=== PATIENT | female | born 1975 | race Caucasian/White ===

== ENCOUNTER 2018-02-11 00:14 | Emergency (ER) | payer OTHER ==
[2018-02-11 00:22] VITALS: BP 123/76; PULSE 65; RESP 18; TEMP 98.2
[2018-02-11] MEDS ORDERED: LIDOCAINE VISCOUS 2% 15 ML CUP MUCOUS MEM ONE (00:59)
[2018-02-11] MEDS ORDERED: HYDROcodone/APAP 5-325MG 1 EACH TAB PO STA (01:11)
[2018-02-11] MEDS ORDERED: PENICILLIN VK 500MG STARTER 4 TAB BTL PO STA (01:11)
[2018-02-11] MEDS ORDERED: ACET/COD 300 MG/30 MG STARTER PACK 6 TAB BTL PO STA (01:11)
--- NOTE | 2018-02-11 01:15 | ED ---
ENT HPI - General Chief complaint: Dental/Oral Stated complaint: dental pain Time Seen by Provider: 02/11/18 00:27 Source: patient Mode of arrival: ambulatory Limitations: no limitations - History of Present Illness Initial comments: 42-year-old female patient presents to the emergency department today for evaluation of abscess to the front upper teeth. Patient states that she has been dealing with increased swelling and pain to the area over the last 3 days. Patient states she has been taking Tylenol for this however is not helping much. Patient denies any fevers or chills. Denies any nausea or vomiting. She denies any trismus or difficulty swallowing. Patient denies any broken teeth to the area. States that she does not have dental insurance currently. Patient denies any recent rash, shortness breath, chest pain, abdominal pain, diarrhea, constipation, back pain, numbness, tingling, dizziness, weakness, hematuria, dysuria, urinary urgency, urinary frequency, headache, visual changes , or any other complaints. - Related Data Previous Rx's Medication Instructions Recorded Acetaminophen-Codeine 300-30mg 1 tab PO Q6H PRN #12 tablet 02/11/18 [Tylenol #3] Ibuprofen [Motrin] 600 mg PO Q8HR PRN #30 tab 02/11/18 Penicillin V Potassium [Pen Vee K] 500 mg PO Q6H #40 tablet 02/11/18 Allergies Allergy/AdvReac Type Severity Reaction Status Date / Time Iodine and Iodide Containing Allergy Rash/Hives Verified 02/11/18 00:22 Produc Review of Systems ROS Statement: Those systems with pertinent positive or pertinent negative responses have been documented in the HPI. ROS Other: All systems not noted in ROS Statement are negative. Past Medical History Past Medical History: No Reported History History of Any Multi-Drug Resistant Organisms: None Reported Past Surgical History: Appendectomy, Section Past Psychological History: Depression Smoking Status: Current every day smoker Past Alcohol Use History: None Reported Past Drug Use History: Marijuana General Exam Limitations: no limitations General appearance: alert, in no apparent distress, other (Social well-developed , well-nourished adult female patient in no acute distress. Vital signs upon presentation are temperature 98.2F, pulse 65, respirations 18, blood pressure 123/76, pulse ox 99% on room air.) Eye exam: Present: normal appearance, PERRL, EOMI. Absent: scleral icterus, conjunctival injection, periorbital swelling ENT exam: Present: mucous membranes moist, other (Patient has a large abscess to the frontal upper gingiva. Dental caries noted. No broken teeth.). Absent : normal exam Neck exam: Present: normal inspection. Absent: tenderness, meningismus, lymphadenopathy Respiratory exam: Present: normal lung sounds bilaterally. Absent: respiratory distress, wheezes, rales, rhonchi, stridor Cardiovascular Exam: Present: regular rate, normal rhythm, normal heart sounds. Absent: systolic murmur, diastolic murmur, rubs, gallop, clicks Neurological exam: Present: alert, oriented X3, CN II-XII intact Psychiatric exam: Present: normal affect, normal mood Skin exam: Present: warm, dry, intact, normal color. Absent: rash Course Vital Signs 02/11/18 00:19 Temperature 98.2 F Pulse Rate 65 Respiratory 18 Rate Blood Pressure 123/76 O2 Sat by Pulse 99 Oximetry Procedures - Incision & Drainage Consent Obtained: verbal consent Indication: Dental abscess Site: oral Size (cm): 2 Amount (mLs): 5 (viscous lidocaine) Needle Aspiration Performed?: Yes (Punctured with 18g needle) I&D Drainage Obtained: Pus, Blood Culture Obtained?: No Patient Tolerated Procedure: well Medical Decision Making - Medical Decision Making 42-year-old female patient presented to the emergency department today for evaluation of dental abscess. 2 cm dental abscess noted to the frontal upper gingiva. Area was anesthetized with 5 mL viscous lidocaine. Area was punctured with an 18-gauge hollow needle, had a large amount of pus from the area. Patient was started on pen VK. Given Tylenol 3 for pain control. She is instructed to follow-up with dentistry as soon as possible. Dental clinic information given. Return parameters discussed in detail. She verbalizes understanding and agrees with this plan. Disposition Clinical Impression: Dental abscess Disposition: HOME SELF-CARE Condition: Good Instructions: Dental Abscess (ED) Additional Instructions: Take antibiotics until complete. Follow-up with dentistry as soon as possible. Return here immediately for any new, worsening, or concerning symptoms. If you do not have dental insurance: Please follow up with the [facility] dental clinic. [facility] [place] [address]. Phone number for new patients or for existing patients. [facility]. Must pay for x-rays then services are free. Call for an appoitnment. Prescriptions: Acetaminophen-Codeine 300-30mg [Tylenol #3] 1 tab PO Q6H PRN #12 tablet PRN Reason: Pain Ibuprofen [Motrin] 600 mg PO Q8HR PRN #30 tab PRN Reason: Pain Penicillin V Potassium [Pen Vee K] 500 mg PO Q6H #40 tablet Is patient prescribed a controlled substance at d/c from ED?: No Referrals: None,Stated [Primary Care Provider] - 1-2 days Time of Disposition: 01:14
== END 2018-02-11 01:24 | disposition home or self-care (01) ==
LOC: EC 00:14
DX: K04.7 Periapical abscess without sinus (principal); K02.9 Dental caries, unspecified; F17.200 Nicotine dependence, unspecified, uncomplicated; Z91.048 Other nonmedicinal substance allergy status
CPT/HCPCS: 10160; 99282

== ENCOUNTER 2019-04-27 10:35 | Emergency (ER) | payer OTHER ==
[2019-04-27 10:51] VITALS: BP 110/69; PULSE 89; RESP 18; TEMP 97.9
[2019-04-27] MEDS ORDERED: Acetaminophen-Codeine 300-30mg TAB PO STA (11:53)
[2019-04-27 12:03] LABS: Amorphous Sediment,Urine Rare /hpf; Appearance,Urine Cloudy (Clear); Bilirubin,Urine Negative (Negative); Blood,Urine Negative (Negative); Color,Urine Yellow; Glucose,Urine (UA) Negative (Negative); Ketones,Urine Negative (Negative); Leukocyte Esterase,Urine Trace (Negative); Mucus,Urine Rare /hpf; Nitrite,Urine Negative (Negative); PH, Urine 8.5 (5.0-8.0); Protein,Urine 1+ (Negative); RBC,Urine 8 /hpf (0-5); Specific Gravity,Urine 1.019 (1.001-1.035); Squamous Epithelial Cell,Urine 2 /hpf (0-4); Urobilinogen,Urine <2.0 mg/dL (<2.0)
--- NOTE | 2019-04-27 12:08 | ED ---
General Adult HPI - General Chief complaint: Skin/Abscess/Foreign Body Stated complaint: cyst on breast Time Seen by Provider: 04/27/19 10:57 Source: patient Mode of arrival: ambulatory Limitations: no limitations - History of Present Illness Initial comments: Patient is 43-year-old female presenting to emergency Department with a chief complaint of a breast cyst and unable to remove a tampon from the vagina. Patient reports she had developed a "cyst" on her right breast approximately one year ago and has not seek any medical attention. Patient does not have a primary care physician. Patient reports the cyst has grown slightly over the past year. Patient reports of the past month she has developed a hard mass in the right breast that has slowly increased in size and pain severity. Patient does report discharge. Patient denies any unexplained weight loss, night sweats or chills. Patient does report weight gain over 40 pounds over the last year. Patient also reports she was not able to fully remove a tampon approximately 6 weeks. Patient reports that she attempt to clean it during whenever she showers and is still able to see small fragments of the tampon. Patient has not use another tampon ever since the incident. Patient denies any vaginal discharge or foul smell. Patient denies increased urgency or frequency or dysuria. - Related Data Home Medications Medication Instructions Recorded Confirmed ALPRAZolam [Xanax] 2 mg PO DAILY 04/27/19 04/27/19 FLUoxetine HCL [PROzac] 40 mg PO DAILY 04/27/19 04/27/19 Topiramate [Topamax] 200 mg PO DAILY 04/27/19 04/27/19 Previous Rx's Medication Instructions Recorded Naproxen [EC-Naprosyn] 500 mg PO BID PRN #30 tablet. 04/27/19 Allergies Allergy/AdvReac Type Severity Reaction Status Date / Time Iodine and Iodide Containing Allergy Rash/Hives Verified 04/27/19 10:51 Produc Review of Systems ROS Statement: Those systems with pertinent positive or pertinent negative responses have been documented in the HPI. ROS Other: All systems not noted in ROS Statement are negative. Past Medical History Past Medical History: No Reported History History of Any Multi-Drug Resistant Organisms: None Reported Past Surgical History: Appendectomy, Section Past Psychological History: Depression Smoking Status: Current every day smoker Past Alcohol Use History: None Reported Past Drug Use History: Marijuana General Exam Limitations: no limitations General appearance: alert, in no apparent distress Head exam: Present: atraumatic, normocephalic, normal inspection Eye exam: Present: normal appearance Pupils: Present: normal accommodation ENT exam: Present: normal exam, mucous membranes moist, normal external ear exam Neck exam: Present: normal inspection, full ROM. Absent: lymphadenopathy Respiratory exam: Present: normal lung sounds bilaterally. Absent: other (Small open wound measuring approximately 1 cm in diameter with yellow discharge. Palpable mass due to the open wound measuring approximately 4 cm x 4 cm. Tenderness to palpation. No surrounding erythema. No fluctuance.) Cardiovascular Exam: Present: regular rate, normal rhythm, normal heart sounds External exam: Present: normal external exam. Absent: lacerations Speculum exam: Present: foreign body (few small white fragments suspecting to be from a tampon). Absent: erythema, vaginal discharge, cervical discharge, vaginal bleeding, tissue, laceration Extremities exam: Present: normal inspection, full ROM Back exam: Present: normal inspection, full ROM Neurological exam: Present: alert, oriented X3 Psychiatric exam: Present: normal affect, normal mood Skin exam: Present: warm, intact, normal color Course Vital Signs 04/27/19 10:50 Temperature 97.9 F Pulse Rate 89 Respiratory 18 Rate Blood Pressure 110/69 O2 Sat by Pulse 98 Oximetry Procedures - Procedures Initial comment: Vaginal foreign body removal: A few small white fragments which I suspect to be from the tampon, was able to remove them with gauze and tongs, no lacerations, no vaginal or cervical discharge, patient tolerated the procedure well. Medical Decision Making - Medical Decision Making Patient is a 43-year-old female presenting to the emergency department with a chief complaint of a cyst and a tampon in the vagina. Patient reports that she had a cyst on the right breast at about 12:00 for approximately a year. Patient reports over the past month is increased in size as well as pain. Patient reports it has been draining as of recently as well. Patient also has a possible tampon in the vagina for approximately 6 weeks. Patient denies UTI symptoms or, vaginal irritation or follow small. Patient had no fevers or chills. On physical examination very small amounts of white foreign-body was noted in the vagina which were removed with gauze and tongs. No trauma was noted on the vaginal pérez. No trauma to the cervix either. No bleeding or discharge noted. Breast physical examination it is indicative of a large mass measuring approximately 4 x 4 centimeters underlying the mild open wound that is draining. No surrounding erythema. Patient has never had a mammogram nor does she have a primary care physician. I suspect this could be possible breast cancer. Ultrasound of the right breast found multiple other nodules throughout. I spoke with the radiologist who suggested the patient obtain a mammogram. I discussed the case with Dr. Jimenez who suggested the patient [facility] straight [facility] and be evaluated by Dr. Ted Jimenez. Patient was discharged and sent there. Dr. Jimenez also examined the patient and is in agreement with the treatment plan. - Lab Data Lab Results 04/27/19 Range/Units 11:40 Urine Color Yellow Urine Appearance Cloudy H (Clear) Urine pH 8.5 H (5.0-8.0) Ur Specific [place] 1.019 (1.001-1.035) Urine Protein 1+ H (Negative) Urine Glucose (UA) Negative (Negative) Urine Ketones Negative (Negative) Urine Blood Negative (Negative) Urine Nitrite Negative (Negative) Urine Bilirubin Negative (Negative) Urine Urobilinogen <2.0 (<2.0) mg/dL Ur Leukocyte Esterase Trace H (Negative) Urine RBC 8 H (0-5) /hpf Ur Squamous Epith Cells 2 (0-4) /hpf Amorphous Sediment Rare H (None) /hpf Urine Mucus Rare H (None) /hpf Disposition Clinical Impression: Breast mass in female, Foreign body in vagina Disposition: HOME SELF-CARE Condition: Stable Instructions (If sedation given, give patient instructions): Abscess (ED) Additional Instructions: Please go to [facility] and obtain a mammogram.'s Is patient prescribed a controlled substance at d/c from ED?: No Referrals: None,Stated [Primary Care Provider] - 1-2 days Time of Disposition: 14:53
--- NOTE | 2019-04-27 13:50 | USB ---
Reason for exam: clinical finding. US Breast RT Right complete breast ultrasound includes all four quadrants, the retroareolar region and axilla. Finding demonstrates: - a 7.8 x 4.4 x 5.5cm hypoechoic lesion at 1 o'clock very large irregular apparent mass spanning from 12-2 o'clock, there may be a small area that extends to the skin surface at 1 o'clock zone C, - a 1.0 x 0.5 x 0.7cm suspicious lesion at 11 o'clock, - a 1.1 x 0.8 x 1.4cm hypoechoic, suspicious lesion at 4 o'clock, - a 0.7 x 0.5 x 0.8cm hypoechoic, suspicious lesion at 5 o'clock, - a 1.2 x 0.8 x 1.1cm cystic cluster at 6 o'clock and a 9mm normal appearing axillary node. The four lesions mentioned above are suspicious, complete work up recommended. Multiple cystic areas. Scanned the whole breast. ASSESSMENT: Incomplete: need additional imaging evaluation, BI-RAD 0 RECOMMENDATION: Special view mammogram of both breasts. (Prior to surgical and oncologic management and prior to possible multiple site biopsy). MTDD
== END 2019-04-27 14:59 | disposition home or self-care (01) ==
LOC: EC 10:35
DX: T19.2XXA Foreign body in vulva and vagina, initial encounter (principal); S21.001A Unspecified open wound of right breast, initial encounter; F32.9 Major depressive disorder, single episode, unspecified; F17.200 Nicotine dependence, unspecified, uncomplicated; Z91.041 Radiographic dye allergy status; Z79.899 Other long term (current) drug therapy; X58.XXXA Exposure to other specified factors, initial encounter
CPT/HCPCS: 81001; 99284

== ENCOUNTER 2019-04-27 19:21 | Emergency (ER) | payer OTHER ==
[2019-04-27 19:54] VITALS: BP 133/85; PULSE 74; RESP 18; TEMP 98.1
[2019-04-27] MEDS ORDERED: ACET/COD 300 MG/30 MG STARTER PACK 6 TAB BTL PO STA (20:26)
[2019-04-27] MEDS ORDERED: KETOROLAC 30 MG/ML 1 ML VIAL IM STA (20:26)
--- NOTE | 2019-04-27 20:31 | ED ---
General Adult HPI - General Chief complaint: Urogenital Stated complaint: female gu Time Seen by Provider: 04/27/19 20:18 Source: patient Mode of arrival: ambulatory Limitations: no limitations - History of Present Illness Initial comments: 43-year-old female patient presents to the emergency department today for evaluation of pain to the right breast and possible vaginal foreign body. Patient states that she was seen and evaluated in this emergency department earlier today. She was concerned she may have had a tampon retained in her vagina for the last 6 weeks. She stated they did perform pelvic examination, but she does not believe they remove the tampon. States she has felt the area and still feels something there. Patient is also reporting right breast pain and lesion. States that she was seen and evaluated by the breast surgeon Dr. Gorman today and did have mammogram. States she is having significant pain and she was only told to take Tylenol. States Tylenol has not been helping with her discomfort. She is currently being evaluated for possible breast cancer. She denies any fever or chills. Denies any abnormal vaginal bleeding or discharge. Denies hematuria, dysuria, urinary frequency, urinary urgency. Patient denies any recent rash, shortness breath, chest pain, abdominal pain, nausea, vomiting, diarrhea, constipation, back pain, numbness, tingling, dizziness, weakness, headache, visual changes, or any other complaints. - Related Data Home Medications Medication Instructions Recorded Confirmed ALPRAZolam [Xanax] 2 mg PO DAILY 04/27/19 04/27/19 FLUoxetine HCL [PROzac] 40 mg PO DAILY 04/27/19 04/27/19 Topiramate [Topamax] 200 mg PO DAILY 04/27/19 04/27/19 Previous Rx's Medication Instructions Recorded Naproxen [EC-Naprosyn] 500 mg PO BID PRN #30 tablet. 04/27/19 Allergies Allergy/AdvReac Type Severity Reaction Status Date / Time Iodine and Iodide Containing Allergy Rash/Hives Verified 04/27/19 10:51 Produc Review of Systems ROS Statement: Those systems with pertinent positive or pertinent negative responses have been documented in the HPI. ROS Other: All systems not noted in ROS Statement are negative. Past Medical History Past Medical History: No Reported History History of Any Multi-Drug Resistant Organisms: None Reported Past Surgical History: Appendectomy, Section Past Psychological History: Depression Smoking Status: Current every day smoker Past Alcohol Use History: None Reported Past Drug Use History: Marijuana General Exam Limitations: no limitations General appearance: alert, in no apparent distress, other (Physical well- developed, well-nourished adult female patient in no acute distress. Vital signs upon presentation are temperature 98.1F, pulse 74, respirations 18, blood pressure 133/85, pulse ox 98% on room air.) Eye exam: Present: normal appearance, PERRL, EOMI. Absent: scleral icterus, con junctival injection, periorbital swelling ENT exam: Present: normal exam, normal oropharynx, mucous membranes moist Respiratory exam: Present: normal lung sounds bilaterally. Absent: respiratory distress, wheezes, rales, rhonchi, stridor Cardiovascular Exam: Present: regular rate, normal rhythm, normal heart sounds. Absent: systolic murmur, diastolic murmur, rubs, gallop, clicks GI/Abdominal exam: Present: soft, normal bowel sounds. Absent: distended, tenderness, guarding, rebound, rigid External exam: Present: normal external exam Speculum exam: Present: normal speculum exam. Absent: foreign body By manual exam: Present: normal by manual exam. Absent: cervical motion tenderness Neurological exam: Present: alert, oriented X3, CN II-XII intact Psychiatric exam: Present: normal affect, normal mood Skin exam: Present: warm, dry, intact, normal color. Absent: rash Course Vital Signs 04/27/19 19:48 Temperature 98.1 F Pulse Rate 74 Respiratory 18 Rate Blood Pressure 133/85 O2 Sat by Pulse 98 Oximetry Medical Decision Making - Medical Decision Making 43-year-old female patient presented to the emergency department today complaining of right breast pain and possible vaginal foreign body. Patient believes she may have had a tampon retained in the vagina for the last 6 weeks. She denies abnormal vaginal bleeding or discharge. Patient did have vaginal exam earlier today, there are reports of white debris removal but no evidence for foreign body. I did perform a vaginal exam with a speculum, there is no evidence for tampon. Perform bimanual exam was unable to feel any foreign bodies. I do believe the patient is feeling her cervix when she performs self exam. She does admit to inserting a spoon multiple times in attempt to remove what she thought was a tampon. I do believe this has caused some cervical irritation and tenderness. She was given IM Toradol and Tylenol with codeine for breast pain. She is instructed to follow-up with her surgeon Dr. Gorman for further evaluation and management of her breast lesion. Return parameters were discussed in detail. She verbalizes understanding and agrees with this plan. Disposition Clinical Impression: Vaginal irritation, Breast mass in female, Feared condition not demonstrated Disposition: HOME SELF-CARE Condition: Good Instructions (If sedation given, give patient instructions): Breast Mass (ED) Additional Instructions: Follow-up with Dr. Gorman for results of your breast testing. Take m edication as directed for pain. Return to the emergency department for any new, worsening, or concerning symptoms. Prescription was sent to [facility] in [place]. Prescriptions: Naproxen [EC-Naprosyn] 500 mg PO BID PRN #30 tablet.dr RIOS Reason: Pain Is patient prescribed a controlled substance at d/c from ED?: No Referrals: Liz Gorman MD [STAFF PHYSICIAN] - 1-2 days Ernesto Garrison DO [STAFF PHYSICIAN] - 1-2 days Time of Disposition: 20:28
== END 2019-04-27 20:52 | disposition home or self-care (01) ==
LOC: EC 19:21
DX: N89.8 Other specified noninflammatory disorders of vagina (principal); N63.0 Unspecified lump in unspecified breast; F17.200 Nicotine dependence, unspecified, uncomplicated; F32.9 Major depressive disorder, single episode, unspecified; Z71.1 Person with feared health complaint in whom no diagnosis is made; Z79.899 Other long term (current) drug therapy; Z91.041 Radiographic dye allergy status; Z98.890 Other specified postprocedural states
CPT/HCPCS: 96372; 99283; J1885

== ENCOUNTER → 2019-04-27 | Outpatient (CLI) | payer SELFPAY ==
--- NOTE | 2019-04-28 13:48 | MM ---
Reason for exam: additional evaluation requested from prior study. Baseline mammogram. Physical Findings: Nurse Summary: 10cm nodule in the right breast at 12-3 o'clock and 6-9 o'clock, a 1-2cm nodule in the left breast (nurse kp). [facility] Diagnostic Mammo w CAD CAROLYN Bilateral CC and MLO view(s) were taken. The breast tissue is extremely dense which could obscure a lesion on mammography. Finding: There is an indistinct mass in the right breast. These results were verbally communicated with the patient and result sheet given to the patient on 04/27/19. ASSESSMENT: Incomplete: need additional imaging evaluation, BI-RAD 0 RECOMMENDATION: Ultrasound of the left breast. (two palpable, dense tissue)
--- NOTE | 2019-04-28 13:52 | USB ---
Reason for exam: additional evaluation requested from abnormal screening. US Breast LT Left complete breast ultrasound includes all four quadrants, the retroareolar region and axilla. Finding demonstrates a 1.2 x 0.4 x 0.7cm cystic cluster at 12 o'clock, a 0.6 x 0.5 x 0.7cm cystic lesion at 2 o'clock, a 0.8 x 0.5 x 0.8cm cystic cluster at 5 o'clock and a 1.2 x 0.5 x 0.8cm cystic lesion at 7 o'clock. All benign and likely fibrocystic changes. These results were verbally communicated with the patient and result sheet given to the patient on 04/27/19. ASSESSMENT: Highly suggestive of malignancy, BI-RAD 5 RECOMMENDATION: Surgical consultation. (right breast) Ultrasound core biopsy. (right breast) Called office with mammographic findings and has scheduled an appointment for the patient for 04/27/19 at 4:[address] Gorman. Biopsy scheduled for 05/04/19 at 2:00. PRELIMINARY REPORT CALLED AND FAXED TO DR. GORMAN ON 04/28/19.
== END | disposition home or self-care (01) ==
LOC: RADMAMWWP 15:18
PROVIDERS: ATTEND Surgery
DX: N63.10 Unspecified lump in the right breast, unspecified quadrant (principal); N63.20 Unspecified lump in the left breast, unspecified quadrant
CPT/HCPCS: 77066

== ENCOUNTER → 2019-04-27 | Outpatient (CLI) | payer SELFPAY ==
[2019-04-27 16:59] VITALS: BP 123/76; PULSE 75; RESP 16; TEMP 97.8; BMI 36.3
--- NOTE | 2019-04-27 17:43 | P.GSHP ---
History of Present Illness H&P Date: 04/27/19 Chief Complaint: Right breast lump with pain Katya is a 43-year-old white female who states that she has had a mass in her right breast for approximately one year. It has been increasing in size. It has been painful at least since October. She has been taking Motrin for this but today received Tylenol 3 to the emergency room. Today she decided that it was more than she could tolerate and decided to be seen in the emergency room. She does not have a primary care physician. A mammogram was performed report is not yet available. Additionally she had an ultrasound performed an ultrasound reveals a 7.8 x 5.5 cm hypoechoic lesion at 1:00 with a regular mass, 1 x 0.7 cm suspicious lesion at 11:00, 1.1 x 1.4 cm suspicious lesion at 4:00, 2.7 x 0.8 cm suspicious lesion at 5:00, 1.2 x 0.8 cm cystic cluster and a at 6:00, and a 9 mm normal-appearing axillary node. The lesions mentioned above are suspicious and patient is recommended to have additional imaging of both breasts. Patient states that she has an area in the right breast of bruising patient occurred approximately 1 month ago. The patient states the mass increases with respect to her period and gets from her. She was on her period last week. The patient does not feel anything of concern in the left breast. Family history: mother: of cancer ? type brother: brain cancer paternal grandfather: Metastatic cancer question source maternal aunt: breast cancer Hormonal History: menarche: 15 1/2 , breast fed: yes, age at : 20 periods: Regular, they are heavy BCP: none hormones: none Surgical history: 1. Appendectomy 2. at 20 3. Cyst right shoulder Medical History: 1. Anxiety/depression Social history: Smoke: A pack per day Alcohol: Negative Drugs: Marijuana once a day - Constitutional Comment: pain in her breast Constitutional: Reports chronic pain, Reports sweats - EENT Eyes: bilateral blurred vision, bilateral decreased vision, denies pain Ears: deny: decreased hearing, tinnitus Ears, nose, mouth and throat: Denies headache, Denies sore throat - Breasts Breasts: bilateral: as per HPI - Cardiovascular Cardiovascular: Denies chest pain, Denies shortness of breath - Respiratory Respiratory: Denies cough, Denies 7 - Gastrointestinal Gastrointestinal: Denies abdominal pain, Denies diarrhea, Denies nausea, Denies vomiting - Genitourinary (Female) Genitourinary: Denies dysuria, Denies hematuria - Menstruation Menstruation: Reports period normal - Musculoskeletal Musculoskeletal: Denies myalgias - Integumentary Integumentary: Denies pruritus, Denies rash - Neurological Neurological: Denies numbness, Denies weakness - Psychiatric Psychiatric: Reports anxiety, Reports depression - Endocrine Endocrine: Reports weight change, Denies fatigue - Hematologic/Lymphatic Comment: none - Allergic/Immunologic Allergic/Immunologic: Reports seasonal allergies Past Medical History Past Medical History: No Reported History History of Any Multi-Drug Resistant Organisms: None Reported Past Surgical History: Appendectomy, Section Past Psychological History: Depression Smoking Status: Current every day smoker Past Alcohol Use History: None Reported Past Drug Use History: Marijuana Medications and Allergies Home Medications Medication Instructions Recorded Confirmed Type ALPRAZolam [Xanax] 2 mg PO DAILY 04/27/19 04/27/19 History FLUoxetine HCL [PROzac] 40 mg PO DAILY 04/27/19 04/27/19 History Topiramate [Topamax] 200 mg PO DAILY 04/27/19 04/27/19 History Allergies Allergy/AdvReac Type Severity Reaction Status Date / Time Iodine and Iodide Containing Allergy Rash/Hives Verified 04/27/19 10:51 Produc Surgical - Exam Vital Signs Temp Pulse Resp BP Pulse Ox 97.8 F 75 16 123/76 99 04/27/19 16:52 04/27/19 16:52 04/27/19 16:52 04/27/19 16:52 04/27/19 16:52 BMI 36.3 - General well developed, well nourished, no distress - Eyes normal ocular movement - ENT no hearing loss, no congestion - Neck no masses, trachea midline - Respiratory normal expansion, normal respiratory effort, clear to auscultation - Cardiovascular Rhythm: regular Heart Sounds: normal: S1, S2 - Abdomen Abdomen: soft - Integumentary Excoriated area upper inner quadrant right breast consistent with underlying lesion breaking through the skin - Neurologic no disoriented, no combative - Musculoskeletal normal gait, normal posture - Psychiatric oriented to time, oriented to person, oriented to place, speech is normal, memory intact Breast examination: Right breast: Multi-positional exam reveals a 13 x 13 cm firm mass in the upper inner quadrant there is an area of excoriation on the superior aspect of this which is approximately 3 x 2 cm in size with a plate discharge cultures obtained Right axilla: Positive adenopathy Left breast: Multi-positional exam no dominant masses or nodules of concern Left axilla: No adenopathy of concern Results Mammogram and ultrasound results to be reviewed Assessment and Plan Assessment: Impression: 1. Abnormal mammogram right breast 2. Abnormal ultrasound right breast 2. Palpable mass right breast 4. Skin lesion right breast upper inner quadrant 5. Possible purulent drainage from skin lesion right breast 6. Fibrocystic breast changes 7. Positive family history of cancer 8. Positive family history of breast cancer 9. Anxiety/depression Plan: 1. Ultrasound-guided core biopsy right breast 2. Repeat radiographs with radiology 3. Follow-up after ultrasound core biopsy 4. Culture obtained right breast lesion
== END | disposition home or self-care (01) ==
LOC: WWCWWP 14:58
PROVIDERS: ATTEND Surgery
DX: N64.89 Other specified disorders of breast (principal); R92.8 Other abnormal and inconclusive findings on diagnostic imaging of breast; Z80.3 Family history of malignant neoplasm of breast
CPT/HCPCS: 87070; 87075; 87077; 87186; 87205

== ENCOUNTER → 2019-05-15 | Day surgery (SDC) | payer SELFPAY ==
[2019-05-15 11:40] VITALS: BP 111/73; PULSE 63; RESP 16; TEMP 97.9; BMI 35.5
--- NOTE | 2019-05-24 10:33 | USB ---
US Biopsy Breast Add'l VAD RT Radiologist: Bear Adam M.D. Radiologis ULTRASOUND GUIDED CORE BREAST BIOPSY RIGHT BREAST: CLINICAL HISTORY: Request for 1:00, 4:00, 5:00, 11:00 core biopsy of nodules. FINDINGS: The procedure was explained to the patient. The risks, complications, benefits and alternatives were discussed and any questions were answered. Informed consent was obtained. Patient was placed supine on the ultrasound table and prepped and draped in the usual sterile fashion. Utilizing a 14 gauge needle, multiple passes were made into each of the requested for right breast nodules. Surgical clips were placed post biopsy. The patient refused postprocedural mammogram. Patient was stable throughout the procedure. Pathology is pending. All elements of maximal barrier technique were utilized. IMPRESSION: 1. Successful ultrasound guided core biopsy right breast for 4 lesions. Note is made the patient refused the postprocedural mammogram. Pathology Results: Malignant A. 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 See Surgical Pathology Cancer Case Summary. An appropriately controlled immunohistochemical study is performed to differentiate between lobular and infiltrating duct carcinoma. E-Cadherin strongly reacts with tumor cells confirming their nature as ductal carcinoma. B. RIGHT BREAST AT 4:00 POSITION, BIOPSIES: Fibrocystic disease with fibroadenomatoid hyperplasia. C. RIGHT BREAST AT 11:00 POSITION, NEEDLE CORE BIOPSIES: Fibrocystic disease with fibroadenomatoid hyperplasia. D. RIGHT BREAST AT 5:00 POSITION, NEEDLE CORE BIOPSIES: Fibrocystic disease with a fibroadenoma. RECOMMENDATION: Surgical consultation of the right breast. TAMICA
== END ==
LOC: RADUSWWP 11:20
PROVIDERS: ATTEND Surgery
DX: R92.8 Other abnormal and inconclusive findings on diagnostic imaging of breast (principal)
CPT/HCPCS: 19083; 88305; 88342; 88341; 19084; A4648; J2001

== ENCOUNTER → 2019-05-18 | Outpatient (CLI) | payer SELFPAY ==
[2019-05-18 16:36] VITALS: BP 123/78; PULSE 79; RESP 18; TEMP 98.5; BMI 34.8
--- NOTE | 2019-05-18 17:22 | P.PN ---
Subjective Progress Note Date: 05/18/19 [id number] Katya is a 43-year-old white female who states that she has had a mass in her right breast for approximately one year. It had been increasing in size. It has been painful at least since October. She has been taking Motrin for this but received Tylenol 3 in the emergency room. She decided that it was more than she could tolerate and decided to be seen in the emergency room. She does not have a primary care physician. Additionally she had an ultrasound performed an ultrasound reveals a 7.8 x 5.5 cm hypoechoic lesion at 1:00 with a regular mass, 1 x 0.7 cm suspicious lesion at 11:00, 1.1 x 1.4 cm suspicious lesion at 4:00, 2.7 x 0.8 cm suspicious lesion at 5:00, 1.2 x 0.8 cm cystic cluster and a at 6:00, and a 9 mm normal-appearing axillary node. The lesions mentioned above were suspicious and patient is recommended to have additional imaging of both breasts. Patient states that she has an area in the right breast of bruising patient occurred approximately 1 month ago. A bilateral mammogram was performed on [id number] this revealed extremely dense breast tissue and ultrasound of the left breast was recommended. Ultrasound of the left breast is reported cystic-like lesions. A core biopsy was performed of the right breast. Verbal report from pathology reveals this to be an infiltrating carcinoma. Biopsies were performed at the 1:00, 4:00, 5:00, and 11 o'clock position. The area of ulceration in the upper aspect of the breast which has been painful for the patient. Cultures performed on [id number] revealed staph. This was sensitive to Keflex and patient was given a prescription for Keflex. Family history: mother: of cancer ? type brother: brain cancer paternal grandfather: Metastatic cancer question source maternal aunt: breast cancer Hormonal History: menarche: 15 1/2 , breast fed: yes, age at : 20 periods: Regular, they are heavy BCP: none hormones: none Surgical history: 1. Appendectomy 2. at 20 3. Cyst right shoulder Medical History: 1. Anxiety/depression Social history: Smoke: A pack per day Alcohol: Negative Drugs: Marijuana once a day - Constitutional Comment: pain in her breast Constitutional: Reports chronic pain, Reports sweats - EENT Eyes: bilateral blurred vision, bilateral decreased vision, denies pain Ears: deny: decreased hearing, tinnitus Ears, nose, mouth and throat: Denies headache, Denies sore throat - Breasts Breasts: bilateral: as per HPI - Cardiovascular Cardiovascular: Denies chest pain, Denies shortness of breath - Respiratory Respiratory: Denies cough, Denies 7 - Gastrointestinal Gastrointestinal: Denies abdominal pain, Denies diarrhea, Denies nausea, Denies vomiting - Genitourinary (Female) Genitourinary: Denies dysuria, Denies hematuria - Menstruation Menstruation: Reports period normal - Musculoskeletal Musculoskeletal: Denies myalgias - Integumentary Integumentary: Denies pruritus, Denies rash - Neurological Neurological: Denies numbness, Denies weakness - Psychiatric Psychiatric: Reports anxiety, Reports depression - Endocrine Endocrine: Reports weight change, Denies fatigue - Hematologic/Lymphatic Comment: none - Allergic/Immunologic Allergic/Immunologic: Reports seasonal allergies Past Medical History Past Medical History: No Reported History History of Any Multi-Drug Resistant Organisms: None Reported Past Surgical History: Appendectomy, Section Past Psychological History: Depression Smoking Status: Current every day smoker Past Alcohol Use History: None Reported Past Drug Use History: Marijuana Objective - Vital Signs Vital signs: Vital Signs Temp 98.5 F 05/18/19 16:32 Pulse 79 05/18/19 16:32 Resp 18 05/18/19 16:32 BP 123/78 05/18/19 16:32 Pulse Ox 99 05/18/19 16:32 Intake & Output 05/17/19 05/18/19 05/18/19 18:59 06:59 18:59 Weight 97.976 kg - Exam BMI 34.9 - Constitutional General appearance: Present: obese - EENT Eyes: Present: EOMI ENT: Present: hearing grossly normal - Neck Neck: Present: normal ROM - Respiratory Respiratory: bilateral: CTA - Cardiovascular Rhythm: regular Heart sounds: normal: S1, S2 - Musculoskeletal Musculoskeletal: Present: gait normal - Psychiatric Psychiatric Comment(s): anxious, affect flat Psychiatric: Present: A&O x's 3 - Additional findings Additional findings: Right breast colon, 13 x 13 cm firm mass in the upper inner quadrant there is an area of excoriation in the superior aspect which is approximately 3 x 2 cm in size Right axilla: shotty adenopathy Assessment and Plan Assessment: Impression: 1. Right breast T4 invasive carcinoma 2. Skin ulceration right breast 3. Decreased purulent drainage from skin lesion right breast 4. Fibrocystic left breast changes 5. Positive family history of cancer 6. Positive family history of breast cancer 7. Anxiety/depression 8. Cultures on [id number] positive for staph may be contaminate sensitive to Keflex and patient was treated with Keflex Plan: 1. Appointment with medical oncology hopefully we will be able to shrink the lesion 2. Presentation at tumor board 3. Await tumor marker studies 4. PET scan ordered The diagnosis and stage of disease were discussed with the patient and her friend. The fact that this is most likely a T4 breast cancer was discussed. The recommendation for medical oncology prior to any surgical intervention was discussed. PET scan to rule out metastatic disease was recommended. This is ordered. Patient will be seen by medical oncology, she will have a PET scan, and then return here. The patient does not have a primary care physician. Her affect was very flat today and she does use marijuana daily. We will have social work involved with the case.
== END ==
LOC: WWCWWP 16:01
PROVIDERS: ATTEND Surgery
DX: Z53.9 Procedure and treatment not carried out, unspecified reason (principal)

== ENCOUNTER → 2019-06-08 | Outpatient (CLI) | payer SELFPAY ==
--- NOTE | 2019-06-08 10:06 | CT ---
EXAMINATION TYPE: CT ChestAbdPelvis w con DATE OF EXAM: 06/08/2019 COMPARISON: Correlation with breast ultrasound 04/27/2019. HISTORY: 43-year-old female New diagnosis of breast CA. TECHNIQUE: Contiguous axial scanning of the chest, abdomen, and pelvis performed with IV Contrast, pa tient injected with 100 mL of Isovue 300. Delayed images through the kidneys were obtained. Coronal/s agittal reconstructions performed. CT DLP: 1445.3 mGycm Automated exposure control for dose reduction was used. FINDINGS: Chest: Known, large right superior right breast mass measuring approximately 7.6 cm. There is apparent exten tomas to the superior right breast skin surface with some focal ulceration. Subtle mildly enhancing 1.5 cm nodule medially in the right breast with adjacent microclip from recen t biopsy. Left anterior chest wall injection port with catheter tip in the lower SVC. Heart normal size without pericardial effusion. Aorta normal caliber with conventional vessel branching anatomy. No axillary, mediastinal, or hilar lymphadenopathy. Nonspecific 6 mm basal right middle lobe pulmonary nodule. No additional suspicious pulmonary nodules or masses. No consolidation or pleural effusion. Mild dependent atelectasis. ABDOMEN: No focal liver lesion or biliary ductal dilatation. Portal venous system is patent. Gallbladder, adrenal glands, kidneys, spleen, and pancreas within normal limits. No dilated small bowel, free fluid, or free air. No mesenteric or retroperitoneal lymphadenopathy. There is moderate stool burden without pericolonic inflammatory change. PELVIS: Bladder is partially distended. The uterus is retroverted. Both ovaries are visualized with follicula r change. 2.6 cm dominant follicle or functional cyst in the right ovary. No abnormal fluid collectio n in the pelvis or pelvic lymphadenopathy. BONES: Small T12 ribs. Transitional lumbosacral segment is noted as a sacralized L5. No osseous destructive process. IMPRESSION: 1. KNOWN LARGE SUPERIOR RIGHT BREAST CANCER MEASURING UP TO 7.6 CM. THERE IS EXTENSION TO THE SKIN POSADAS RFACE WITH ASSOCIATED ULCERATION. 2. A SOLITARY 6 MM BASILAR RIGHT MIDDLE LOBE PULMONARY NODULE IS NONSPECIFIC. REASSESS AT FOLLOW-UP. 3. OTHERWISE, NO EVIDENCE FOR METASTATIC DISEASE.
--- NOTE | 2019-06-08 11:43 | ECHOF ---
Referral Reason:C50.419 Breast cancer MEASUREMENTS -------- HEIGHT: 170.2 cm WEIGHT: 99.8 kg BP: IVSd: 1.1 cm (0.6 - 1.1) LVIDd: 4.3 cm (3.9 - 5.3) LVPWd: 1.0 cm (0.6 - 1.1) IVSs: 1.7 cm LVIDs: 2.8 cm LVPWs: 2.0 cm LAESV Index (A-L): 20.99 ml/m Ao Diam: 3.2 cm (2.0 - 3.7) AV Cusp: 2.2 cm (1.5 - 2.6) LA Diam: 3.5 cm (2.7 - 3.8) MV EXCURSION: 16.649 mm (> 18.000) MV EF SLOPE: 113 mm/s (70 - 150) EPSS: 0.4 cm MV E Oziel: 0.75 m/s MV DecT: 236 ms MV A Oziel: 0.80 m/s MV E/A Ratio: 0.93 RAP: 5.00 mmHg RVSP: 11.66 mmHg TAPSE: 29.71 mm FINDINGS -------- Sinus rhythm. This was a technically good study. The left ventricular size is normal. Left ventricular wall thickness is normal. Overall left vent ricular systolic function is normal with, an EF between 55 - 60 %. The diastolic filling pattern is normal for the age of the patient 8.14. The right ventricle is normal in size. The right ventricular systolic function is normal. The left atrial size is normal. Normal LA size by volume 22+/-6 ml/m2. The right atrial size is normal. Interatrial and interventricular septum intact. The aortic valve is trileaflet and appears structurally normal. The mitral valve is normal. There is trace mitral regurgitation. The tricuspid valve appears structurally normal. Trace tricuspid regurgitation present. Right wiliam tricular systolic pressure is normal at < 35 mmHg. There is no pulmonic regurgitation present. The aortic root size is normal. Normal inferior vena cava with normal inspiratory collapse consistent with estimated right atrial pre ssure of 5 mmHg. There is no pericardial effusion. CONCLUSIONS -------- 1. Sinus rhythm. 2. This was a technically good study. 3. The left ventricular size is normal. 4. Left ventricular wall thickness is normal. 5. Overall left ventricular systolic function is normal with, an EF between 55 - 60 %. 6. The diastolic filling pattern is normal for the age of the patient 8.14 7. The right ventricle is normal in size. 8. The right ventricular systolic function is normal. 9. The left atrial size is normal. 10. Normal LA size by volume 22+/-6 ml/m2. 11. The right atrial size is normal. 12. Interatrial and interventricular septum intact. 13. The aortic valve is trileaflet and appears structurally normal. 14. The mitral valve is normal. 15. There is trace mitral regurgitation. 16. The tricuspid valve appears structurally normal. 17. Trace tricuspid regurgitation present. 18. Right ventricular systolic pressure is normal at < 35 mmHg. 19. There is no pulmonic regurgitation present. 20. The aortic root size is normal. 21. Normal inferior vena cava with normal inspiratory collapse consistent with estimated right atrial pressure of 5 mmHg. 22. There is no pericardial effusion. [employer]SEM[employer]Y WORKER: Sachi Toscano RDCS
--- NOTE | 2019-06-08 13:24 | NM ---
EXAMINATION TYPE: NM bone scan whole body DATE OF EXAM: 06/08/2019 COMPARISON: CT scan dated 06/08/2019 HISTORY: Breast cancer Delayed whole-body scanning was performed following the injection of 25.3 mCi Tc 99m MDP. Images acq uired 4.75 hours post injection. FINDINGS: Radiopharmaceutical uptake is normal for patient's age. Soft tissue uptake is unremarkable. No abnorm al areas of increased or decreased uptake to suggest metastatic disease. IMPRESSION: Normal bone scan
== END | disposition home or self-care (01) ==
LOC: RADCTMAIN 07:07
PROVIDERS: ATTEND Internal Medicine Hematology & Oncology
DX: Z01.818 Encounter for other preprocedural examination (principal); C50.411 Malignant neoplasm of upper-outer quadrant of right female breast; R91.1 Solitary pulmonary nodule; Z91.041 Radiographic dye allergy status
CPT/HCPCS: 93306; 71260; 74177; 78306; A9503; Q9967

== ENCOUNTER → 2020-01-05 | Outpatient (CLI) | payer OTHER ==
--- NOTE | 2020-01-05 13:30 | CT ---
EXAMINATION TYPE: CT ChestAbdPelvis w con DATE OF EXAM: 01/05/2020 COMPARISON: 06/08/2019 HISTORY: Follow up cancer CT DLP: 1314.2 mGycm CONTRAST: CT scan of the chest, abdomen and pelvis is performed without Oral Contrast and with IV Contrast, pat ient injected with 100 mL of Isovue 300. CT Chest: LUNGS: The lungs are clear and free of infiltrate or atelectasis. 5 mm pulmonary nodular density righ t lower lobe anteriorly image 45 versus 6.4 mm previously. No additional nodules seen. No pleural eff usion or CT evidence of interstitial lung disease. MEDIASTINUM: Thoracic aorta is of normal caliber. The heart is not enlarged. No evidence for media stinal mass or adenopathy. HILAR STRUCTURES: No evidence for mass. No hilar adenopathy is appreciated. OTHER: Large right breast mass has been excised. CONTRAST CT ABDOMEN AND PELVIS FINDINGS: LIVER/GB: No calcified gallstones. No space occupying hepatic lesion. Biliary tree is of normal ca liber. PANCREAS: No inflammation. No distinct mass. SPLEEN: No splenic enlargement. No lesion seen. ADRENALS: No nodule. No thickening. KIDNEYS/BLADDER: No hydronephrosis. No nephrolithiasis. No disctinct renal mass. BOWEL: Normal appendix. Normal bowel caliber. No inflammation. GENITAL ORGANS: No gross abnormality. LYMPH NODES: No greater than 1cm abdominal or pelvic lymph nodes are appreciated. AORTA: No significant abnormality. OSSEOUS STRUCTURES: No significant abnormality is seen. OTHER: No significant additional abnormality is seen. IMPRESSION: 1. Interval excision of right breast mass. 2. Diminution in size and nodular density right lower lobe anteriorly. Continued progress study recom mended.
== END | disposition home or self-care (01) ==
LOC: RADPROMAIN 12-25 08:20 → RADCTMAIN 11:33
PROVIDERS: ATTEND Internal Medicine Hematology & Oncology
DX: N63.10 Unspecified lump in the right breast, unspecified quadrant (principal); R91.1 Solitary pulmonary nodule; C50.419 Malignant neoplasm of upper-outer quadrant of unspecified female breast
CPT/HCPCS: 71260; 74177; Q9967

== ENCOUNTER → 2020-03-20 | Outpatient (CLI) | payer OTHER ==
--- NOTE | 2020-03-20 14:19 | CT ---
EXAMINATION TYPE: CT ChestAbdPelvis w con DATE OF EXAM: 03/20/2020 COMPARISON: Prior CT chest abdomen pelvis 01/05/2020 HISTORY: Breast cancer, observe for mets. CT DLP: 1819 mGycm Automated exposure control for dose reduction was used. CONTRAST: CT scan of the chest, abdomen and pelvis is performed with Oral Contrast and with IV Contrast, patien t injected with 100 mL of Isovue M300. FINDINGS: Postop changes are noted to the right breast, there is a deformity noted at the superior ma rgin likely due to scarring similar to prior. LUNGS: The lungs are remarkable for some interval development of patchy density in the subpleural rig ht upper lobe which I suspect is due to post radiation change, there is no concerning parenchymal mas s or nodule identified on the current exam. There is no pleural effusion or pneumothorax seen. The tracheobronchial tree is patent. MEDIASTINUM: There are no greater than 1 cm hilar or mediastinal lymph nodes. No pericardial effusi on is seen. AORTA: No significant abnormality is seen. OTHER: No additional significant abnormality is seen. LIVER/GB: No significant interval change is appreciated, punctate calcification is present anterior t o the inferior vena cava as on prior exams, the gallbladder is unremarkable.. PANCREAS: No significant abnormality is seen. SPLEEN: No significant abnormality is seen. ADRENALS: No significant abnormality is seen. KIDNEYS: No significant abnormality is seen. REPRODUCTIVE ORGANS: No gross abnormality seen. BOWEL: Thickened small bowel folds could be due to underlying enteritis.. FREE AIR: No Free Air visible. ASCITES: None seen. RETROPERITONEAL ADENOPATHY: No retroperitoneal adenopathy is seen. LYMPH NODES: No greater than 1 cm abdominal or pelvic lymph nodes are appreciated. URINARY BLADDER: No significant abnormality is seen. PELVIC ADENOPATHY: None visualized. OSSEOUS STRUCTURES: No significant abnormality is seen. IMPRESSION: Suspect posttreatment changes within the right lung, pulmonary nodule is not evident.
== END | disposition home or self-care (01) ==
LOC: RADCTMAIN 11:20
PROVIDERS: ATTEND Internal Medicine Hematology & Oncology
DX: C50.419 Malignant neoplasm of upper-outer quadrant of unspecified female breast (principal); Z91.048 Other nonmedicinal substance allergy status
CPT/HCPCS: 71260; 74177; Q9967

== ENCOUNTER → 2021-03-25 | Outpatient (CLI) | payer OTHER ==
[2021-03-25 16:51] LABS: Basophils # (A) 0.03 X 10*3/uL (0.00-0.10); Basophils % (A) 0.4 %; Eosinophils # (A) 0.11 X 10*3/uL (0.04-0.35); Eosinophils % (A) 1.6 %; HCT 42.6 % (37.2-46.3); HGB 13.7 g/dL (12.0-15.0); Lymphocytes # (A) 2.04 X 10*3/uL (0.90-5.00); Lymphocytes % (A) 30.1 %; MCH 30.9 pg (27.0-32.0); MCHC 32.2 g/dL (32.0-37.0); MCV 96.2 fL (80.0-97.0); Mean Platelet Volume 10.9 fL (9.5-12.2); Monocytes # (A) 0.41 X 10*3/uL (0.20-1.00); Monocytes % (A) 6.1 %; Neutrophils # (A) 4.15 X 10*3/uL (1.80-7.70); Neutrophils % (A) 61.4 %; Platelet Count 185 X 10*3/uL (140-440); RBC 4.43 X 10*6/uL (4.10-5.20); RDW 12.7 % (11.5-14.5); WBC 6.77 X 10*3/uL (4.50-10.00)
[2021-03-25 19:36] LABS: ALT 18 U/L (8-44); AST 16 U/L (13-35); African American GFR (CKD) 79.9 (60.0-200.0); Albumin/Globulin Ratio 2.21 (1.60-3.17); Alkaline Phosphatase 86 U/L (41-126); Bilirubin, Conjugated <0.20 mg/dL (0.20-0.40); Calcium 9.1 mg/dL (8.7-10.3); Carbon Dioxide 20.3 mmol/L (21.6-31.8); Chloride 114 mmol/L (96-109); Chol/HDL Ratio 5.57; Cholesterol 206 mg/dL (0-200); Globulin 1.9 g/dL (1.6-3.3); Glucose 94 mg/dL (70-110); LDL Cholesterol,Calculated 144.2 mg/dL (0.0-131.0); Non-African American GFR(CKD) 68.9 (60.0-200.0); Potassium 4.2 mmol/L (3.5-5.5); Sodium 142 mmol/L (135-145); Total Bilirubin 0.2 mg/dL (0.3-1.2); Total Protein 6.1 g/dL (6.2-8.2)
[2021-03-25 19:45] LABS: Folate, Serum 6.5 ng/mL
[2021-03-25 20:40] LABS: Hemoglobin A1C 4.8 % (4.0-6.0)
== END | disposition home or self-care (01) ==
LOC: LABWHC1 09:35
DX: Z51.81 Encounter for therapeutic drug level monitoring (principal)
CPT/HCPCS: 36415; 80053; 80061; 82248; 82306; 82607; 82652; 82746; 83036; 84439; 84443; 85025; 93005

== ENCOUNTER → 2021-10-17 | Outpatient (CLI) | payer OTHER ==
[2021-10-17 10:29] VITALS: BP 109/68; PULSE 75; RESP 17; TEMP 98.5
--- NOTE | 2021-10-17 11:52 | P.PN ---
Subjective Progress Note Date: 10/17/21 Principal diagnosis: right breast cancer Katya is a 43-year-old white female who states that she has had a mass in her right breast for approximately one year. It has been increasing in size. It has been painful at least since October. She has been taking Motrin for this but today received Tylenol 3 to the emergency room. Today she decided that it was more than she could tolerate and decided to be seen in the emergency room. She does not have a primary care physician. A mammogram was performed report is not yet available. Additionally she had an ultrasound performed an ultrasound reveals a 7.8 x 5.5 cm hypoechoic lesion at 1:00 with a regular mass, 1 x 0.7 cm suspicious lesion at 11:00, 1.1 x 1.4 cm suspicious lesion at 4:00, 2.7 x 0.8 cm suspicious lesion at 5:00, 1.2 x 0.8 cm cystic cluster and a at 6:00, and a 9 mm normal-appearing axillary node. The lesions mentioned above are suspicious and patient is recommended to have additional imaging of both breasts. Patient states that she has an area in the right breast of bruising patient occurred approximately 1 month ago. The patient states the mass increases with respect to her period and gets from her. She was on her period last week. The patient does not feel anything of concern in the left breast. 10-17-21 Patient 2 years ago was recommended to undergo a mastectomy. She opted not to have that performed at that time. She did undergo neoadjuvant dose dense before meals and completed 4 cycles. This was on 120 322. On [id number] she started weekly Taxol and carboplatinum and completed 12 weekly treatments and [id number]. She completed neoadjuvant radiation therapy and [id number]. At the end of the treatments they remained far less at this site. The original tumor was 7.8 x 5.5 x 4.4 cm in size. She had no suspicious nodes on ultrasound of the axilla. 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 She has not had any imaging since she completed her treatment. note 02-23-2020 reviewed Family history: mother: of cancer ? type brother: brain cancer paternal grandfather: Metastatic cancer question source maternal aunt: breast cancer Hormonal History: menarche: 15 1/2 , breast fed: yes, age at : 20 periods: Regular, they are heavy BCP: none hormones: none Surgical history: 1. Appendectomy 2. at 20 3. Cyst right shoulder Medical History: 1. Anxiety/depression Social history: Smoke: A pack per day; 1/2 PPD now Alcohol: Negative Drugs: Marijuana once or twice a day - Constitutional Comment: pain in her breast Constitutional: Reports chronic pain, Reports sweats - EENT Eyes: bilateral blurred vision, bilateral decreased vision, denies pain Ears: deny: decreased hearing, tinnitus Ears, nose, mouth and throat: Denies headache, Denies sore throat - Breasts Breasts: bilateral: as per HPI - Cardiovascular Cardiovascular: Denies chest pain, Denies shortness of breath - Respiratory Respiratory: Denies cough - Gastrointestinal Gastrointestinal: Denies abdominal pain, Denies diarrhea, Denies nausea, Denies vomiting - Genitourinary (Female) Genitourinary: Denies dysuria, Denies hematuria - Menstruation Menstruation: Reports period normal - Musculoskeletal Musculoskeletal: Denies myalgias - Integumentary Integumentary: Denies pruritus, Denies rash - Neurological Neurological: Denies numbness, Denies weakness - Psychiatric Psychiatric: Reports anxiety, Reports depression - Endocrine Endocrine: Reports weight change, Denies fatigue - Hematologic/Lymphatic Comment: none - Allergic/Immunologic Allergic/Immunologic: Reports seasonal allergies Objective - Vital Signs Vital signs: Vital Signs Temp 98.5 F 10/17/21 10:25 Pulse 75 10/17/21 10:25 Resp 17 10/17/21 10:25 BP 109/68 10/17/21 10:25 Pulse Ox 95 10/17/21 10:25 Intake & Output 10/16/21 10/17/21 10/17/21 18:59 06:59 18:59 Weight 88.451 kg - Exam BMI 31.5 - Constitutional General appearance: Present: cooperative - EENT Eyes: Present: EOMI ENT: Present: hearing grossly normal - Neck Neck: Present: normal ROM - Respiratory Respiratory: bilateral: CTA - Cardiovascular Rhythm: regular Heart sounds: normal: S1, S2 - Gastrointestinal General gastrointestinal: Present: soft - Integumentary Integumentary Comment(s): Patient with skin changes right breast with open wound 7 by 5 cm and open oozing - Musculoskeletal Musculoskeletal: Present: gait normal - Psychiatric Psychiatric: Present: A&O x's 3, appropriate affect, intact judgment & insight - Additional findings Additional findings: Breast Examination: BRA: 40D Inspection: Sore right breast with scabbing and losing approximately 7 cm x 5 cm Palpation: Right breast: Approximately 7 x 5 cm lesion upper inner quadrant right breast does not appear to be fixed to the chest wall Right axilla: No adenopathy of concern Left breast: No dominant masses or nodules of concern Left axilla: No adenopathy of concern Assessment and Plan Assessment: Impression: [id number] diagnosed 05-15-2019 Impression: PET scan Follow-up medical and radiation oncology Breast MRI to rule out invasion of the muscle of the chest wall Follow up after these are done We have discussed the possibility of mastectomy without primary closure and skin grafting to be done to follow this appointment with a primary care
== END ==
LOC: WWCWWP 10:16
PROVIDERS: ATTEND Surgery
DX: C50.911 Malignant neoplasm of unspecified site of right female breast (principal); F41.9 Anxiety disorder, unspecified; F32.A Depression, unspecified; F17.210 Nicotine dependence, cigarettes, uncomplicated; Z91.041 Radiographic dye allergy status

== ENCOUNTER → 2021-10-24 | Outpatient (CLI) | payer OTHER ==
--- NOTE | 2021-10-26 10:10 | PE ---
EXAMINATION TYPE: PET CT fusion skull to thigh DATE OF EXAM: 10/24/2021 COMPARISON: Whole-body CT March 20, 2020 and older studies HISTORY: Right-sided breast cancer diagnosed 2019 completed treatment 2019 TECHNIQUE: Following the intravenous administration of 8.63 mCi of F-18 FDG, whole body images are p erformed from the skull base to the midthigh. Images are reviewed on the computer in the coronal, ax ial, and sagittal planes. Reconstructed rotating images are created on independent workstation and r eviewed on the computer. A localization and attenuation correction CT is performed in conjunction w ith the PET scan. Blood glucose level was 92 SCAN: Initial Scan FINDINGS: SKULL BASE AND NECK: No areas of abnormal hypermetabolic uptake. CHEST, MEDIASTINUM, AND HILAR REGION: Patient has dense fibroglandular tissue throughout both breasts redemonstrated. Abnormal hypermetabolic uptake in suspected roughly 2.0 cm medial right breast mass axial image 88 suspicious for local neoplastic recurrence. There is new hypermetabolic skin thickenin g anterior to this. No additional areas of abnormal hypermetabolic uptake in the left breast are eith er axillary region. Background mild/moderate underlying emphysematous change with innumerable new pulmonary nodules bilat erally of varying sizes and shapes greatest in the lower lungs. Largest right upper to mid lung mildl y hypermetabolic nodule posteriorly measures 2.0 x 1.7 cm axial image 88. Largest hypermetabolic left lung nodule is seen superiorly measuring 2.5 x 2.4 cm axial image 68. Abnormal hypermetabolic anterior superior subcentimeter lymph node axial image 66 is present. Abnorma l hypermetabolic right hilar nodule or lymph node axial image 88. ABDOMEN AND PELVIS: Normal excretion. Mild nonspecific right-sided colonic bowel uptake. No abnormal hypermetabolic uptake. OSSEOUS STRUCTURES: No abnormal hypermetabolic uptake. OTHER CT: New left subclavian Mediport catheter terminates in SVC. Prominent retroflexed uterus. IMPRESSION: PET/CT findings consistent with persist or recurrent right breast neoplasm with new hemat ogenous metastatic disease to bilateral lungs and abnormal thoracic adenopathy noted as detailed abov e.
== END | disposition home or self-care (01) ==
LOC: RADXRMAIN 14:14
PROVIDERS: ATTEND Surgery
DX: C50.211 Malignant neoplasm of upper-inner quadrant of right female breast (principal); C78.01 Secondary malignant neoplasm of right lung; C78.02 Secondary malignant neoplasm of left lung; C77.1 Secondary and unspecified malignant neoplasm of intrathoracic lymph nodes
CPT/HCPCS: 78815; A9552

== ENCOUNTER → 2021-11-05 | Outpatient (CLI) | payer OTHER ==
--- NOTE | 2021-11-12 07:41 | BMR ---
EXAMINATION TYPE: MR breast BILAT wo/w con DATE OF EXAM: 11/05/2021 COMPARISON: Most recent PET/CT October 24, 2021 and older [address]s. HISTORY: Right Breast infiltrating moderately differentiated adenocarcinoma cancer ultrasound-guided biopsy May 15 2019, pt has open wound on rt breast 12 o'clock. TECHNIQUE: A series of fat and water weighted images in the long and short axis views of both breasts are obtained in conjunction with dynamic contrast MRI with subtraction technique. The patient was i njected with 9 mL intravenous Gadavist gadolinium contrast. Three-dimensional and additional postpr ocessing imaging is created on independent workstation and reviewed during official interpretation of this study. FINDINGS: Extremely dense fibroglandular tissue bilaterally is redemonstrated. Abnormal skin thickeni ng and trabeculation to the right breast is redemonstrated. Some artifact from Mediport catheter is n oted superior medial left breast is present. No suspicious axillary adenopathy clearly seen. A few ti ny cysts scattered throughout the glandular tissue in the left breast are noted. Dynamic postcontrast imaging shows severe background enhancement Bilaterally making evaluation suboptimal. Delayed dynam ic imaging shows no suspicious internal mammary adenopathy. With regards to the left breast no definitive enhancing masses are seen. The chest wall is intact. With regards to the right breast corresponding to the history there is a rim-enhancing 4.2 x 2.6 x 3. 2 cm mass in the anterior aspect in the posterior depth upper inner quadrant near 1:00 position corre sponding to site of original neoplasm extending through the skin surface causing ulceration superiorl y seen best sagittal image 22 correlating with patient's history. Original neoplasm in 2019 was quite extensive extending to near this area. The lesion abuts the chest wall or anterior margin of pectora lis muscle but does not invade. Additional areas of smaller ring type enhancement throughout multiple levels of the right breast are noted without definitive correlate on PET/CT but are suspicious for m ulticentric involvement in the right breast. Known pulmonary metastatic disease is seen better on PET/CT but larger lesion in the anterior left up per lung is noted image 1041 series 701 for reference. IMPRESSION: Redemonstration of extensive posttreatment change of the right breast with persistent or recurrent neoplasm posterior upper inner aspect extending to skin surface as detailed above. There is likely multicentric involvement in the right breast. Known metastatic disease is seen but better filemon reciated on recent PET/CT. No MRI evidence for invasive malignancy in the left breast. Markedly subop timal study due to extensive background enhancement. BI-RADS 6 biopsy-proven cancer right breast. BI-RADS 2 benign findings left breast Recommendation: Appropriate oncologic management.
== END | disposition home or self-care (01) ==
LOC: RADMRIMAIN 14:16
PROVIDERS: ATTEND Surgery
DX: C50.211 Malignant neoplasm of upper-inner quadrant of right female breast (principal)
CPT/HCPCS: C8937; C8908; A9585; 77049

== ENCOUNTER → 2021-11-28 | Outpatient (CLI) | payer OTHER ==
[2021-11-28 09:49] VITALS: BP 115/75; PULSE 73; RESP 18; TEMP 98
--- NOTE | 2021-11-28 10:37 | P.PN ---
Subjective Progress Note Date: 11/28/21 Principal diagnosis: metastatic breast cancer Patient 2 years ago was recommended to undergo a mastectomy. She opted not to have that performed at that time. She did undergo neoadjuvant dose dense before meals and completed 4 cycles. This was on 120 322. On she started weekly Taxol and carboplatinum and completed 12 weekly treatments and [id number]. She completed neoadjuvant radiation therapy and [id number]. At the end of the treatments they remained far less at this site. The original tumor was 7.8 x 5.5 x 4.4 cm in size. She had no suspicious nodes on ultrasound of the axilla. A core biopsy on [id number] revealed grade 2 invasive ductal carcinoma triple negative. She had not had any imaging since she completed her treatment. note from Dr. Rich 02-23-2020 reviewed; was seen by Dr. Rey, and referred to DR. Arzola which 11-28-21 PET scan 10-24-21 lesion in the right breast; multiple lung mets, and thoracic adenopathy MRI: reviewed with DR. Robb; could not rule out chest wall invasion 4.2 cm mass consistent with breast cancer noted, suspicious multicentric involvement in the breast Tumor Board recommendation: chemotherapy I personally talked to Dr. Rich. He has agreed to see her for treatment. At this time it is not felt that surgery is possible secondary to the skin changes and the probable involvement of the chest wall, as well as metastatic disease. Physical examination: Today the examination is limited to the chest wall, there is an open wound on the upper inner aspect of the breast, and there are marked skin changes with erythema throughout the breast. It is felt that the tumor is adherent to the underlying chest wall in the upper inner aspect. This appears to be confirmed radiographically. The patient and her good friend, (Fabián Steel) are here and understand this. Family history: mother: of cancer ? type brother: brain cancer paternal grandfather: Metastatic cancer question source maternal aunt: breast cancer Hormonal History: menarche: 15 07/20 , breast fed: yes, age at : 20 periods: Regular, they are heavy BCP: none hormones: none Surgical history: 1. Appendectomy 2. at 20 3. Cyst right shoulder Medical History: 1. Anxiety/depression Social history: Smoke: A pack per day; 1/2 PPD now Alcohol: Negative Drugs: Marijuana once or twice a day - Constitutional Comment: pain in her breast Constitutional: Reports chronic pain, Reports sweats - EENT Eyes: bilateral blurred vision, bilateral decreased vision, denies pain Ears: deny: decreased hearing, tinnitus Ears, nose, mouth and throat: Denies headache, Denies sore throat - Breasts Breasts: bilateral: as per HPI - Cardiovascular Cardiovascular: Denies chest pain, Denies shortness of breath - Respiratory Respiratory: Denies cough - Gastrointestinal Gastrointestinal: Denies abdominal pain, Denies diarrhea, Denies nausea, Denies vomiting - Genitourinary (Female) Genitourinary: Denies dysuria, Denies hematuria - Menstruation Menstruation: Reports period normal - Musculoskeletal Musculoskeletal: Denies myalgias - Integumentary Integumentary: Denies pruritus, Denies rash - Neurological Neurological: Denies numbness, Denies weakness - Psychiatric Psychiatric: Reports anxiety, Reports depression - Endocrine Endocrine: Reports weight change, Denies fatigue - Hematologic/Lymphatic Comment: none - Allergic/Immunologic Allergic/Immunologic: Reports seasonal allergies Objective - Vital Signs Vital signs: Vital Signs Temp 98.0 F 11/28/21 09:46 Pulse 73 11/28/21 09:46 Resp 18 11/28/21 09:46 BP 115/75 11/28/21 09:46 Pulse Ox 96 11/28/21 09:46 Intake & Output 11/27/21 11/28/21 11/28/21 18:59 06:59 18:59 Weight 90.718 kg - Additional findings Additional findings: Breast examination: Right breast approximately 7 x 5 cm open skin lesion upper inner quadrant right breast. Erythema and skin changes throughout right breast Cannot rule out fixation to chest wall especially after review of MRI Assessment and Plan Assessment: Impression: Stage IV invasive ductal right breast cancer Plan: I have discussed her case at tumor board and with Dr. Rich, Dr. Rich has agreed to see her At this time we are not going to perform mastectomy as there is concern the lesion may be fixed to the chest wall, additionally I do not believe I could do primary skin closure It appears the best palliative care will be with chemotherapy She will follow-up with me a month after she sees Dr. Marcum
== END ==
LOC: WWCWWP 09:31
PROVIDERS: ATTEND Surgery
DX: C50.911 Malignant neoplasm of unspecified site of right female breast (principal); F41.9 Anxiety disorder, unspecified; F32.A Depression, unspecified; F17.210 Nicotine dependence, cigarettes, uncomplicated; Z91.041 Radiographic dye allergy status

== ENCOUNTER → 2021-12-26 | Day surgery (SDC) | payer OTHER ==
--- NOTE | 2022-01-02 10:23 | USB ---
Prior Study Comparison: 04/27/2019 Bilateral Diagnostic Mammogram, [facility]. Pathology Description: Location: 6 o'clock. Needle Type: Mammotome Cores: 6 Skin Nicks: 1 Gauge: 13 The procedure of ultrasound guided core biopsy was explained to the patient. Benefits, alternatives, and risks were discussed. An informed consent was then obtained. The patient was placed in supine positioning for imaging and for the procedure. The overlying skin was prepped and draped in usual sterile fashion. Lidocaine was used as anesthetic into the skin and deeper subcutaneous tissue up to area of concern in the right breast was lidocaine with epinephrine. A chuy was made with surgical scalpel. The area was targeted from the 6:00 position directed towards 4:00 region at the edge of what appeared to be tumor. Under ultrasound guidance, a 12-gauge vacuum assisted biopsy gun device was used to obtain 4 core samples. Due to difficulty advancing into this very granular resistant mass attempts for a Bard biopsy were performed. 2 passes were made which indent the device and the procedure was terminated. No clip was placed. The patient tolerated the procedure well without any immediate complication. The patient was kept in the radiology department for short stay after the procedure and then discharged home in stable condition. Discharge instructions were discussed with the patient. Impression: 1. Successful ultrasound-guided core biopsy right breast. Recommendations: 1. Recommendations are pending pathology results. Pathology Results: Result: Benign. RIGHT BREAST, SIX O'CLOCK, CORE BIOPSY: Fibrous scar with hemorrhagic adipose tissue. Current specimen negative for diagnostic neoplasia (see note). Overall Assessment: Benign Management: Surgical Consultation of the right breast. Given the patient's history and 10/24/[address] findings, the area of concern may have been under sampled. If there was interval treatment consider follow up PET or repeat biopsy of a deeper region of tissue. Electronically signed and approved by: Manolo Cooper D.O. Radiologis
== END ==
LOC: RADUSWWP 08:22
PROVIDERS: ATTEND Internal Medicine Hematology & Oncology
DX: R92.8 Other abnormal and inconclusive findings on diagnostic imaging of breast (principal); N63.0 Unspecified lump in unspecified breast; Z85.3 Personal history of malignant neoplasm of breast
CPT/HCPCS: 88305

== ENCOUNTER 2022-01-15 10:29 | Day surgery (SDC) | payer OTHER ==
[2022-01-13 13:40] VITALS: BMI 38.2
[~2022-01-15 10:29] MED LIST: ALBUTEROL NEB (CONC) 2.5 MG/0.5 ML INHALATION ONE; DEXAMETHASONE SOD PHOSPHATE 4 MG/ML 1 ML VIAL IV ONE; LACTATED RINGERS 1,000 ML IV SCH; LIDOCAINE 1% (10MG/ML) FOR IV START INTRADERMA PRN; LIDOCAINE 2% (PF) 20 MG/ML 5 ML VIAL INHALATION ONE; LIDOCAINE VISCOUS 300 MG/15 ML CUP MUCOUS MEM ONE; ONDANSETRON 4 MG/2 ML VIAL IVP ONE
[2022-01-15] MEDS ORDERED: PROPOFOL 10 MG/ML 20 ML VIAL IV ONE (12:55)
[2022-01-15] MEDS ORDERED: LIDOCAINE 2% INJ 20 MG/ML (2 ML VIAL) ONE (12:55)
[2022-01-15] MEDS ORDERED: SUCCINYLCHOLINE CHLORIDE 100 MG/5 ML SYR IV ONE (12:55)
[2022-01-15] MEDS ORDERED: MIDAZOLAM 2 MG/2 ML VIAL ONE (12:55)
[2022-01-15] MEDS ORDERED: GLYCOPYRROLATE 0.2 MG/ML 2 ML VIAL ONE (12:55)
[2022-01-15] MEDS ORDERED: NEOSTIGMINE 1 MG/ML 10 ML VIAL ONE (12:55)
[2022-01-15] MEDS ORDERED: ROCURONIUM 10 MG/ML (5 ML VIAL) IV ONE (12:55)
[2022-01-15] MEDS ORDERED: SODIUM CHLORIDE 0.9% 500 ML 500 ML IV ONE (14:13)
--- NOTE | 2022-01-15 14:29 | P.PCN ---
Date of Procedure: 01/15/22 Preoperative Diagnosis: multiple bilateral pulmonary nodules, mediastinal lymphadenopathy, rule out metastatic breast cancer Postoperative Diagnosis: multiple bilateral pulmonary nodules, mediastinal lymphadenopathy Procedure(s) Performed: 1 navigational bronchoscopy 2 transbronchial biopsies of the left upper lobe and left lower lobe pulmonary nodules 3 EBUS bronchoscopy or mediastinal lymph node evaluation 4 Transbronchial needle aspirate of station 4R and station 11 R lymph nodes Anesthesia: GIANLUCAA Surgeon: Becky Elizabeth Estimated Blood Loss (ml): 25 Pathology: other Condition: stable Disposition: same day Operative Findings: The patient had a preoperative computed tomography scan of the chest using the Veran protocol. The CAT scan images were reviewed. The right lung opacity was identified it was mapped appropriately. The CAT scan images are uploaded into a USB and then into the [employer] Navigation tower. After obtaining the consent the patient was taken to the OR suite he was intubated and put on MV by anesthesia then the scope was advanced to the ET tube until the Trachea was seen and it was normal and then the mckenzie appears normal then the scope advanced to the left main and JENN LB1-LB3 were seen and no endobronchial lesions were seen then the scope advanced to the lingula and the LB4 and LB5 were seen and no endobronchial lesions were seen the scope retracted and advanced to the left lower lobes LB6 to LB12 were seen one by one and no endobronchial lesions, then the scope was retracted back to the mckenzie and advanced to the Right main and RUL RB1 and RB2 and RB3 were seen one by one and no endobronchial lesions were seen the scope then retracted and advanced to the BI and RML RB4 and RB5 were seen and no endobronchial lesions were seen then it was retracted and advanced to the RLL RB6 to RB12 were seen one by one and no endobronchial lesions. following that, using navigational guidance, the bronchoscope was taken to the left upper lobe and transbronchial biopsy left upper lobe dominant mass was obtained. Following that, the rocks" of the left lower lobe and transbronchial biopsies of the left lower lobe dominant masses were also obtained. There was endobronchial bleeding encountered and this was in the order of 25 mL from the left upper lobe and the left lower lobe. With each biopsies, there was some blood oozing from the subsegment and wedging of the segment was done to control the bleeding. Following that, the bronchoscope was removed and the EBUS bronchoscopy was done. Then EBUS was used and the lymph nodes were examined. Direct measurement of the mediastinal lymph nodes revealed a 3.3 x 3.0cm station 4R lymph node, 3.5 x 2.8 cm station 11 R s lymph nodes, 2.2x 3.0 cm station 7 lymph node . I performed transbronchial needle aspirate of station 4R and a total of 5 passes FNA without major bleeding station 11R R lymph nodes were a total of 4 passes were obtained. No major bleeding and the scope was removed and taken out in total the patient was send to the floor in stable condition
[2022-01-15 14:38] VITALS: TEMP 97
--- NOTE | 2022-01-15 15:35 | XR ---
EXAMINATION TYPE: XR chest 1V portable DATE OF EXAM: 01/15/2022 COMPARISON: NONE HISTORY: Navigational bronchoscopy TECHNIQUE: Single frontal view of the chest is obtained. FINDINGS: Underlying emphysematous changes seen with multiple suspected masses or areas of consolida tion. Widening mediastinum associated with adenopathy. Mediport catheter noted. No pneumothorax. IMPRESSION: No pneumothorax. Bilateral pulmonary masses and nodules suspected.
[2022-01-15 15:43] VITALS: BP 105/69; PULSE 85; RESP 15
--- NOTE | 2022-01-15 16:23 | CT ---
EXAMINATION TYPE: CT Chest wo con Veran Protocol DATE OF EXAM: 01/15/2022 COMPARISON: PET scan dated 10/24/2021 HISTORY: Pulmonary nodules CT DLP: 569 mGycm Automated exposure control for dose reduction was used. TECHNIQUE: CT SCAN OF THE CHEST WITHOUT IV CONTRAST ADMINISTRATION PER VERAN PROTOCOL FINDINGS: Innumerable multiple variable-sized bilateral lung lesions consistent with extensive pulmonary metast asis, markedly progressed compared to March 2020 CT scan and progressed compared to the last more recent PET scan. For example, a large lesion is seen in the left lung apex measuring up to 3.2 mm. A nother sizable lesion is seen in the left lung base measuring 3.9 cm. A right lower lobe lesion measu res 2.6 cm. Patent trachea and main bronchi. No pleural or pericardial effusion. No gross cardiomegaly. The pulmonary trunk measures 3 cm. Suspici ous right paratracheal lymph node measuring 3.1 cm, likely metastatic. Other scattered smaller medias tinal and right hilar lymph nodes. Significant skin thickening of the right breast. Fecal loading of the visualized portion of the colon. Left upper chest wall Port-A-Cath with the tip is seen within th e SVC. No gross aggressive bone lesion. IMPRESSION: Extensive pulmonary metastasis with likely metastatic chest lymphadenopathy and other findings as maria luisa cribed above.
== END 2022-01-15 16:00 | disposition home or self-care (01) ==
LOC: ORWHC2ENDO 10:29
PROVIDERS: ATTEND Internal Medicine Critical Care Medicine
DX: C78.02 Secondary malignant neoplasm of left lung (principal); R59.0 Localized enlarged lymph nodes; C78.01 Secondary malignant neoplasm of right lung; C50.919 Malignant neoplasm of unspecified site of unspecified female breast; Z88.3 Allergy status to other anti-infective agents; Z79.899 Other long term (current) drug therapy; F17.200 Nicotine dependence, unspecified, uncomplicated; Z80.3 Family history of malignant neoplasm of breast; Z80.1 Family history of malignant neoplasm of trachea, bronchus and lung; R56.9 Unspecified convulsions; Z82.49 Family history of ischemic heart disease and other diseases of the circulatory system
CPT/HCPCS: 31628; 88305; 88173; 88342; 84703; 88341; 71045; 71250; 31627; 31652; J2250; J2710; J0330; J2704; J2001

== ENCOUNTER → 2022-01-28 | Outpatient (CLI) | payer OTHER ==
[2022-01-28 10:32] LABS: African American GFR (CKD) >90 (>60 ml/min/1.73 sqM); Blood Urea Nitrogen 15 mg/dL (7-17); Non-African American GFR(CKD) >90 (>60 ml/min/1.73 sqM)
--- NOTE | 2022-01-28 11:23 | CT ---
EXAMINATION TYPE: CT ChestAbdPelvis w con DATE OF EXAM: 01/28/2022 COMPARISON: CT chest without contrast 01/15/2022, CT PET fusion 10/24/2021 HISTORY: Breast Cancer CT DLP: 2002.8 mGycm CONTRAST: CT scan of the chest, abdomen and pelvis is performed with Oral Contrast and with IV Contrast, patien t injected with 70 ML mL of Isovue 300. CT Chest: LUNGS: Innumerable pulmonary nodules and masses persist without appreciable change. A few of the nodu les may be slightly larger in size. The largest nodule left upper lobe currently measures 3.2 versus 3.2 cm. The largest nodule lateral right lower lobe currently measures 2.9 versus 2.6 cm. Largest mas s left lower lobe currently measures 3.8 versus 3.8 cm previously. MEDIASTINUM: Thoracic aorta is of normal caliber. The heart is not enlarged right paratracheal frank opathy persists and measures 2.9 cm and 3 cm previously. There is mass effect upon the SVC with the p atent lumen of 7.5 mm. HILAR STRUCTURES: No evidence for mass. Right hilar adenopathy persists measuring up to 2.5 cm on the right and 1.5 cm on the left. OTHER: Medial right breast mass measures approximately 3.1 x 3.8 cm. No definite axillary adenopathy. CONTRAST CT ABDOMEN AND PELVIS FINDINGS: LIVER/GB: No calcified gallstones. No space occupying hepatic lesion. Biliary tree is of normal ca liber. PANCREAS: No inflammation. No distinct mass. SPLEEN: No splenic enlargement. No lesion seen. ADRENALS: No nodule. No thickening. KIDNEYS/BLADDER: No hydronephrosis. No nephrolithiasis. No disctinct renal mass. BOWEL: Normal appendix. Normal bowel caliber. No inflammation. GENITAL ORGANS: Small amount of free fluid within the pelvis. Heterogeneity of the uterus may reflect underlying leiomyomatous change. LYMPH NODES: No greater than 1cm abdominal or pelvic lymph nodes are appreciated. AORTA: No significant abnormality. OSSEOUS STRUCTURES: No significant abnormality is seen. OTHER: No significant additional abnormality is seen. IMPRESSION: 1. Persistent innumerable bilateral pulmonary nodules. A few of the nodules demonstrate slight increa se in size. 2. Mediastinal and hilar adenopathy is noted. Mass effect upon the SVC without obstruction at this ti me. 3. Right breast mass may reflect residual or recurrent neoplasm. Correlate with mammographic findings .
--- NOTE | 2022-01-28 14:22 | NM ---
EXAMINATION TYPE: NM bone scan whole body DATE OF EXAM: 01/28/2022 COMPARISON: 06/08/2019, CT chest abdomen and pelvis 01/29/2020 HISTORY: Breast cancer Delayed whole-body scanning was performed following the injection of 23.2 mCi Tc 99m MDP. Images acq uired 3 hours post injection. FINDINGS: Abnormal uptake involving the maxilla likely related. Doppler disease. Faint uptake involving the thoracic and lumbar spine likely degenerative. Abnormal thickening of the shoulders and knees and feet likely postarthritic. IMPRESSION: 1. No diagnostic evidence of metastases. Abnormal uptake seen involving the vertebral canal most like ly is degenerative.
== END | disposition home or self-care (01) ==
LOC: RADNMMAIN 09:23
PROVIDERS: ATTEND Internal Medicine Hematology & Oncology
DX: C50.419 Malignant neoplasm of upper-outer quadrant of unspecified female breast (principal); R91.8 Other nonspecific abnormal finding of lung field
CPT/HCPCS: 82565; 84520; 71260; 74177; 36415; 78306; A9503; Q9967

== ENCOUNTER → 2022-04-09 | Outpatient (CLI) | payer OTHER ==
--- NOTE | 2022-04-09 17:17 | US ---
EXAMINATION TYPE: US venous doppler duplex LE LT DATE OF EXAM: 04/09/2022 4:48 PM COMPARISON: NONE CLINICAL HISTORY: G89.3 NEOPLASM RELATED PAIN (ACUTE). SIDE PERFORMED: Left TECHNIQUE: The lower extremity deep venous system is examined utilizing real time linear array sonog efrain with graded compression, doppler sonography and color-flow sonography. VESSELS IMAGED: Common Femoral Vein Deep Femoral Vein Greater Saphenous Vein * Femoral Vein Popliteal Vein Small Saphenous Vein * Proximal Calf Veins (* superficial vessels) Grayscale, color doppler, spectral doppler imaging performed of the deep veins of the left lower extr emity. There is normal flow, compressibility, vascular waveforms. Noncompressibility with no color flow and thrombus demonstrated within the greater saphenous vein. Left Leg: Negative for DVT Left GSV shows clot for over 30cm IMPRESSION: 1. No evidence for deep venous thrombosis of the left lower extremity. 2. Superficial thrombus of the greater saphenous vein.
== END | disposition home or self-care (01) ==
LOC: RADUSWWP 16:04
PROVIDERS: ATTEND Internal Medicine Hematology & Oncology
DX: G89.3 Neoplasm related pain (acute) (chronic) (principal); I82.812 Embolism and thrombosis of superficial veins of left lower extremity; C50.419 Malignant neoplasm of upper-outer quadrant of unspecified female breast

== ENCOUNTER → 2022-05-25 | Outpatient (CLI) | payer OTHER ==
--- NOTE | 2022-05-25 16:17 | CT ---
EXAMINATION TYPE: CT ChestAbdPelvis wo con DATE OF EXAM: 05/25/2022 COMPARISON: Most recent CT January 28, 2022 and older studies. HISTORY: breast ca metastatic CT DLP: 1302.30 mGycm. Automated Exposure Control for Dose Reduction was Utilized. TECHNIQUE: CT scan of the thorax, abdomen and pelvis is performed without oral and without IV contrast. FINDINGS: LUNGS: Innumerable pulmonary nodules consistent with metastatic disease are redemonstrated bilaterall y. Largest nodule in the periphery of the left upper lobe is redemonstrated measuring 2.8 x 2.0 cm ax ial image 15 diminished in size from prior study where it measured 3.3 x 3.2 cm. Additional scattered nodules appear smaller in size. No pleural effusion or pneumothorax seen bilaterally. MEDIASTINUM: Lack of IV contrast was noted to lower sensitivity for evaluation for hilar adenopathy. There is abnormal 2.5 x 2.4 cm right paratracheal lymph node axial image 21 diminished in size from 3 .1 x 3.0 cm prior study. OTHER: Normal skin thickening to the right breast redemonstrated. Defect along the upper medial aspec t of site of known neoplasm now noted axial image 27. Findings suggest neoplastic progression if ther e has not been interval attempted surgical excision. There is new Level 2 adenopathy measuring 2.6 x 1.4 cm axial image 12 corresponding to enlarged lymph node sagittal image 51. Stable left-sided subclavian Mediport catheter. LIVER/GB: No significant abnormality is appreciated. PANCREAS: No significant abnormality is seen. SPLEEN: No significant abnormality is seen. ADRENALS: No significant abnormality is seen. KIDNEYS: No renal stones or hydronephrosis seen bilaterally. BOWEL: Mild to moderate colonic fecal prominence in the transverse colon. No suspicious small or larg e bowel dilatation. GENITAL ORGANS: Retroflexed uterus. Trace amount of free fluid in the pelvis axial image 107 diminish ed from prior. LYMPH NODES: No greater than 1cm abdominal or pelvic lymph nodes are appreciated. OSSEOUS STRUCTURES: Nonspecific sclerotic focus posterior right T11 level on coronal image 71 redemon strated. OTHER: No significant additional abnormality is seen. IMPRESSION: Overall mixed response. Improvement in pulmonary metastatic disease and right paratrachea l adenopathy. Suspect interval progression of the upper-inner quadrant left breast mass with neoplasm with new skin defect suggesting it has extended to the dermal surface. There is new level 2 right ax illary adenopathy also noted.
== END | disposition home or self-care (01) ==
LOC: RADCTMAIN 14:31
PROVIDERS: ATTEND Internal Medicine Hematology & Oncology
DX: C78.01 Secondary malignant neoplasm of right lung (principal); C50.411 Malignant neoplasm of upper-outer quadrant of right female breast; I82.812 Embolism and thrombosis of superficial veins of left lower extremity; G89.3 Neoplasm related pain (acute) (chronic); R59.0 Localized enlarged lymph nodes; Z71.3 Dietary counseling and surveillance
CPT/HCPCS: 71250; 74176

== ENCOUNTER → 2023-02-02 | Outpatient (CLI) | payer OTHER ==
[2023-02-02 11:44] LABS: African American GFR (CKD) >90 (>60 ml/min/1.73 sqM); Blood Urea Nitrogen 16 mg/dL (7-17); Non-African American GFR(CKD) >90 (>60 ml/min/1.73 sqM)
--- NOTE | 2023-02-02 23:42 | CT ---
EXAMINATION TYPE: CT ChestAbdPelvis w con DATE OF EXAM: 02/02/2023 INDICATION: Breast ca, follow up COMPARISON: To 102 CT DLP: 2059.10 mGycm CONTRAST: Performed with Oral Contrast and with IV Contrast, patient injected with 100 mL of Isovue 300. TECHNIQUE: Axial images at 5 mm thick sections. Reconstructed images in the coronal plane. Delayed images through the kidneys. FINDINGS: CT CHEST: Portion of the thyroid visualized is normal. There is a lobular mass in the lateral left lung apex currently measuring 2.5 x 2.3 cm. Previous rachel urement 2.3 x 2.1 cm. There are a few scattered punctate calcifications in the periphery of the bilateral upper lobes. Slig htly larger punctate nodule measuring 0.5 cm in the lateral left lung. Series 5 image 24. There is a somewhat more prominent density within the periphery of the anterior right mid lung measuring 0.7 cm. Series 5 image 35. There is a pleural-based density in the posterior right lung base measuring 1.4 cm. This may be new. No enlarged mediastinal or hilar adenopathy is evident. Previous prominent lymph node in the high rig ht paratracheal region is diminished in size and is lower density. Some peripheral calcification or h igh density may be present. This measures 1.4 cm, previous measurement 1.9 cm. The ascending aorta diameter at the level of the main pulmonary artery is 3.3 cm. The main pulmonary artery diameter at the bifurcation is 3.[address] ABDOMEN: Liver: Normal. Some mild fatty sparing near the gallbladder fossa appears to be present. This may bee n present previously. Spleen: Normal Pancreas: Normal Adrenal glands: The adrenal glands are normal. Gallbladder: Normal Kidneys: No masses are evident. No hydronephrosis is present. No cysts are present. No renal stone s are evident. Aorta: Normal Inferior vena cava: Normal. CT PELVIS: Loops of bowel within the abdomen and pelvis are normal. There are loops of bowel which are incom pletely distended or lack oral contrast limiting their evaluation. Appendix: Not identified. No dilated tubular structure or inflammatory change is evident. Urinary bladder: Normal. Genitourinary structures: Uterus is normal. Adnexal regions appear within normal limits. No free flui d is within the pelvis. Osseous structures: No suspicious lytic or sclerotic lesions. IMPRESSIONS: 1. Slight enlargement of a lobular peripheral left upper lobe mass. 2. New pleural-based density posterior right lung base. 3. Multiple scattered punctate nodularities in the lung agosto were present previously.
== END | disposition home or self-care (01) ==
LOC: RADCTMAIN 09:33
PROVIDERS: ATTEND Internal Medicine Hematology & Oncology
DX: C50.419 Malignant neoplasm of upper-outer quadrant of unspecified female breast (principal); G89.3 Neoplasm related pain (acute) (chronic); R91.8 Other nonspecific abnormal finding of lung field; J98.4 Other disorders of lung; I82.812 Embolism and thrombosis of superficial veins of left lower extremity; Z71.3 Dietary counseling and surveillance
CPT/HCPCS: 82565; 84520; 71260; 74177; 36415; Q9967

== ENCOUNTER → 2023-04-26 | Outpatient (CLI) | payer OTHER ==
[2023-04-26 15:44] LABS: African American GFR (CKD) >90 (>60 ml/min/1.73 sqM); Blood Urea Nitrogen 16 mg/dL (7-17); Non-African American GFR(CKD) >90 (>60 ml/min/1.73 sqM)
--- NOTE | 2023-04-28 15:05 | CT ---
EXAMINATION TYPE: CT ChestAbdPelvis w con DATE OF EXAM: 04/26/2023 COMPARISON: 02/02/2023 HISTORY: Checking for metastic Ca. Has R. breast cancer, chemo/radiation x [address] DLP: 2218.2 mGycm CONTRAST: CT scan of the chest, abdomen and pelvis is performed with Oral Contrast and with IV Contrast, patien t injected with 100 cc mL of Isovue 300. CT Chest: LUNGS: There is an enlarging left upper lobe pulmonary nodule which measures 2.5 cm in maximal dimens ion by 2.1 cm previously. There is mild pleural extension noted. Additional nodule left upper lobe im age 31 measures 7.1 mm versus 5.1 mm previously. The left lung demonstrates additional 15-16 nodules measuring 6 mm or less. The right lung demonstrates approximately 18-20 nodules scattered throughout with the largest seen within the right lower lobe image 51 measuring 1.3 cm versus 1.3 cm previously. MEDIASTINUM: Thoracic aorta is of normal caliber. The heart is not enlarged. High right paratrachea l adenopathy is again noted measuring 1.5 cm versus 1.4 cm previously. HILAR STRUCTURES: No evidence for mass. No hilar adenopathy is appreciated. OTHER: Lumpectomy changes noted right breast. CONTRAST CT ABDOMEN AND PELVIS FINDINGS: LIVER/GB: No calcified gallstones. There is an enlarging masslike area of attenuation within the le ft hepatic lobe medial segment adjacent to the falciform ligament currently measuring 3.2 x 2.7 cm ve rsus 2.3 x 1.8 cm previously. No additional hepatic lesions are evident at this time. Biliary tree is of normal caliber. PANCREAS: No inflammation. No distinct mass. SPLEEN: No splenic enlargement. No lesion seen. ADRENALS: No nodule. No thickening. KIDNEYS/BLADDER: No hydronephrosis. No nephrolithiasis. No distinct renal mass. BOWEL: Normal appendix. Normal bowel caliber. No inflammation. GENITAL ORGANS: No gross abnormality. LYMPH NODES: No greater than 1cm abdominal or pelvic lymph nodes are appreciated. AORTA: No significant abnormality. OSSEOUS STRUCTURES: No significant abnormality is seen. OTHER: No significant additional abnormality is seen. IMPRESSION: 1. Enlarging pulmonary nodules compatible with metastatic disease. 2. Enlarging hepatic lesion
== END | disposition home or self-care (01) ==
LOC: RADCTMAIN 14:41
PROVIDERS: ATTEND Internal Medicine Hematology & Oncology
DX: C50.411 Malignant neoplasm of upper-outer quadrant of right female breast (principal); K76.89 Other specified diseases of liver; R91.8 Other nonspecific abnormal finding of lung field
CPT/HCPCS: 82565; 84520; 71260; 74177; 36415; Q9967

== ENCOUNTER 2023-05-27 18:03 | Inpatient (IN) | payer OTHER ==
[2023-05-27] MEDS ORDERED: SODIUM CHLORIDE 0.9% 1,000 ML IV STA (18:06)
[2023-05-27] MEDS ORDERED: FAMOTIDINE 20 MG/2 ML VIAL IV STA (18:07)
[2023-05-27] MEDS ORDERED: methylPREDNISolone SOD SUCCI 125 MG/2 ML VIAL IV STA (18:07)
[2023-05-27] MEDS ORDERED: diphenhydrAMINE 50 MG/ML 1 ML VIAL IVP STA (18:07)
[2023-05-27] MEDS ORDERED: LORazepam 2 MG/ML INJ IV STA ×2 (18:08→18:19)
--- NOTE | 2023-05-27 18:24 | ED ---
General Adult HPI - General Chief complaint: Seizure Stated complaint: SEZIURE Time Seen by Provider: 05/27/23 18:06 Source: EMS, RN notes reviewed, old records reviewed Mode of arrival: EMS Limitations: altered mental status - History of Present Illness Initial comments: 47-year-old female presenting for evaluation of seizure and altered mental status. Patient had been noted by paramedics to have a left-sided deficit and no gaze deviation. She was brought in as a stroke activation and had a 62nd seizure during transport. She has a history of breast cancer, uncertain where she is in her treatment process at this time. The medical record does indicate that she is on Eliquis according to paramedics. Patient unable to contribute at all to the history. - Related Data Home Medications Medication Instructions Recorded Confirmed ALPRAZolam [Xanax] 2 mg PO BID 04/27/19 05/27/23 FLUoxetine HCL [PROzac] 20 mg PO DAILY 05/03/19 05/27/23 FLUoxetine HCL [PROzac] 40 mg PO DAILY 05/27/23 05/27/23 Allergies Allergy/AdvReac Type Severity Reaction Status Date / Time Iodine and Iodide Containing Allergy Rash/Hives Verified 05/27/23 18:09 Produc Review of Systems ROS Statement: Those systems with pertinent positive or pertinent negative responses have been documented in the HPI. ROS Other: All systems not noted in ROS Statement are negative. Past Medical History Past Medical History: Cancer Additional Past Medical History / Comment(s): Hx. spinal meningitis twice 1999 and 2002, Breast Cancer 2019, one seizure age 6, "nodule on rt lung", History of Any Multi-Drug Resistant Organisms: None Reported Past Surgical History: Appendectomy, Section Additional Past Surgical History / Comment(s): right shoulder cyst removal, breast biopsy Past Anesthesia/Blood Transfusion Reactions: No Reported Reaction Past Psychological History: Anxiety, Depression Smoking Status: Current every day smoker - Past Family History Mother Family Medical History: Cancer, Deep Vein Thrombosis (DVT) Additional Family Medical History / Comment(s): BREAST CANCER WITH METS TO LUNG. General Exam Limitations: altered mental status General appearance: in distress Head exam: Present: atraumatic, normocephalic Eye exam: Present: other (Pupils are 7 mm bilaterally) Respiratory exam: Present: normal lung sounds bilaterally. Absent: wheezes Cardiovascular Exam: Present: normal rhythm, tachycardia GI/Abdominal exam: Present: soft. Absent: distended, tenderness, guarding Extremities exam: Present: normal inspection Neurological exam: Present: other (Patient appears to have purposeful movement throughout. She is not following commands were able to comply with the clinical complete neurologic assessment.). Absent: alert, oriented X3 Skin exam: Present: warm, dry Course Vital Signs 05/27/23 05/27/23 18:06 19:29 Pulse Rate 150 H 86 Respiratory 24 20 Rate Blood Pressure 144/85 107/58 O2 Sat by Pulse 96 100 Oximetry Medical Decision Making - Medical Decision Making Was pt. sent in by a medical professional or institution (, PA, FLOATMAN, urgent care, hospital, or intermediate...) When possible be specific @ -No Did you speak to anyone other than the patient for history (EMS, parent, family, police, friend...)? What history was obtained from this source @ -Paramedics Did you review nursing and triage notes (agree or disagree)? Why? @ -I reviewed and agree with nursing and triage notes Were old charts reviewed (outside hosp., previous admission, EMS record, old EKG, old radiological studies, urgent care reports/EKG's, intermediate records)? Report findings @ -No old charts were reviewed Differential Diagnosis (chest pain, altered mental status, abdominal pain women, abdominal pain men, vaginal bleeding, weakness, fever, dyspnea, syncope, headache, dizziness, GI bleed, back pain, seizure, CVA, palpatations, mental health, musculoskeletal)? @ -[Differential CVA Ischemic stroke, hemorrhagic stroke, brain tumor, atypical migraine, Wernicke's encephalopathy, seizure, multiple sclerosis, meningitis, encephalitis, hypo glycemia, Guillain-Ibrahim, electrolytes disturbance, myasthenia gravis.... This is not meant to be an all-inclusive list EKG interpreted by me (3pts min.). @Sinus tachycardia rate of 119, MT interval 168, QRS duration 107, QTC 496, incomplete right bundle branch block, no ST segment elevation. X-rays interpreted by me (1pt min.). @ -None done CT interpreted by me (1pt min.). @ -None done U/S interpreted by me (1pt. min.). @ -None done What testing was considered but not performed or refused? (CT, X-rays, U/S, labs)? Why? @ -None What meds were considered but not given or refused? Why? @ -None Did you discuss the management of the patient with other professionals (professionals i.e. , PA, FLOATMAN, lab, RT, psych nurse, social insurance administrator, tea tree farmer, teacher, textile technical officer, immigration case worker)? Give summary @ -Management is discussed with Dr. Voss, MR brain with and without contrast, Kebeth and neurology consultation. Patient not a TPA candidate as this is likely related to brain metastases with new onset seizure rather than acute CVA. Case discussed with Dr. Callahan, who will admit. Was smoking cessation discussed for >3mins.? @ -No Was critical care preformed (if so, how long)? @ -[Yes, 35 minutes Were there social determinants of health that impacted care today? How? (Homelessness, low income, unemployed, alcoholism, drug addiction, transportation, low edu. Level, literacy, decrease access to med. care, halfway, rehab)? @ -No Was there de-escalation of care discussed even if they declined (Discuss DNR or withdrawal of care, Hospice)? DNR status @ -No What co-morbidities impacted this encounter? (DM, HTN, Smoking, COPD, CAD, Cancer, CVA, ARF, Chemo, Hep., AIDS, mental health diagnosis, sleep apnea, morbid obesity)? @ -Breast cancer Was patient admitted / discharged? Hospital course, mention meds given and route, prescriptions, significant lab abnormalities, going to OR and other pertinent info. @ -[47-year-old female with breast cancer presenting with new onset seizure. This apparently had begun with left-sided paralysis noted by paramedics. It was witnessed seizure activity and the patient is postictal and quite agitated upon arrival. She requires benzodiazepines. There is a stroke activation given the focal findings on paramedics assessment. She receives a CT angiography which is negative for large vessel occlusion as well as a CT brain without contrast which is negative for intracranial hemorrhage but does show concern for possible brain metastases. She's loaded with Chaz monitored on seizure precaution. She has laboratory testing consistent with prolonged seizure including acidosis and leukocytosis. After initial treatment she regains a normal level of consciousness and has a normal blood pressure, improved heart rate. Nonfocal neurologic exam. Patient will be admitted for seizure precautions, MRI with and without contrast, and antiseizure medication. Patient will be admitted to a monitored bed with both oncology and neurology on consult. Undiagnosed new problem with uncertain prognosis? @ -No Drug Therapy requiring intensive monitoring for toxicity (Heparin, Nitro, Insulin, Cardizem)? @ -No Were any procedures done? @ -No Diagnosis/symptom? @ -[New-onset seizure, likely brain metastases Acute, or Chronic, or Acute on Chronic? @ -[Acute Uncomplicated (without systemic symptoms) or Complicated (systemic symptoms)? @ -[Complicated Side effects of treatment? @ -No Exacerbation, Progression, or Severe Exacerbation? @ -No Poses a threat to life or bodily function? How? (Chest pain, [place], PR, pneumonia, PE, COPD, DKA, ARF, appy, cholecystitis, CVA, Diverticulitis, Homicidal, Suicidal, threat to staff... and all critical care pts) @ -[Yes, seizure, CVA, cancer - Lab Data Result diagrams: 05/27/23 18:29 05/27/23 18:29 Lab Results 05/27/23 05/27/23 05/27/23 Range/Units 18:14 18:29 18:29 WBC 18.6 H (3.8-10.6) k/uL RBC 4.44 (3.80-5.40) m/uL Hgb 14.4 (11.4-16.0) gm/dL Hct 45.8 (34.0-46.0) % MCV 103.1 H (80.0-100.0) fL MCH 32.3 (25.0-35.0) pg MCHC 31.4 (31.0-37.0) g/dL RDW 13.9 (11.5-15.5) % Plt Count 210 (150-450) k/uL MPV 9.1 Neutrophils % (Manual) 63 % Lymphocytes % (Manual) 32 % Monocytes % (Manual) 4 % Eosinophils % (Manual) 1 % Neutrophils # (Manual) 11.72 H (1.3-7.7) k/uL Lymphocytes # (Manual) 5.95 H (1.0-4.8) k/uL Monocytes # (Manual) 0.74 (0-1.0) k/uL Eosinophils # (Manual) 0.19 (0-0.7) k/uL Nucleated RBCs 0 (0-0) /100 WBC Manual Slide Review Performed Hypochromasia Moderate Macrocytosis Slight Sodium 142 (137-145) mmol/L Potassium 3.8 (3.5-5.1) mmol/L Chloride 108 H (98-107) mmol/L Carbon Dioxide 8 L* (22-30) mmol/L Anion Gap 26 mmol/L BUN 15 (7-17) mg/dL Creatinine 0.86 (0.52-1.04) mg/dL Est GFR (CKD-EPI)AfAm >90 (>60 ml/min/1.73 sqM) Est GFR (CKD-EPI)NonAf 83 (>60 ml/min/1.73 sqM) Glucose 149 H (74-99) mg/dL POC Glucose (mg/dL) 155 H (70-110) mg/dL POC Glu Camp Nurse ID Carly Clayton Calcium 9.6 (8.4-10.2) mg/dL Total Bilirubin 0.5 (0.2-1.3) mg/dL AST 29 (14-36) U/L ALT 43 H (4-34) U/L Alkaline Phosphatase 96 (38-126) U/L Creatine Kinase 47 (30-135) U/L Troponin I (0.000-0.034) ng/mL Total Protein 7.6 (6.3-8.2) g/dL Albumin 4.5 (3.5-5.0) g/dL 05/27/23 Range/Units 18:29 WBC (3.8-10.6) k/uL RBC (3.80-5.40) m/uL Hgb (11.4-16.0) gm/dL Hct (34.0-46.0) % MCV (80.0-100.0) fL MCH (25.0-35.0) pg MCHC (31.0-37.0) g/dL RDW (11.5-15.5) % Plt Count (150-450) k/uL MPV Neutrophils % (Manual) % Lymphocytes % (Manual) % Monocytes % (Manual) % Eosinophils % (Manual) % Neutrophils # (Manual) (1.3-7.7) k/uL Lymphocytes # (Manual) (1.0-4.8) k/uL Monocytes # (Manual) (0-1.0) k/uL Eosinophils # (Manual) (0-0.7) k/uL Nucleated RBCs (0-0) /100 WBC Manual Slide Review Hypochromasia Macrocytosis Sodium (137-145) mmol/L Potassium (3.5-5.1) mmol/L Chloride (98-107) mmol/L Carbon Dioxide (22-30) mmol/L Anion Gap mmol/L BUN (7-17) mg/dL Creatinine (0.52-1.04) mg/dL Est GFR (CKD-EPI)AfAm (>60 ml/min/1.73 sqM) Est GFR (CKD-EPI)NonAf (>60 ml/min/1.73 sqM) Glucose (74-99) mg/dL POC Glucose (mg/dL) (70-110) mg/dL POC Glu Camp Nurse ID Calcium (8.4-10.2) mg/dL Total Bilirubin (0.2-1.3) mg/dL AST (14-36) U/L ALT (4-34) U/L Alkaline Phosphatase (38-126) U/L Creatine Kinase (30-135) U/L Troponin I <0.012 (0.000-0.034) ng/mL Total Protein (6.3-8.2) g/dL Albumin (3.5-5.0) g/dL Critical Care Time Critical Care Time: Yes Total Critical Care Time: 35 Disposition Clinical Impression: Breast cancer, New onset seizure Disposition: ADMITTED IP TO THIS [facility] Condition: Serious Instructions (If sedation given, give patient instructions): Seizure/Epilepsy Discharge Instructions & Follow-Up Is patient prescribed a controlled substance at d/c from ED?: No Referrals: None,Stated [Primary Care Provider] - 1-2 days Time of Disposition: 20:27
[2023-05-27 18:25] LABS: Glucose,Whole Blood 155 mg/dL (70-110)
[2023-05-27 18:48] LABS: HCT 45.8 % (34.0-46.0); HGB 14.4 gm/dL (11.4-16.0); Hypochromasia Moderate; MCH 32.3 pg (25.0-35.0); MCHC 31.4 g/dL (31.0-37.0); MCV 103.1 fL (80.0-100.0); Macrocytosis Slight; Mean Platelet Volume 9.1; Platelet Count 210 k/uL (150-450); RBC 4.44 m/uL (3.80-5.40); RDW 13.9 % (11.5-15.5); WBC 18.6 k/uL (3.8-10.6)
--- NOTE | 2023-05-27 19:00 | CT ---
EXAMINATION TYPE: CT brain wo con DATE OF EXAM: 05/27/2023 COMPARISON: 10/24/2021 HISTORY: Neuro deficit, acute, stroke suspected. seizure, code stroke CT DLP: 1230.60 mGycm. Automated Exposure Control for Dose Reduction was Utilized. TECHNIQUE: CT scan of the head is performed without contrast. FINDINGS: There is a 1.5 cm low attenuation defect at the turner-white matter junction, high in the left parietal lobe 2 cm left of midline. There is a similar 2.5 cm low attenuation defect in the right parietal lo be. Finally, there is a similar 2.0 cm defect at the base of the anterior right frontal lobe. These l esions do not have the appearance of three foci of vasogenic edema. They are suspicious for metastati c breast carcinoma. There is no intracranial hemorrhage. No midline shift of structures. The basal cisterns are unremarkable as is the foramen magnum. The paranasal sinuses, middle ear cavities, and mastoid sinus air cells are clear. The orbits are int act. Calvarium unremarkable. IMPRESSION: Three low-attenuation foci suspicious for metastatic breast carcinoma; MRI with contrast recommended.
[2023-05-27 19:03] LABS: AST 29 U/L (14-36); African American GFR (CKD) >90 (>60 ml/min/1.73 sqM); Albumin 4.5 g/dL (3.5-5.0); Alkaline Phosphatase 96 U/L (38-126); Anion Gap 26 mmol/L; Blood Urea Nitrogen 15 mg/dL (7-17); Calcium 9.6 mg/dL (8.4-10.2); Chloride 108 mmol/L (98-107); Creatine Kinase 47 U/L (30-135); Glucose 149 mg/dL (74-99); Non-African American GFR(CKD) 83 (>60 ml/min/1.73 sqM); Potassium 3.8 mmol/L (3.5-5.1); Sodium 142 mmol/L (137-145); Total Bilirubin 0.5 mg/dL (0.2-1.3); Total Protein 7.6 g/dL (6.3-8.2)
[2023-05-27 19:15] LABS: ALT 43 U/L (4-34); Carbon Dioxide 8 mmol/L (22-30)
[2023-05-27] MEDS ORDERED: levETIRAcetam IV 2,000 MG in SODIUM CHLORIDE 0.9% 250 ML IVPB ONE (19:30)
[2023-05-27 19:46] LABS: Eosinophils # (M) 0.19 k/uL (0-0.7); Lymphocytes # (M) 5.95 k/uL (1.0-4.8); Monocytes # (M) 0.74 k/uL (0-1.0); Neutrophils # (M) 11.72 k/uL (1.3-7.7); Neutrophils % (M) 63 %; Nucleated Red Blood Cells 0 /100 WBC (0-0); Total Cells Counted 100
--- NOTE | 2023-05-27 20:08 | CT ---
EXAMINATION TYPE: CT angio head neck DATE OF EXAM: 05/27/2023 HISTORY: neuro deficit, seizure. code stroke COMPARISON: CT Head without contrast 05/27/2023 CT DLP: 664 mGycm. Automated Exposure Control for Dose Reduction was Utilized. TECHNIQUE: CTA scan of the head and neck is performed with IV Contrast, patient injected with 65ml mL of Isovue 370, axial images are obtained, coronal and sagittal reformatted images are reviewed. 3D r econstructed images are created on an independent workstation and reviewed. FINDINGS: VASCULAR STRUCTURES: The bilateral carotid arteries are widely patent and without significant abnormalities. The bilateral vertebral arteries are widely patent and without significant abnormalities. OTHER: 1. Redemonstrated multifocal low-attenuation defects seen on CT head without contrast 6 4 7:00 PM 11 23. 2. Known multifocal lung lesions redemonstrated, suspicious for metastatic neoplasm. IMPRESSION: No significant CTA vascular NASCET criteria was used in interpretation of this exam?
[2023-05-27] MEDS ORDERED: ASPIRIN 325 MG TAB PO STA (20:19)
[2023-05-27] MEDS ORDERED: NALOXONE 0.4 MG/ML 1 ML VIAL IV PRN (20:20)
--- NOTE | 2023-05-27 22:16 | P.HPIM ---
History of Present Illness H&P Date: 05/27/23 Patient is a 47-year-old female with a PMH of stage IV breast cancer with metastases to lung (diagnosed in 2019, currently undergoing chemotherapy as per ), who presents to the emergency room after an episode of unresponsiveness and suspected seizure. The history was supplemented by the and the [id number] at the bedside. He reports that she had been in her usual state of health over the past few days until earlier today as she was trying to eat food that she called her and told her that her left hand started shaking uncontrollably. Within a few seconds, he noted that the rest of her body started shaking and she then became unresponsive and rigid. He immediately activated EMS who noted that in route to the hospital, the patient had another seizure lasting roughly 60 seconds. The patient does not have a prior history of seizure. Patient reported feeling tired at the time of interview but otherwise had no active complaints. She denied experiencing a headache, chest discomfort, shortness of breath, fever, chills, cough, nausea, vomiting, abdominal pain, diarrhea. CT angiogram of head and neck in the emergency room revealed no acute abnormalities. CT brain revealed 3 foci suspicious for metastasis with MRI recommended. EKG revealed sinus a cardiac 119 bpm with an incomplete right bundle branch block as reviewed by me. Laboratory evaluation was remarkable for leukocytosis of 18.6 with MCV 103.1, chloride 108, CO2 8, glucose 149, troponin less than 0.012. ED documentation reviewed and case discussed with ED provider. Review of systems: Pertinent positives and negatives as discussed in HPI, a complete review of sy stems was performed and all other systems are negative. Physical examination: Vital signs reviewed General: non toxic, no distress, appears at stated age, overweight Derm: no unusual rashes/lesions, warm Head: atraumatic, normocephalic, symmetric, alopecia noted Eyes: EOMI, no lid lag, anicteric sclera, pupils equal round reactive to light ENT: Nose and ears atraumatic Neck: No cervical lymphadenopathy, trachea midline, supple Mouth: no lip lesion, mucus membranes moist Cardiovascular: S1S2 reg, no murmur, positive dorsalis pedis pulse bilateral, no edema Lungs: CTA bilateral, no rhonchi, no rales, no accessory muscle use Abdominal: soft, nontender to palpation, no guarding Ext: muscle strength 5 out of 5 in all 4 extremities grossly, no gross muscle atrophy, no contractures, Neuro: CN II-XI grossly intact, no gross focal neuro deficits Psych: Sleepy, oriented, appropriate affect Assessment: New onset seizure, suspect due to metastatic brain lesions Leukocytosis, suspect due to acute stressor no signs of active infection at this time Macrocytosis, may be due to ongoing chemotherapy Severe acidosis, likely due to seizure Imaging: CT angiogram of head and neck in the emergency room revealed no acute abnormalities. CT brain revealed 3 foci suspicious for metastasis with MRI recommended. EKG revealed sinus a cardiac 119 bpm with an incomplete right bundle branch block as reviewed by me. Data Review: Laboratory evaluation was remarkable for leukocytosis of 18.6 with MCV 103.1, chloride 108, CO2 8, glucose 149, troponin less than 0.012. Plan: Obtain brain MRI with contrast Neurology consulted C/w Keppra 1g q12h Seizure and fall precautions Check B12 and folate levels Monitor BMP were acidosis Oncology consult DVT prophylaxis: Lovenox subcu The patient is admitted with an anticipated greater than 2 midnight stay for evaluation of seizure CODE STATUS: Full Code Discussed with: Patient Anticipated discharge place: Home Past Medical History Past Medical History: Cancer Additional Past Medical History / Comment(s): Hx. spinal meningitis twice 1999 and 2002, Breast Cancer 2019, one seizure age 6, "nodule on rt lung", History of Any Multi-Drug Resistant Organisms: None Reported Past Surgical History: Appendectomy, Section Additional Past Surgical History / Comment(s): right shoulder cyst removal, breast biopsy Past Anesthesia/Blood Transfusion Reactions: No Reported Reaction Past Psychological History: Anxiety, Depression Smoking Status: Current every day smoker - Past Family History Mother Family Medical History: Cancer, Deep Vein Thrombosis (DVT) Additional Family Medical History / Comment(s): BREAST CANCER WITH METS TO LUNG. Medications and Allergies Home Medications Medication Instructions Recorded Confirmed Type ALPRAZolam [Xanax] 2 mg PO BID 04/27/19 05/27/23 History FLUoxetine HCL [PROzac] 20 mg PO DAILY 05/03/19 05/27/23 History FLUoxetine HCL [PROzac] 40 mg PO DAILY 05/27/23 05/27/23 History Allergies Allergy/AdvReac Type Severity Reaction Status Date / Time Iodine and Iodide Containing Allergy Rash/Hives Verified 05/27/23 18:09 Produc Physical Exam Vitals: Vital Signs Temp Pulse Pulse Resp BP BP Pulse Ox 05/27/23 21:50 98.1 F 78 18 102/64 94 L 05/27/23 21:24 74 16 125/83 100 05/27/23 19:29 86 20 107/58 100 05/27/23 18:06 150 H 24 144/85 96 Intake and Output 05/27/23 05/27/23 05/27/23 06:59 14:59 22:59 Other: Weight 90.718 kg Results CBC & Chem 7: 05/27/23 18:29 05/27/23 18:29 Labs: Abnormal Lab Results - Last 24 Hours (Table) 05/27/23 05/27/23 05/27/23 Range/Units 18:14 18:29 18:29 WBC 18.6 H (3.8-10.6) k/uL MCV 103.1 H (80.0-100.0) fL Neutrophils # (Manual) 11.72 H (1.3-7.7) k/uL Lymphocytes # (Manual) 5.95 H (1.0-4.8) k/uL Chloride 108 H (98-107) mmol/L Carbon Dioxide 8 L* (22-30) mmol/L Glucose 149 H (74-99) mg/dL POC Glucose (mg/dL) 155 H (70-110) mg/dL ALT 43 H (4-34) U/L
[2023-05-27] MEDS: SODIUM CHLORIDE 0.9% 1,000 ML IV SCH (23:00)
[2023-05-28 08:25] LABS: HCT 42.7 % (34.0-46.0); HGB 13.7 gm/dL (11.4-16.0); MCH 32.4 pg (25.0-35.0); MCV 101.2 fL (80.0-100.0); Macrocytosis Slight; Mean Platelet Volume 8.1; Platelet Count 220 k/uL (150-450); RBC 4.22 m/uL (3.80-5.40); RDW 13.9 % (11.5-15.5); WBC 11.4 k/uL (3.8-10.6)
[2023-05-28 08:40] LABS: African American GFR (CKD) >90 (>60 ml/min/1.73 sqM); Anion Gap 11 mmol/L; Blood Urea Nitrogen 15 mg/dL (7-17); Calcium 9.6 mg/dL (8.4-10.2); Carbon Dioxide 18 mmol/L (22-30); Chloride 110 mmol/L (98-107); Glucose 138 mg/dL (74-99); Non-African American GFR(CKD) >90 (>60 ml/min/1.73 sqM); Potassium 4.4 mmol/L (3.5-5.1); Sodium 139 mmol/L (137-145)
[2023-05-28] MEDS ORDERED: levETIRAcetam IV 500 MG/5 ML VIAL IVP SCH (09:00)
[2023-05-28 09:07] LABS: Partial Thromboplastin Time 22.5 sec (22.0-30.0); Prothrombin Time 10.7 sec (10.0-12.5)
[2023-05-28] MEDS: ENOXAPARIN 40 MG/0.4 ML SYRINGE SQ SCH (09:24)
[2023-05-28] MEDS: SODIUM CHLORIDE 0.9% 1,000 ML IV SCH ×2 (09:30→23:24)
[2023-05-28] MEDS ORDERED: LORazepam 2 MG/ML INJ IV PRN (11:59)
--- NOTE | 2023-05-28 12:02 | P.PN ---
Subjective Progress Note Date: 05/28/23 Patient is a 47-year-old female with a PMH of stage IV breast cancer with metastases to lung (diagnosed in 2019, currently undergoing chemotherapy as per ), who presents to the emergency room after an episode of unresponsiveness and suspected seizure. The history was supplemented by the and the [id number] at the bedside. He reports that she had been in her usual state of health over the past few days until earlier today as she was trying to eat food that she called her and told her that her left hand started shaking uncontrollably. Within a few seconds, he noted that the rest of her body started shaking and she then became unresponsive and rigid. He immediately activated EMS who noted that in route to the hospital, the patient had another seizure lasting roughly 60 seconds. The patient does not have a prior history of seizure. Patient reported feeling tired at the time of interview but otherwise had no active complaints. She denied experiencing a headache, chest discomfort, shortness of breath, fever, chills, cough, nausea, vomiting, abdominal pain, diarrhea. CT angiogram of head and neck in the emergency room revealed no acute abnormalities. CT brain revealed 3 foci suspicious for metastasis with MRI recommended. EKG revealed sinus a cardiac 119 bpm with an incomplete right bundle branch block. Laboratory evaluation was remarkable for leukocytosis of 18.6 with MCV 103.1, chloride 108, CO2 8, glucose 149, troponin less than 0.012. Patient was loaded with Keppra and admitted for further management. 04/28 Patient was seen and examined. Appears tired but answering questions appropriately. Significant other at bedside. Examined with Dr. Francois at bedside. EEG and MRI brain w/wo contrast ordered. CBC shows WBC 11.4 and MCV 101.2. BMP Cl 110, bicarb 18, glucose 138. General: non toxic, no distress, appears at stated age Derm: warm, dry Head: atraumatic, normocephalic, symmetric Eyes: EOMI, no lid lag, anicteric sclera Mouth: no lip lesion, mucus membranes moist Cardiovascular: S1S2 reg, no murmur, right breast wound with dressing intact Ext: no gross muscle atrophy, no edema, no contractures Neuro: CN II-XI grossly intact, no focal neuro deficits Psych: Alert, oriented, appropriate affect, lethargic New onset seizure, suspect due to metastatic brain lesions Leukocytosis, suspect due to acute stressor no signs of active infection at this time Macrocytosis, may be due to ongoing chemotherapy Severe acidosis, likely due to seizure Based on my assessment of this patient, this patient meets a high complexity level of care. Patient has new onset seizures in the setting of metastatic breast CA to the brain which poses a threat to life or bodily function. New onset seizure: Suspect due to metastatic brain lesions. Keppra 750 mg IV BID. Seizure precautions and pads. Ativan IV PRN for seizures. Telemetry monitioring. Aspiration precautions. Neurology on board. Leukocytosis, suspect due to acute stressor no signs of active infection at this time Macrocytosis, may be due to ongoing chemotherapy Severe acidosis, likely due to seizure I have reviewed the following lead sales consultant notes: I have reviewed the results of the following tests: CBC, BMP. I have ordered the following tests: EEG. MRI brain w/wo. I have discussed the care of this patient with the following independent historian: Discussed with RN and significant other at bedside. I have independently interpreted the following test below: I have discussed the management of this patient with the following physician: Discussed with Dr. Francois This patient has a high risk of morbidity due to the following reasons: Objective - Vital Signs Vital signs: Vital Signs Temp 97.8 F 05/28/23 08:00 Pulse 80 05/28/23 08:00 Resp 16 05/28/23 08:00 BP 113/61 05/28/23 08:00 Pulse Ox 95 05/28/23 08:21 FiO2 Intake & Output 05/27/23 05/28/23 05/28/23 18:59 06:59 18:59 Output Total 700 Balance -700 Weight 90.718 kg 90.718 kg Output: Urine 700 Other: Voiding Method Bedpan Toilet # Voids 1 - Labs CBC & Chem 7: 05/28/23 08:14 05/28/23 08:14 Labs: Abnormal Lab Results - Last 24 Hours (Table) 05/27/23 05/27/23 05/27/23 Range/Units 18:14 18:29 18:29 WBC 18.6 H (3.8-10.6) k/uL MCV 103.1 H (80.0-100.0) fL Neutrophils # (Manual) 11.72 H (1.3-7.7) k/uL Lymphocytes # (Manual) 5.95 H (1.0-4.8) k/uL Chloride 108 H (98-107) mmol/L Carbon Dioxide 8 L* (22-30) mmol/L Glucose 149 H (74-99) mg/dL POC Glucose (mg/dL) 155 H (70-110) mg/dL ALT 43 H (4-34) U/L 05/28/23 05/28/23 Range/Units 08:14 08:14 WBC 11.4 H (3.8-10.6) k/uL MCV 101.2 H (80.0-100.0) fL Neutrophils # (Manual) (1.3-7.7) k/uL Lymphocytes # (Manual) (1.0-4.8) k/uL Chloride 110 H (98-107) mmol/L Carbon Dioxide 18 L (22-30) mmol/L Glucose 138 H (74-99) mg/dL POC Glucose (mg/dL) (70-110) mg/dL ALT (4-34) U/L
--- NOTE | 2023-05-28 12:41 | P.CNNES ---
History of Present Illness Consult date: 05/28/23 Requesting physician: Morales Hooker Reason for Consult: new onset seizure, r/o cva/mets History of Present Illness: This is a 47-year-old woman with history of breast cancer with metastases to the long diagnosed in 2019 post chemotherapy and radiation therapy as well as there is a lesion in the liver and a biopsy of the liver was indeterminant who presented emergency department because a seizure episode. Some of the history is obtained from the patient's was at bedside. According to yesterday patient had the some trouble with vision and felt off and was laughing uncontrollably and was complaining of a headache according to the patient's then that she was having jerking of the left upper extremity and all of a sudden she had generalized body shaking that was uncontrolled eyes closed nonresponsive drooling and the whole episode lasted for 10-15 minutes. According the she does not have any history of seizures in the past. He denies any illicit drug use or alcohol use.. He denies that she has any history of stroke in the past. She does follow up with oncologist as an outpatient for breast cancer. Last chemoradiation according to him as about 3 weeks ago. Some of the workup during this hospital visit consisted of: Initial white blood cells 18.6 and repeat is 11.4. The MCV is 103. Carbon dioxide is 8 chloride is 108, initial serum glucose is 149, ALTs 43 ALTs 29, calcium is 9.6, Plasma lactic acid venous 0.9, CK levels 47. CT of the head is reported as 3 of low attenuation foci suspicious for metastases breast carcinoma; MRI with contrast recommended. I personally reviewed the CT and I felt the patient has hypoattenuation was obvious over the right parietal region is seen suspicious for metastases. CT angiography of the head and neck was reported as no significant CT angiography vascular. Otherwise it's reported as reviewed demonstrated multifocal low attenuation deficit seen on CT of the head without contrast. Known multifocal lung lesion redemonstrated, suspicious for metastatic neoplasm. In the ED the patient was given 2 g Keppra once as well as was given Ativan. Patient was a stroke code and that they felt she is not a TPA candidate since this is likely related to brain metastases with new onset seizure red than acute CVA and was discussed with the stroke attending Dr. Voss. Review of Systems The positive and negative as per HPI. Past Medical History Past Medical History: Cancer Additional Past Medical History / Comment(s): Hx. spinal meningitis twice 1999 and 2002, Breast Cancer 2019, one seizure age 6, "nodule on rt lung", History of Any Multi-Drug Resistant Organisms: None Reported Past Surgical History: Appendectomy, Section Additional Past Surgical History / Comment(s): right shoulder cyst removal, breast biopsy Past Anesthesia/Blood Transfusion Reactions: No Reported Reaction Past Psychological History: Anxiety, Depression Smoking Status: Current every day smoker - Past Family History Mother Family Medical History: Cancer, Deep Vein Thrombosis (DVT) Additional Family Medical History / Comment(s): BREAST CANCER WITH METS TO LUNG. Medications and Allergies Home Medications Medication Instructions Recorded Confirmed Type ALPRAZolam [Xanax] 2 mg PO BID 04/27/19 05/27/23 History FLUoxetine HCL [PROzac] 20 mg PO DAILY 05/03/19 05/27/23 History FLUoxetine HCL [PROzac] 40 mg PO DAILY 05/27/23 05/27/23 History Allergies Allergy/AdvReac Type Severity Reaction Status Date / Time Iodine and Iodide Containing Allergy Rash/Hives Verified 05/27/23 18:09 Produc Physical Examination - Vital Signs Vital Signs: Vital Signs Temp Pulse Pulse Resp BP BP Pulse Ox 05/28/23 08:21 95 05/28/23 08:00 97.8 F 80 16 113/61 96 05/28/23 05:00 97.8 F 69 16 92/71 96 05/28/23 01:47 90 16 05/28/23 00:50 98.2 F 90 16 101/49 98 05/27/23 21:50 98.1 F 78 18 102/64 94 L 05/27/23 21:24 74 16 125/83 100 05/27/23 19:29 86 20 107/58 100 05/27/23 18:06 150 H 24 144/85 96 Intake and Output 05/27/23 05/28/23 05/28/23 22:59 06:59 14:59 Output Total 400 300 Balance -400 -300 Output: Urine 400 300 Other: Voiding Method Bedpan Toilet # Voids 1 1 Weight 90.718 kg GENERAL: The patient is lying in bed and is not in acute distress. NEUROLOGICAL: Higher mental function: The patient was sleeping but was awakeable to voice. She is oriented to self, time and stated she was in the hospital. Patient is following simple commands. No aphasia and no neglect. Cranial nerves: The pupils are round, equal and reactive to light. Visual agosto are full to confrontation throughout. Extraocular movement is intact no nystagmus is noted. Facial sensation is normal to touch throughout. The facial strength is normal throughout. Hearing is normal bilaterally to hand rub. Tongue is midline and moved [id number] without any difficulty. No dysarthria is noted. Shoulder shrug is normal bilaterally. Motor: The strength is hard to assess left upper extremity because of pain but had at least 4+. Otherwise 5 over 5 throughout. Normal tone and bulk. Cerebellum: Normal finger to nose bilaterally. Sensation: Sensation is normal to touch throughout. Reflexes (right/left): 1+ Plantars are mute bilaterally. Results - Laboratory Findings CBC and BMP: 05/28/23 08:14 05/28/23 08:14 Abnormal Lab Findings: Abnormal Labs 05/27/23 05/27/23 05/27/23 18:14 18:29 18:29 WBC 18.6 H MCV 103.1 H Neutrophils # (Manual) 11.72 H Lymphocytes # (Manual) 5.95 H Chloride 108 H Carbon Dioxide 8 L* Glucose 149 H POC Glucose (mg/dL) 155 H ALT 43 H 05/28/23 05/28/23 08:14 08:14 WBC 11.4 H MCV 101.2 H Neutrophils # (Manual) Lymphocytes # (Manual) Chloride 110 H Carbon Dioxide 18 L Glucose 138 H POC Glucose (mg/dL) ALT Assessment and Plan Assessment: This is a 47-year-old woman with history of breast cancer metastasis to the lung and lesion in the liver but the biopsy for the liver is inconclusive and she was diagnosed in 2019. Posterior radiation and chemotherapy presents because of a seizure episode that new onset. New onset seizure. Likely due to brain metastases CT of the head appears the patient has also brain metastases History of breast cancer with metastases to the lung and there is a lesion on th e liver but the biopsies inconclusive post chemotherapy and radiation and the last was about 3 weeks ago per the Plan: MRI the brain with and without as well as EEG are ordered and pending Patient was given 2 g of Keppra as well as Ativan in the ED and was started on Keppra 1 g twice a day by the ED team. But we'll decrease it down to 750 mg twice a day. Patient is on Ativan when necessary for seizure Seizure precaution and seizure pads. Oncology team is consulted Per the [facility] because of the seizures, to avoid driving for 6 month until seizure-free, avoid heights, avoid using heavy machinery, or swimming unassisted. We'll defer the rest of the medical measure the primary team The plan was discussed with the patient's was at bedside and primary attending. Therapy consultation Time with Patient: Greater than 30
--- NOTE | 2023-05-28 13:41 | MR ---
EXAMINATION TYPE: MR brain wo/w con DATE OF EXAM: 05/28/2023 1:28 PM CLINICAL INDICATION:Female, 47 years old with history of CVA/breast CA; PHH, Neuro deficit, confusion , possible seizure COMPARISON: CT brain 05/27/2023 TECHNIQUE: Multi planar, multi sequence imaging was performed through the brain including: T1, T2, In version recovery, susceptibility weighted imaging and gradient echo imaging and Diffusion weighted im aging. The patient was then given intravenous contrast and multi planar, T1 fat-saturation images wer e obtained. IV Contrast: 9 cc Gadavist FINDINGS: Scattered high DWI signal with associated ADC signal compatible with T2 shine through. Janes tionally there is a left parietal region focus of high DWI low ADC signal compatible with metastatic enhancing foci. Examples include: Right frontal lobe 11 mm, left frontal lobe 8 mm, anterior falx 6 mm, right parietal lobe measuring 11 x 6 mm. Left occipital/parietal lobe measuring 10 mm r left cerebellum measuring 7 mm right cerebellum measuring 6 mm. Overall there is at least 15 lesion s in the cerebellum and 30 lesions in the cerebrum. A few of the lesions have surrounding vasogenic edema. No evidence for acute/subacute CVA. The ventricular system is within normal limits for dilation. The bone marrow signal is within normal limits. Paranasal sinuses and mastoid air cells: No significant paranasal sinus disease. Visualized orbits: Orbital contents are intact. IMPRESSION: Extensive metastatic disease to the brain with over 45 lesions identified. Some of the lesions demons trate some vasogenic edema.
[2023-05-28] MEDS: PANTOPRAZOLE 40 MG TABLET PO SCH (15:29)
[2023-05-28] MEDS: DEXAMETHASONE SOD PHOSPHATE 4 MG/ML 1 ML VIAL IVP SCH ×3 (15:29→23:26)
--- NOTE | 2023-05-28 19:10 | EEG ---
ELECTROENCEPHALOGRAM REPORT CLINICAL HISTORY: This is a 47-year-old woman with history of breast cancer, who presents because of new- onset seizure. The video EEG is obtained to evaluate for seizure and epileptiform discharge. RELEVANT MEDICATIONS: 1. Keppra. 2. Ativan. EEG TYPE: A routine 21-channel EEG with video using the 10/20 electrode placement system. DESCRIPTION: Wakefulness is only obtained. The background consists of [id number] voltage of 8.5 to 9.5 Hz activity at times and at times intermixed with diffuse delta activity. There is no physiological stage II sleep architecture. There is no focal slowing. There is excessive beta activity. INTERICTAL AND ICTAL: None. ACTIVATION PROCEDURE: Photic stimulation did not evoke a posterior driving response. There is no abnormality during the photic stimulation. Hyperventilation is not performed. CLINICAL INTERPRETATION: This is an abnormal routine EEG. The background slowing is suggestive of mild encephalopathy. The excessive beta activity is likely due to medication effect (Ativan). Otherwise, there is no focal slowing, epileptiform discharge, or seizure on the EEG. Clinical correlation is recommended. MMODL / IJN: [id number] / MTDD
[2023-05-28] MEDS: levETIRAcetam IV 500 MG/5 ML VIAL IVP SCH (20:12)
[2023-05-28] MEDS: ALPRAZolam 1 MG TAB PO SCH (20:12)
[2023-05-28] MEDS ORDERED: NICOTINE 14MG/24HR PATCH TRANSDERM STA (21:21)
--- NOTE | 2023-05-28 22:32 | P.CONS ---
History of Present Illness - Reason for Consult Consult date: 05/28/23 new brain metastases Requesting physician: Freedom Murillo - Chief Complaint seizure, AMS - History of Present Illness The patient is a 47-year-old female with a history of a metastatic triple negative cancer of the right breast. She has known liver and lung metastases. She was hospitalized on 05/27/2023 secondary to witnessed seizure. She has now been found to have numerous brain metastases. The patient reports that she does not recall the events of yesterday the lead to her hospitalization. According to her family, she had a witnessed seizure with loss of consciousness. She states she was confused following this. The patient did not have any complaints of headaches, nausea or vomiting in the days leading up to this event. She had currently been on a break from systemic therapy considering her most recent CT imaging from April had shown some progression of her metastatic disease in the lung and one liver lesion. The patient's computed tomography scan performed on admission was suspicious for underlying metastatic disease. A subsequent MRI of the brain was performed on May 28. This revealed numerous metastatic lesions, greater than 40. Some lesions having vasogenic edema. No significant midline shift noted. Since her hospitalization, the patient has been initiated on dexamethasone 4 mg every 6 hours. She is also currently on Keppra. She has had no further seizure activity since her hospitalization. She denies headaches, nausea or vomiting. She was able to ambulate to the bathroom without assistance. Review of Systems Constitutional: Denies chills, Denies fever Eyes: denies blurred vision Ears, nose, mouth and throat: Denies headache Cardiovascular: Denies chest pain Respiratory: Denies cough Musculoskeletal: Denies frequent falls Neurological: Reports as per HPI Psychiatric: Denies confusion Past Medical History Past Medical History: Cancer Additional Past Medical History / Comment(s): Hx. spinal meningitis twice 1999 and 2002, Breast Cancer 2019, one seizure age 6, "nodule on rt lung", History of Any Multi-Drug Resistant Organisms: None Reported Past Surgical History: Appendectomy, Section Additional Past Surgical History / Comment(s): right shoulder cyst removal, breast biopsy Past Anesthesia/Blood Transfusion Reactions: No Reported Reaction Past Psychological History: Anxiety, Depression Smoking Status: Current every day smoker - Past Family History Mother Family Medical History: Cancer, Deep Vein Thrombosis (DVT) Additional Family Medical History / Comment(s): BREAST CANCER WITH METS TO LUNG. Medications and Allergies Home Medications Medication Instructions Recorded Confirmed Type ALPRAZolam [Xanax] 2 mg PO BID 04/27/19 05/27/23 History FLUoxetine HCL [PROzac] 20 mg PO DAILY 05/03/19 05/27/23 History FLUoxetine HCL [PROzac] 40 mg PO DAILY 05/27/23 05/27/23 History Allergies Allergy/AdvReac Type Severity Reaction Status Date / Time Iodine and Iodide Containing Allergy Rash/Hives Verified 05/27/23 18:09 Produc Physical Exam Vitals: Vital Signs Temp Pulse Resp BP Pulse Ox 05/28/23 16:00 97.7 F 78 16 118/62 95 05/28/23 14:00 75 16 05/28/23 12:00 97.8 F 75 16 116/63 96 05/28/23 08:21 95 05/28/23 08:00 97.8 F 80 16 113/61 96 05/28/23 05:00 97.8 F 69 16 92/71 96 05/28/23 01:47 90 16 05/28/23 00:50 98.2 F 90 16 101/49 98 Intake and Output 05/28/23 05/28/23 05/28/23 06:59 14:59 22:59 Output Total 300 Balance -300 Output: Urine 300 Other: Voiding Method Bedpan Toilet # Voids 1 - Constitutional General appearance: no acute distress - EENT Eyes: EOMI, PERRLA ENT: hearing grossly normal - Neck Neck: no lymphadenopathy - Respiratory Respiratory: bilateral: CTA - Cardiovascular Rhythm: regular - Integumentary Integumentary: no rash - Neurologic Neurologic: CNII-XII intact - Musculoskeletal Musculoskeletal: strength equal bilaterally - Psychiatric Psychiatric: A&O x's 3, appropriate affect, intact judgment & insight Results CBC & Chem 7: 05/28/23 08:14 05/28/23 08:14 Labs: Abnormal Lab Results - Last 24 Hours (Table) 05/28/23 05/28/23 Range/Units 08:14 08:14 WBC 11.4 H (3.8-10.6) k/uL MCV 101.2 H (80.0-100.0) fL Chloride 110 H (98-107) mmol/L Carbon Dioxide 18 L (22-30) mmol/L Glucose 138 H (74-99) mg/dL MRI - head: report reviewed, image reviewed Assessment and Plan Assessment: The patient is a 47-year-old female with a history of a metastatic triple negative cancer of the right breast. She has known liver and lung metastases. She was hospitalized on 05/27/2023 secondary to witnessed seizure. She has now been found to have numerous brain metastases. Plan: 1. Brain metastases: Agree with Decadron + Keppra. I discussed with the patient that as she presented with innumerable metastatic lesions, we would recommend whole brain radiotherapy in her case. I discussed that this treatment could likely be started within the next week. I discussed possible side effects of this treatment which includes, but is not limited to; fatigue, scalp irritation, headaches, otitis, and late effects such as declined and neuro cognitive functioning. The patient does seem motivated to move forward with radiotherapy. We will likely move forward with CT simulation on Wednesday. 2. Metastatic triple negative breast cancer: The patient's case was discussed with Dr. Rich. She is currently not on any systemic therapy. Unfortunately, she has failed a few different lines of systemic treatment. He is considering starting Enhertu, but will complete radiotherapy first. Time with Patient: Greater than 30
[2023-05-29] MEDS: DEXAMETHASONE SOD PHOSPHATE 4 MG/ML 1 ML VIAL IVP SCH (06:05)
--- NOTE | 2023-05-29 08:43 | P.CONS ---
History of Present Illness - Reason for Consult Consult date: 05/28/23 hx breast cancer Requesting physician: Morales Hooker - Chief Complaint altered mental status - History of Present Illness Patient is a 47 year old female with a significant history of metastatic breast cancer. She is a patient of Dr. Rich, She presented with palpable right breast mass,she first noticed over a year prior to her presentation, it became significantly larger, associated with skin ulceration and significant chest wall pain,she had her first mammograms and breast U/S in April/2019 which revealed a very large mass ,about 7.8x4.4x5.5cm at 1 o'clock right breast,no suspicious nodes on U/S of axilla,core biopsy on 05/15/2019 revealed grade 2,invasive ductal carcinoma,triple negative,additional biopsies of 4 and 5 o'clock lesions were benign. Repeat ER/DE and HER2/PATRICIA at outside lab confirmed triple negative disease. On 06/03/2019,CT scan of chest/abdomen/pelvis revealed non specific 6 mm RML lung nodule,otherwise negative,bone scan was negative. 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 On 06/28/2019,she started neoadjuvant dose dense AC and completed 4 cycles on 08/10/2019 (she had minimal clinical response to it). On 08/25/2019,she started weekly taxol and carboplatin and completed 12 weekly treatment on 11/16/2019. Repeat 01/05/2020,repeat CT scan of chest/abdomen/pelvis revealed stable non specific lung nodule. She completed neoadjuvant radiation therapy on 01/18/2020,then she did not follow up and did have any treatment systemic or local therapy for her breast.She was last seen in February/2020. She presented to Dr. Gorman in October/2021 with worsening ulceration and swelling in right breast. PET scan on 10/24/2021 revealed very large right breast mass with skin ulceration,multiple bilateral lung nodues,largest 2.5 cm in left lung and evidence of suspicious right hilar nodes. On 01/15/2022,she underwent EBUS,FNA from mediastinal nodes was positive,biopsy of JENN lung lesion was positive for metastatic breast cancer,ER/DE negative and HER2/PATRICIA negative. Liquid biopsy through [facility] revealed TP53 mutation. She started carbo/gemzar on 01/29/2022. On 05/25/2022,repeat CT scan of chest/abdomen/pelvis revealed improvement in lung nodules,however,worsening in right breast disease and 2 new right axilla nodes. She was then started on trodelvy on 06/18/2022. Disease remained stable until repeat CT CAP on 04/26/2023, revealing slightly enlarging lung nodules, enlarged left hepatic lobe lesion. Trodelvy was subsequently stopped and a liver biopsy was ordered. If on repeat biopsy HER2/PATRICIA is 1+ or more, will recommend enhertu as next line of therapy, if indeed HER2/PATRICIA is zero, may consider xeloda. Patient presented to the ER for altered mental status and seizure. The patient's family states they witnessed seizure like activity and LOC. Pt reports that she does not recall the events of yesterday that lead to her hospitalization. The patient denies any neuro sx or n/v prior to acute event. Upon admission CT brain revealed 3 low-attenuation foci suspicious for metastatic disease. CTA head revealed no significant CTA vasculature. MRI brain was subsequently obtained showing extensive metastatic disease to the brain with over 45 lesions identified with some lesions demonstrating vasogenic edema. At today's visit patient is reporting feeling fatigued. Denies headache and dizziness. Denies visual disturbances at this time. Denies nausea vomiting. Decadron and Keppra has been started, neurology following. Review of Systems 10 point ROS is negative except as stated in the HPI Past Medical History Past Medical History: Cancer Additional Past Medical History / Comment(s): Hx. spinal meningitis twice 1999 and 2002, Breast Cancer 2019, one seizure age 6, "nodule on rt lung", History of Any Multi-Drug Resistant Organisms: None Reported Past Surgical History: Appendectomy, Section Additional Past Surgical History / Comment(s): right shoulder cyst removal, breast biopsy Past Anesthesia/Blood Transfusion Reactions: No Reported Reaction Past Psychological History: Anxiety, Depression Smoking Status: Current every day smoker - Past Family History Mother Family Medical History: Cancer, Deep Vein Thrombosis (DVT) Additional Family Medical History / Comment(s): BREAST CANCER WITH METS TO LUNG. Medications and Allergies Home Medications Medication Instructions Recorded Confirmed Type ALPRAZolam [Xanax] 2 mg PO BID 04/27/19 05/27/23 History FLUoxetine HCL [PROzac] 20 mg PO DAILY 05/03/19 05/27/23 History FLUoxetine HCL [PROzac] 40 mg PO DAILY 05/27/23 05/27/23 History Allergies Allergy/AdvReac Type Severity Reaction Status Date / Time Iodine and Iodide Containing Allergy Rash/Hives Verified 05/27/23 18:09 Produc Physical Exam Vitals: Vital Signs Temp Pulse Pulse Resp BP BP Pulse Ox 05/28/23 08:21 95 05/28/23 08:00 97.8 F 80 16 113/61 96 05/28/23 05:00 97.8 F 69 16 92/71 96 05/28/23 01:47 90 16 05/28/23 00:50 98.2 F 90 16 101/49 98 05/27/23 21:50 98.1 F 78 18 102/64 94 L 05/27/23 21:24 74 16 125/83 100 05/27/23 19:29 86 20 107/58 100 05/27/23 18:06 150 H 24 144/85 96 Intake and Output 05/27/23 05/28/23 05/28/23 22:59 06:59 14:59 Output Total 400 300 Balance -400 -300 Output: Urine 400 300 Other: Voiding Method Bedpan Toilet # Voids 1 1 Weight 90.718 kg - Constitutional General appearance: no acute distress - EENT Eyes: anicteric sclerae, EOMI ENT: hearing grossly normal - Neck Neck: no lymphadenopathy - Respiratory Respiratory: bilateral: CTA - Cardiovascular Rhythm: regular Heart sounds: normal: S1, S2 Abnormal Heart Sounds: no systolic murmur, no diastolic murmur, no rub, no S3 Gallop, no S4 Gallop, no click, no other - Gastrointestinal General gastrointestinal: soft, no tenderness - Integumentary Integumentary: no cyanotic - Neurologic no focal deficits noted, somnolent - Musculoskeletal Musculoskeletal: strength equal bilaterally - Psychiatric Psychiatric: A&O x's 3 Results CBC & Chem 7: 05/28/23 08:14 05/28/23 08:14 Labs: Abnormal Lab Results - Last 24 Hours (Table) 05/27/23 05/27/23 05/27/23 Range/Units 18:14 18:29 18:29 WBC 18.6 H (3.8-10.6) k/uL MCV 103.1 H (80.0-100.0) fL Neutrophils # (Manual) 11.72 H (1.3-7.7) k/uL Lymphocytes # (Manual) 5.95 H (1.0-4.8) k/uL Chloride 108 H (98-107) mmol/L Carbon Dioxide 8 L* (22-30) mmol/L Glucose 149 H (74-99) mg/dL POC Glucose (mg/dL) 155 H (70-110) mg/dL ALT 43 H (4-34) U/L 05/28/23 05/28/23 Range/Units 08:14 08:14 WBC 11.4 H (3.8-10.6) k/uL MCV 101.2 H (80.0-100.0) fL Neutrophils # (Manual) (1.3-7.7) k/uL Lymphocytes # (Manual) (1.0-4.8) k/uL Chloride 110 H (98-107) mmol/L Carbon Dioxide 18 L (22-30) mmol/L Glucose 138 H (74-99) mg/dL POC Glucose (mg/dL) (70-110) mg/dL ALT (4-34) U/L Comments: CT head, CTA head and brain MRI reviewed Assessment and Plan (1) Breast cancer Current Visit: Yes Status: Acute Priority: High Code(s): C50.919 - MALIGNANT NEOPLASM OF UNSP SITE OF UNSPECIFIED FEMALE BREAST SNOMED Code(s): 117216983 (2) New onset seizure Current Visit: Yes Status: Acute Priority: High Code(s): R56.9 - UNSPECIFIED CONVULSIONS SNOMED Code(s): 05159745 Plan: AMS/Seizure: -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 Most recently on Trodelvy, with disease remaining stable until repeat CT CAP on 04/26/2023, revealing slightly enlarging lung nodules, and enlarged left hepatic lobe lesion. Trodelvy was subsequently stopped and a liver biopsy was ordered, which is scheduled for next week at [facility]. If on repeat biopsy HER2/PATRICIA is 1+ or more, will recommend enhertu as next line of therapy, if indeed HER2/PATRICIA is zero, may consider xeloda -Upon admission CT brain revealed 3 low-attenuation foci suspicious for metastatic disease. MRI brain was subsequently obtained showing extensive metastatic disease to the brain with over 45 lesions identified with some lesions demonstrating vasogenic edema. Decadron q6hrs ordered -The patient's case was discussed with her primary oncologist, Dr. Rich and Dr. Wilson. Plan is start whole brain radiotherapy, with simulation Wednesday. Plan would be to complete radiotherapy first, and then start treatment with Enhertu vs Xeloda, pending biopsy results attests: I seen and examined patient, performed H&P, developed impression and plan of care. Discussed with dictator. Agree with documentation, dictated as a scribe
[2023-05-29] MEDS ORDERED: FLUoxetine HCL 20 MG CAP PO SCH ×2 (09:00)
[2023-05-29] MEDS: ALPRAZolam 1 MG TAB PO SCH (09:20)
[2023-05-29] MEDS: PANTOPRAZOLE 40 MG TABLET PO SCH (09:21)
[2023-05-29] MEDS: levETIRAcetam IV 500 MG/5 ML VIAL IVP SCH (09:21)
[2023-05-29] MEDS: ENOXAPARIN 40 MG/0.4 ML SYRINGE SQ SCH (09:21)
[2023-05-29 10:26] VITALS: BP 114/77; PULSE 85; RESP 17; TEMP 97.5
--- NOTE | 2023-05-29 12:19 | P.DS ---
Providers Date of admission: 05/27/23 20:20 Expected date of discharge: 05/29/23 Attending physician: Sydni Callahan MD Consults: 05/27/23 20:20 Consult Physician Routine Consulting Provider: Freedom Murillo Consult Reason/Comments: Breast CA Do you want consulting provider notified?: Yes Consult Physician Routine Consulting Provider: Murali Francois Consult Reason/Comments: New-onset seizure, rule out CVA/mets Do you want consulting provider notified?: Yes 05/28/23 13:59 Consult Physician Routine Consulting Provider: Gabriel Wilson Consult Reason/Comments: breast cancer, new mets to brain Do you want consulting provider notified?: Already Contacted Primary care physician: Stated None Hospital Course: Patient is a 47-year-old female with a PMH of stage IV breast cancer with metastases to lung (diagnosed in 2019, currently undergoing chemotherapy as per ), who presents to the emergency room after an episode of unresponsiveness and suspected seizure. The history was supplemented by the and the [id number] at the bedside. He reports that she had been in her usual state of health over the past few days until earlier today as she was trying to eat food that she called her and told her that her left hand started shaking uncontrollably. Within a few seconds, he noted that the rest of her body started shaking and she then became unresponsive and rigid. He immediately activated EMS who noted that in route to the hospital, the patient had another seizure lasting roughly 60 seconds. The patient does not have a prior history of seizure. Patient reported feeling tired at the time of interview but otherwise had no active complaints. She denied experiencing a headache, chest discomfort, shortness of breath, fever, chills, cough, nausea, vomiting, abdominal pain, diarrhea. CT angiogram of head and neck in the emergency room revealed no acute abnormalities. CT brain revealed 3 foci suspicious for metastasis with MRI recommended. EKG revealed sinus a cardiac 119 bpm with an incomplete right bundle branch block. Laboratory evaluation was remarkable for leukocytosis of 18.6 with MCV 103.1, chloride 108, CO2 8, glucose 149, troponin less than 0.012. Patient was loaded with Keppra and admitted for further management. 04/27 Patient was seen and examined. Appears tired but answering questions appropriately. Significant other at bedside. Examined with Dr. Francois at bedside. EEG and MRI brain w/wo contrast ordered. CBC shows WBC 11.4 and MCV 101.2. BMP Cl 110, bicarb 18, glucose 138. 04/28 Patient was seen and examined. Significantly improved mentation since yesterday. Basically at baseline. No further seizures. Currently on Keppra 750 mg IV BID. EEG shows no epileptiform discharges. MRI confirming > 45 lesions in the brain consistent with metastatic disease. The findings of MRI brain was discussed with the patient and she seems interested in moving forward with radiation treatment. She would like to find a new oncologist. Adamant about going home today. Discussed with LEONELA Holliday to switch to Keppra 750 mg PO BID. We will continue Decadron which will be tapered over 2 weeks. Advised that she shouldn't drive or operate heavy machinery for 6 months per [place] law. Patient and significant other verbalized understanding of the plan. Pertinent studies include CTA head and neck, CT brain, MRI, EEG General: non toxic, no distress, appears at stated age Derm: warm, dry Head: atraumatic, normocephalic, symmetric Eyes: EOMI, no lid lag, anicteric sclera Mouth: no lip lesion, mucus membranes moist Cardiovascular: S1S2 reg, no murmur, right breast wound with dressing intact Ext: no gross muscle atrophy, no edema, no contractures Neuro: no focal neuro deficits Psych: Alert, oriented, appropriate affect, lethargic Discharge Diagnosis: New onset seizure, suspect due to metastatic brain lesions Leukocytosis, suspect due to acute stressor no signs of active infection at this time Macrocytosis, may be due to ongoing chemotherapy Severe acidosis, likely due to seizure This complex discharge took 35 minutes to complete. Patient Condition at Discharge: Stable Plan - Discharge Summary Discharge Rx Participant: Yes New Discharge Prescriptions: New levETIRAcetam [Keppra] 750 mg PO Q12HR #60 tab Pantoprazole [Protonix] 40 mg PO DAILY #30 tab dexAMETHasone [Decadron] See Taper PO DIRECTED #88 tablet Continue ALPRAZolam [Xanax] 2 mg PO BID FLUoxetine HCL [PROzac] 20 mg PO DAILY FLUoxetine HCL [PROzac] 40 mg PO DAILY Discharge Medication List ALPRAZolam [Xanax] 2 mg PO BID 04/27/19 [History] FLUoxetine HCL [PROzac] 20 mg PO DAILY 05/03/19 [History] FLUoxetine HCL [PROzac] 40 mg PO DAILY 05/27/23 [History] Pantoprazole [Protonix] 40 mg PO DAILY #30 tab 05/29/23 [Rx] dexAMETHasone [Decadron] See Taper PO DIRECTED #88 tablet 05/29/23 [Rx] levETIRAcetam [Keppra] 750 mg PO Q12HR #60 tab 05/29/23 [Rx] Follow up Appointment(s)/Referral(s): None,Stated [Primary Care Provider] - 1-2 days Cat Rich MD [STAFF PHYSICIAN] - 1 Week (Wednesday, May 31) Patient Instructions/Handouts: Seizure/Epilepsy Discharge Instructions & Follow-Up Discharge Disposition: HOME SELF-CARE
== END 2023-05-29 10:50 | disposition home or self-care (01) | DRG 41 ==
LOC: EC 18:03 → 3SCARD 20:20
PROVIDERS: ADMIT Internal Medicine; ATTEND Internal Medicine
DX: C79.31 Secondary malignant neoplasm of brain (principal); C50.911 Malignant neoplasm of unspecified site of right female breast; C77.3 Secondary and unspecified malignant neoplasm of axilla and upper limb lymph nodes; C78.7 Secondary malignant neoplasm of liver and intrahepatic bile duct; G93.6 Cerebral edema; C78.01 Secondary malignant neoplasm of right lung; Z17.1 Estrogen receptor negative status [ER-]; G40.89 Other seizures; G81.94 Hemiplegia, unspecified affecting left nondominant side; F17.210 Nicotine dependence, cigarettes, uncomplicated; F32.A Depression, unspecified; E87.20 Acidosis, unspecified; F41.9 Anxiety disorder, unspecified; Z80.3 Family history of malignant neoplasm of breast; Z80.1 Family history of malignant neoplasm of trachea, bronchus and lung; D72.829 Elevated white blood cell count, unspecified; T45.1X5A Adverse effect of antineoplastic and immunosuppressive drugs, initial encounter; Z86.61 Personal history of infections of the central nervous system; I45.10 Unspecified right bundle-branch block; Z28.21 Immunization not carried out because of patient refusal; Z79.01 Long term (current) use of anticoagulants; Z79.899 Other long term (current) drug therapy; Z92.3 Personal history of irradiation; Z92.21 Personal history of antineoplastic chemotherapy; Z88.8 Allergy status to other drugs, medicaments and biological substances
CPT/HCPCS: 36415; 70450; 70496; 70498; 70553; 80048; 80053; 82550; 82607; 82747; 83605; 84484; 85025; 85027; 85610; 85730; 93005; 94760; 95816; 96361; 96374; 96375; 99291

== ENCOUNTER → 2023-08-02 | Outpatient (CLI) | payer OTHER ==
--- NOTE | 2023-08-03 10:05 | CA ---
Transthoracic Echo Report Name: Katya Lawson Age: 47 Gender: F : 1975 Exam Date: 08/02/2023 18:00 Exam Location: [facility] Echo Ht (in): 67 Wt (lb): 244 Ordering Physician: Cat Rich MD Attending/Referring Phys: Distillery Supervisor Jeremy Matute Procedure CPT: Indications: Z01.818 Pre-chemo Cardiac Hx: Technical Quality: Technically difficult study. Contrast 1: Total Dose (mL): Contrast 2: Total Dose (mL): MEASUREMENTS (Male / Female) Normal Values 2D ECHO RV Internal Dim ED PLAX 2.3 cm LVOT Diameter 2.3 cm Aortic Root Diameter 3.0 cm LA Systolic Diameter LX 1.2 cm 3.0 - 4.0 / 2.7 - 3.8 cm LV Diastolic Volume MOD BP 31.4 cm??? 67 - 155 / 56 - 104 cm??? LV Systolic Volume MOD BP 9.5 cm??? 22 - 58 / 19 - 49 cm??? LV Ejection Fraction MOD BP 69.7 % >= 55 % LV Cardiac Index MOD BP 832.4 cm???/min???m??? LV Diastolic Volume MOD 4C 36.4 cm??? LV Systolic Volume MOD 4C 11.6 cm??? LV Ejection Fraction MOD 4C 68.0 % LV Cardiac Index MOD 4C 943.2 cm???/min???m??? LV Diastolic Length 4C 6.6 cm LV Systolic Length 4C 5.7 cm LV Diastolic Volume MOD 2C 24.2 cm??? LV Systolic Volume MOD 2C 7.0 cm??? LV Ejection Fraction MOD 2C 71.1 % LV Cardiac Index MOD 2C 656.0 cm???/min???m??? LV Diastolic Length 2C 7.5 cm LV Systolic Length 2C 6.6 cm DOPPLER AV Peak Velocity 100.5 cm/s AV Peak Gradient 4.0 mmHg LVOT Peak Velocity 82.6 cm/s LVOT Peak Gradient 2.7 mmHg LVOT Velocity Time Integral 16.0 cm LVOT Stroke Volume 67.1 cm??? LVOT Stroke Volume Index 30.5 ml/m??? LVOT Cardiac Index 2555.6 cm???/min???m??? AV Area Cont Eq pk 3.5 cm??? MV Peak Velocity 64.8 cm/s MV Peak Gradient 1.7 mmHg MV Mean Velocity 36.3 cm/s MV Mean Gradient 0.6 mmHg MV Velocity Time Integral 22.5 cm MR Peak Velocity 82.8 cm/s MR Peak Gradient 2.7 mmHg Mitral E Point Velocity 56.0 cm/s Mitral A Point Velocity 64.9 cm/s Mitral E to A Ratio 0.9 MV Deceleration Time 162.8 ms MV E' Velocity 7.8 cm/s Mitral E to MV E' Ratio 7.2 TR Peak Velocity 98.3 cm/s TR Peak Gradient 3.9 mmHg Right Ventricular Systolic Press 8.9 mmHg FINDINGS Left Ventricle Normal LV size and wall thickness. Left ventricular ejection fraction is estimated at _50-55%. Right Ventricle Normal right ventricular size. Right Atrium Normal right atrial size. Left Atrium Normal left atrial size. Mitral Valve Mitral valve not well visualized. Grossly normal. No mitral stenosis. No mitral regurgitation. Aortic Valve Trileaflet aortic valve. No aortic regurgitation. No aortic stenosis. Tricuspid Valve Tricuspid valve not well visualized. Trace TR. Pulmonic Valve Pulmonic valve not well visualized. No pulmonic regurgitation. Pericardium Normal pericardium. Aorta Normal size aortic root. CONCLUSIONS Technically difficult study with suboptimal acoustic windows LV size and function appears to be preserved, 50-55% Consider Definity contrast versus MUGA scan Previewed by: Dr. Pradeep Louise MD (Electronically Signed) Final Date: 03 August 2023 10:04
== END | disposition home or self-care (01) ==
LOC: RADECHMAIN 16:55
PROVIDERS: ATTEND Internal Medicine Hematology & Oncology
DX: Z01.818 Encounter for other preprocedural examination (principal); I82.812 Embolism and thrombosis of superficial veins of left lower extremity; G89.3 Neoplasm related pain (acute) (chronic); C50.419 Malignant neoplasm of upper-outer quadrant of unspecified female breast; Z71.3 Dietary counseling and surveillance
CPT/HCPCS: 93306

== ENCOUNTER → 2023-08-09 | Outpatient (CLI) | payer OTHER ==
--- NOTE | 2023-08-09 21:58 | MR ---
EXAMINATION TYPE: MR brain wo/w con DATE OF EXAM: 08/09/2023 COMPARISON: 05/28/2023 HISTORY: Breast and Brain cancer, Dizziness, Had seizure May 2023 TECHNIQUE: Multiplanar, multisequence images of the brain and brainstem is performed without and with IV contras t, utilizing 11 mL intravenous Gadavist . The ventricles, basal cisterns and sulci over the convexities are within normal limits and there is n o mass effect or shift of midline structures. There has been a marked reduction in the number and size of metastatic lesions which are scattered th roughout the cerebral hemispheres and cerebellum and brainstem. Some of the lesions display nonenhanc ing centers with rim-like enhancement consistent with treated metastatic nodules. No new metastatic n odules are seen. There is no mass effect or shift of the midline structures. The intraorbital contents appear normal symmetric. Visualized paranasal sinuses are well aerated. There is marked fluid within the mastoid air cells brittney aterally. IMPRESSION: 1. Marked reduction in the size and numbers of enhancing metastatic lesions in the brain as described above. 2. No mass effect or shift of the midline structures. 3. Marked fluid within the mastoid air cells bilaterally.
== END ==
LOC: RADMRIMAIN 08-09 21:03
PROVIDERS: ATTEND Radiology Radiation Oncology
DX: C79.31 Secondary malignant neoplasm of brain (principal); C50.211 Malignant neoplasm of upper-inner quadrant of right female breast; F17.210 Nicotine dependence, cigarettes, uncomplicated
CPT/HCPCS: 70553; A9585

== ENCOUNTER → 2023-09-08 | Outpatient (CLI) | payer OTHER ==
[2023-09-08 12:17] LABS: African American GFR (CKD) >90 (>60 ml/min/1.73 sqM); Blood Urea Nitrogen 14 mg/dL (7-17); Non-African American GFR(CKD) >90 (>60 ml/min/1.73 sqM)
--- NOTE | 2023-09-08 13:48 | CT ---
EXAMINATION: CT CHEST, ABDOMEN AND PELVIS WITH IV CONTRAST DATE OF EXAMINATION: 09/08/2023. COMPARISON: 04/26/2023. INDICATION: Malignant neoplasm of the breast. PROCEDURE: Axial CT of the chest, abdomen and pelvis was performed following the intravenous adminis tration of 100 ml Isovue 300. Coronal and sagittal reformats were performed. CT dose lowering techni ques were used, to include: automated exposure control, adjustment for patient size, and/or use of it erative reconstruction. FINDINGS: CHEST: CHEST WALL: Left-sided Mediport is unchanged. Mediastinum and Karena: There is no axillary, mediastinal or hilar lymphadenopathy. Pleural and Pericardial spaces: There are no pleural or pericardial effusions. Cardiovascular: The thoracic aorta is normal in size without evidence of aneurysm or dissection. Pulmonary Artery: There are no central pulmonary arterial filling defects. Lung Parenchyma and Airways: Right upper lobe nodule measures 1 cm on series 4 image 15 and previousl y measured 6 mm. I 0.4 mm nodule within the right upper lobe posterior laterally on series 4 image 26 previously measured approximately 6.8 mm. 0.2 cm nodule in the right lower lobe on series 4 image 39 previously measured 1.3 cm. Irregular nodule in the left upper lobe currently measures approximately 3.4 cm and previously measured 2.5 cm. Several additional pulmonary nodules are again seen throughou t the lungs bilaterally which are either unchanged or larger than compared to the previous examinatio n compatible with progressive metastatic disease. ABDOMEN: Liver and Biliary system: There is a mass within the left lobe of liver measuring 6.4 x 4.8 cm which is larger when compared to the previous examination where it previously measured 3.2 x 2.7 cm. No ne w liver lesions are seen. Adrenal glands: Normal. Kidneys and ureters: Normal. Spleen: Normal. Pancreas: Normal. Gallbladder: Normal. Lymph nodes, Peritoneum and mesentery: There is no mesenteric or retroperitoneal lymphadenopathy. Gastrointestinal tract: There are no dilated loops of bowel or free intraperitoneal air. . The appe ndix is not clearly seen with no secondary changes of appendicitis identified. Aorta/IVC: Aorta normal. No aortic aneurysm or dissection. IVC normal. Abdominal wall: Normal. PELVIS: Fluid: There is no free fluid in the pelvis. Lymph Nodes: There is no pelvic or inguinal lymphadenopathy.. Urinary bladder: Normal. BONES: There are no osseous destructive lesions.. ADDITIONAL SIGNIFICANT FINDINGS: None. IMPRESSION: Progression of pulmonary and hepatic metastasis.
== END | disposition home or self-care (01) ==
LOC: RADCTMAIN 10:18
PROVIDERS: ATTEND Internal Medicine Hematology & Oncology
DX: Z01.818 Encounter for other preprocedural examination (principal); C78.00 Secondary malignant neoplasm of unspecified lung; C78.7 Secondary malignant neoplasm of liver and intrahepatic bile duct; C50.419 Malignant neoplasm of upper-outer quadrant of unspecified female breast; G89.3 Neoplasm related pain (acute) (chronic); I82.812 Embolism and thrombosis of superficial veins of left lower extremity; Z71.3 Dietary counseling and surveillance
CPT/HCPCS: 82565; 84520; 71260; 74177; 36415; Q9967

== ENCOUNTER 2023-10-15 14:52 | Inpatient (IN) | payer OTHER ==
[2023-10-15 16:02] LABS: Glucose,Whole Blood 115 mg/dL (70-110)
--- NOTE | 2023-10-15 16:19 | ED ---
CPR HPI - General Chief Complaint: Recheck/Abnormal Lab/Rx Stated Complaint: Low Potassium Time Seen by Provider: 10/15/23 15:46 Source: patient, RN notes reviewed, old records reviewed Mode of arrival: ambulatory Limitations: no limitations - History of Present Illness Initial Comments: This is a 48-year-old female to the ER for evaluation today. Patient did not stay for evaluation regard to low potassium levels. On arrival to the emergency department patient was brought from the waiting room to the bedroom and on began to have a seizure and seizure-like activity. On bedside evaluation patient is unresponsive and pulseless, patient is connected to the monitor and CPR was began and is found to be in ventricular tachycardia, ventricular fibrillation, ACLS protocols initiated MD Complaint: found unresponsive, stopped breathing, collapsed during rest, seizure (Seizure-like activity suspect hypoxia from arrhythmia) -: minute(s) Place: other (CPR began upon arrival at bedside no downtime) Bystander CPR Performed: Yes AED Applied by Bystander/Client Care Consultant: Yes Shock Advised: Yes Number of Shocks Delivered: 3 Initial Findings in the Field: agonal, no pulse, VTACH/VFIB Associated Symptoms: dizziness/weakness Treatments Prior to Arrival: intubation (We did end up 8 intubate this patient on arrival), epinephrine mgs #, sodium bicarbonate, amiodarone, magnesium, glucose - Related Data Home Medications Medication Instructions Recorded Confirmed ALPRAZolam [Xanax] 2 mg PO BID 04/27/19 10/15/23 FLUoxetine HCL [PROzac] 20 mg PO DAILY 05/03/19 10/15/23 FLUoxetine HCL [PROzac] 40 mg PO DAILY 05/27/23 10/15/23 Apixaban [Eliquis] 5 mg PO BID 10/15/23 10/15/23 Ondansetron [Zofran] 4 mg PO Q8HR PRN 10/15/23 10/15/23 Previous Rx's Medication Instructions Recorded Pantoprazole [Protonix] 40 mg PO DAILY #30 tab 05/29/23 levETIRAcetam [Keppra] 750 mg PO Q12HR #60 tab 05/29/23 Allergies Allergy/AdvReac Type Severity Reaction Status Date / Time Iodine and Iodide Containing Allergy Rash/Hives Verified 10/15/23 18:52 Produc Review of Systems ROS Statement: Those systems with pertinent positive or pertinent negative responses have been documented in the HPI. ROS Other: All systems not noted in ROS Statement are negative. Past Medical History Past Medical History: Cancer Additional Past Medical History / Comment(s): Hx. spinal meningitis twice 1999 and 2002, Breast Cancer 2019, one seizure age 6, "nodule on rt lung", History of Any Multi-Drug Resistant Organisms: None Reported Past Surgical History: Appendectomy, Section Additional Past Surgical History / Comment(s): right shoulder cyst removal, breast biopsy Past Anesthesia/Blood Transfusion Reactions: No Reported Reaction Past Psychological History: Anxiety, Depression Smoking Status: Current every day smoker - Past Family History Mother Family Medical History: Cancer, Deep Vein Thrombosis (DVT) Additional Family Medical History / Comment(s): BREAST CANCER WITH METS TO LUNG. General Exam Limitations: no limitations, physical limitation General appearance: lethargic, obtunded, in distress Head exam: Present: atraumatic, normocephalic, normal inspection Eye exam: Present: EOMI ENT exam: Present: normal exam, mucous membranes moist Neck exam: Present: normal inspection. Absent: tenderness, meningismus, lymphadenopathy Respiratory exam: Present: normal lung sounds bilaterally. Absent: respiratory distress, wheezes, rales, rhonchi, stridor Cardiovascular Exam: Present: regular rate, normal rhythm, normal heart sounds. Absent: systolic murmur, diastolic murmur, rubs, gallop, clicks GI/Abdominal exam: Present: soft, normal bowel sounds. Absent: distended, tenderness, guarding, rebound, rigid Extremities exam: Present: normal inspection, full ROM, normal capillary refill. Absent: tenderness, pedal edema, joint swelling, calf tenderness Back exam: Present: normal inspection Psychiatric exam: Present: depressed, agitated Skin exam: Present: warm, dry, intact, normal color. Absent: rash Course Vital Signs 10/15/23 10/15/23 10/15/23 15:07 16:40 16:53 Temperature 97.4 F L Pulse Rate 94 Respiratory 18 28 H Rate Blood Pressure 101/65 129/91 O2 Sat by Pulse 100 99 Oximetry Fraction of 100 Inspired Oxygen (FIO2) 10/15/23 10/15/23 10/15/23 17:00 17:15 17:16 Temperature Pulse Rate 134 H 121 H Respiratory 21 17 Rate Blood Pressure 120/82 105/73 O2 Sat by Pulse 99 97 Oximetry Fraction of 50 Inspired Oxygen (FIO2) 10/15/23 10/15/23 10/15/23 17:30 17:45 18:00 Temperature 98.1 F Pulse Rate 121 H 125 H Respiratory 42 H 22 Rate Blood Pressure 105/73 103/60 O2 Sat by Pulse 97 96 98 Oximetry Fraction of Inspired Oxygen (FIO2) 10/15/23 10/15/23 10/15/23 18:15 18:30 19:04 Temperature Pulse Rate 113 H 114 H Respiratory 27 H 24 Rate Blood Pressure 101/60 111/71 O2 Sat by Pulse 97 98 Oximetry Fraction of 50 Inspired Oxygen (FIO2) 10/15/23 10/15/23 10/15/23 19:15 19:30 19:45 Temperature Pulse Rate 105 H 105 H 105 H Respiratory 27 H 26 H 29 H Rate Blood Pressure 109/71 107/64 110/66 O2 Sat by Pulse 100 99 100 Oximetry Fraction of Inspired Oxygen (FIO2) 10/15/23 10/15/23 10/15/23 20:00 20:15 20:30 Temperature Pulse Rate 108 H 109 H 107 H Respiratory 28 H 26 H 24 Rate Blood Pressure 106/69 107/70 97/74 O2 Sat by Pulse 99 99 99 Oximetry Fraction of Inspired Oxygen (FIO2) 10/15/23 10/15/23 10/15/23 20:45 21:00 21:38 Temperature Pulse Rate 101 H 103 H Respiratory 26 H 26 H Rate Blood Pressure 117/68 107/81 O2 Sat by Pulse 99 99 Oximetry Fraction of 50 Inspired Oxygen (FIO2) 10/15/23 10/15/23 10/15/23 21:45 22:15 23:48 Temperature Pulse Rate 100 96 Respiratory 25 H 20 Rate Blood Pressure 105/69 108/69 O2 Sat by Pulse 99 99 Oximetry Fraction of 50 Inspired Oxygen (FIO2) 10/16/23 10/16/23 10/16/23 00:40 02:00 04:09 Temperature Pulse Rate 89 89 Respiratory 19 Rate Blood Pressure 108/72 107/68 O2 Sat by Pulse 99 99 Oximetry Fraction of 20 Inspired Oxygen (FIO2) 10/16/23 10/16/23 10/16/23 04:11 05:00 06:00 Temperature Pulse Rate 81 77 77 Respiratory 19 20 Rate Blood Pressure 101/67 99/65 102/62 O2 Sat by Pulse 100 100 100 Oximetry Fraction of Inspired Oxygen (FIO2) 10/16/23 10/16/23 10/16/23 07:29 07:35 08:44 Temperature Pulse Rate 76 Respiratory 20 Rate Blood Pressure 107/68 O2 Sat by Pulse 100 Oximetry Fraction of 50 40 Inspired Oxygen (FIO2) 10/16/23 10/16/23 10/16/23 08:47 09:04 09:48 Temperature Pulse Rate 71 71 72 Respiratory 20 20 20 Rate Blood Pressure 97/62 100/62 109/69 O2 Sat by Pulse 100 100 100 Oximetry Fraction of Inspired Oxygen (FIO2) 10/16/23 10/16/23 10/16/23 10:00 11:11 11:37 Temperature 97.3 F L Pulse Rate 71 73 Respiratory 20 20 Rate Blood Pressure 108/68 109/66 O2 Sat by Pulse 100 100 Oximetry Fraction of 40 Inspired Oxygen (FIO2) 10/16/23 10/16/23 10/16/23 12:00 13:00 14:00 Temperature Pulse Rate 66 67 68 Respiratory 20 20 20 Rate Blood Pressure 104/63 94/58 95/59 O2 Sat by Pulse 100 99 100 Oximetry Fraction of Inspired Oxygen (FIO2) 10/16/23 10/16/23 10/16/23 15:22 16:00 17:00 Temperature Pulse Rate 68 69 Respiratory 20 20 Rate Blood Pressure 104/62 103/66 O2 Sat by Pulse 100 100 Oximetry Fraction of 40 Inspired Oxygen (FIO2) 10/16/23 18:36 Temperature Pulse Rate 70 Respiratory 20 Rate Blood Pressure 101/60 O2 Sat by Pulse 100 Oximetry Fraction of Inspired Oxygen (FIO2) - Reevaluation(s) Reevaluation #1: 10/15/23 18:03 Other records reviewed Reevaluation #2: 10/15/23 18:03 Patient's symptoms have stabilized, vital signs have normalized Patient showing no significant neurological movement or activity Reevaluation #3: 10/15/23 18:03 Patient and family informed of results Family is spoken with, during initial CPR, aware of grave prognosis Family does not seem to be accepting of patient's clinical condition Multiple continuous conversations with family at bedside Reevaluation #4: Was pt. sent in by a medical professional or institution (, PA, CHIROPRACTIC NEUROLOGIST, urgent care, hospital, or penitentiary...) When possible be specific @ -no Did you speak to anyone other than the patient for history (EMS, parent, family, police, friend...)? What history was obtained from this source @ -no Did you review nursing and triage notes (agree or disagree)? Why? @ -agree Are old charts reviewed (outside hosp., previous admission, EMS record, old EKG, old radiological studies, urgent care reports/EKG's, penitentiary records)? Report findings @ -yes Differential Diagnosis (chest pain, altered mental status, abdominal pain women, abdominal pain men, vaginal bleeding, weakness, fever, dyspnea, syncope, headache, dizziness, GI bleed, back pain, seizure, CVA, palpatations, mental health, musculoskeletal)? @ -prior EKG interpreted by me (3pts min.). @ -yes X-rays interpreted by me (1pt min.). @ -yes negative for acute disease CT interpreted by me (1pt min.). @ -Yes negative for acute changes U/S interpreted by me (1pt. min.). @ -no What testing was considered but not performed or refused? (CT, X-rays, U/S, labs)? Why? @ -none What meds were considered but not given or refused? Why? @ -none Did you discuss the management of the patient with other professionals (professionals i.e. , PA, CHIROPRACTIC NEUROLOGIST, lab, RT, psych nurse, social security assessor, dater assembler, teacher, airfield engineer officer, case mgr)? Give summary @ -no Was smoking cessation discussed for >3mins.? @ -no Was critical care preformed (if so, how long)? @ -yes95 Were there social determinants of health that impacted care today? How? (Homelessness, low income, unemployed, alcoholism, drug addiction, transportation, low edu. Level, literacy, decrease access to med. care, intermediate, rehab)? @ -none Was there de-escalation of care discussed even if they declined (Discuss DNR or withdrawal of care, Hospice)? DNR status @ -no What co-morbidities impacted this encounter? (DM, HTN, Smoking, COPD, CAD, Cancer, CVA, ARF, Chemo, Hep., AIDS, mental health diagnosis, sleep apnea, morbid obesity)? @ -none Was patient admitted / discharged? Hospital course, mention meds given and route, prescriptions, significant lab abnormalities, going to OR and other pertinent info. @ - 48 female to ER for evaluation. Patient presents to the ER for abnormal outpatient lab testing showing low potassium. On arrival to the ER prior to presentation in the room patient had cardiac arrest seizure-like activity. Patient found to be in ventricular fibrillation and ACLS protocol was initiated patient was intubated and admitted to the ICU for further acute care and management Admitted Undiagnosed new problem with uncertain prognosis? @ -no Drug Therapy requiring intensive monitoring for toxicity (Heparin, Nitro, Insulin, Cardizem)? @ -no Were any procedures done? @ -no Diagnosis/symptom? @ -Cardiac arrest Acute, or Chronic, or Acute on Chronic? @ -Acute Uncomplicated (without systemic symptoms) or Complicated (systemic symptoms)? @ -Complicated Side effects of treatment? @ -no Exacerbation, Progression, or Severe Exacerbation? @ -exacerbation Poses a threat to life or bodily function? How? (Chest pain, USA, SC, pneumonia, PE, COPD, DKA, ARF, appy, cholecystitis, CVA, Diverticulitis, Homicidal, Suicidal, threat to staff... and all critical care pts) @ -yes with significant cardiac arrest Reevaluation #5: Differential Altered Mental Status: Hypoglycemia, DKA, hypercapnia, ETOH, overdose, CO poisoning, trauma, myxedema coma, HTN encephalopathy, infection, encephalitis, psychosis, intercranial hemorrhage, hepatic encephalopathy, meningitis, CVA, this is not meant to be an all-inclusive list - Consultations Consultation #1: Spoke with ICU regarding admission and they are agreeable Consultation #2: Spoke with attending physicians regarding admission and they are agreeable Procedures - Intubation Laryngoscope: Beverly Size: 4 ET Tube Size: 7.5 ET Tube Uncuffed: Yes Tube Secured Location: teeth Tube Placement Confirmation: visualized tube passing through cords, equal breath sounds bilaterally, no breath sounds over epigastrium, confirmation by capnometry Patient Tolerated Procedure: well Intubation Complications: none Medical Decision Making - Medical Decision Making 48 female to ER for evaluation. Patient presents to the ER for abnormal outpatient lab testing showing low potassium. On arrival to the ER prior to presentation in the room patient had cardiac arrest seizure-like activity. Patient found to be in ventricular fibrillation and ACLS protocol was initiated patient was intubated and admitted to the ICU for further acute care and management - Lab Data Result diagrams: 10/18/23 06:47 10/19/23 11:36 Lab Results 10/15/23 10/15/23 10/15/23 Range/Units 16:00 16:08 16:08 WBC 14.2 H (3.8-10.6) k/uL RBC 4.11 (3.80-5.40) m/uL Hgb 13.5 (11.4-16.0) gm/dL Hct 43.9 (34.0-46.0) % MCV 106.8 H (80.0-100.0) fL MCH 32.9 (25.0-35.0) pg MCHC 30.8 L (31.0-37.0) g/dL RDW 15.4 (11.5-15.5) % Plt Count 439 (150-450) k/uL MPV 10.1 Neutrophils % 56 % Lymphocytes % 31 % Monocytes % 9 % Eosinophils % 0 % Basophils % 0 % Neutrophils # 7.9 H (1.3-7.7) k/uL Lymphocytes # 4.5 (1.0-4.8) k/uL Monocytes # 1.2 H (0-1.0) k/uL Eosinophils # 0.0 (0-0.7) k/uL Basophils # 0.1 (0-0.2) k/uL Hypochromasia Marked Macrocytosis Moderate PT 13.1 H (10.0-12.5) sec INR 1.2 H (<1.2) APTT 22.3 (22.0-30.0) sec D-Dimer 0.39 (<0.60) mg/L FEU Sample Site ABG pH (7.35-7.45) ABG pCO2 (35-45) mmHg ABG pO2 (83-108) mmHg ABG HCO3 (21-25) mmol/L ABG Total CO2 (19-24) mmol/L ABG O2 Saturation (94-97) % ABG Base Excess mmol/L Moises Test FiO2 % Sodium (137-145) mmol/L Potassium (3.5-5.1) mmol/L Chloride (98-107) mmol/L Carbon Dioxide (22-30) mmol/L Anion Gap mmol/L BUN (7-17) mg/dL Creatinine (0.52-1.04) mg/dL Est GFR (CKD-EPI)AfAm (>60 ml/min/1.73 sqM) Est GFR (CKD-EPI)NonAf (>60 ml/min/1.73 sqM) Glucose (74-99) mg/dL POC Glucose (mg/dL) 115 H (70-110) mg/dL POC Glu Quality Control Assistant Candice Clemens Lactic Ac Sepsis Rflx Plasma Lactic Acid Jonathan (0.7-2.0) mmol/L Calcium (8.4-10.2) mg/dL Phosphorus (2.5-4.5) mg/dL Magnesium (1.6-2.3) mg/dL Total Bilirubin (0.2-1.3) mg/dL AST (14-36) U/L ALT (4-34) U/L Alkaline Phosphatase (38-126) U/L Troponin I (0.000-0.034) ng/mL NT-Pro-B Natriuret Pep pg/mL Total Protein (6.3-8.2) g/dL Albumin (3.5-5.0) g/dL 10/15/23 10/15/23 10/15/23 Range/Units 16:08 16:08 16:08 WBC (3.8-10.6) k/uL RBC (3.80-5.40) m/uL Hgb (11.4-16.0) gm/dL Hct (34.0-46.0) % MCV (80.0-100.0) fL MCH (25.0-35.0) pg MCHC (31.0-37.0) g/dL RDW (11.5-15.5) % Plt Count (150-450) k/uL MPV Neutrophils % % Lymphocytes % % Monocytes % % Eosinophils % % Basophils % % Neutrophils # (1.3-7.7) k/uL Lymphocytes # (1.0-4.8) k/uL Monocytes # (0-1.0) k/uL Eosinophils # (0-0.7) k/uL Basophils # (0-0.2) k/uL Hypochromasia Macrocytosis PT (10.0-12.5) sec INR (<1.2) APTT (22.0-30.0) sec D-Dimer (<0.60) mg/L FEU Sample Site ABG pH (7.35-7.45) ABG pCO2 (35-45) mmHg ABG pO2 (83-108) mmHg ABG HCO3 (21-25) mmol/L ABG Total CO2 (19-24) mmol/L ABG O2 Saturation (94-97) % ABG Base Excess mmol/L Moises Test FiO2 % Sodium 139 (137-145) mmol/L Potassium 3.9 (3.5-5.1) mmol/L Chloride 99 (98-107) mmol/L Carbon Dioxide 22 (22-30) mmol/L Anion Gap 18 mmol/L BUN 15 (7-17) mg/dL Creatinine 0.69 (0.52-1.04) mg/dL Est GFR (CKD-EPI)AfAm >90 (>60 ml/min/1.73 sqM) Est GFR (CKD-EPI)NonAf >90 (>60 ml/min/1.73 sqM) Glucose 659 H* (74-99) mg/dL POC Glucose (mg/dL) (70-110) mg/dL POC Glu Quality Control Assistant ID Lactic Ac Sepsis Rflx Plasma Lactic Acid Jonathan 12.3 H* (0.7-2.0) mmol/L Calcium 9.0 (8.4-10.2) mg/dL Phosphorus 3.8 (2.5-4.5) mg/dL Magnesium 2.0 (1.6-2.3) mg/dL Total Bilirubin 0.7 (0.2-1.3) mg/dL AST 46 H (14-36) U/L ALT 32 (4-34) U/L Alkaline Phosphatase 120 (38-126) U/L Troponin I <0.012 (0.000-0.034) ng/mL NT-Pro-B Natriuret Pep 279 pg/mL Total Protein 6.1 L (6.3-8.2) g/dL Albumin 3.3 L (3.5-5.0) g/dL 10/15/23 10/15/23 Range/Units 16:54 17:08 WBC (3.8-10.6) k/uL RBC (3.80-5.40) m/uL Hgb (11.4-16.0) gm/dL Hct (34.0-46.0) % MCV (80.0-100.0) fL MCH (25.0-35.0) pg MCHC (31.0-37.0) g/dL RDW (11.5-15.5) % Plt Count (150-450) k/uL MPV Neutrophils % % Lymphocytes % % Monocytes % % Eosinophils % % Basophils % % Neutrophils # (1.3-7.7) k/uL Lymphocytes # (1.0-4.8) k/uL Monocytes # (0-1.0) k/uL Eosinophils # (0-0.7) k/uL Basophils # (0-0.2) k/uL Hypochromasia Macrocytosis PT (10.0-12.5) sec INR (<1.2) APTT (22.0-30.0) sec D-Dimer (<0.60) mg/L FEU Sample Site r rad ABG pH 7.33 L (7.35-7.45) ABG pCO2 39 (35-45) mmHg ABG pO2 359 H (83-108) mmHg ABG HCO3 20 L (21-25) mmol/L ABG Total CO2 22 (19-24) mmol/L ABG O2 Saturation 99.3 H (94-97) % ABG Base Excess -5.6 mmol/L Moises Test Yes FiO2 100 % Sodium (137-145) mmol/L Potassium (3.5-5.1) mmol/L Chloride (98-107) mmol/L Carbon Dioxide (22-30) mmol/L Anion Gap mmol/L BUN (7-17) mg/dL Creatinine (0.52-1.04) mg/dL Est GFR (CKD-EPI)AfAm (>60 ml/min/1.73 sqM) Est GFR (CKD-EPI)NonAf (>60 ml/min/1.73 sqM) Glucose (74-99) mg/dL POC Glucose (mg/dL) (70-110) mg/dL POC Glu Quality Control Assistant ID Lactic Ac Sepsis Rflx Y Plasma Lactic Acid Jonathan (0.7-2.0) mmol/L Calcium (8.4-10.2) mg/dL Phosphorus (2.5-4.5) mg/dL Magnesium (1.6-2.3) mg/dL Total Bilirubin (0.2-1.3) mg/dL AST (14-36) U/L ALT (4-34) U/L Alkaline Phosphatase (38-126) U/L Troponin I (0.000-0.034) ng/mL NT-Pro-B Natriuret Pep pg/mL Total Protein (6.3-8.2) g/dL Albumin (3.5-5.0) g/dL - EKG Data -: EKG Interpreted by Me - Radiology Data Radiology results: report reviewed (Chest x-ray CTA chest CT brain is negative for acute changes), image reviewed Critical Care Time Critical Care Time: Yes Total Critical Care Time: 95 Disposition Clinical Impression: Breast cancer, Seizure, Ventricular fibrillation, Cardiac arrest, Metastasis to brain, Neoplasm of breast, primary tumor staging category T4c: extension to chest wall, not including only adherence and/or invasion to pectoralis muscle with ulceration and/or ipsilateral satellite nodules and/or edema (including peau d'orange) of skin, excluding inflammatory carcinoma, Hypokalemia, Recurrent seizures Disposition: ADMITTED IP TO THIS HOSP Condition: Critical Is patient prescribed a controlled substance at d/c from ED?: No Time of Disposition: 19:00
[2023-10-15] MEDS: POTASSIUM CHLORIDE 20 MEQ in WATER FOR INJECTION 1 100ML.BAG IVPB STA ×3 (16:29→20:17)
[2023-10-15] MEDS: SODIUM CHLORIDE 0.9% 1,000 ML IV STA (16:33)
[2023-10-15 16:36] LABS: Basophils # (A) 0.1 k/uL (0-0.2); Basophils % (A) 0 %; Eosinophils % (A) 0 %; HCT 43.9 % (34.0-46.0); HGB 13.5 gm/dL (11.4-16.0); Hypochromasia Marked; Lymphocytes # (A) 4.5 k/uL (1.0-4.8); Lymphocytes % (A) 31 %; MCH 32.9 pg (25.0-35.0); MCHC 30.8 g/dL (31.0-37.0); MCV 106.8 fL (80.0-100.0); Macrocytosis Moderate; Mean Platelet Volume 10.1; Monocytes # (A) 1.2 k/uL (0-1.0); Monocytes % (A) 9 %; Neutrophils # (A) 7.9 k/uL (1.3-7.7); Neutrophils % (A) 56 %; Platelet Count 439 k/uL (150-450); RBC 4.11 m/uL (3.80-5.40); RDW 15.4 % (11.5-15.5); WBC 14.2 k/uL (3.8-10.6)
[2023-10-15] MEDS: MAGNESIUM SULFATE-D5W PMX 1 GM in DEXTROSE/WATER 1 100ML.BAG IVPB SCH (16:38)
[2023-10-15 16:41] LABS: ALT 32 U/L (4-34); AST 46 U/L (14-36); African American GFR (CKD) >90 (>60 ml/min/1.73 sqM); Albumin 3.3 g/dL (3.5-5.0); Alkaline Phosphatase 120 U/L (38-126); Anion Gap 18 mmol/L; Blood Urea Nitrogen 15 mg/dL (7-17); Carbon Dioxide 22 mmol/L (22-30); Chloride 99 mmol/L (98-107); Non-African American GFR(CKD) >90 (>60 ml/min/1.73 sqM); Phosphorus 3.8 mg/dL (2.5-4.5); Potassium 3.9 mmol/L (3.5-5.1); Sodium 139 mmol/L (137-145); Total Bilirubin 0.7 mg/dL (0.2-1.3); Total Protein 6.1 g/dL (6.3-8.2)
[2023-10-15 16:48] LABS: NT-Pro-B-Type Natriuretic Pept 279 pg/mL
[2023-10-15 16:49] LABS: INR 1.2 (<1.2); Partial Thromboplastin Time 22.3 sec (22.0-30.0); Prothrombin Time 13.1 sec (10.0-12.5)
[2023-10-15 16:54] LABS: Glucose 659 mg/dL (74-99)
[2023-10-15 17:13] LABS: ABG Base Excess -5.6 mmol/L; ABG HCO3 20 mmol/L (21-25); ABG PCO2 39 mmHg (35-45); ABG PH 7.33 (7.35-7.45); ABG PO2 359 mmHg (83-108); ABG TCO2 22 mmol/L (19-24); Allen Test Performed? Yes
[2023-10-15 17:14] LABS: ABG Oxygen Saturation 99.3 % (94-97)
[2023-10-15] MEDS: MIDAZOLAM 1 MG/ML 5 ML VIAL IV STA (17:55)
[2023-10-15] MEDS ORDERED: NALOXONE 0.4 MG/ML 1 ML VIAL IV PRN (18:10)
[2023-10-15] MEDS: FAMOTIDINE 20 MG/2 ML VIAL IV STA (18:10)
[2023-10-15] MEDS: diphenhydrAMINE 50 MG/ML 1 ML VIAL IVP STA (18:14)
[2023-10-15] MEDS: methylPREDNISolone SOD SUCCI 125 MG/2 ML VIAL IV STA (18:16)
[2023-10-15] MEDS: SODIUM CHLORIDE 0.9% 1,000 ML IV ONE (18:18)
[2023-10-15] MEDS: LORazepam 2 MG/ML INJ IV PRN (18:27)
[2023-10-15 18:40] LABS: Glucose,Whole Blood 202 mg/dL (70-110)
--- NOTE | 2023-10-15 19:42 | CT ---
EXAMINATION TYPE: CT brain wo con CT DLP: Combined DLP of 1604.7 mGycm, Automated exposure control for dose reduction was used. DATE OF EXAM: 10/15/2023 7:10 PM COMPARISON: MR brain 08/09/2023. CLINICAL INDICATION:Female, 48 years old with history of ams, AMS. Breast and brain CA. TECHNIQUE: Brain: Axial CT images of the brain were obtained with coronal and sagittal reformats created and rev iewed. Contrast used: None. Oral contrast used: None. FINDINGS: Extra-axial spaces: No abnormal extra-axial fluid collections. Ventricular system: Within normal limits. Cerebral parenchyma: No increased attenuation to suggest acute intraparenchymal hemorrhage. The gra y-white matter interface appears maintained. No significant atrophy. There are some small faint are as of decreased attenuation seen at the sites of the previous larger metastatic lesions, for example left basal ganglia image 35. In the limits of unenhanced CT head, there does not seem to have been a tremendous increase in metastatic lesions. Small focal calcification is seen in the posterior right f rontal lobe image 45. Cerebellum: No acute abnormality. Mass effect: No evidence of mass effect or midline shift. Intracranial vasculature: Unremarkable Soft tissues: No acute or concerning abnormality. Visualized orbits: Orbital contents appear grossly intact. Calvarium/osseous structures: No evidence of calvarial fracture. Paranasal sinuses and mastoid air cells: Clear. Other: Partially seen on CT images are oral enteric and ET tubes. On the hat trimmer view ET tube tip is ab out 3 cm above the mckenzie, but exact identification and localization of the distal NG tube/tip is dif ficult. Recommend correlation with findings of chest x-ray. MRI is more sensitive for detecting acute processes such as infarct, and may be considered if clinica lly warranted. IMPRESSION: 1. No acute intracranial hemorrhage, midline shift, or mass effect. 2. Some small residual hypodensities can be seen which appear to correlate with the sites of some of the larger metastases previously identified. In the limits of unenhanced CT head, there does not see m to have been a tremendous increase in metastatic lesions. For better evaluation, contrast MRI would be the study of choice.
[2023-10-15 19:59] LABS: Basophils # (A) 0.1 k/uL (0-0.2); Basophils % (A) 0 %; Eosinophils % (A) 0 %; HCT 32.7 % (34.0-46.0); HGB 11.1 gm/dL (11.4-16.0); Lymphocytes # (A) 0.7 k/uL (1.0-4.8); Lymphocytes % (A) 3 %; MCH 33.1 pg (25.0-35.0); MCHC 33.9 g/dL (31.0-37.0); Macrocytosis Slight; Mean Platelet Volume 8.4; Monocytes # (A) 0.9 k/uL (0-1.0); Monocytes % (A) 3 %; Neutrophils # (A) 24.2 k/uL (1.3-7.7); Neutrophils % (A) 93 %; Platelet Count 350 k/uL (150-450); RBC 3.35 m/uL (3.80-5.40); RDW 15.8 % (11.5-15.5); WBC 26.1 k/uL (3.8-10.6)
[2023-10-15 20:05] LABS: MCV 97.6 fL (80.0-100.0)
[2023-10-15 20:09] LABS: ALT 45 U/L (4-34); AST 78 U/L (14-36); African American GFR (CKD) >90 (>60 ml/min/1.73 sqM); Albumin 2.4 g/dL (3.5-5.0); Alkaline Phosphatase 102 U/L (38-126); Anion Gap 7 mmol/L; Blood Urea Nitrogen 15 mg/dL (7-17); Calcium 7.7 mg/dL (8.4-10.2); Carbon Dioxide 25 mmol/L (22-30); Chloride 104 mmol/L (98-107); Glucose 152 mg/dL (74-99); Non-African American GFR(CKD) >90 (>60 ml/min/1.73 sqM); Sodium 136 mmol/L (137-145); Total Bilirubin 0.5 mg/dL (0.2-1.3)
[2023-10-15 20:12] LABS: Potassium 2.1 mmol/L (3.5-5.1)
--- NOTE | 2023-10-15 21:14 | XR ---
EXAMINATION TYPE: XR chest 1V confirm line plcmt DATE OF EXAM: 10/15/2023 7:08 PM CLINICAL INDICATION:Female, 48 years old with history of tube placement; [facility] COMPARISON: CT chest abdomen and pelvis 09/08/2023 TECHNIQUE: XR chest 1V confirm line plcmt Portable AP radiograph of the chest.. FINDINGS: Lines/Tubes/Devices: ET tube tip 3.5 cm above the mckenzie. NG tube courses over the mediastinum, extends into the left uppe r quadrant before terminating over the left lateral aspect of the stomach. Left chest MediPort is pre sent with its catheter tip over the SVC. This may have a kink or loop in the proximal aspect of the t ubing. Heart/mediastinum: Heart appears mildly enlarged. Mediastinum appears normal. Pulmonary vascularity: Pulmonary vascular congestion. Lungs/Pleura: Hazy perihilar and lower lobe opacities, likely edema than infectious infiltrate. No si zable pleural effusion or evidence of pneumothorax. There is redemonstration of large left upper lobe nodule which is partially obscured by the chest port; this measures about 3.6 cm, not significantly changed from the prior CT.. The other smaller lung nodules were better seen on CT. Musculoskeletal: No acute osseous abnormality demonstrated in the limits of the exam. Other findings: None. IMPRESSION: 1. ET tube tip appears in good position. 2. NG tube terminates over the left lateral aspect of the stomach. Would recommend several centimete rs of advancement to be deeper in the stomach. 3. Left chest MediPort with its catheter tip over the SVC. This may have a kink or loop in the proxi mal aspect of the tubing. Correlate for proper functioning. 4. Mild cardiomegaly. 5. Pulmonary vascular congestion, hazy perihilar and lower lobe opacities, likely related to edema. 6. Redemonstration of large left upper lobe nodule which is partially obscured by the chest port; th is appears grossly stable. The other smaller lung nodules were better seen on CT.
[2023-10-15] MEDS ORDERED: VANCOMYCIN IV PER PHARMACY 1 EACH MISC MISCELLANE PRN (21:22)
--- NOTE | 2023-10-15 23:18 | CT ---
EXAMINATION TYPE: CT angio chest CT DLP: Combined DLP of 1604.7 mGycm, Automated exposure control for dose reduction was used. DATE OF EXAM: 10/15/2023 7:10 PM COMPARISON: CT chest abd pelvis 09/08/2023 CLINICAL INDICATION:Female, 48 years old with history of ams; AMS. Breast and brain CA. TECHNIQUE/CONTRAST: CTA scan of the thorax is performed with IV Contrast, patient injected with 100 mL of Isovue 370, MIP images are created and reviewed these are created on a separate workstation.. FINDINGS: There are limitations by technique and streak artifacts. Largely resulting from the patient's arm pos ition over the field of the scan. Left chest MediPort is stable. Redemonstration of fungating ulcerating mass of the right breast. No e nlarged axillary nodes. Heart is mildly to moderately enlarged. No aortic aneurysm or dissection. The pulmonary arteries show normal enhancement without evidence of filling defect to suggest PE. Pulmonary trunk is not enlarged , measures 2.7 cm. Prominent pericardial fat with tiny nodularity anteriorly on the right, stable. No clear evidence of mediastinal or hilar adenopathy. Central airways are patent. ET tube terminates in good position above the mckenzie. The NG tube courses through the esophagus and eventually terminates in the gastric body directed laterally towards the l eft. Lungs show increased stranding and ill-defined hazy opacities compared to prior which partially obscu res some of the smaller lung nodules. Again the largest nodule in the left lung apex image 44 series 501 measures 3.2 x 4 cm, versus 3 x 3.2 cm before. Multiple additional nodules are redemonstrated brittney aterally, which do not seem significantly changed. No pleural effusion or pneumothorax. Mild degenerative changes of the thoracic spine. No acute osseous abnormality of the chest. Limited cuts through the upper abdomen show again a vague hypoattenuating mass in the anterior liver measuring about 6.2 x 5 cm which does not seem significantly changed. IMPRESSION: 1. No evidence of pulmonary arterial embolus. 2. Multiple bilateral pulmonary nodules redemonstrated. The largest in the left upper lobe measures minimally larger than before. 3. Increased stranding and ill-defined hazy opacities throughout the lungs, may represent edema and/ or infection. 4. Otherwise stable exam, with details above.
[2023-10-15] MEDS: VANCOMYCIN 1,500 MG in SODIUM CHLORIDE 0.9% 500 ML 500 ML IVPB SCH (23:22)
--- NOTE | 2023-10-15 23:30 | XR ---
EXAM: XR Chest, 1 View CLINICAL HISTORY: ITS.REASON XR Reason: tube placement TECHNIQUE: Frontal view of the chest. COMPARISON: No relevant prior studies available. FINDINGS: Lungs: Pulmonary mass in the left upper lobe measuring 4.3 cm. Nodular opacity over the right costophrenic angle measuring 1.8 cm. Pleural space: No pleural effusion. No pneumothorax. Heart: Unremarkable. No cardiomegaly. Tubes, lines and devices: Endotracheal tube terminates 3.8 cm above the mckenzie. Esophagogastric tube terminates within the gastric body. Port-A-Cath in place terminates within the SVC. IMPRESSION: 1. Endotracheal tube terminates 3.8 cm above the mckenzie. 2. Esophagogastric tube terminates within the gastric body. 3. Pulmonary mass in the left upper lobe measuring 4.3 cm. Nodular opacity over the right costophrenic angle measuring 1.8 cm.
[2023-10-16] MEDS ORDERED: Potassium Replacement Protocol 1 EACH MISC MISCELLANE PRN (01:36)
[2023-10-16] MEDS: POTASSIUM CHLORIDE 20 MEQ in WATER FOR INJECTION 1 100ML.BAG IVPB SCH (01:53)
[2023-10-16] MEDS ORDERED: POTASSIUM CHLORIDE 10 MEQ in WATER FOR INJECTION 1 100ML.BAG IVPB SCH (02:00)
[2023-10-16 05:20] LABS: ABG Base Excess 5.3 mmol/L; ABG HCO3 29 mmol/L (21-25); ABG PCO2 39 mmHg (35-45); ABG PH 7.48 (7.35-7.45); ABG PO2 198 mmHg (83-108); ABG TCO2 30 mmol/L (19-24); Allen Test Performed? Yes
[2023-10-16 06:17] LABS: Basophils % (A) 0 %; Eosinophils % (A) 0 %; HCT 36.6 % (34.0-46.0); HGB 11.7 gm/dL (11.4-16.0); Hypochromasia Slight; Lymphocytes # (A) 0.7 k/uL (1.0-4.8); Lymphocytes % (A) 5 %; MCH 32.9 pg (25.0-35.0); MCHC 32.1 g/dL (31.0-37.0); MCV 102.5 fL (80.0-100.0); Macrocytosis Slight; Mean Platelet Volume 8.4; Monocytes # (A) 0.6 k/uL (0-1.0); Monocytes % (A) 4 %; Neutrophils % (A) 91 %; Platelet Count 269 k/uL (150-450); RBC 3.57 m/uL (3.80-5.40); RDW 15.8 % (11.5-15.5); WBC 16.5 k/uL (3.8-10.6)
[2023-10-16 08:19] LABS: ALT 50 U/L (4-34); AST 56 U/L (14-36); African American GFR (CKD) >90 (>60 ml/min/1.73 sqM); Albumin 2.7 g/dL (3.5-5.0); Alkaline Phosphatase 106 U/L (38-126); Anion Gap 7 mmol/L; Blood Urea Nitrogen 13 mg/dL (7-17); Calcium 8.2 mg/dL (8.4-10.2); Carbon Dioxide 25 mmol/L (22-30); Chloride 106 mmol/L (98-107); Glucose 138 mg/dL (74-99); Magnesium 2.5 mg/dL (1.6-2.3); Non-African American GFR(CKD) >90 (>60 ml/min/1.73 sqM); Phosphorus 3.9 mg/dL (2.5-4.5); Potassium 2.8 mmol/L (3.5-5.1); Sodium 138 mmol/L (137-145); Total Bilirubin 0.3 mg/dL (0.2-1.3); Total Protein 5.4 g/dL (6.3-8.2)
[2023-10-16] MEDS: SODIUM CHLORIDE 0.9% 1,000 ML IV SCH (09:00)
--- NOTE | 2023-10-16 10:08 | P.CONS ---
History of Present Illness - Reason for Consult Consult date: 10/16/23 metastatic breast cancer Requesting physician: Mikey Reynolds - Chief Complaint Hypokalemia on OP labs - History of Present Illness Ms. 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 She comes to the ER for hypokalemia found on labs. Course complicated by seizure like activity as soon as she arrived in the ER with PEA arrest. She was intubated and had return of pulse. Stabilized, and currently intubated and sedated without need of pressors. CTA without PE, however does reveal overall stable lung nodules however increase in one of the lung nodules. Blood work with Na 136, K 2.1, Cr 0.7, WBC 26, Hgb 11, plt 350, lactate 4.5. CT head with overall stable lesions from previously treated brain met's. She is receiving hydration and K now, and awaiting ICU bed. Oncologic history: This is a very nice lady who presented with palpable right breast mass,she first noticed over a year prior to her presentation,it became significantly larger,associated with skin ulceration and significant chest wall pain,she had her first mammograms and breast U/S in April/2019 which revealed a very large mass ,about 7.8x4.4x5.5cm at 1 o'clock right breast,no suspicious nodes on U/S of axilla,core biopsy on 05/15/2019 revealed grade 2,invasive ductal carcinoma,triple negative,additional biopsies of 4 and 5 o'clock lesions were benign. Repeat ER/GA and HER2/PATRICIA at outside lab confirmed triple negative disease. On 06/03/2019,CT scan of chest/abdomen/pelvis revealed non specific 6 mm RML lung nodule,otherwise negative,bone scan was negative,echo revealed normal EF. 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 She had a mediport placed. On 06/28/2019,she started neoadjuvant dose dense AC and completed 4 cycles on 08/10/2019 (she had minimal clinical response to it). On 08/25/2019,she started weekly taxol and carboplatin and completed 12 weekly treatment on 11/16/2019. 01/05/2020,repeat CT scan of chest/abdomen/pelvis revealed stable non specific lung nodule. She completed neoadjuvant radiation therapy on 01/18/2020,then she did not follow up and did have any treatment systemic or local therapy for her breast.She was last seen in February/2020. She presented by to DR Gorman in October/2021 with worsening ulceration and swelling in right breast. PET scan on 10/24/2021 revealed very large right breast mass with skin ulceration,multiple bilateral lung nodues,largest 2.5 cm in left lung and evidence of suspicious right hilar nodes. 01/15/2022,she underwent EBUS,FNA from mediastinal nodes was positive,biopsy of JENN lung lesion was positive for metastatic breast cancer,ER/GA negative and HER2/PATRICIA negative. Foundation One could not be done,PDL-1 could not be done either. Liquid biopsy through [facility] revealed TP53 mutation. She started carbo/gemzar on 01/29/2022 05/25/2022,repeat CT scan of chest/abdomen/pelvis revealed improvement in lung nodules,however,worsening in right breast disease and 2 new right axilla nodes. She started trodelvy on 06/18/2022 08/28/2022,CT scan of chest/abdomen/pelvis revealed smaller lung nodules,stable,mediastinal adenopathies. 02/02/2023,CT scan of chest/abdomen/pelvis revealed stable disease (reviewed with radiology) 04/26/2023,repeat CT scan of chest/abdomen/pelvis revealed slightly enlarging lung nodules,enlaged left hepatic lobe lesion. She developed change in mental status and lost of balance,had brain MRI on 05/27/2023 which revealed numerous brain lesions.she was started on decadron,completed whole brain radiation,weaned off decadron. On 07/01/2023,she started enhertu. On 09/08/2023,repeat CT scan of CAP revealed disease progression. Last seen in clinic on 09/14/[address] Rich. She has mild drainage from breast lesion,she feels tired,otherwise no dyspnea or cough,tolerating tolerating treatment well.She is currently on eliquis for symptomatic SVT of LLE. Plan at that time as follows: Discussed recent CT scan with the patient and her father. However,it was compared to CT done over 2 months prior to starting her therapy,her disease,likely has progressed in the interval. She is clinically stable and not much additional treatment options,it is reasonable to continue enhertu for now and repeat imaging in 2 months. Past Medical History Past Medical History: Cancer Additional Past Medical History / Comment(s): Hx. spinal meningitis twice 1999 and 2002, Breast Cancer 2019, one seizure age 6, "nodule on rt lung", History of Any Multi-Drug Resistant Organisms: None Reported Past Surgical History: Appendectomy, Section Additional Past Surgical History / Comment(s): right shoulder cyst removal, breast biopsy Past Anesthesia/Blood Transfusion Reactions: No Reported Reaction Past Psychological History: Anxiety, Depression Smoking Status: Current every day smoker - Past Family History Mother Family Medical History: Cancer, Deep Vein Thrombosis (DVT) Additional Family Medical History / Comment(s): BREAST CANCER WITH METS TO LUNG. Medications and Allergies Home Medications Medication Instructions Recorded Confirmed Type ALPRAZolam [Xanax] 2 mg PO BID 04/27/19 10/15/23 History FLUoxetine HCL [PROzac] 20 mg PO DAILY 05/03/19 10/15/23 History FLUoxetine HCL [PROzac] 40 mg PO DAILY 05/27/23 10/15/23 History Pantoprazole [Protonix] 40 mg PO DAILY #30 tab 05/29/23 10/15/23 Rx levETIRAcetam [Keppra] 750 mg PO Q12HR #60 tab 05/29/23 10/15/23 Rx Apixaban [Eliquis] 5 mg PO BID 10/15/23 10/15/23 History Ondansetron [Zofran] 4 mg PO Q8HR PRN 10/15/23 10/15/23 History Allergies Allergy/AdvReac Type Severity Reaction Status Date / Time Iodine and Iodide Containing Allergy Rash/Hives Verified 10/15/23 18:52 Produc Physical Exam Vitals: Vital Signs Temp Pulse Resp BP Pulse Ox FiO2 10/16/23 08:47 71 20 97/62 100 10/16/23 08:44 40 10/16/23 07:35 50 10/16/23 07:29 76 20 107/68 100 10/16/23 06:00 77 20 102/62 100 10/16/23 05:00 77 19 99/65 100 10/16/23 04:11 81 101/67 100 10/16/23 04:09 20 10/16/23 02:00 89 19 107/68 99 10/16/23 00:40 89 108/72 99 10/15/23 23:48 50 10/15/23 22:15 96 20 108/69 99 10/15/23 21:45 100 25 H 105/69 99 10/15/23 21:38 50 10/15/23 21:00 103 H 26 H 107/81 99 10/15/23 20:45 101 H 26 H 117/68 99 10/15/23 20:30 107 H 24 97/74 99 10/15/23 20:15 109 H 26 H 107/70 99 10/15/23 20:00 108 H 28 H 106/69 99 10/15/23 19:45 105 H 29 H 110/66 100 10/15/23 19:30 105 H 26 H 107/64 99 10/15/23 19:15 105 H 27 H 109/71 100 10/15/23 19:04 50 10/15/23 18:30 114 H 24 111/71 98 10/15/23 18:15 113 H 27 H 101/60 97 10/15/23 18:06 50 10/15/23 18:00 98.1 F 98 10/15/23 17:45 125 H 22 103/60 96 10/15/23 17:30 121 H 42 H 105/73 97 10/15/23 17:16 50 10/15/23 17:15 121 H 17 105/73 97 10/15/23 17:00 134 H 21 120/82 99 10/15/23 16:53 28 H 129/91 99 10/15/23 16:40 100 10/15/23 15:07 97.4 F L 94 18 101/65 100 Intake and Output 10/15/23 10/16/23 10/16/23 22:59 06:59 14:59 Intake Total 105.911 209.220 57.744 Output Total 800 Balance 105.911 209.220 -742.256 Intake: Intake, IV Titration 105.911 209.220 57.744 Amount propofoL 1,000 mg In 94.381 209.220 57.744 Empty Bag 1 bag @ 15 MCG/ KG/MIN 8.369 mls/hr IV . [id number] [facility] Rx#:[id number] propofoL 1,000 mg In 11.53 Empty Bag 1 bag @ Titrate IV .Q0M ONE Rx#: [id number] Output: Urine 800 Uretheral (Varma) 800 Other: Weight 92.986 kg Pt intubated and sedated, in no acute distress. No jaundice. Some generalized pallor. Results CBC & Chem 7: 10/16/23 05:52 10/16/23 05:52 Labs: Abnormal Lab Results - Last 24 Hours (Table) 10/15/23 10/15/23 10/15/23 Range/Units 16:00 16:08 16:08 WBC 14.2 H (3.8-10.6) k/uL RBC (3.80-5.40) m/uL Hgb (11.4-16.0) gm/dL Hct (34.0-46.0) % MCV 106.8 H (80.0-100.0) fL MCHC 30.8 L (31.0-37.0) g/dL RDW (11.5-15.5) % Neutrophils # 7.9 H (1.3-7.7) k/uL Lymphocytes # (1.0-4.8) k/uL Monocytes # 1.2 H (0-1.0) k/uL PT 13.1 H (10.0-12.5) sec INR 1.2 H (<1.2) ABG pH (7.35-7.45) ABG pO2 (83-108) mmHg ABG HCO3 (21-25) mmol/L ABG Total CO2 (19-24) mmol/L ABG O2 Saturation (94-97) % Sodium (137-145) mmol/L Potassium (3.5-5.1) mmol/L Glucose (74-99) mg/dL POC Glucose (mg/dL) 115 H (70-110) mg/dL Plasma Lactic Acid Jonathan (0.7-2.0) mmol/L Calcium (8.4-10.2) mg/dL Magnesium (1.6-2.3) mg/dL AST (14-36) U/L ALT (4-34) U/L Total Protein (6.3-8.2) g/dL Albumin (3.5-5.0) g/dL 10/15/23 10/15/23 10/15/23 Range/Units 16:08 16:08 17:08 WBC (3.8-10.6) k/uL RBC (3.80-5.40) m/uL Hgb (11.4-16.0) gm/dL Hct (34.0-46.0) % MCV (80.0-100.0) fL MCHC (31.0-37.0) g/dL RDW (11.5-15.5) % Neutrophils # (1.3-7.7) k/uL Lymphocytes # (1.0-4.8) k/uL Monocytes # (0-1.0) k/uL PT (10.0-12.5) sec INR (<1.2) ABG pH 7.33 L (7.35-7.45) ABG pO2 359 H (83-108) mmHg ABG HCO3 20 L (21-25) mmol/L ABG Total CO2 (19-24) mmol/L ABG O2 Saturation 99.3 H (94-97) % Sodium (137-145) mmol/L Potassium (3.5-5.1) mmol/L Glucose 659 H* (74-99) mg/dL POC Glucose (mg/dL) (70-110) mg/dL Plasma Lactic Acid Jonathan 12.3 H* (0.7-2.0) mmol/L Calcium (8.4-10.2) mg/dL Magnesium (1.6-2.3) mg/dL AST 46 H (14-36) U/L ALT (4-34) U/L Total Protein 6.1 L (6.3-8.2) g/dL Albumin 3.3 L (3.5-5.0) g/dL 10/15/23 10/15/23 10/15/23 Range/Units 18:39 19:31 19:45 WBC (3.8-10.6) k/uL RBC (3.80-5.40) m/uL Hgb (11.4-16.0) gm/dL Hct (34.0-46.0) % MCV (80.0-100.0) fL MCHC (31.0-37.0) g/dL RDW (11.5-15.5) % Neutrophils # (1.3-7.7) k/uL Lymphocytes # (1.0-4.8) k/uL Monocytes # (0-1.0) k/uL PT (10.0-12.5) sec INR (<1.2) ABG pH (7.35-7.45) ABG pO2 (83-108) mmHg ABG HCO3 (21-25) mmol/L ABG Total CO2 (19-24) mmol/L ABG O2 Saturation (94-97) % Sodium 136 L (137-145) mmol/L Potassium 2.1 L* (3.5-5.1) mmol/L Glucose 152 H (74-99) mg/dL POC Glucose (mg/dL) 202 H (70-110) mg/dL Plasma Lactic Acid Jonathan 4.5 H* (0.7-2.0) mmol/L Calcium 7.7 L (8.4-10.2) mg/dL Magnesium (1.6-2.3) mg/dL AST 78 H (14-36) U/L ALT 45 H (4-34) U/L Total Protein 5.0 L (6.3-8.2) g/dL Albumin 2.4 L (3.5-5.0) g/dL 10/15/23 10/16/23 10/16/23 Range/Units 19:45 00:37 05:18 WBC 26.1 H (3.8-10.6) k/uL RBC 3.35 L (3.80-5.40) m/uL Hgb 11.1 L (11.4-16.0) gm/dL Hct 32.7 L (34.0-46.0) % MCV (80.0-100.0) fL MCHC (31.0-37.0) g/dL RDW 15.8 H (11.5-15.5) % Neutrophils # 24.2 H (1.3-7.7) k/uL Lymphocytes # 0.7 L (1.0-4.8) k/uL Monocytes # (0-1.0) k/uL PT (10.0-12.5) sec INR (<1.2) ABG pH 7.48 H (7.35-7.45) ABG pO2 198 H (83-108) mmHg ABG HCO3 29 H (21-25) mmol/L ABG Total CO2 30 H (19-24) mmol/L ABG O2 Saturation 99.0 H (94-97) % Sodium (137-145) mmol/L Potassium 2.4 L* (3.5-5.1) mmol/L Glucose (74-99) mg/dL POC Glucose (mg/dL) (70-110) mg/dL Plasma Lactic Acid Jonathan (0.7-2.0) mmol/L Calcium (8.4-10.2) mg/dL Magnesium (1.6-2.3) mg/dL AST (14-36) U/L ALT (4-34) U/L Total Protein (6.3-8.2) g/dL Albumin (3.5-5.0) g/dL 10/16/23 10/16/23 Range/Units 05:52 05:52 WBC 16.5 H (3.8-10.6) k/uL RBC 3.57 L (3.80-5.40) m/uL Hgb (11.4-16.0) gm/dL Hct (34.0-46.0) % MCV 102.5 H (80.0-100.0) fL MCHC (31.0-37.0) g/dL RDW 15.8 H (11.5-15.5) % Neutrophils # 15.0 H (1.3-7.7) k/uL Lymphocytes # 0.7 L (1.0-4.8) k/uL Monocytes # (0-1.0) k/uL PT (10.0-12.5) sec INR (<1.2) ABG pH (7.35-7.45) ABG pO2 (83-108) mmHg ABG HCO3 (21-25) mmol/L ABG Total CO2 (19-24) mmol/L ABG O2 Saturation (94-97) % Sodium (137-145) mmol/L Potassium 2.8 L (3.5-5.1) mmol/L Glucose 138 H (74-99) mg/dL POC Glucose (mg/dL) (70-110) mg/dL Plasma Lactic Acid Jonathan (0.7-2.0) mmol/L Calcium 8.2 L (8.4-10.2) mg/dL Magnesium 2.5 H (1.6-2.3) mg/dL AST 56 H (14-36) U/L ALT 50 H (4-34) U/L Total Protein 5.4 L (6.3-8.2) g/dL Albumin 2.7 L (3.5-5.0) g/dL Chest x-ray: report reviewed CT scan - chest: report reviewed Assessment and Plan Assessment: PEA arrest Severe hypokalemia Lactic acidosis Leukocytosis Anemia due to chemotherapy Metastatic breast cancer Brain met's Plan: Ms. Lawson is a very pleasant 48 yo female with history of triple negative breast cancer with brain, lung, liver met's, s/p multiple lines of therapy, most recently on Enhertu, s/p C6 given on 10/14/23. She is here for hypokalemia, underwent PEA arrest while in ED. Work up with increased lung mass, K 2.1, lactate 4.5, WBC 26. Stabilized and currently intubated and sedated. - Severe hypokalemia, electrolyte replacement as per primary team - Lactic acidosis improving with fluids - Metastatic breast cancer on Enhertu, hold chemotherapy until pt stabilizes - Leukocytosis, reactive, unclear if pt received Neulasta (I don't see this in clinic EMR but need to confirm); anemia due to chemotherapy - Monitor CBC closely, watch for neutropenia with recent chemo Discussed with nursing staff.
--- NOTE | 2023-10-16 12:32 | XR ---
EXAMINATION TYPE: XR chest 1V DATE OF EXAM: 10/16/2023 COMPARISON: 10/15/2023 INDICATION: Intubation cardiac arrest TECHNIQUE: Single frontal view of the chest is obtained. FINDINGS: The heart size is normal. The pulmonary vasculature is normal. There is a rounded density over the left chest near the insertion site of the port. This measures 4.2 cm. This was present previously. Endotracheal tube tip is located 5 cm above the mckenzie. Left subclavian catheter is present with the tip in the superior vena cava region. Nasogastric tube transverses the thorax with tip in the left up per quadrant of the abdomen. Findings appear stable from comparison. IMPRESSION: 1. 4 cm mass left upper lung field. 2. Lines and catheters discussed above
[2023-10-16] MEDS: levETIRAcetam IV 500 MG/5 ML VIAL IVP SCH (12:54)
--- NOTE | 2023-10-16 13:06 | P.CNPUL ---
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 Shortly after she arrived to the ER, patient developed a seizure, and went on to develop pulseless electrical activity arrest, CPR was started, patient was intubated, stabilized in the ER, CT angiogram of the chest showed no evidence of pulmonary embolism. CT also showed pulmonary nodules which have been present for quite some time. Potassium was as low as 2.1. Hemoglobin was 11 WBC count was 26,000. CT of the head showed stable lesions of metastatic breast lesions in the brain. I saw this patient in the ER, patient is intubated and mechanically ventilated, she is on assist-control rate of 20 tidal volume 400 FiO2 50% and PEEP of 5 ABG showed a pO2 of 198 pCO2 39 pH of 7.48. Hence cut down FiO2 to 40%. Her blood pressure is marginal, patient is receiving fluids, she is also on propofol at 45 mcg/kg/min, recommended norepinephrine if needed for low blood pressure seems to be soft. Looking at the notes from the oncologist, patient was last seen in the oncology clinic on 09/14/2023, she was seen by Dr. Rich, and she had mild drainage from breast lesion, was feeling tired, but she had no shortness of breath, no chest pain, patient has been maintained on Eliquis for symptomatic SVT of the left lower extremity. In the ER, patient is maintained on mechanical ventilation, she is also on antibiotics in the form of Rocephin, and vancomycin, calcium is being corrected as per protocol, chest x-ray showed a 4 cm left upper lobe mass, and this was present previously Review of Systems ROS unobtainable: due to endotracheal tube Past Medical History Past Medical History: Cancer Additional Past Medical History / Comment(s): Hx. spinal meningitis twice 1999 and 2002, Breast Cancer 2019, one seizure age 6, "nodule on rt lung", History of Any Multi-Drug Resistant Organisms: None Reported Past Surgical History: Appendectomy, Section Additional Past Surgical History / Comment(s): right shoulder cyst removal, breast biopsy Past Anesthesia/Blood Transfusion Reactions: No Reported Reaction Past Psychological History: Anxiety, Depression Smoking Status: Current every day smoker - Past Family History Mother Family Medical History: Cancer, Deep Vein Thrombosis (DVT) Additional Family Medical History / Comment(s): BREAST CANCER WITH METS TO LUNG. Medications and Allergies Home Medications Medication Instructions Recorded Confirmed Type ALPRAZolam [Xanax] 2 mg PO BID 04/27/19 10/15/23 History FLUoxetine HCL [PROzac] 20 mg PO DAILY 05/03/19 10/15/23 History FLUoxetine HCL [PROzac] 40 mg PO DAILY 05/27/23 10/15/23 History Pantoprazole [Protonix] 40 mg PO DAILY #30 tab 05/29/23 10/15/23 Rx levETIRAcetam [Keppra] 750 mg PO Q12HR #60 tab 05/29/23 10/15/23 Rx Apixaban [Eliquis] 5 mg PO BID 10/15/23 10/15/23 History Ondansetron [Zofran] 4 mg PO Q8HR PRN 10/15/23 10/15/23 History Allergies Allergy/AdvReac Type Severity Reaction Status Date / Time Iodine and Iodide Containing Allergy Rash/Hives Verified 10/15/23 18:52 Produc Physical Exam Vitals: Vital Signs Temp Pulse Resp BP Pulse Ox FiO2 10/16/23 11:37 97.3 F L 73 20 109/66 100 10/16/23 11:11 40 10/16/23 10:00 71 20 108/68 100 10/16/23 09:48 72 20 109/69 100 10/16/23 09:04 71 20 100/62 100 10/16/23 08:47 71 20 97/62 100 10/16/23 08:44 40 10/16/23 07:35 50 10/16/23 07:29 76 20 107/68 100 10/16/23 06:00 77 20 102/62 100 10/16/23 05:00 77 19 99/65 100 10/16/23 04:11 81 101/67 100 10/16/23 04:09 20 10/16/23 02:00 89 19 107/68 99 10/16/23 00:40 89 108/72 99 10/15/23 23:48 50 10/15/23 22:15 96 20 108/69 99 10/15/23 21:45 100 25 H 105/69 99 10/15/23 21:38 50 10/15/23 21:00 103 H 26 H 107/81 99 10/15/23 20:45 101 H 26 H 117/68 99 10/15/23 20:30 107 H 24 97/74 99 10/15/23 20:15 109 H 26 H 107/70 99 10/15/23 20:00 108 H 28 H 106/69 99 10/15/23 19:45 105 H 29 H 110/66 100 10/15/23 19:30 105 H 26 H 107/64 99 10/15/23 19:15 105 H 27 H 109/71 100 10/15/23 19:04 50 10/15/23 18:30 114 H 24 111/71 98 10/15/23 18:15 113 H 27 H 101/60 97 10/15/23 18:06 50 10/15/23 18:00 98.1 F 98 10/15/23 17:45 125 H 22 103/60 96 10/15/23 17:30 121 H 42 H 105/73 97 10/15/23 17:16 50 10/15/23 17:15 121 H 17 105/73 97 10/15/23 17:00 134 H 21 120/82 99 10/15/23 16:53 28 H 129/91 99 10/15/23 16:40 100 10/15/23 15:07 97.4 F L 94 18 101/65 100 Intake and Output 10/15/23 10/16/23 10/16/23 22:59 06:59 14:59 Intake Total 105.911 209.220 57.744 Output Total 950 Balance 105.911 209.220 -892.256 Intake: Intake, IV Titration 105.911 209.220 57.744 Amount propofoL 1,000 mg In 94.381 209.220 57.744 Empty Bag 1 bag @ 15 MCG/ KG/MIN 8.369 mls/hr IV . [id number] [facility] Rx#:[id number] propofoL 1,000 mg In 11.53 Empty Bag 1 bag @ Titrate IV .Q0M ONE Rx#: [id number] Output: Urine 950 Uretheral (Varma) 950 Other: Weight 92.986 kg General appearance: Revealed 48-year-old female intubated mechanically venti lated, in no distress Head exam: Atraumatic, normocephalic Eye exam: PERRLA, EOMI, nonicteric. ENT exam: Dry mucous membranes, endotracheal tube is intact orogastric tube is intact Neck exam: No neck masses no JVD. Respiratory exam: Good breath sound bilaterally no rhonchi no wheezes Cardiovascular Exam: Normal S1-S2, no S3 gallop no murmur GI/Abdominal exam: P soft nontender no megaly no rebound no guarding Extremities exam: No clubbing edema or cyanosis Neurological exam: Could not assess, patient is sedated on propofol. Psychiatric exam: Could not assess. Skin exam: Large area of ulceration over the right breast, measuring over 5 cm, quite deep and extensive, extending into the chest wall. This is covered with sterile dressing Results - Laboratory Findings CBC and BMP: 10/16/23 05:52 10/16/23 11:48 ABG ABG pH 7.48 (7.35-7.45) H 10/16/23 05:18 ABG pCO2 39 mmHg (35-45) 10/16/23 05:18 ABG pO2 198 mmHg (83-108) H 10/16/23 05:18 ABG O2 Saturation 99.0 % (94-97) H 10/16/23 05:18 PT/INR, D-dimer PT 13.1 sec (10.0-12.5) H 10/15/23 16:08 INR 1.2 (<1.2) H 10/15/23 16:08 D-Dimer 0.39 mg/L FEU (<0.60) 10/15/23 16:08 Abnormal lab findings: Abnormal Labs 10/15/23 10/15/23 10/15/23 16:00 16:08 16:08 WBC 14.2 H RBC Hgb Hct MCV 106.8 H MCHC 30.8 L RDW Neutrophils # 7.9 H Lymphocytes # Monocytes # 1.2 H PT 13.1 H INR 1.2 H ABG pH ABG pO2 ABG HCO3 ABG Total CO2 ABG O2 Saturation Sodium Potassium Glucose POC Glucose (mg/dL) 115 H Plasma Lactic Acid Jonathan Calcium Magnesium AST ALT Total Protein Albumin 10/15/23 10/15/23 10/15/23 16:08 16:08 17:08 WBC RBC Hgb Hct MCV MCHC RDW Neutrophils # Lymphocytes # Monocytes # PT INR ABG pH 7.33 L ABG pO2 359 H ABG HCO3 20 L ABG Total CO2 ABG O2 Saturation 99.3 H Sodium Potassium Glucose 659 H* POC Glucose (mg/dL) Plasma Lactic Acid Jonathan 12.3 H* Calcium Magnesium AST 46 H ALT Total Protein 6.1 L Albumin 3.3 L 10/15/23 10/15/23 10/15/23 18:39 19:31 19:45 WBC RBC Hgb Hct MCV MCHC RDW Neutrophils # Lymphocytes # Monocytes # PT INR ABG pH ABG pO2 ABG HCO3 ABG Total CO2 ABG O2 Saturation Sodium 136 L Potassium 2.1 L* Glucose 152 H POC Glucose (mg/dL) 202 H Plasma Lactic Acid Jonathan 4.5 H* Calcium 7.7 L Magnesium AST 78 H ALT 45 H Total Protein 5.0 L Albumin 2.4 L 10/15/23 10/16/23 10/16/23 19:45 00:37 05:18 WBC 26.1 H RBC 3.35 L Hgb 11.1 L Hct 32.7 L MCV MCHC RDW 15.8 H Neutrophils # 24.2 H Lymphocytes # 0.7 L Monocytes # PT INR ABG pH 7.48 H ABG pO2 198 H ABG HCO3 29 H ABG Total CO2 30 H ABG O2 Saturation 99.0 H Sodium Potassium 2.4 L* Glucose POC Glucose (mg/dL) Plasma Lactic Acid Jonathan Calcium Magnesium AST ALT Total Protein Albumin 10/16/23 10/16/23 10/16/23 05:52 05:52 11:48 WBC 16.5 H RBC 3.57 L Hgb Hct MCV 102.5 H MCHC RDW 15.8 H Neutrophils # 15.0 H Lymphocytes # 0.7 L Monocytes # PT INR ABG pH ABG pO2 ABG HCO3 ABG Total CO2 ABG O2 Saturation Sodium Potassium 2.8 L 2.9 L Glucose 138 H POC Glucose (mg/dL) Plasma Lactic Acid Jonathan Calcium 8.2 L Magnesium 2.5 H AST 56 H ALT 50 H Total Protein 5.4 L Albumin 2.7 L - Diagnostic Findings Chest x-ray: image reviewed (As noted in HPI patient does have a left upper lobe mass, apparently was present previously.) CT scan - chest: image reviewed (CT angiogram of the chest showed no evidence of pulmonary embolism, there was evidence of multiple bilateral pulmonary nodules redemonstrated, largest is a left upper lobe mass, larger than before.) Additional studies: CT of the brain showed small residual hypodensities seen and correlate to the sites of previous metastatic disease from breast cancer to the brain. Assessment and Plan Assessment: Impression: PEA cardiac arrest Severe hypokalemia Leukocytosis with lactic acidosis Suspect ongoing sepsis, likely source is her skin lesion/right breast Metastatic breast cancer Chronic anemia secondary to chemotherapy Acute seizure, most likely secondary to metastatic disease involving the brain. Recommendation: Continue ventilatory support Continue antibiotics patient is on Rocephin and vancomycin Check blood cultures and urine cultures as well as sputum cultures also cultures skin lesion/right breast. Neurology to see on consultation for her seizures Cardiology to evaluate for her cardiac arrest/PEA cardiac arrest Address her hypokalemia and follow the protocol to correct her profound hypokalemia on presentation Will likely hold sedation in the next 24 hours and address if the patient could be arousable and address weaning if possible. In the meantime continue present supportive care measures including GI and DVT prophylaxis, Hemodynamic support if necessary, Nutritional support/enteral feeding Will continue to follow with multiple consultants on the case Overall prognosis is extremely poor and guarded, Patient is critically ill. Time with Patient: Greater than 30
--- NOTE | 2023-10-16 14:49 | P.CNNES ---
History of Present Illness Consult date: 10/16/23 Requesting physician: Aaron Hamilton Reason for Consult: seizure History of Present Illness: This is a 48 year-old woman with a history of stage IV breast cancer with metastases to the lung, liver as well as the brain with multiple lines of therapy, new onset seizure in May 2023 who presented emergency department on 10/14/2023 because of abnormal labs and was told she had the potassium was low. History was obtained from medical record. Shortly after she arrived to the ER she developed a seizure and then developed pulseless logical activity arrest. As a result CPR started and she was intubated on a ventilator.patient is on Keppra 750 mg twice a day. She received 5mg of Valium in ED. Currently the patient is on IV propofol 55mcg/kg/min. No further clinical seizures. Of note I personally evaluate the patient on her prior hospital visit on 05/28/2023 in which she had new onset seizure and it was felt due to her brain metastases. Patient is on Keppra 750 mg twice a day. patient had an EEG which was abnormal. Tobacco slowing suggestive of mild encephalopathy. Excessive beta activity is likely due to medication effect. Otherwise there is no focal slowing, epileptiform discharges or seizure on the EEG. Please refer to my prior notes for further details. Some of the work-up during this hospital visit consisted of: patient's Potassium was as low as 2.1 currently is 2.8.calcium is 7.7, phosphorus 3.9, magnesium is 2.5, AST of 78 ALTs 45. most recent sodium is 138, glucose is 138, CT of the head is reported as no acute intracranial hemorrhage, midline shift or mass effect. Some small residual hypodensity can be seen which appear to correlate with the site of some of the larger metastasis previously identified. In the limits of unenhanced as CT head there does not seem to be a tremendous increase in metastatic lesion. For better evaluation contrast MRI would be the study of choice. Review of Systems Review of system is limited but positive and negative as per HPI Past Medical History Past Medical History: Cancer Additional Past Medical History / Comment(s): Hx. spinal meningitis twice 1999 and 2002, Breast Cancer 2019, one seizure age 6, "nodule on rt lung", History of Any Multi-Drug Resistant Organisms: None Reported Past Surgical History: Appendectomy, Section Additional Past Surgical History / Comment(s): right shoulder cyst removal, breast biopsy Past Anesthesia/Blood Transfusion Reactions: No Reported Reaction Past Psychological History: Anxiety, Depression Smoking Status: Current every day smoker - Past Family History Mother Family Medical History: Cancer, Deep Vein Thrombosis (DVT) Additional Family Medical History / Comment(s): BREAST CANCER WITH METS TO LUNG. Medications and Allergies Home Medications Medication Instructions Recorded Confirmed Type ALPRAZolam [Xanax] 2 mg PO BID 04/27/19 10/15/23 History FLUoxetine HCL [PROzac] 20 mg PO DAILY 05/03/19 10/15/23 History FLUoxetine HCL [PROzac] 40 mg PO DAILY 05/27/23 10/15/23 History Pantoprazole [Protonix] 40 mg PO DAILY #30 tab 05/29/23 10/15/23 Rx levETIRAcetam [Keppra] 750 mg PO Q12HR #60 tab 05/29/23 10/15/23 Rx Apixaban [Eliquis] 5 mg PO BID 10/15/23 10/15/23 History Ondansetron [Zofran] 4 mg PO Q8HR PRN 10/15/23 10/15/23 History Allergies Allergy/AdvReac Type Severity Reaction Status Date / Time Iodine and Iodide Containing Allergy Rash/Hives Verified 10/15/23 18:52 Produc Physical Examination - Vital Signs Vital Signs: Vital Signs Temp Pulse Resp BP Pulse Ox FiO2 10/16/23 13:00 67 20 94/58 99 10/16/23 12:00 66 20 104/63 100 10/16/23 11:37 97.3 F L 73 20 109/66 100 10/16/23 11:11 40 10/16/23 10:00 71 20 108/68 100 10/16/23 09:48 72 20 109/69 100 10/16/23 09:04 71 20 100/62 100 10/16/23 08:47 71 20 97/62 100 10/16/23 08:44 40 10/16/23 07:35 50 10/16/23 07:29 76 20 107/68 100 10/16/23 06:00 77 20 102/62 100 10/16/23 05:00 77 19 99/65 100 10/16/23 04:11 81 101/67 100 10/16/23 04:09 20 10/16/23 02:00 89 19 107/68 99 10/16/23 00:40 89 108/72 99 10/15/23 23:48 50 10/15/23 22:15 96 20 108/69 99 10/15/23 21:45 100 25 H 105/69 99 10/15/23 21:38 50 10/15/23 21:00 103 H 26 H 107/81 99 10/15/23 20:45 101 H 26 H 117/68 99 10/15/23 20:30 107 H 24 97/74 99 10/15/23 20:15 109 H 26 H 107/70 99 10/15/23 20:00 108 H 28 H 106/69 99 10/15/23 19:45 105 H 29 H 110/66 100 10/15/23 19:30 105 H 26 H 107/64 99 10/15/23 19:15 105 H 27 H 109/71 100 10/15/23 19:04 50 10/15/23 18:30 114 H 24 111/71 98 10/15/23 18:15 113 H 27 H 101/60 97 10/15/23 18:06 50 10/15/23 18:00 98.1 F 98 10/15/23 17:45 125 H 22 103/60 96 10/15/23 17:30 121 H 42 H 105/73 97 10/15/23 17:16 50 10/15/23 17:15 121 H 17 105/73 97 10/15/23 17:00 134 H 21 120/82 99 10/15/23 16:53 28 H 129/91 99 10/15/23 16:40 100 10/15/23 15:07 97.4 F L 94 18 101/65 100 Intake and Output 10/15/23 10/16/23 10/16/23 22:59 06:59 14:59 Intake Total 105.911 209.220 57.744 Output Total 950 Balance 105.911 209.220 -892.256 Intake: Intake, IV Titration 105.911 209.220 57.744 Amount propofoL 1,000 mg In 94.381 209.220 57.744 Empty Bag 1 bag @ 15 MCG/ KG/MIN 8.369 mls/hr IV . [id number] [facility] Rx#:[id number] propofoL 1,000 mg In 11.53 Empty Bag 1 bag @ Titrate IV .Q0M ONE Rx#: [id number] Output: Urine 950 Uretheral (Varma) 950 Other: Weight 92.986 kg GENERAL: The patient is lying in bed and does not appear in acute distress. LUNG: Intubated on ventilator. NEUROLOGICAL: Very limited. Is on IV Propofol 55mcg/kg/min. Is severely drowsy. She open eyes once to painful stimuli. Not following commands. Pupils are round, right is 4mm and left is 3mm and reactive to light. No facial weakness. Is breathing over the vent. Motor: Strength is limited in assessment. Spontaneously moves the left upper extremity. Plantars are mute bilaterally. Results - Laboratory Findings CBC and BMP: 10/16/23 05:52 10/16/23 11:48 Abnormal Lab Findings: Abnormal Labs 10/15/23 10/15/23 10/15/23 16:00 16:08 16:08 WBC 14.2 H RBC Hgb Hct MCV 106.8 H MCHC 30.8 L RDW Neutrophils # 7.9 H Lymphocytes # Monocytes # 1.2 H PT 13.1 H INR 1.2 H ABG pH ABG pO2 ABG HCO3 ABG Total CO2 ABG O2 Saturation Sodium Potassium Glucose POC Glucose (mg/dL) 115 H Plasma Lactic Acid Jonathan Calcium Magnesium AST ALT Total Protein Albumin 10/15/23 10/15/23 10/15/23 16:08 16:08 17:08 WBC RBC Hgb Hct MCV MCHC RDW Neutrophils # Lymphocytes # Monocytes # PT INR ABG pH 7.33 L ABG pO2 359 H ABG HCO3 20 L ABG Total CO2 ABG O2 Saturation 99.3 H Sodium Potassium Glucose 659 H* POC Glucose (mg/dL) Plasma Lactic Acid Jonathan 12.3 H* Calcium Magnesium AST 46 H ALT Total Protein 6.1 L Albumin 3.3 L 10/15/23 10/15/23 10/15/23 18:39 19:31 19:45 WBC RBC Hgb Hct MCV MCHC RDW Neutrophils # Lymphocytes # Monocytes # PT INR ABG pH ABG pO2 ABG HCO3 ABG Total CO2 ABG O2 Saturation Sodium 136 L Potassium 2.1 L* Glucose 152 H POC Glucose (mg/dL) 202 H Plasma Lactic Acid Jonathan 4.5 H* Calcium 7.7 L Magnesium AST 78 H ALT 45 H Total Protein 5.0 L Albumin 2.4 L 10/15/23 10/16/23 10/16/23 19:45 00:37 05:18 WBC 26.1 H RBC 3.35 L Hgb 11.1 L Hct 32.7 L MCV MCHC RDW 15.8 H Neutrophils # 24.2 H Lymphocytes # 0.7 L Monocytes # PT INR ABG pH 7.48 H ABG pO2 198 H ABG HCO3 29 H ABG Total CO2 30 H ABG O2 Saturation 99.0 H Sodium Potassium 2.4 L* Glucose POC Glucose (mg/dL) Plasma Lactic Acid Jonathan Calcium Magnesium AST ALT Total Protein Albumin 10/16/23 10/16/23 10/16/23 05:52 05:52 11:48 WBC 16.5 H RBC 3.57 L Hgb Hct MCV 102.5 H MCHC RDW 15.8 H Neutrophils # 15.0 H Lymphocytes # 0.7 L Monocytes # PT INR ABG pH ABG pO2 ABG HCO3 ABG Total CO2 ABG O2 Saturation Sodium Potassium 2.8 L 2.9 L Glucose 138 H POC Glucose (mg/dL) Plasma Lactic Acid Jonathan Calcium 8.2 L Magnesium 2.5 H AST 56 H ALT 50 H Total Protein 5.4 L Albumin 2.7 L Assessment and Plan Assessment: This is a 48 year-old woman with a history of stage IV breast cancer with metastases to the lung, liver as well as the brain with multiple lines of therapy, new onset seizure in May 2023 who presented emergency department on 10/14/2023 because of abnormal labs and was told she had the potassium was low then while in ED she had reported seizure then had cardiopumonary arrest. Breakthrough seizure. 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 Cardiopulmonary arrest while in the hospital. Has PEA Severe hypokalemia Severe hyperglycemia possible reactive from seizure History of seizure since 05/2023 and is on Keppra 750mg bid. 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 Seizure precaution and pads Will pursue with EEG. Once extubated recommend MRI Brain w/ and w/o seizure protocol Will defer the rest of medical management to the primary and other specialist. The plan is discussed with nurse. Thank you for the consultation. Time with Patient: Greater than 30
--- NOTE | 2023-10-16 16:33 | P.HPIM ---
History of Present Illness H&P Date: 10/16/23 48 year-old woman with a history of stage IV breast cancer with metastases to the lung, liver as well as the brain with multiple lines of therapy, new onset seizure in May 2023 who presented emergency department on 10/14/2023 because of abnormal labs and was told she had the potassium was low. Shortly after she arrived to the ER she developed a seizure and then developed pulseless electrical activity arrest. As a result CPR started and she was intubated on a ventilator.patient is on Keppra 750 mg twice a day. She received 5mg of Valium in ED. Currently the patient is on IV propofol 55mcg/kg/min. No further clinical seizures. Patient was previously admitted to the hospital on 05/28/2023 in which she had new onset seizure and it was felt due to her brain metastases. Patient is on Keppra 750 mg twice a day. patient had an EEG which was abnormal. Tobacco slowing suggestive of mild encephalopathy. Excessive beta activity is likely due to medication effect. Otherwise there is no focal slowing, epileptiform discharges or seizure on the EEG. Please refer to my prior notes for further details. patient's Potassium was as low as 2.1 currently is 2.8.calcium is 7.7, phosphoru s 3.9, magnesium is 2.5, AST of 78 ALTs; most recent sodium is 138, glucose is 138, CT of the head is reported as no acute intracranial hemorrhage, midline shift or mass effect. Some small residual hypodensity can be seen which appear to correlate with the site of some of the larger metastasis previously identified. In the limits of unenhanced as CT head there does not seem to be a tremendous in crease in metastatic lesion. Review of Systems ROS unobtainable: due to endotracheal tube Past Medical History Past Medical History: Cancer Additional Past Medical History / Comment(s): Hx. spinal meningitis twice 1999 and 2002, Breast Cancer 2019, one seizure age 6, "nodule on rt lung", History of Any Multi-Drug Resistant Organisms: None Reported Past Surgical History: Appendectomy, Section Additional Past Surgical History / Comment(s): right shoulder cyst removal, breast biopsy Past Anesthesia/Blood Transfusion Reactions: No Reported Reaction Past Psychological History: Anxiety, Depression Smoking Status: Current every day smoker - Past Family History Mother Family Medical History: Cancer, Deep Vein Thrombosis (DVT) Additional Family Medical History / Comment(s): BREAST CANCER WITH METS TO LUNG. Medications and Allergies Home Medications Medication Instructions Recorded Confirmed Type ALPRAZolam [Xanax] 2 mg PO BID 04/27/19 10/15/23 History FLUoxetine HCL [PROzac] 20 mg PO DAILY 05/03/19 10/15/23 History FLUoxetine HCL [PROzac] 40 mg PO DAILY 05/27/23 10/15/23 History Pantoprazole [Protonix] 40 mg PO DAILY #30 tab 05/29/23 10/15/23 Rx levETIRAcetam [Keppra] 750 mg PO Q12HR #60 tab 05/29/23 10/15/23 Rx Apixaban [Eliquis] 5 mg PO BID 10/15/23 10/15/23 History Ondansetron [Zofran] 4 mg PO Q8HR PRN 10/15/23 10/15/23 History Allergies Allergy/AdvReac Type Severity Reaction Status Date / Time Iodine and Iodide Containing Allergy Rash/Hives Verified 10/15/23 18:52 Produc Physical Exam Vitals: Vital Signs Temp Pulse Resp BP Pulse Ox FiO2 10/16/23 09:04 71 20 100/62 100 10/16/23 08:47 71 20 97/62 100 10/16/23 08:44 40 10/16/23 07:35 50 10/16/23 07:29 76 20 107/68 100 10/16/23 06:00 77 20 102/62 100 10/16/23 05:00 77 19 99/65 100 10/16/23 04:11 81 101/67 100 10/16/23 04:09 20 10/16/23 02:00 89 19 107/68 99 10/16/23 00:40 89 108/72 99 10/15/23 23:48 50 10/15/23 22:15 96 20 108/69 99 10/15/23 21:45 100 25 H 105/69 99 10/15/23 21:38 50 10/15/23 21:00 103 H 26 H 107/81 99 10/15/23 20:45 101 H 26 H 117/68 99 10/15/23 20:30 107 H 24 97/74 99 10/15/23 20:15 109 H 26 H 107/70 99 10/15/23 20:00 108 H 28 H 106/69 99 10/15/23 19:45 105 H 29 H 110/66 100 10/15/23 19:30 105 H 26 H 107/64 99 10/15/23 19:15 105 H 27 H 109/71 100 10/15/23 19:04 50 10/15/23 18:30 114 H 24 111/71 98 10/15/23 18:15 113 H 27 H 101/60 97 10/15/23 18:06 50 10/15/23 18:00 98.1 F 98 10/15/23 17:45 125 H 22 103/60 96 10/15/23 17:30 121 H 42 H 105/73 97 10/15/23 17:16 50 10/15/23 17:15 121 H 17 105/73 97 10/15/23 17:00 134 H 21 120/82 99 10/15/23 16:53 28 H 129/91 99 10/15/23 16:40 100 10/15/23 15:07 97.4 F L 94 18 101/65 100 Intake and Output 10/15/23 10/16/23 10/16/23 22:59 06:59 14:59 Intake Total 105.911 209.220 57.744 Output Total 800 Balance 105.911 209.220 -742.256 Intake: Intake, IV Titration 105.911 209.220 57.744 Amount propofoL 1,000 mg In 94.381 209.220 57.744 Empty Bag 1 bag @ 15 MCG/ KG/MIN 8.369 mls/hr IV . [id number] [facility] Rx#:[id number] propofoL 1,000 mg In 11.53 Empty Bag 1 bag @ Titrate IV .Q0M ONE Rx#: [id number] Output: Urine 800 Uretheral (Varma) 800 Other: Weight 92.986 kg General appearance: Intubated and mechanically ventilated Head exam: Present: atraumatic, normocephalic, normal inspection Eye exam: Present: normal appearance, PERRL, EOMI. Absent: scleral icterus, conjunctival injection, periorbital swelling Neck exam: Present: normal inspection. Absent: tenderness, meningismus, lymphadenopathy Respiratory exam: Present: normal lung sounds bilaterally. Absent: respiratory distress, wheezes, rales, rhonchi, stridor Cardiovascular Exam: Present: regular rate, normal rhythm, normal heart sounds. Absent: systolic murmur, diastolic murmur, rubs, gallop, clicks GI/Abdominal exam: Present: soft, normal bowel sounds. Absent: distended, tenderness, guarding, rebound, rigid Extremities exam: Present: normal inspection, full ROM, normal capillary refill. Absent: tenderness, pedal edema, joint swelling, calf tenderness Back exam: Present: normal inspection Neurological exam: Unable to evaluate Psychiatric exam: Present: Unable to evaluate Skin exam: Present: warm, dry, intact, normal color. Absent: rash Results CBC & Chem 7: 10/16/23 05:52 10/16/23 11:48 Labs: Abnormal Lab Results - Last 24 Hours (Table) 10/15/23 10/15/23 10/15/23 Range/Units 16:00 16:08 16:08 WBC 14.2 H (3.8-10.6) k/uL RBC (3.80-5.40) m/uL Hgb (11.4-16.0) gm/dL Hct (34.0-46.0) % MCV 106.8 H (80.0-100.0) fL MCHC 30.8 L (31.0-37.0) g/dL RDW (11.5-15.5) % Neutrophils # 7.9 H (1.3-7.7) k/uL Lymphocytes # (1.0-4.8) k/uL Monocytes # 1.2 H (0-1.0) k/uL PT 13.1 H (10.0-12.5) sec INR 1.2 H (<1.2) ABG pH (7.35-7.45) ABG pO2 (83-108) mmHg ABG HCO3 (21-25) mmol/L ABG Total CO2 (19-24) mmol/L ABG O2 Saturation (94-97) % Sodium (137-145) mmol/L Potassium (3.5-5.1) mmol/L Glucose (74-99) mg/dL POC Glucose (mg/dL) 115 H (70-110) mg/dL Plasma Lactic Acid Jonathan (0.7-2.0) mmol/L Calcium (8.4-10.2) mg/dL Magnesium (1.6-2.3) mg/dL AST (14-36) U/L ALT (4-34) U/L Total Protein (6.3-8.2) g/dL Albumin (3.5-5.0) g/dL 10/15/23 10/15/23 10/15/23 Range/Units 16:08 16:08 17:08 WBC (3.8-10.6) k/uL RBC (3.80-5.40) m/uL Hgb (11.4-16.0) gm/dL Hct (34.0-46.0) % MCV (80.0-100.0) fL MCHC (31.0-37.0) g/dL RDW (11.5-15.5) % Neutrophils # (1.3-7.7) k/uL Lymphocytes # (1.0-4.8) k/uL Monocytes # (0-1.0) k/uL PT (10.0-12.5) sec INR (<1.2) ABG pH 7.33 L (7.35-7.45) ABG pO2 359 H (83-108) mmHg ABG HCO3 20 L (21-25) mmol/L ABG Total CO2 (19-24) mmol/L ABG O2 Saturation 99.3 H (94-97) % Sodium (137-145) mmol/L Potassium (3.5-5.1) mmol/L Glucose 659 H* (74-99) mg/dL POC Glucose (mg/dL) (70-110) mg/dL Plasma Lactic Acid Jonathan 12.3 H* (0.7-2.0) mmol/L Calcium (8.4-10.2) mg/dL Magnesium (1.6-2.3) mg/dL AST 46 H (14-36) U/L ALT (4-34) U/L Total Protein 6.1 L (6.3-8.2) g/dL Albumin 3.3 L (3.5-5.0) g/dL 10/15/23 10/15/23 10/15/23 Range/Units 18:39 19:31 19:45 WBC (3.8-10.6) k/uL RBC (3.80-5.40) m/uL Hgb (11.4-16.0) gm/dL Hct (34.0-46.0) % MCV (80.0-100.0) fL MCHC (31.0-37.0) g/dL RDW (11.5-15.5) % Neutrophils # (1.3-7.7) k/uL Lymphocytes # (1.0-4.8) k/uL Monocytes # (0-1.0) k/uL PT (10.0-12.5) sec INR (<1.2) ABG pH (7.35-7.45) ABG pO2 (83-108) mmHg ABG HCO3 (21-25) mmol/L ABG Total CO2 (19-24) mmol/L ABG O2 Saturation (94-97) % Sodium 136 L (137-145) mmol/L Potassium 2.1 L* (3.5-5.1) mmol/L Glucose 152 H (74-99) mg/dL POC Glucose (mg/dL) 202 H (70-110) mg/dL Plasma Lactic Acid Jonathan 4.5 H* (0.7-2.0) mmol/L Calcium 7.7 L (8.4-10.2) mg/dL Magnesium (1.6-2.3) mg/dL AST 78 H (14-36) U/L ALT 45 H (4-34) U/L Total Protein 5.0 L (6.3-8.2) g/dL Albumin 2.4 L (3.5-5.0) g/dL 10/15/23 10/16/23 10/16/23 Range/Units 19:45 00:37 05:18 WBC 26.1 H (3.8-10.6) k/uL RBC 3.35 L (3.80-5.40) m/uL Hgb 11.1 L (11.4-16.0) gm/dL Hct 32.7 L (34.0-46.0) % MCV (80.0-100.0) fL MCHC (31.0-37.0) g/dL RDW 15.8 H (11.5-15.5) % Neutrophils # 24.2 H (1.3-7.7) k/uL Lymphocytes # 0.7 L (1.0-4.8) k/uL Monocytes # (0-1.0) k/uL PT (10.0-12.5) sec INR (<1.2) ABG pH 7.48 H (7.35-7.45) ABG pO2 198 H (83-108) mmHg ABG HCO3 29 H (21-25) mmol/L ABG Total CO2 30 H (19-24) mmol/L ABG O2 Saturation 99.0 H (94-97) % Sodium (137-145) mmol/L Potassium 2.4 L* (3.5-5.1) mmol/L Glucose (74-99) mg/dL POC Glucose (mg/dL) (70-110) mg/dL Plasma Lactic Acid Jonathan (0.7-2.0) mmol/L Calcium (8.4-10.2) mg/dL Magnesium (1.6-2.3) mg/dL AST (14-36) U/L ALT (4-34) U/L Total Protein (6.3-8.2) g/dL Albumin (3.5-5.0) g/dL 10/16/23 10/16/23 Range/Units 05:52 05:52 WBC 16.5 H (3.8-10.6) k/uL RBC 3.57 L (3.80-5.40) m/uL Hgb (11.4-16.0) gm/dL Hct (34.0-46.0) % MCV 102.5 H (80.0-100.0) fL MCHC (31.0-37.0) g/dL RDW 15.8 H (11.5-15.5) % Neutrophils # 15.0 H (1.3-7.7) k/uL Lymphocytes # 0.7 L (1.0-4.8) k/uL Monocytes # (0-1.0) k/uL PT (10.0-12.5) sec INR (<1.2) ABG pH (7.35-7.45) ABG pO2 (83-108) mmHg ABG HCO3 (21-25) mmol/L ABG Total CO2 (19-24) mmol/L ABG O2 Saturation (94-97) % Sodium (137-145) mmol/L Potassium 2.8 L (3.5-5.1) mmol/L Glucose 138 H (74-99) mg/dL POC Glucose (mg/dL) (70-110) mg/dL Plasma Lactic Acid Jonathan (0.7-2.0) mmol/L Calcium 8.2 L (8.4-10.2) mg/dL Magnesium 2.5 H (1.6-2.3) mg/dL AST 56 H (14-36) U/L ALT 50 H (4-34) U/L Total Protein 5.4 L (6.3-8.2) g/dL Albumin 2.7 L (3.5-5.0) g/dL Assessment and Plan Assessment: 1. PEA cardiac arrest Shortly after she arrived to the ER she developed a seizure and then developed pulseless logical activity arrest. As a result CPR started and she was intubated on a ventilator.patient is on Keppra 750 mg twice a day. She received 5mg of Valium in ED. Currently the patient is on IV propofol 55mcg/kg/min. Cardiology to evaluate for her cardiac arrest/PEA cardiac arrest Critical care planning to likely hold sedation in the next 24 hours and address if the patient could be arousable and address weaning if possible 2. Critical hypokalemia; supplemented in ED; patient received additional 80 mg of IV KCl -- Continue monitor electrolytes closely; patient has been placed on hyperkalem ia protocol 3. Leukocytosis/sepsis; elevated lactic acid levels; patient has been placed on IV antibiotics in form of Rocephin and vancomycin; blood cultures, urine culture, sputum culture and culture of skin lesion of right breast has been obtained -- Further recommendations once culture results are available 4. 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 Acute seizures; likely related to metastatic disease involving brain -- Patient remains on Keppra, 1500 mg IV every 12 hours; neurology consulted; appreciate recommendations 6. Metastatic breast cancer DVT prophylaxis; SCDs CODE STATUS; full code
[2023-10-16 19:39] LABS: Glucose,Whole Blood 120 mg/dL (70-110)
[2023-10-16] MEDS: POTASSIUM BICARBONATE/CIT AC 20 MEQ TABLET.EFF NG-TUBE SCH (20:02)
--- NOTE | 2023-10-16 20:11 | CA ---
Transthoracic Echo Report Name: Katya Lawson Age: 48 Gender: F : 1975 Exam Date: 10/16/2023 12:14 Exam Location: [facility] Ht (in): 67 Wt (lb): 205 Ordering Physician: Arvin Duarte MD ([id number]) Attending/Referring Phys: Insurance Representative Micheline Easton RCS Procedure CPT: Indications: chf Cardiac Hx: Technical Quality: Very technically difficult study Contrast 1: Definity Total Dose (mL): 6 Contrast 2: Total Dose (mL): MEASUREMENTS (Male / Female) Normal Values FINDINGS Left Ventricle Left ventricular ejection fraction is estimated at 50-55 % by visual. Right Ventricle Right ventricle not well visualized. Right Atrium Right atrium not well visualized. Left Atrium Left atrium not well visualized. Mitral Valve Mitral valve not assessed. Aortic Valve Aortic valve not assessed. Tricuspid Valve Tricuspid valve not assessed. Pulmonic Valve Pulmonic valve not assessed. Pericardium No pericardial effusion. Aorta Aortic root and proximal ascending aorta not assessed. CONCLUSIONS Very technically difficult study. Limited study Left ventricular ejection fraction is estimated at 50-55 % by visual. No pericardial effusion. Previewed by: Dr Arvin Duarte (Electronically Signed) Final Date: 16 October 2023 20:10
--- NOTE | 2023-10-16 21:16 | P.CRDCN ---
History of Present Illness Consult date: 10/16/23 History of present illness: HISTORY OF PRESENTING ILLNESS Patient is a 48-year-old female with history of triple negative metastatic breast cancer including brain metastasis status post radiation therapy, s/p multiple lines of therapy. This time she was sent to the hospital because of hypokalemia found on her labs. During her initial evaluation in the ER she had a seizure-like activity on arrival and during seizure she had a pulseless electrical activity cardiac arrest. She was intubated and after ACLS protocol she had return of spontaneous circulation. She was stabilized and was maintained on ventilator support. CTA did not show any evidence of PE. It did show evidence of lung nodule. We attempted an echocardiogram which was a low quality study due to poor acoustic windows but grossly LVEF appeared to be 50 to 55% with no pericardial effusion. Maintaining her hemodynamics with SBP 101/60 and pulse 70 without any pressor support at this time. REVIEW OF SYSTEMS Could not be obtained as patient is intubated and sedated PHYSICAL EXAMINATION Vital signs reviewed. Patient is on ventilator support and under sedation S1-S2 audible, no murmurs appreciated, regular pulses ET tube in place, good air entry bilateral lung agosto Abdomen is soft No swelling in bladder lower extremity ASSESSMENT PEA cardiac arrest after seizure Grand mal seizure , likely from brain mets severe hypokalemia Metastatic breast cancer with mets to brain Anemia PLAN We were not able to find any evidence of ventricular fibrillation, or any fatal arrhythmias during before or after the cardiac arrest. Will continue to monitor patient on telemetry for any fatal arrhythmias. At this time echo quality was limited due to poor acoustic windows but EF appeared to be 50 to 55% and there was no pericardial effusion. Continue supportive care as per ICU team Overall prognosis is guarded Arvin Duarte MD, FACC, RPVI Thank you for allowing [facility] to participate in this patient's care. Feel free to reach out in case of any followup questions. Past Medical History Past Medical History: Cancer Additional Past Medical History / Comment(s): Hx. spinal meningitis twice 1999 and 2002, Breast Cancer 2019, one seizure age 6, "nodule on rt lung", History of Any Multi-Drug Resistant Organisms: None Reported Past Surgical History: Appendectomy, Section Additional Past Surgical History / Comment(s): right shoulder cyst removal, breast biopsy Past Anesthesia/Blood Transfusion Reactions: No Reported Reaction Past Psychological History: Anxiety, Depression Smoking Status: Current every day smoker - Past Family History Mother Family Medical History: Cancer, Deep Vein Thrombosis (DVT) Additional Family Medical History / Comment(s): BREAST CANCER WITH METS TO LUNG. Medications and Allergies Home Medications Medication Instructions Recorded Confirmed Type ALPRAZolam [Xanax] 2 mg PO BID 04/27/19 10/15/23 History FLUoxetine HCL [PROzac] 20 mg PO DAILY 05/03/19 10/15/23 History FLUoxetine HCL [PROzac] 40 mg PO DAILY 05/27/23 10/15/23 History Pantoprazole [Protonix] 40 mg PO DAILY #30 tab 05/29/23 10/15/23 Rx levETIRAcetam [Keppra] 750 mg PO Q12HR #60 tab 05/29/23 10/15/23 Rx Apixaban [Eliquis] 5 mg PO BID 10/15/23 10/15/23 History Ondansetron [Zofran] 4 mg PO Q8HR PRN 10/15/23 10/15/23 History Allergies Allergy/AdvReac Type Severity Reaction Status Date / Time Iodine and Iodide Containing Allergy Rash/Hives Verified 10/15/23 18:52 Produc Physical Exam Vitals: Vital Signs Temp Pulse Resp BP Pulse Ox FiO2 10/16/23 20:23 98.1 F 67 21 100/60 100 40 10/16/23 20:00 40 10/16/23 19:46 40 10/16/23 18:36 70 20 101/60 100 10/16/23 17:00 69 20 103/66 100 10/16/23 16:00 68 20 104/62 100 10/16/23 15:22 40 10/16/23 14:00 68 20 95/59 100 10/16/23 13:00 67 20 94/58 99 10/16/23 12:00 66 20 104/63 100 10/16/23 11:37 97.3 F L 73 20 109/66 100 10/16/23 11:11 40 10/16/23 10:00 71 20 108/68 100 10/16/23 09:48 72 20 109/69 100 10/16/23 09:04 71 20 100/62 100 10/16/23 08:47 71 20 97/62 100 03/30/24 08:44 40 10/16/23 07:35 50 10/16/23 07:29 76 20 107/68 100 10/16/23 06:00 77 20 102/62 100 10/16/23 05:00 77 19 99/65 100 10/16/23 04:11 81 101/67 100 10/16/23 04:09 20 10/16/23 02:00 89 19 107/68 99 10/16/23 00:40 89 108/72 99 10/15/23 23:48 50 10/15/23 22:15 96 20 108/69 99 10/15/23 21:45 100 25 H 105/69 99 10/15/23 21:38 50 Intake and Output 10/16/23 10/16/23 10/16/23 06:59 14:59 22:59 Intake Total 209.220 57.744 517 Output Total 950 1165 Balance 209.220 -892.256 -648 Intake: IV 417 Sodium Chloride 0.9% 1, 200 000 ml @ 100 mls/hr IV . Q10H [facility] Rx#:[id number] Vancomycin 1,500 mg In 167 Sodium Chloride 0.9% 500 ml 500 ml @ 167 mls/hr IVPB Q12HR [facility] Rx#: [id number] cefTRIAXone 2 gm In 50 Sodium Chloride 0.9% 50 ml @ 100 mls/hr IVPB Q12HR [facility] Rx#:[id number] Intake, IV Titration 209.220 57.744 100 Amount propofoL 1,000 mg In 209.220 57.744 100 Empty Bag 1 bag @ 15 MCG/ KG/MIN 8.369 mls/hr IV . [id number] [facility] Rx#:[id number] Output: Urine 950 1165 Uretheral (Varma) 950 1100 Other: Voiding Method Indwelling Catheter Results 10/16/23 05:52 10/16/23 11:48 Cardiac Enzymes 10/16/23 Range/Units 05:52 AST 56 H (14-36) U/L CBC 10/16/23 Range/Units 05:52 WBC 16.5 H (3.8-10.6) k/uL RBC 3.57 L (3.80-5.40) m/uL Hgb 11.7 (11.4-16.0) gm/dL Hct 36.6 (34.0-46.0) % Plt Count 269 (150-450) k/uL Comprehensive Metabolic Panel 10/16/23 10/16/23 10/16/23 Range/Units 00:37 05:52 11:48 Sodium 138 (137-145) mmol/L Potassium 2.4 L* 2.8 L 2.9 L (3.5-5.1) mmol/L Chloride 106 (98-107) mmol/L Carbon Dioxide 25 (22-30) mmol/L BUN 13 (7-17) mg/dL Creatinine 0.66 (0.52-1.04) mg/dL Glucose 138 H (74-99) mg/dL Calcium 8.2 L (8.4-10.2) mg/dL AST 56 H (14-36) U/L ALT 50 H (4-34) U/L Alkaline Phosphatase 106 (38-126) U/L Total Protein 5.4 L (6.3-8.2) g/dL Albumin 2.7 L (3.5-5.0) g/dL Current Medications Generic Name Dose Route Start Last Admin Trade Name Freq PRN Reason Stop Dose Admin Albuterol/Ipratropium 3 ml 10/15/23 18:10 Ipratropium-Albuterol 3 Ml Neb INHALATION RT-Q4H PRN Shortness Of Breath Or Wheezing Propofol 1,000 mg/ IV Solution 100 mls @ 8.369 mls/hr 10/15/23 17:00 10/16/23 20:01 IV 50 mcg/kg/min .[id number] [facility] 27.896 mls/hr Administration Protocol 15 MCG/KG/MIN Ceftriaxone Sodium 2 gm/ 50 mls @ 100 mls/hr 10/16/23 09:00 10/16/23 20:00 Sodium Chloride IVPB 100 mls/hr Q12HR [facility] Administration Protocol Vancomycin HCl 1,500 mg/ 500 mls @ 167 mls/hr 10/15/23 22:00 10/16/23 20:48 Sodium Chloride IVPB 167 mls/hr Q12HR [facility] Administration Norepinephrine Bitartrate 8 mg 258 mls @ 5.398 mls/hr 10/16/23 08:45 / Sodium Chloride IV .Q24H [facility] Protocol 0.03 MCG/KG/MIN Sodium Chloride 1,000 mls @ 100 mls/hr 10/16/23 08:45 10/16/23 09:00 Saline 0.9% IV 100 mls/hr .Q10H [facility] Administration Levetiracetam 1,500 mg 10/16/23 11:15 10/16/23 20:03 Levetiracetam Iv 500 Mg/5 Ml Vial IVP 1,500 mg Q12HR [facility] Administration Lorazepam 1 mg 10/15/23 18:10 10/16/23 02:53 Lorazepam 2 Mg/Ml Inj IV 1 mg Q6HR PRN Administration Anxiety Miscellaneous Information 1 each 10/16/23 01:36 Potassium Replacement Protocol 1 Each Misc MISCELLANE DAILY PRN Per Protocol Protocol Miscellaneous Information 0 each 10/17/23 08:00 Vancomycin Trough Due 1 Each Misc MISCELLANE 10/17/23 08:01 DIRECTED ONE Naloxone HCl 0.2 mg 10/15/23 18:10 Naloxone 0.4 Mg/Ml 1 Ml Vial IV Q2M PRN Opioid Reversal Intake and Output 10/16/23 10/16/23 10/16/23 06:59 14:59 22:59 Intake Total 209.220 57.744 517 Output Total 950 1165 Balance 209.220 -892.256 -648 Intake: IV 417 Sodium Chloride 0.9% 1, 200 000 ml @ 100 mls/hr IV . Q10H [facility] Rx#:[id number] Vancomycin 1,500 mg In 167 Sodium Chloride 0.9% 500 ml 500 ml @ 167 mls/hr IVPB Q12HR [facility] Rx#: [id number] cefTRIAXone 2 gm In 50 Sodium Chloride 0.9% 50 ml @ 100 mls/hr IVPB Q12HR [facility] Rx#:[id number] Intake, IV Titration 209.220 57.744 100 Amount propofoL 1,000 mg In 209.220 57.744 100 Empty Bag 1 bag @ 15 MCG/ KG/MIN 8.369 mls/hr IV . [id number] [facility] Rx#:[id number] Output: Urine 950 1165 Uretheral (Varma) 950 1100 Other: Voiding Method Indwelling Catheter 10/16/23 05:52 10/16/23 11:48
[2023-10-16] MEDS ORDERED: EPINEPHrine 10 ML SYRINGE (0.1 MG/ML) ONE (23:38)
[2023-10-17 00:07] LABS: Glucose,Whole Blood 135 mg/dL (70-110)
--- NOTE | 2023-10-17 00:08 | P.EN ---
Code Blue Note Activated at 2338. Arrived at the scene shortly after. The case was discussed with the patient's RN and the chart was reviewed. The patient with a PMH of Stage IV breast cancer was admitted for hypokalemia and seizures. She was noted to have developed V-Fib arrest on the monitor. CPR was immediately initiated. She was given Epinephrine IVP x 1 and ROSC was achieved at 2342. No shocks were delivered. Upon my arrival at the scene, the patient had achieved ROSC. Additional potassium supplementation was ordered and repeat BMP was ordered. The patient's family was notified. The primary team was notified. Please refer to the code sheet for further details. Total time spent providing critical care for this patient: 20 minutes
[2023-10-17] MEDS: POTASSIUM CHLORIDE 10 MEQ in WATER FOR INJECTION 1 100ML.BAG IVPB SCH ×2 (00:14→23:01)
[2023-10-17 01:03] LABS: African American GFR (CKD) >90 (>60 ml/min/1.73 sqM); Anion Gap 6 mmol/L; Blood Urea Nitrogen 12 mg/dL (7-17); Calcium 7.9 mg/dL (8.4-10.2); Carbon Dioxide 24 mmol/L (22-30); Chloride 110 mmol/L (98-107); Glucose 120 mg/dL (74-99); Magnesium 2.4 mg/dL (1.6-2.3); Non-African American GFR(CKD) >90 (>60 ml/min/1.73 sqM); Potassium 3.6 mmol/L (3.5-5.1); Sodium 140 mmol/L (137-145)
[2023-10-17] MEDS: NOREPINEPHRINE 4 MG in SODIUM CHLORIDE 0.9% 250 ML IV SCH (02:22)
[2023-10-17 05:30] LABS: ABG Base Excess 6.3 mmol/L; ABG HCO3 30 mmol/L (21-25); ABG Oxygen Saturation 98.7 % (94-97); ABG PCO2 38 mmHg (35-45); ABG PO2 108 mmHg (83-108); ABG TCO2 31 mmol/L (19-24); Allen Test Performed? Yes
[2023-10-17 06:19] LABS: Glucose,Whole Blood 107 mg/dL (70-110)
--- NOTE | 2023-10-17 07:29 | XR ---
EXAMINATION TYPE: XR chest 1V portable DATE OF EXAM: 10/17/2023 COMPARISON: 10/16/2023 INDICATION: Effusion, previous abnormal chest TECHNIQUE: Single frontal view of the chest is obtained. FINDINGS: The heart size is normal. The pulmonary vasculature is normal. Masslike density over the chest is stable. Port is present with the tip in superior vena cava region. Endotracheal tube tip is above the mckenzie. Nasogastric tube tip in left upper quadrant of the abdome n. IMPRESSION: 1. Persistent masslike density left upper lobe. 2. Lines and catheters discussed above
[2023-10-17 07:41] LABS: Basophils % (A) 0 %; Eosinophils % (A) 0 %; HCT 32.5 % (34.0-46.0); HGB 10.4 gm/dL (11.4-16.0); Lymphocytes # (A) 1.3 k/uL (1.0-4.8); Lymphocytes % (A) 13 %; MCH 32.3 pg (25.0-35.0); MCHC 32.1 g/dL (31.0-37.0); MCV 100.5 fL (80.0-100.0); Macrocytosis Slight; Mean Platelet Volume 7.9; Monocytes # (A) 0.3 k/uL (0-1.0); Monocytes % (A) 3 %; Neutrophils # (A) 8.3 k/uL (1.3-7.7); Neutrophils % (A) 84 %; Platelet Count 243 k/uL (150-450); RBC 3.23 m/uL (3.80-5.40); RDW 15.7 % (11.5-15.5); WBC 9.9 k/uL (3.8-10.6)
[2023-10-17] MEDS: VANCOMYCIN TROUGH DUE 1 EACH MISC MISCELLANE ONE (08:14)
[2023-10-17] MEDS: CHLORHEXIDINE GLUCONATE 15 ML CUP MUCOUS MEM SCH (08:15)
[2023-10-17] MEDS: PANTOPRAZOLE 40 MG/10 ML VIAL IVP SCH (10:36)
[2023-10-17 11:56] LABS: Glucose,Whole Blood 105 mg/dL (70-110)
--- NOTE | 2023-10-17 12:23 | P.PN ---
Subjective Progress Note Date: 10/17/23 Principal diagnosis: PEA cardiac arrest associated with severe hypokalemia This is a 48-year-old female with known history of triple negative metastatic breast cancer, including brain metastasis, status post RT, status post multiple lines of therapy most recently patient hadC6 of [place] on 10/14/23 patient came into the ER last night mostly because of abnormal labs and she was told that her potassium was low. Shortly after she arrived to the ER, patient developed a seizure, and went on to develop pulseless electrical activity arrest, CPR was started, patient was intubated, stabilized in the ER, CT angiogram of the chest showed no evidence of pulmonary embolism. CT also showed pulmonary nodules which have been present for quite some time. Potassium was as low as 2.1. Hemoglobin was 11 WBC count was 26,000. CT of the head showed stable lesions of metastatic breast lesions in the brain. I saw this patient in the ER, patient is intubated and mechanically ventilated, she is on assist-control rate of 20 tidal volume 400 FiO2 50% and PEEP of 5 ABG showed a pO2 of 198 pCO2 39 pH of 7.48. Hence cut down FiO2 to 40%. Her blood pressure is marginal, patient is receiving fluids, she is also on propofol at 45 mcg/kg/min, recommended norepinephrine if needed for low blood pressure seems to be soft. Looking at the notes from the oncologist, patient was last seen in the oncology clinic on 09/14/2023, she was seen by Dr. Rich, and she had mild drainage from breast lesion, was feeling tired, but she had no shortness of breath, no chest pain, patient has been maintained on Eliquis for symptomatic SVT of the left lower extremity. In the ER, patient is maintained on mechanical ventilation, she is also on antibiotics in the form of Rocephin, and vancomycin, calcium is being corrected as per protocol, chest x-ray showed a 4 cm left upper lobe mass, and this was present previously Patient was reevaluated today on 10/17/2023, patient remains in the ICU, sedated and mechanically ventilated, she is on assist-control rate of 20 tidal volume 400 FiO2 40% and PEEP of 5 ABG showed a pO2 of 108 pCO2 38 pH of 7.50. Patient was on propofol overnight at 15 mcg/kg/min, however during my evaluation, I suggested stopping propofol, and her norepinephrine use to be at 0.03 mcg/kg/min and is now on hold. Patient is maintaining adequate blood pressure off norepinephrine. Patient is maintained on Keppra, her potassium has been corrected as per protocol, today's potassium is 3.6. Echocardiogram showed good LV function with ejection fraction of 50 to 55%. Patient remains on antibiotics in the form of ceftriaxone and vancomycin for her large breast wound in the right upper chest area. Patient is also on Keppra for her seizures. And no seizure activity noted over the last 24 hours. Last night the patient had a brief episode of ventricular fibrillation, went into asystole, she received 1 dose of epinephrine, and very brief CPR, and there was return of spontaneous circulation. Again her potassium was noted to be low, and this was further addressed and corrected. WBC count today is 9.9 hemoglobin is 10.4.Basic metabolic profile is normal renal profile is normal magnesium is 2.4 chest x-ray today showed mostly left upper lobe masslike density, otherwise no acute findings Objective - Vital Signs Vital signs: Vital Signs Temp 97.6 F 10/17/23 08:00 Pulse 78 10/17/23 10:00 Resp 25 H 10/17/23 10:00 BP 119/63 10/17/23 10:00 Pulse Ox 100 10/17/23 10:00 FiO2 40 10/17/23 10:00 Intake & Output 10/16/23 10/17/23 10/17/23 18:59 06:59 18:59 Intake Total 57.744 2416.737 899.853 Output Total 2050 530 230 Balance -6447.928 5092.737 669.853 Weight 99.5 kg Intake: IV 1 816 Potassium Chloride 10 meq 400 In Water For Injection 1 100ml.bag @ 100 mls/hr IVPB Q1HR [facility] Rx#: [id number] Potassium Chloride 20 meq 100 In Water For Injection 1 100ml.bag @ 50 mls/hr IVPB Q2HR [facility] Rx#: [id number] Sodium Chloride 0.9% 1, 1100 500 000 ml @ 100 mls/hr IV . Q10H [facility] Rx#:[id number] Vancomycin 1,500 mg In 501 166 Sodium Chloride 0.9% 500 ml 500 ml @ 167 mls/hr IVPB Q12HR [facility] Rx#: [id number] cefTRIAXone 2 gm In 50 50 Sodium Chloride 0.9% 50 ml @ 100 mls/hr IVPB Q12HR [facility] Rx#:[id number] Intake, IV Titration 57.744 365.737 83.853 Amount Norepinephrine 4 mg In 9.33 15.648 Sodium Chloride 0.9% 250 ml @ 0.03 MCG/KG/MIN 10. 628 mls/hr IV .[id number] [facility] Rx#:[id number] propofoL 1,000 mg In 57.744 356.407 68.205 Empty Bag 1 bag @ 15 MCG/ KG/MIN 8.369 mls/hr IV . [id number] [facility] Rx#:[id number] Output: Urine 2049 530 230 Uretheral (Varma) 2049 Other: Voiding Method Indwelling Catheter Indwelling Catheter - Exam General appearance: Revealed 48-year-old female intubated mechanically ventilated, in no distress Head exam: Atraumatic, normocephalic Eye exam: PERRLA, EOMI, nonicteric. ENT exam: Dry mucous membranes, otherwise unremarkable. Neck exam: No neck masses no JVD. Respiratory exam: Good breath sound bilaterally no rhonchi no wheezes Cardiovascular Exam: Normal S1-S2, no S3 gallop no murmur GI/Abdominal exam: P soft nontender no megaly no rebound no guarding Extremities exam: No clubbing edema or cyanosis Neurological exam: Awake, follows simple instructions, seems to be neurolog ically appropriate. Psychiatric exam: Could not fully assess, patient just went off propofol, but seems to be relatively intact, she has a flat affect, and relatively normal m ental status Skin exam: Large area of ulceration over the right breast, measuring over 5 cm, quite deep and extensive, extending into the chest wall. - Labs CBC & Chem 7: 10/17/23 07:22 10/17/23 00:19 Labs: Abnormal Lab Results - Last 24 Hours (Table) 10/16/23 10/16/23 10/17/23 Range/Units 11:48 19:36 00:05 RBC (3.80-5.40) m/uL Hgb (11.4-16.0) gm/dL Hct (34.0-46.0) % MCV (80.0-100.0) fL RDW (11.5-15.5) % Neutrophils # (1.3-7.7) k/uL ABG pH (7.35-7.45) ABG HCO3 (21-25) mmol/L ABG Total CO2 (19-24) mmol/L ABG O2 Saturation (94-97) % Potassium 2.9 L (3.5-5.1) mmol/L Chloride (98-107) mmol/L Glucose (74-99) mg/dL POC Glucose (mg/dL) 120 H 135 H (70-110) mg/dL Calcium (8.4-10.2) mg/dL Magnesium (1.6-2.3) mg/dL 10/17/23 10/17/23 10/17/23 Range/Units 00:19 05:28 07:22 RBC 3.23 L (3.80-5.40) m/uL Hgb 10.4 L (11.4-16.0) gm/dL Hct 32.5 L (34.0-46.0) % MCV 100.5 H (80.0-100.0) fL RDW 15.7 H (11.5-15.5) % Neutrophils # 8.3 H (1.3-7.7) k/uL ABG pH 7.50 H (7.35-7.45) ABG HCO3 30 H (21-25) mmol/L ABG Total CO2 31 H (19-24) mmol/L ABG O2 Saturation 98.7 H (94-97) % Potassium (3.5-5.1) mmol/L Chloride 110 H (98-107) mmol/L Glucose 120 H (74-99) mg/dL POC Glucose (mg/dL) (70-110) mg/dL Calcium 7.9 L (8.4-10.2) mg/dL Magnesium 2.4 H (1.6-2.3) mg/dL Microbiology - Last 24 Hours (Table) 10/15/23 17:44 Gram Stain - Preliminary Sputum 10/15/23 21:22 Blood Culture - Preliminary Blood 10/15/23 21:13 Blood Culture Gram Stain - Preliminary Blood Assessment and Plan Assessment: Impression: PEA cardiac arrest x 1 in the ER (in the setting of severe hypokalemia A-fib cardiac arrest x 1 in the ICU Severe hypokalemia Leukocytosis with lactic acidosis Suspect ongoing sepsis, likely source is her skin lesion/right breast Metastatic breast cancer Chronic anemia secondary to chemotherapy Acute seizure, most likely secondary to metastatic disease involving the brain. Recommendation: Continue ventilatory support Continue antibiotics patient is receiving Rocephin and vancomycin, cultures are pending Check blood cultures and urine cultures as well as sputum cultures also cultures skin lesion/right breast. Patient was evaluated by neurology and cardiology on consultation Continue to monitor potassium and address accordingly, correct as per protocol Will hold sedation and address for weaning today with a brief trial of pressure support and CPAP, if tolerated we will extubate In the meantime continue present supportive care measures including GI and DVT prophylaxis, Hemodynamic support if necessary,, this morning the patient is off norepinephrine Nutritional support Continue to monitor in the ICU even if extubated Overall prognosis is extremely poor and guarded, Patient is critically ill. Critical care time is over 30 Time with Patient: Greater than 30
--- NOTE | 2023-10-17 12:27 | P.PN ---
Subjective Progress Note Date: 10/17/23 I am following-up with patient and per nurse patient had another cardiopulmonary arrest yesterday at 2338 in which she was V-fib then was PEA and was in ROSC by 234. She is extubated today. No further seizures. Patient is overall tired. Objective - Vital Signs Vital signs: Vital Signs Temp 97.6 F 10/17/23 08:00 Pulse 78 10/17/23 10:00 Resp 25 H 10/17/23 10:00 BP 119/63 10/17/23 10:00 Pulse Ox 100 10/17/23 10:00 FiO2 40 10/17/23 10:00 Intake & Output 10/16/23 10/17/23 10/17/23 18:59 06:59 18:59 Intake Total 57.744 2416.737 899.853 Output Total 2050 530 230 Balance -7046.922 7943.737 669.853 Weight 99.5 kg Intake: IV 2051 816 Potassium Chloride 10 meq 400 In Water For Injection 1 100ml.bag @ 100 mls/hr IVPB Q1HR [facility] Rx#: [id number] Potassium Chloride 20 meq 100 In Water For Injection 1 100ml.bag @ 50 mls/hr IVPB Q2HR [facility] Rx#: [id number] Sodium Chloride 0.9% 1, 1100 500 000 ml @ 100 mls/hr IV . Q10H [facility] Rx#:[id number] Vancomycin 1,500 mg In 501 166 Sodium Chloride 0.9% 500 ml 500 ml @ 167 mls/hr IVPB Q12HR [facility] Rx#: [id number] cefTRIAXone 2 gm In 50 50 Sodium Chloride 0.9% 50 ml @ 100 mls/hr IVPB Q12HR [facility] Rx#:[id number] Intake, IV Titration 57.744 365.737 83.853 Amount Norepinephrine 4 mg In 9.33 15.648 Sodium Chloride 0.9% 250 ml @ 0.03 MCG/KG/MIN 10. 628 mls/hr IV .[id number] [facility] Rx#:[id number] propofoL 1,000 mg In 57.744 356.407 68.205 Empty Bag 1 bag @ 15 MCG/ KG/MIN 8.369 mls/hr IV . [id number] [facility] Rx#:[id number] Output: Urine 2050 530 230 Uretheral (Varma) 2049 Other: Voiding Method Indwelling Catheter Indwelling Catheter - Exam General: Lying in bed and is not in acute distress. Neuro: Appears lethargic. Patient is mildly drowsy. She is oriented to self, place and time. Is following simple commands. Language is limited. Pupils is right eye is 4-5mm and left is 3mm and reactive to light. Visual agosto are full to confrontation throughout. EOM intact and no nystagmus. No facial weakness. Is severely hypophonic. Motor: Strength is limited since is generalized weak. But lifting bilateral uppers > lowers. Some of the work-up during this hospital visit consisted of: patient's Potassium was as low as 2.1 currently is 2.8.calcium is 7.7, phosphorus 3.9, magnesium is 2.5, AST of 78 ALTs 45. most recent sodium is 138, glucose is 138, CT of the head is reported as no acute intracranial hemorrhage, midline shift or mass effect. Some small residual hypodensity can be seen which appear to correlate with the site of some of the larger metastasis previously identified. In the limits of unenhanced as CT head there does not seem to be a tremendous increase in metastatic lesion. For better evaluation contrast MRI would be the study of choice. Limited 2D echo: very technically difficult study. Limited study. Ejection fraction of 50-55%. - Labs CBC & Chem 7: 10/17/23 07:22 10/17/23 00:19 Labs: Abnormal Lab Results - Last 24 Hours (Table) 10/16/23 10/16/23 10/17/23 Range/Units 11:48 19:36 00:05 RBC (3.80-5.40) m/uL Hgb (11.4-16.0) gm/dL Hct (34.0-46.0) % MCV (80.0-100.0) fL RDW (11.5-15.5) % Neutrophils # (1.3-7.7) k/uL ABG pH (7.35-7.45) ABG HCO3 (21-25) mmol/L ABG Total CO2 (19-24) mmol/L ABG O2 Saturation (94-97) % Potassium 2.9 L (3.5-5.1) mmol/L Chloride (98-107) mmol/L Glucose (74-99) mg/dL POC Glucose (mg/dL) 120 H 135 H (70-110) mg/dL Calcium (8.4-10.2) mg/dL Magnesium (1.6-2.3) mg/dL 10/17/23 10/17/23 10/17/23 Range/Units 00:19 05:28 07:22 RBC 3.23 L (3.80-5.40) m/uL Hgb 10.4 L (11.4-16.0) gm/dL Hct 32.5 L (34.0-46.0) % MCV 100.5 H (80.0-100.0) fL RDW 15.7 H (11.5-15.5) % Neutrophils # 8.3 H (1.3-7.7) k/uL ABG pH 7.50 H (7.35-7.45) ABG HCO3 30 H (21-25) mmol/L ABG Total CO2 31 H (19-24) mmol/L ABG O2 Saturation 98.7 H (94-97) % Potassium (3.5-5.1) mmol/L Chloride 110 H (98-107) mmol/L Glucose 120 H (74-99) mg/dL POC Glucose (mg/dL) (70-110) mg/dL Calcium 7.9 L (8.4-10.2) mg/dL Magnesium 2.4 H (1.6-2.3) mg/dL Microbiology - Last 24 Hours (Table) 10/15/23 17:44 Gram Stain - Preliminary Sputum 10/15/23 21:22 Blood Culture - Preliminary Blood 10/15/23 21:13 Blood Culture Gram Stain - Preliminary Blood Assessment and Plan Assessment: This is a 48 year-old woman with a history of stage IV breast cancer with metastases to the lung, liver as well as the brain with multiple lines of therapy, new onset seizure in May 2023 who presented emergency department on 10/14/2023 because of abnormal labs and was told she had the potassium was low then while in ED she had reported seizure then had cardiopumonary arrest. Breakthrough seizure. 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 Has PEA. Then had another cardiopulmonary arrest yesterday at night close to midnight. Severe hypokalemia--improved Severe hyperglycemia possible reactive from seizure and cardiopulmonary arrest---resolved History of seizure since 05/2023 and is on Keppra 750mg bid. 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 Seizure precaution and pads Will pursue with EEG (will be performed tomorrow) Will pursue with MRI Brain w/ and w/o seizure protocol to assess if any new brain mets. Will defer the rest of medical management to the primary and other specialist. The plan is discussed with nurse. Dr. Will will resume neurology service tomorrow A.M. Time with Patient: Less than 30
[2023-10-17] MEDS ORDERED: Potassium Replacement Protocol 1 EACH MISC MISCELLANE PRN ×2 (13:52→17:08)
[2023-10-17] MEDS: POTASSIUM CHLORIDE ER 20 MEQ TAB.ER PO SCH ×2 (14:01→17:40)
--- NOTE | 2023-10-17 15:52 | P.PN ---
Subjective Progress Note Date: 10/17/23 48 year-old woman with a history of stage IV breast cancer with metastases to the lung, liver as well as the brain with multiple lines of therapy, new onset seizure in May 2023 who presented emergency department on 10/14/2023 because of abnormal labs and was told she had the potassium was low. Shortly after she arrived to the ER she developed a seizure and then developed pulseless electrical activity arrest. As a result CPR started and she was intubated on a ventilator.patient is on Keppra 750 mg twice a day. She received 5mg of Valium in ED. Currently the patient is on IV propofol 55mcg/kg/min. No further clinical seizures. Patient was previously admitted to the hospital on 05/28/2023 in which she had new onset seizure and it was felt due to her brain metastases. Patient is on Keppra 750 mg twice a day. patient had an EEG which was abnormal. Tobacco slowing suggestive of mild encephalopathy. Excessive beta activity is likely due to medication effect. Otherwise there is no focal slowing, epileptiform discharges or seizure on the EEG. Please refer to my prior notes for further details. patient's Potassium was as low as 2.1 currently is 2.8.calcium is 7.7, phosphorus 3.9, magnesium is 2.5, AST of 78 ALTs; most recent sodium is 138, glucose is 138, CT of the head is reported as no acute intracranial hemorrhage, midline shift or mass effect. Some small residual hypodensity can be seen which appear to correlate with the site of some of the larger metastasis previously identified. In the limits of unenhanced as CT head there does not seem to be a tremendous increase in metastatic lesion. 10/17/2023 Patient is seen and evaluated in room at bedside --Patient has been extubated; sitting up in bed with family at bedside -- Per nursing staff patient has very poor oral intake which has been ongoing before admission; we will add a small dose of Remeron and monitor closely -Patient takes Eliquis 5 mg twice daily for DVT; we will resume home dose Neurology recommending to increase home Keppra from 750 mg twice daily up to 1500 mg twice daily and continue with seizure precautions --MRI of the brain and EEG to be completed tomorrow Objective - Vital Signs Vital signs: Vital Signs Temp 97.6 F 10/17/23 08:00 Pulse 78 10/17/23 10:00 Resp 25 H 10/17/23 10:00 BP 119/63 10/17/23 10:00 Pulse Ox 100 10/17/23 10:00 FiO2 40 10/17/23 10:00 Intake & Output 10/16/23 10/17/23 10/17/23 18:59 06:59 18:59 Intake Total 57.744 2416.737 699.853 Output Total 2049 530 170 Balance -8405.928 4491.737 529.853 Weight 99.5 kg Intake: IV 2050 616 Potassium Chloride 10 meq 400 In Water For Injection 1 100ml.bag @ 100 mls/hr IVPB Q1HR [facility] Rx#: [id number] Potassium Chloride 20 meq 100 In Water For Injection 1 100ml.bag @ 50 mls/hr IVPB Q2HR [facility] Rx#: [id number] Sodium Chloride 0.9% 1, 1100 300 000 ml @ 100 mls/hr IV . Q10H [facility] Rx#:[id number] Vancomycin 1,500 mg In 501 166 Sodium Chloride 0.9% 500 ml 500 ml @ 167 mls/hr IVPB Q12HR [facility] Rx#: [id number] cefTRIAXone 2 gm In 50 50 Sodium Chloride 0.9% 50 ml @ 100 mls/hr IVPB Q12HR [facility] Rx#:[id number] Intake, IV Titration 57.744 365.737 83.853 Amount Norepinephrine 4 mg In 9.33 15.648 Sodium Chloride 0.9% 250 ml @ 0.03 MCG/KG/MIN 10. 628 mls/hr IV .[id number] [facility] Rx#:[id number] propofoL 1,000 mg In 57.744 356.407 68.205 Empty Bag 1 bag @ 15 MCG/ KG/MIN 8.369 mls/hr IV . [id number] [facility] Rx#:[id number] Output: Urine 2049 530 170 Uretheral (Varma) 2049 Other: Voiding Method Indwelling Catheter Indwelling Catheter - Exam Head exam: Present: atraumatic, normocephalic, normal inspection Eye exam: Present: normal appearance, PERRL, EOMI. Absent: scleral icterus, conjunctival injection, periorbital swelling Neck exam: Present: normal inspection. Absent: tenderness, meningismus, lymphadenopathy Respiratory exam: Present: normal lung sounds bilaterally. Absent: respiratory distress, wheezes, rales, rhonchi, stridor Cardiovascular Exam: Present: regular rate, normal rhythm, normal heart sounds. Absent: systolic murmur, diastolic murmur, rubs, gallop, clicks GI/Abdominal exam: Present: soft, normal bowel sounds. Absent: distended, tenderness, guarding, rebound, rigid Extremities exam: Present: normal inspection, full ROM, normal capillary refill. Absent: tenderness, pedal edema, joint swelling, calf tenderness Back exam: Present: normal inspection Neurological exam: Patient is awake alert and oriented Skin exam: Present: warm, dry, intact, normal color. Absent: rash - Labs CBC & Chem 7: 10/17/23 07:22 10/17/23 12:32 Labs: Abnormal Lab Results - Last 24 Hours (Table) 10/16/23 10/16/23 10/17/23 Range/Units 11:48 19:36 00:05 RBC (3.80-5.40) m/uL Hgb (11.4-16.0) gm/dL Hct (34.0-46.0) % MCV (80.0-100.0) fL RDW (11.5-15.5) % Neutrophils # (1.3-7.7) k/uL ABG pH (7.35-7.45) ABG HCO3 (21-25) mmol/L ABG Total CO2 (19-24) mmol/L ABG O2 Saturation (94-97) % Potassium 2.9 L (3.5-5.1) mmol/L Chloride (98-107) mmol/L Glucose (74-99) mg/dL POC Glucose (mg/dL) 120 H 135 H (70-110) mg/dL Calcium (8.4-10.2) mg/dL Magnesium (1.6-2.3) mg/dL 10/17/23 10/17/23 10/17/23 Range/Units 00:19 05:28 07:22 RBC 3.23 L (3.80-5.40) m/uL Hgb 10.4 L (11.4-16.0) gm/dL Hct 32.5 L (34.0-46.0) % MCV 100.5 H (80.0-100.0) fL RDW 15.7 H (11.5-15.5) % Neutrophils # 8.3 H (1.3-7.7) k/uL ABG pH 7.50 H (7.35-7.45) ABG HCO3 30 H (21-25) mmol/L ABG Total CO2 31 H (19-24) mmol/L ABG O2 Saturation 98.7 H (94-97) % Potassium (3.5-5.1) mmol/L Chloride 110 H (98-107) mmol/L Glucose 120 H (74-99) mg/dL POC Glucose (mg/dL) (70-110) mg/dL Calcium 7.9 L (8.4-10.2) mg/dL Magnesium 2.4 H (1.6-2.3) mg/dL Microbiology - Last 24 Hours (Table) 10/15/23 17:44 Gram Stain - Preliminary Sputum 10/15/23 21:22 Blood Culture - Preliminary Blood 10/15/23 21:13 Blood Culture Gram Stain - Preliminary Blood Assessment and Plan Assessment: 1. PEA cardiac arrest Shortly after she arrived to the ER she developed a seizure and then developed pulseless logical activity arrest. As a result CPR started and she was intubated on a ventilator.patient is on Keppra 750 mg twice a day. She received 5mg of Valium in ED. Currently the patient is on IV propofol 55mcg/kg/min. Cardiology to evaluate for her cardiac arrest/PEA cardiac arrest Critical care planning to likely hold sedation in the next 24 hours and address if the patient could be arousable and address weaning if possible 2. Critical hypokalemia; supplemented in ED; patient received additional 80 mg of IV KCl -- Continue monitor electrolytes closely; patient has been placed on hyperkalemia protocol 3. Leukocytosis/sepsis; elevated lactic acid levels; patient has been placed on IV antibiotics in form of Rocephin and vancomycin; blood cultures, urine culture, sputum culture and culture of skin lesion of right breast has been obtained -- Further recommendations once culture results are available 4. 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 Acute seizures; likely related to metastatic disease involving brain -- Patient remains on Keppra, 1500 mg IV every 12 hours; neurology consulted; appreciate recommendations 6. Metastatic breast cancer DVT prophylaxis; SCDs CODE STATUS; full code
[2023-10-17] MEDS: SODIUM CHLORIDE 0.9% 1,000 ML IV ONE (15:55)
[2023-10-17] MEDS: APIXABAN 5 MG TAB PO SCH (19:51)
[2023-10-17] MEDS: VANCOMYCIN 1,250 MG in SODIUM CHLORIDE 0.9% 250 ML IVPB SCH (19:51)
[2023-10-17] MEDS: MIRTAZAPINE 15 MG TAB PO SCH (19:51)
--- NOTE | 2023-10-17 20:12 | P.PN ---
Subjective Progress Note Date: 10/17/23 Progress note 10/17/2023 Last night patient had an episode of ventricular fibrillation cardiac arrest for which she received ACLS and she had return of spontaneous circulation. When I reviewed the telemetry it appears that patient went into torsades. She has been hypokalemic. I repeated ECG this morning which shows severe prolonged QTc with T and U wave fusion, suggestive of severe intracellular hypokalemia. Patient was extubated this morning. On exam NG tube in place, S1-S2 is audible, no murmurs appreciated 1+ swelling in bilateral lower extremity, Skin lesion on right breast Diminished breath sounds, poor inspiratory effort, mild crackles Abdominal soft Awake, appears weak, appears depressed, no focal deficit in upper and lower extremity. 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 This time she was sent to the hospital because of hypokalemia found on her labs. During her initial evaluation in the ER she had a seizure-like activity on arrival and during seizure she had a pulseless electrical activity cardiac arrest. It is not clear if patient had ventricular fibrillation or torsades at that time. There are no telemetry strips for me to review. She was intubated and after ACLS protocol she had return of spontaneous circulation. She was stabilized and was maintained on ventilator support. CTA did not show any evidence of PE. It did show evidence of lung nodule. We attempted an echocardiogram which was a low quality study due to poor acoustic windows but grossly LVEF appeared to be 50 to 55% with no pericardial effusion. Maintaining her hemodynamics with SBP 101/60 and pulse 70 without any pressor support at this time. ASSESSMENT Torsades with V-fib cardiac arrest in ICU 10/17/2023. Likely from QTc prolongation from severe hypokalemia Prolonged QTc, QTc measured around 560 ms Severe hypokalemia, due to poor oral intake, and diarrhea PEA cardiac arrest in ER 10/16/2023 Grand mal seizure , likely from brain mets severe hypokalemia Metastatic breast cancer with mets to brain Anemia History of DVT on Eliquis PLAN Avoid all QTc prolonging medications. At this time patient is on Keppra and Remeron which usual settings do not cause QTc continuation. Do not administer any Zofran to the patient. If patient gets nauseated consider Compazine and Reglan Avoid any antibiotics that would cause pseudosubluxation Maintain QTc monitoring. Obtain ECG tomorrow a.m. Replace potassium. Keep potassium at > 4, magnesium >2 Start potassium citrate 40 mEq daily. Give magnesium 1 gm iv, to replenish intra cellular potassium and magnesium. Consider switching her maintenance from normal saline to more balanced fluid like Ringer lactate. ICU team to decide. Okay to resume Eliquis for history of DVT Continue telemetry monitoring Objective - Vital Signs Vital signs: Vital Signs Temp 98.3 F 10/17/23 16:00 Pulse 75 10/17/23 19:30 Resp 20 10/17/23 19:30 BP 100/62 10/17/23 19:30 Pulse Ox 97 10/17/23 19:30 FiO2 40 10/17/23 10:00 Intake & Output 10/17/23 10/17/23 10/18/23 06:59 18:59 06:59 Intake Total 2416.737 2519.853 130 Output Total 530 400 40 Balance 5998.492 0596.853 90 Weight 99.5 kg Intake: IV 2051 2436 130 Potassium Chloride 10 meq 400 In Water For Injection 1 100ml.bag @ 100 mls/hr IVPB Q1HR [facility] Rx#: [id number] Potassium Chloride 20 meq 100 In Water For Injection 1 100ml.bag @ 50 mls/hr IVPB Q2HR [facility] Rx#: [id number] Sodium Chloride 0.9% 1, 1100 1120 130 000 ml @ 130 mls/hr IV . Q7H42M [facility] Rx#:[id number] Sodium Chloride 0.9% 1, 1000 000 ml @ 999 mls/hr IV . Q1H1M [facility] Rx#:[id number] Vancomycin 1,500 mg In 501 166 Sodium Chloride 0.9% 500 ml 500 ml @ 167 mls/hr IVPB Q12HR [facility] Rx#: [id number] cefTRIAXone 2 gm In 50 50 Sodium Chloride 0.9% 50 ml @ 100 mls/hr IVPB Q12HR [facility] Rx#:[id number] Intake, IV Titration 365.737 83.853 Amount Norepinephrine 4 mg In 9.33 15.648 Sodium Chloride 0.9% 250 ml @ 0.03 MCG/KG/MIN 10. 628 mls/hr IV .[id number] [facility] Rx#:[id number] propofoL 1,000 mg In 356.407 68.205 Empty Bag 1 bag @ 15 MCG/ KG/MIN 8.369 mls/hr IV . [id number] [facility] Rx#:[id number] Output: Urine 530 400 40 Other: Voiding Method Indwelling Catheter Indwelling Catheter - Labs CBC & Chem 7: 10/17/23 07:22 10/17/23 16:00 Labs: Abnormal Lab Results - Last 24 Hours (Table) 10/17/23 10/17/23 10/17/23 Range/Units 00:05 00:19 05:28 RBC (3.80-5.40) m/uL Hgb (11.4-16.0) gm/dL Hct (34.0-46.0) % MCV (80.0-100.0) fL RDW (11.5-15.5) % Neutrophils # (1.3-7.7) k/uL ABG pH 7.50 H (7.35-7.45) ABG HCO3 30 H (21-25) mmol/L ABG Total CO2 31 H (19-24) mmol/L ABG O2 Saturation 98.7 H (94-97) % Potassium (3.5-5.1) mmol/L Chloride 110 H (98-107) mmol/L Glucose 120 H (74-99) mg/dL POC Glucose (mg/dL) 135 H (70-110) mg/dL Calcium 7.9 L (8.4-10.2) mg/dL Magnesium 2.4 H (1.6-2.3) mg/dL 10/17/23 10/17/23 10/17/23 Range/Units 07:22 12:32 16:00 RBC 3.23 L (3.80-5.40) m/uL Hgb 10.4 L (11.4-16.0) gm/dL Hct 32.5 L (34.0-46.0) % MCV 100.5 H (80.0-100.0) fL RDW 15.7 H (11.5-15.5) % Neutrophils # 8.3 H (1.3-7.7) k/uL ABG pH (7.35-7.45) ABG HCO3 (21-25) mmol/L ABG Total CO2 (19-24) mmol/L ABG O2 Saturation (94-97) % Potassium 3.0 L 3.0 L (3.5-5.1) mmol/L Chloride (98-107) mmol/L Glucose (74-99) mg/dL POC Glucose (mg/dL) (70-110) mg/dL Calcium (8.4-10.2) mg/dL Magnesium (1.6-2.3) mg/dL Microbiology - Last 24 Hours (Table) 10/15/23 21:13 Blood Culture Gram Stain - Preliminary Blood Blood Culture - Preliminary Presumptive Staph aureus 10/15/23 17:44 Gram Stain - Preliminary Sputum 10/15/23 21:22 Blood Culture - Preliminary Blood
[2023-10-17 21:41] LABS: Ionized Calcium 3.9 mg/dL (4.5-5.3)
[2023-10-17 21:46] LABS: Magnesium 1.3 mg/dL (1.6-2.3)
[2023-10-17] MEDS: MAGNESIUM SULFATE-D5W PMX 1 GM in DEXTROSE/WATER 1 100ML.BAG IVPB ONE (21:46)
[2023-10-17 21:58] LABS: Potassium 2.1 mmol/L (3.5-5.1)
[2023-10-17] MEDS: POTASSIUM CHLORIDE ER 20 MEQ TAB.ER PO STA (22:34)
[2023-10-17] MEDS: MAGNESIUM SULFATE-D5W PMX 1 GM in DEXTROSE/WATER 1 100ML.BAG IVPB SCH (23:08)
[2023-10-18] MEDS ORDERED: POTASSIUM CHLORIDE 20 MEQ in WATER FOR INJECTION 1 100ML.BAG IVPB SCH
[2023-10-18] MEDS ORDERED: POTASSIUM CHLORIDE ER 20 MEQ TAB.ER PO SCH
[2023-10-18 00:18] LABS: Glucose,Whole Blood 128 mg/dL (70-110)
[2023-10-18] MEDS: POTASSIUM CHLORIDE ER 20 MEQ TAB.ER PO SCH (01:23)
[2023-10-18 03:29] LABS: Basophils % (A) 0 %; Eosinophils % (A) 0 %; HCT 29.2 % (34.0-46.0); HGB 9.6 gm/dL (11.4-16.0); Lymphocytes # (A) 1.3 k/uL (1.0-4.8); Lymphocytes % (A) 17 %; MCH 33.3 pg (25.0-35.0); MCHC 32.8 g/dL (31.0-37.0); MCV 101.6 fL (80.0-100.0); Macrocytosis Slight; Mean Platelet Volume 8.1; Monocytes # (A) 0.2 k/uL (0-1.0); Monocytes % (A) 3 %; Neutrophils # (A) 5.9 k/uL (1.3-7.7); Neutrophils % (A) 79 %; Platelet Count 172 k/uL (150-450); RBC 2.87 m/uL (3.80-5.40); RDW 15.7 % (11.5-15.5); WBC 7.5 k/uL (3.8-10.6)
[2023-10-18 03:41] LABS: Ionized Calcium 4.8 mg/dL (4.5-5.3)
[2023-10-18 03:42] LABS: African American GFR (CKD) >90 (>60 ml/min/1.73 sqM); Anion Gap 1 mmol/L; Blood Urea Nitrogen 9 mg/dL (7-17); Calcium 7.6 mg/dL (8.4-10.2); Carbon Dioxide 22 mmol/L (22-30); Chloride 116 mmol/L (98-107); Glucose 111 mg/dL (74-99); Magnesium 3.3 mg/dL (1.6-2.3); Non-African American GFR(CKD) >90 (>60 ml/min/1.73 sqM); Potassium 4.1 mmol/L (3.5-5.1); Sodium 139 mmol/L (137-145)
[2023-10-18 07:29] LABS: Basophils % (A) 0 %; Eosinophils % (A) 0 %; HCT 30.6 % (34.0-46.0); HGB 9.9 gm/dL (11.4-16.0); Lymphocytes % (A) 13 %; MCH 33.2 pg (25.0-35.0); MCHC 32.3 g/dL (31.0-37.0); MCV 102.5 fL (80.0-100.0); Macrocytosis Slight; Mean Platelet Volume 8.2; Monocytes # (A) 0.2 k/uL (0-1.0); Monocytes % (A) 3 %; Neutrophils # (A) 6.1 k/uL (1.3-7.7); Neutrophils % (A) 82 %; Platelet Count 171 k/uL (150-450); RBC 2.99 m/uL (3.80-5.40); RDW 15.6 % (11.5-15.5); WBC 7.4 k/uL (3.8-10.6)
[2023-10-18 07:35] LABS: African American GFR (CKD) >90 (>60 ml/min/1.73 sqM); Anion Gap 1 mmol/L; Blood Urea Nitrogen 8 mg/dL (7-17); Calcium 7.6 mg/dL (8.4-10.2); Carbon Dioxide 23 mmol/L (22-30); Chloride 115 mmol/L (98-107); Glucose 93 mg/dL (74-99); Magnesium 2.9 mg/dL (1.6-2.3); Non-African American GFR(CKD) >90 (>60 ml/min/1.73 sqM); Potassium 4.5 mmol/L (3.5-5.1); Sodium 139 mmol/L (137-145)
[2023-10-18] MEDS: IPRATROPIUM-ALBUTEROL 3 ML NEB INHALATION PRN (08:34)
--- NOTE | 2023-10-18 08:39 | P.GSCN ---
History of Present Illness Consult date: 10/18/23 Reason for Consult: chest wound Requesting physician: Aaron Hamilton History of present illness: This is a 48-year-old woman, with a history of having metastases seen for the last couple of years for metastatic triple negative cancer of the right breast. She was admitted several days ago after a cardiac arrest following a seizure with what appears to be a severe hypokalemia. She has recently been extubated and seems fairly stable clinically. Past Medical History Past Medical History: Cancer Additional Past Medical History / Comment(s): Hx. spinal meningitis twice 1999 and 2002, Breast Cancer 2018, one seizure age 6, "nodule on rt lung", History of Any Multi-Drug Resistant Organisms: None Reported Past Surgical History: Appendectomy, Section Additional Past Surgical History / Comment(s): right shoulder cyst removal, breast biopsy Past Anesthesia/Blood Transfusion Reactions: No Reported Reaction Past Psychological History: Anxiety, Depression Smoking Status: Current every day smoker Past Alcohol Use History: Rare Additional Past Alcohol Use History / Comment(s): smokes 1/2 PPD, has smoked since age 24 Past Drug Use History: Marijuana - Past Family History Mother Family Medical History: Cancer, Deep Vein Thrombosis (DVT) Additional Family Medical History / Comment(s): BREAST CANCER WITH METS TO LUNG. Medications and Allergies Home Medications Medication Instructions Recorded Confirmed Type ALPRAZolam [Xanax] 2 mg PO BID 04/27/19 10/15/23 History FLUoxetine HCL [PROzac] 20 mg PO DAILY 05/03/19 10/15/23 History FLUoxetine HCL [PROzac] 40 mg PO DAILY 05/27/23 10/15/23 History Pantoprazole [Protonix] 40 mg PO DAILY #30 tab 05/29/23 10/15/23 Rx levETIRAcetam [Keppra] 750 mg PO Q12HR #60 tab 05/29/23 10/15/23 Rx Apixaban [Eliquis] 5 mg PO BID 10/15/23 10/15/23 History Ondansetron [Zofran] 4 mg PO Q8HR PRN 10/15/23 10/15/23 History Allergies Allergy/AdvReac Type Severity Reaction Status Date / Time Iodine and Iodide Containing Allergy Rash/Hives Verified 10/15/23 18:52 Produc Surgical - Exam Osteopathic Statement: *. No significant issues noted on an osteopathic structural exam other than those noted in the History and Physical/Consult. Vital Signs Temp Pulse Resp BP Pulse Ox 97.4 F L 94 18 101/65 100 10/15/23 15:07 10/15/23 15:07 10/15/23 15:07 10/15/23 15:07 10/15/23 15:07 Patient Seen Date: 10/18/23 Patient Seen Time: 08:30 - General patient is currently awake and responds to verbal stimuli. She seems appropriate but with somewhat flattened affect. well developed, well nourished, no distress the patient has a cavitated wound involving the entire upper half of the right breast. There is a moderate amount of fibrinous exudate. The lesion is about 10 x 14 cm. It has a depth of about 2 cm. Results - Labs 10/18/23 06:47 10/18/23 06:47 Abnormal Lab Results - Last 24 Hours (Table) 10/17/23 10/17/23 10/17/23 Range/Units 12:32 16:00 21:11 RBC (3.80-5.40) m/uL Hgb (11.4-16.0) gm/dL Hct (34.0-46.0) % MCV (80.0-100.0) fL RDW (11.5-15.5) % Potassium 3.0 L 3.0 L 2.1 L* (3.5-5.1) mmol/L Chloride (98-107) mmol/L Glucose (74-99) mg/dL POC Glucose (mg/dL) (70-110) mg/dL Calcium (8.4-10.2) mg/dL Ionized Calcium Silvia 3.9 L (4.5-5.3) mg/dL Magnesium 1.3 L (1.6-2.3) mg/dL 10/18/23 10/18/23 10/18/23 Range/Units 00:17 03:14 03:14 RBC 2.87 L (3.80-5.40) m/uL Hgb 9.6 L (11.4-16.0) gm/dL Hct 29.2 L (34.0-46.0) % MCV 101.6 H (80.0-100.0) fL RDW 15.7 H (11.5-15.5) % Potassium (3.5-5.1) mmol/L Chloride 116 H (98-107) mmol/L Glucose 111 H (74-99) mg/dL POC Glucose (mg/dL) 128 H (70-110) mg/dL Calcium 7.6 L (8.4-10.2) mg/dL Ionized Calcium Silvia (4.5-5.3) mg/dL Magnesium 3.3 H (1.6-2.3) mg/dL 10/18/23 10/18/23 Range/Units 06:47 06:47 RBC 2.99 L (3.80-5.40) m/uL Hgb 9.9 L (11.4-16.0) gm/dL Hct 30.6 L (34.0-46.0) % MCV 102.5 H (80.0-100.0) fL RDW 15.6 H (11.5-15.5) % Potassium (3.5-5.1) mmol/L Chloride 115 H (98-107) mmol/L Glucose (74-99) mg/dL POC Glucose (mg/dL) (70-110) mg/dL Calcium 7.6 L (8.4-10.2) mg/dL Ionized Calcium Silvia (4.5-5.3) mg/dL Magnesium 2.9 H (1.6-2.3) mg/dL Microbiology - Last 24 Hours (Table) 10/17/23 08:00 Gram Stain - Preliminary Breast - Right 10/15/23 21:22 Blood Culture - Preliminary Blood 10/15/23 21:13 Blood Culture Gram Stain - Preliminary Blood Blood Culture - Preliminary Presumptive Staph aureus 10/15/23 17:44 Gram Stain - Preliminary Sputum Diabetes panel 10/17/23 10/17/23 10/17/23 Range/Units 12:32 16:00 21:11 Sodium (137-145) mmol/L Potassium 3.0 L 3.0 L 2.1 L* (3.5-5.1) mmol/L Chloride (98-107) mmol/L Carbon Dioxide (22-30) mmol/L BUN (7-17) mg/dL Creatinine (0.52-1.04) mg/dL Glucose (74-99) mg/dL Calcium (8.4-10.2) mg/dL 10/18/23 10/18/23 10/18/23 Range/Units 00:28 03:14 06:47 Sodium 139 139 (137-145) mmol/L Potassium 3.6 4.1 4.5 (3.5-5.1) mmol/L Chloride 116 H 115 H (98-107) mmol/L Carbon Dioxide 22 23 (22-30) mmol/L BUN 9 8 (7-17) mg/dL Creatinine 0.52 0.62 (0.52-1.04) mg/dL Glucose 111 H 93 (74-99) mg/dL Calcium 7.6 L 7.6 L (8.4-10.2) mg/dL Calcium panel 10/17/23 10/18/23 10/18/23 Range/Units 21:11 03:14 06:47 Calcium 7.6 L 7.6 L (8.4-10.2) mg/dL Ionized Calcium Silvia 3.9 L 4.8 (4.5-5.3) mg/dL Pituitary panel 10/17/23 10/17/23 10/17/23 Range/Units 12:32 16:00 21:11 Sodium (137-145) mmol/L Potassium 3.0 L 3.0 L 2.1 L* (3.5-5.1) mmol/L Chloride (98-107) mmol/L Carbon Dioxide (22-30) mmol/L BUN (7-17) mg/dL Creatinine (0.52-1.04) mg/dL Glucose (74-99) mg/dL Calcium (8.4-10.2) mg/dL 10/18/23 10/18/23 10/18/23 Range/Units 00:28 03:14 06:47 Sodium 139 139 (137-145) mmol/L Potassium 3.6 4.1 4.5 (3.5-5.1) mmol/L Chloride 116 H 115 H (98-107) mmol/L Carbon Dioxide 22 23 (22-30) mmol/L BUN 9 8 (7-17) mg/dL Creatinine 0.52 0.62 (0.52-1.04) mg/dL Glucose 111 H 93 (74-99) mg/dL Calcium 7.6 L 7.6 L (8.4-10.2) mg/dL Adrenal panel 10/17/23 10/17/23 10/17/23 Range/Units 12:32 16:00 21:11 Sodium (137-145) mmol/L Potassium 3.0 L 3.0 L 2.1 L* (3.5-5.1) mmol/L Chloride (98-107) mmol/L Carbon Dioxide (22-30) mmol/L BUN (7-17) mg/dL Creatinine (0.52-1.04) mg/dL Glucose (74-99) mg/dL Calcium (8.4-10.2) mg/dL 10/18/23 10/18/23 10/18/23 Range/Units 00:28 03:14 06:47 Sodium 139 139 (137-145) mmol/L Potassium 3.6 4.1 4.5 (3.5-5.1) mmol/L Chloride 116 H 115 H (98-107) mmol/L Carbon Dioxide 22 23 (22-30) mmol/L BUN 9 8 (7-17) mg/dL Creatinine 0.52 0.62 (0.52-1.04) mg/dL Glucose 111 H 93 (74-99) mg/dL Calcium 7.6 L 7.6 L (8.4-10.2) mg/dL Assessment and Plan (1) Neoplasm of breast, primary tumor staging category T4c: extension to chest wall, not including only adherence and/or invasion to pectoralis muscle with ulceration and/or ipsilateral satellite nodules and/or edema (including peau d'orange) of skin, excluding inflammatory carcinoma Current Visit: Yes Status: Acute Code(s): C50.919 - MALIGNANT NEOPLASM OF UNSP SITE OF UNSPECIFIED FEMALE BREAST SNOMED Code(s): 956617082 Plan: given her clinical state I would recommend a rather conservative approach to the wound. I would utilize Opticel AG for the wound and maintain it in place with a moistened gauze sponge and bordered foam for simplicity. If outer becomes a problem you can use carboFlex dressing over the Opticel.. I appreciate the opportunity to participate in this unfortunate woman's care. If there are further complications of the wound will be happy to see her at any time.
[2023-10-18] MEDS: POTASSIUM BICARBONATE/CIT AC 20 MEQ TABLET.EFF PO SCH (09:55)
[2023-10-18] MEDS: POTASSIUM CHLORIDE ER 10 MEQ TAB.ER.PRT PO SCH (10:43)
--- NOTE | 2023-10-18 11:51 | P.PN ---
Subjective Progress Note Date: 10/18/23 This is a 48-year-old female with known history of triple negative metastatic breast cancer, including brain metastasis, status post RT, status post multiple lines of therapy most recently patient hadC6 of [place] on 10/14/23 patient came into the ER last night mostly because of abnormal labs and she was told that her potassium was low. Shortly after she arrived to the ER, patient developed a seizure, and went on to develop pulseless electrical activity arrest, CPR was started, patient was intubated, stabilized in the ER, CT angiogram of the chest showed no evidence of pulmonary embolism. CT also showed pulmonary nodules which have been present for quite some time. Potassium was as low as 2.1. Hemoglobin was 11 WBC count was 26,000. CT of the head showed stable lesions of metastatic breast lesions in the brain. I saw this patient in the ER, patient is intubated and mechanically ventilated, she is on assist-control rate of 20 tidal volume 400 FiO2 50% and PEEP of 5 ABG showed a pO2 of 198 pCO2 39 pH of 7.48. Hence cut down FiO2 to 40%. Her blood pressure is marginal, patient is receiving fluids, she is also on propofol at 45 mcg/kg/min, recommended norepinephrine if needed for low blood pressure seems to be soft. Looking at the notes from the oncologist, patient was last seen in the oncology clinic on 09/14/2023, she was seen by Dr. Rich, and she had mild drainage from breast lesion, was feeling tired, but she had no shortness of breath, no chest pain, patient has been maintained on Eliquis for symptomatic SVT of the left lower extremity. In the ER, patient is maintained on mechanical ventilation, she is also on antibiotics in the form of Rocephin, and vancomycin, calcium is being corrected as per protocol, chest x-ray showed a 4 cm left upper lobe mass, and this was present previously Patient was reevaluated today on 10/17/2023, patient remains in the ICU, sedated and mechanically ventilated, she is on assist-control rate of 20 tidal volume 400 FiO2 40% and PEEP of 5 ABG showed a pO2 of 108 pCO2 38 pH of 7.50. Patient was on propofol overnight at 15 mcg/kg/min, however during my evaluation, I suggested stopping propofol, and her norepinephrine use to be at 0.03 mcg/kg/min and is now on hold. Patient is maintaining adequate blood pressure off norepinephrine. Patient is maintained on Keppra, her potassium has been corrected as per protocol, today's potassium is 3.6. Echocardiogram showed good LV function with ejection fraction of 50 to 55%. Patient remains on antibiotics in the form of ceftriaxone and vancomycin for her large breast wound in the [facility] upper chest area. Patient is also on Keppra for her seizures. And no seizure activity noted over the last 24 hours. Last night the patient had a brief episode of ventricular fibrillation, went into asystole, she received 1 dose of epinephrine, and very brief CPR, and there was return of spontaneous circulation. Again her potassium was noted to be low, and this was further addressed and corrected. WBC count today is 9.9 hemoglobin is 10.4.Basic metabolic profile is normal renal profile is normal magnesium is 2.4 chest x-ray today showed mostly left upper lobe masslike density, otherwise no acute findings The patient is seen today October 18, 2023 in follow-up in the intensive care unit .. Awake and alert in no acute distress. Maintaining O2 saturation in the 90s on room air. She is afebrile. Hemodynamically stable. She was extubated yesterday. Blood cultures are showing presumptive Staph aureus. Her right breast wound culture is pending. She has been seen by the wound center physician. Count 7.4. Hemoglobin 9.9. Platelets 171. Sodium 139. Potassium 4.5. Bicarb 23. BUN 8. Creatinine 0.62. Glucose 93. Calcium 7.6. Magnesium 2.9. She remains on ceftriaxone and vancomycin. Potassium being replaced. Magnesium being replaced. She is anticoagulated with Eliquis. Normal saline at 130 MLS per hour. Objective - Vital Signs Vital signs: Vital Signs Temp 98.2 F 10/18/23 08:00 Pulse 75 10/18/23 10:00 Resp 21 10/18/23 10:00 BP 114/65 10/18/23 10:00 Pulse Ox 94 L 10/18/23 10:00 FiO2 40 10/17/23 10:00 Intake & Output 10/17/23 10/18/23 10/18/23 18:59 06:59 18:59 Intake Total 2519.853 2010 870 Output Total 400 1170 525 Balance 2119.853 840 345 Weight 99.5 kg Intake: IV 2432009 870 Magnesium Sulfate-D5w Pmx 500 1 gm In Dextrose/Water 1 100ml.bag @ 100 mls/hr IVPB [facility] Rx#: [id number] Potassium Chloride 10 meq 600 In Water For Injection 1 100ml.bag @ 100 mls/hr IVPB Q1HR [facility] Rx#: [id number] Potassium Chloride 20 meq 100 In Water For Injection 1 100ml.bag @ 50 mls/hr IVPB Q2HR [facility] Rx#: [id number] Sodium Chloride 0.9% 1, 1120 910 520 000 ml @ 130 mls/hr IV . Q7H42M [facility] Rx#:[id number] Sodium Chloride 0.9% 1, 1000 000 ml @ 999 mls/hr IV . Q1H1M [facility] Rx#:[id number] Vancomycin 1,250 mg In 250 Sodium Chloride 0.9% 250 ml @ 125 mls/hr IVPB Q12HR [facility] Rx#:[id number] Vancomycin 1,500 mg In 166 Sodium Chloride 0.9% 500 ml 500 ml @ 167 mls/hr IVPB Q12HR [facility] Rx#: [id number] cefTRIAXone 2 gm In 50 100 Sodium Chloride 0.9% 50 ml @ 100 mls/hr IVPB Q12HR [facility] Rx#:[id number] Intake, IV Titration 83.853 Amount Norepinephrine 4 mg In 15.648 Sodium Chloride 0.9% 250 ml @ 0.03 MCG/KG/MIN 10. 628 mls/hr IV .[id number] [facility] Rx#:[id number] propofoL 1,000 mg In 68.205 Empty Bag 1 bag @ 15 MCG/ KG/MIN 8.369 mls/hr IV . [id number] [facility] Rx#:[id number] Output: Urine 400 1170 525 Other: Voiding Method Indwelling Catheter Indwelling Catheter - Exam General appearance: Revealed 48-year-old female, sitting up in bed, on room air,, in no acute distress Head exam: Atraumatic, normocephalic Eye exam: PERRLA, EOMI, nonicteric. ENT exam: Dry mucous membranes, otherwise unremarkable. Neck exam: No neck masses no JVD. Respiratory exam: Good breath sound bilaterally no rhonchi no wheezes Cardiovascular Exam: Normal S1-S2, no S3 gallop no murmur GI/Abdominal exam: P soft nontender no megaly no rebound no guarding Extremities exam: No clubbing edema or cyanosis Neurological exam: Awake, follows simple instructions, seems to be neurologically appropriate. Psychiatric exam: Could not fully assess, patient just went off propofol, but seems to be relatively intact, she has a flat affect, and relatively normal mental status Skin exam: Large area of ulceration over the right breast, measuring over 5 cm, quite deep and extensive, extending into the chest wall. - Labs CBC & Chem 7: 10/18/23 06:47 10/18/23 06:47 Labs: Abnormal Lab Results - Last 24 Hours (Table) 10/17/23 10/17/23 10/17/23 Range/Units 12:32 16:00 21:11 RBC (3.80-5.40) m/uL Hgb (11.4-16.0) gm/dL Hct (34.0-46.0) % MCV (80.0-100.0) fL RDW (11.5-15.5) % Potassium 3.0 L 3.0 L 2.1 L* (3.5-5.1) mmol/L Chloride (98-107) mmol/L Glucose (74-99) mg/dL POC Glucose (mg/dL) (70-110) mg/dL Calcium (8.4-10.2) mg/dL Ionized Calcium Silvia 3.9 L (4.5-5.3) mg/dL Magnesium 1.3 L (1.6-2.3) mg/dL 10/18/23 10/18/23 10/18/23 Range/Units 00:17 03:14 03:14 RBC 2.87 L (3.80-5.40) m/uL Hgb 9.6 L (11.4-16.0) gm/dL Hct 29.2 L (34.0-46.0) % MCV 101.6 H (80.0-100.0) fL RDW 15.7 H (11.5-15.5) % Potassium (3.5-5.1) mmol/L Chloride 116 H (98-107) mmol/L Glucose 111 H (74-99) mg/dL POC Glucose (mg/dL) 128 H (70-110) mg/dL Calcium 7.6 L (8.4-10.2) mg/dL Ionized Calcium Silvia (4.5-5.3) mg/dL Magnesium 3.3 H (1.6-2.3) mg/dL 10/18/23 10/18/23 Range/Units 06:47 06:47 RBC 2.99 L (3.80-5.40) m/uL Hgb 9.9 L (11.4-16.0) gm/dL Hct 30.6 L (34.0-46.0) % MCV 102.5 H (80.0-100.0) fL RDW 15.6 H (11.5-15.5) % Potassium (3.5-5.1) mmol/L Chloride 115 H (98-107) mmol/L Glucose (74-99) mg/dL POC Glucose (mg/dL) (70-110) mg/dL Calcium 7.6 L (8.4-10.2) mg/dL Ionized Calcium Silvia (4.5-5.3) mg/dL Magnesium 2.9 H (1.6-2.3) mg/dL Microbiology - Last 24 Hours (Table) 10/15/23 17:44 Gram Stain - Final Sputum Sputum Culture - Final 10/17/23 08:00 Gram Stain - Preliminary Breast - Right 10/15/23 21:22 Blood Culture - Preliminary Blood 10/15/23 21:13 Blood Culture Gram Stain - Preliminary Blood Blood Culture - Preliminary Presumptive Staph aureus Assessment and Plan Assessment: PEA cardiac arrest x 1 in the ER, in the setting of severe hypokalemia A-fib cardiac arrest x 1 in the ICU Severe hypokalemia, improving currently 4.5 Leukocytosis with lactic acidosis Sepsis, with bacteremia showing presumptive MRSA, likely source is her skin lesion/right breast Metastatic breast cancer Chronic anemia secondary to chemotherapy Acute seizure, most likely secondary to metastatic disease involving the brain Plan: The patient was seen and evaluated Labs and medications reviewed Currently stable and on room air Continue the current treatment plan Continue vancomycin and ceftriaxone Replace electrolytes Could transfer out of the ICU once cleared by cardiology We will continue to follow I have personally seen and examined the patient, performed the documentation and the assessment and plan as written. Number of minutes spent on the visit: 10.
--- NOTE | 2023-10-18 14:11 | P.PN ---
Subjective Progress Note Date: 10/18/23 Patient seen in ICU at today's visit. Patient was extubated yesterday. SPO2 98% on room air. Patient mentation has improved since admission but is still lethargic. Denies headache. Reporting diarrhea since last treatment, will test for C-diff Objective - Vital Signs Vital signs: Vital Signs Temp 97.9 F 10/18/23 11:00 Pulse 75 10/18/23 11:00 Resp 24 10/18/23 11:00 BP 110/65 10/18/23 11:00 Pulse Ox 98 10/18/23 11:00 FiO2 40 10/17/23 10:00 Intake & Output 10/17/23 10/18/23 10/18/23 18:59 06:59 18:59 Intake Total 2519.853 2009 1000 Output Total 400 1170 650 Balance 2119.853 840 350 Weight 99.5 kg Intake: IV 2436 2009 1000 Magnesium Sulfate-D5w Pmx 500 1 gm In Dextrose/Water 1 100ml.bag @ 100 mls/hr IVPB ONCE [facility] Rx#: [id number] Potassium Chloride 10 meq 600 In Water For Injection 1 100ml.bag @ 100 mls/hr IVPB Q1HR [facility] Rx#: [id number] Potassium Chloride 20 meq 100 In Water For Injection 1 100ml.bag @ 50 mls/hr IVPB Q2HR [facility] Rx#: [id number] Sodium Chloride 0.9% 1, 1120 910 650 000 ml @ 130 mls/hr IV . Q7H42M [facility] Rx#:[id number] Sodium Chloride 0.9% 1, 1000 000 ml @ 999 mls/hr IV . Q1H1M [facility] Rx#:[id number] Vancomycin 1,250 mg In 250 Sodium Chloride 0.9% 250 ml @ 125 mls/hr IVPB Q12HR [facility] Rx#:[id number] Vancomycin 1,500 mg In 166 Sodium Chloride 0.9% 500 ml 500 ml @ 167 mls/hr IVPB Q12HR [facility] Rx#: [id number] cefTRIAXone 2 gm In 50 100 Sodium Chloride 0.9% 50 ml @ 100 mls/hr IVPB Q12HR [facility] Rx#:[id number] Intake, IV Titration 83.853 Amount Norepinephrine 4 mg In 15.648 Sodium Chloride 0.9% 250 ml @ 0.03 MCG/KG/MIN 10. 628 mls/hr IV .[id number] [facility] Rx#:[id number] propofoL 1,000 mg In 68.205 Empty Bag 1 bag @ 15 MCG/ KG/MIN 8.369 mls/hr IV . [id number] [facility] Rx#:[id number] Output: Urine 400 1170 650 Other: Voiding Method Indwelling Catheter Indwelling Catheter Indwelling Catheter # Bowel Movements 1 - Constitutional General appearance: Present: average body habitus, no acute distress - EENT Eyes: Present: anicteric sclerae, EOMI ENT: Present: hearing grossly normal - Respiratory Respiratory: bilateral: CTA - Cardiovascular Rhythm: regular Heart sounds: normal: S1, S2 - Gastrointestinal General gastrointestinal: Present: soft. Absent: tenderness - Integumentary Integumentary: Absent: cyanotic - Neurologic Neurologic Comment(s): lethargic, no focal deficits - Musculoskeletal Musculoskeletal: Present: strength equal bilaterally - Psychiatric Psychiatric: Present: A&O x's 3 - Labs CBC & Chem 7: 10/18/23 06:47 10/18/23 06:47 Labs: Abnormal Lab Results - Last 24 Hours (Table) 10/17/23 10/17/23 10/17/23 Range/Units 12:32 16:00 21:11 RBC (3.80-5.40) m/uL Hgb (11.4-16.0) gm/dL Hct (34.0-46.0) % MCV (80.0-100.0) fL RDW (11.5-15.5) % Potassium 3.0 L 3.0 L 2.1 L* (3.5-5.1) mmol/L Chloride (98-107) mmol/L Glucose (74-99) mg/dL POC Glucose (mg/dL) (70-110) mg/dL Calcium (8.4-10.2) mg/dL Ionized Calcium Silvia 3.9 L (4.5-5.3) mg/dL Magnesium 1.3 L (1.6-2.3) mg/dL 10/18/23 10/18/23 10/18/23 Range/Units 00:17 03:14 03:14 RBC 2.87 L (3.80-5.40) m/uL Hgb 9.6 L (11.4-16.0) gm/dL Hct 29.2 L (34.0-46.0) % MCV 101.6 H (80.0-100.0) fL RDW 15.7 H (11.5-15.5) % Potassium (3.5-5.1) mmol/L Chloride 116 H (98-107) mmol/L Glucose 111 H (74-99) mg/dL POC Glucose (mg/dL) 128 H (70-110) mg/dL Calcium 7.6 L (8.4-10.2) mg/dL Ionized Calcium Silvia (4.5-5.3) mg/dL Magnesium 3.3 H (1.6-2.3) mg/dL 10/18/23 10/18/23 Range/Units 06:47 06:47 RBC 2.99 L (3.80-5.40) m/uL Hgb 9.9 L (11.4-16.0) gm/dL Hct 30.6 L (34.0-46.0) % MCV 102.5 H (80.0-100.0) fL RDW 15.6 H (11.5-15.5) % Potassium (3.5-5.1) mmol/L Chloride 115 H (98-107) mmol/L Glucose (74-99) mg/dL POC Glucose (mg/dL) (70-110) mg/dL Calcium 7.6 L (8.4-10.2) mg/dL Ionized Calcium Silvia (4.5-5.3) mg/dL Magnesium 2.9 H (1.6-2.3) mg/dL Microbiology - Last 24 Hours (Table) 10/15/23 17:44 Gram Stain - Final Sputum Sputum Culture - Final 10/17/23 08:00 Gram Stain - Preliminary Breast - Right 10/15/23 21:22 Blood Culture - Preliminary Blood 10/15/23 21:13 Blood Culture Gram Stain - Preliminary Blood Blood Culture - Preliminary Presumptive Staph aureus Assessment and Plan (1) Breast cancer Current Visit: Yes Status: Acute Priority: High Code(s): C50.919 - MALIGNANT NEOPLASM OF UNSP SITE OF UNSPECIFIED FEMALE BREAST SNOMED Code(s): 136464735 (2) Cardiac arrest Current Visit: Yes Status: Acute Priority: High Code(s): I46.9 - CARDIAC ARREST, CAUSE UNSPECIFIED SNOMED Code(s): 095714935 (3) Metastasis to brain Current Visit: Yes Status: Acute Priority: High Code(s): C79.31 - SECONDARY MALIGNANT NEOPLASM OF BRAIN SNOMED Code(s): 19092588 (4) Seizure Current Visit: Yes Status: Acute Priority: High Code(s): R56.9 - UNSPECIFIED CONVULSIONS SNOMED Code(s): 77675229 Plan: Ms. Lawson is a very pleasant 48 yo female with history of triple negative breast cancer with brain, lung, liver met's, s/p multiple lines of therapy, most recently on Enhertu, s/p C6 given on 10/14/23. She is here for hypokalemia, underwent PEA arrest while in ED. Work up with increased lung mass, K 2.1, lactate 4.5, WBC 26. Was stabilized and intubated, was extubated yesterday, SPO2 98% on room air. - Severe hypokalemia, electrolyte replacement as per primary team. Potassium improved, 4.5 today - Lactic acidosis improving with fluids - Metastatic breast cancer on Enhertu, hold chemotherapy until pt stabilizes - Leukocytosis, reactive; anemia due to chemotherapy - Monitor CBC closely, watch for neutropenia with recent chemo - Diarrhea sx since last cycle, will test for C-Diff - MRI brain w/ wo ordered to evaluate for progression of mets CT chest abdomen and pelvis on 09/08/23 revealed likely progression of disease. MRI brain July 2023 revealed marked improvement in size and number of brain metastases. At last follow-up with Dr. Rich, patient was clinically stable and with not much additional treatment options, and felt it was reasonable to continue enhertu for now and repeat imaging in 2 months. Will schedule clinic f/u upon discharge to further discuss goals of care with patient and family. Dr attests: I have performed H&P and developed impression and plan of care for patient, discussed with dictator. I agree with dictated note, documented as a scribe
[2023-10-18] MEDS: ACETAMINOPHEN TAB 325 MG TAB PO PRN (14:26)
[2023-10-18 16:54] LABS: Magnesium 2.2 mg/dL (1.6-2.3); Potassium 5.1 mmol/L (3.5-5.1)
--- NOTE | 2023-10-18 17:41 | P.PN ---
Subjective Progress Note Date: 10/18/23 Patient was initially seen by Dr. Murali Francois. Please refer to his notes for details. I am starting neurology service as of this morning. Patient is a 48-year-old female with history of breast cancer, with brain metastasis, who had seizure and x [address] Francois increased Keppra from 750 mg twice daily to 1500 mg twice daily Patient was seen for a follow-up. Patient's was also present today. Patient states she is feeling "OK". She is tolerating higher dose of Keppra well. No further seizures. Patient has a slow mentation. Some of the work-up during this hospital visit consisted of: patient's Potassium was as low as 2.1 currently is 2.8.calcium is 7.7, phosphorus 3.9, magnesium is 2.5, AST of 78 ALTs 45. most recent sodium is 138, glucose is 138, CT of the head is reported as no acute intracranial hemorrhage, midline shift or mass effect. Some small residual hypodensity can be seen which appear to correlate with the site of some of the larger metastasis previously identified. In the limits of unenhanced as CT head there does not seem to be a tremendous increase in metastatic lesion. For better evaluation contrast MRI would be the study of choice. Limited 2D echo: very technically difficult study. Limited study. Ejection fraction of 50-55%. Objective - Vital Signs Vital signs: Vital Signs Temp 97.9 F 10/18/23 11:00 Pulse 75 10/18/23 11:00 Resp 24 10/18/23 11:00 BP 110/65 10/18/23 11:00 Pulse Ox 98 10/18/23 11:00 FiO2 50 10/18/23 14:55 Intake & Output 10/17/23 10/18/23 10/18/23 18:59 06:59 18:59 Intake Total 2519.853 2009 1390 Output Total 400 1170 650 Balance 2119.853 840 740 Weight 99.5 kg Intake: IV 2436 2009 1390 Magnesium Sulfate-D5w Pmx 500 1 gm In Dextrose/Water 1 100ml.bag @ 100 mls/hr IVPB ONCE ONE Rx#: [id number] Potassium Chloride 10 meq 600 In Water For Injection 1 100ml.bag @ 100 mls/hr IVPB Q1HR [facility] Rx#: [id number] Potassium Chloride 20 meq 100 In Water For Injection 1 100ml.bag @ 50 mls/hr IVPB Q2HR [facility] Rx#: [id number] Sodium Chloride 0.9% 1, 5744 403 1748 000 ml @ 130 mls/hr IV . Q7H42M [facility] Rx#:[id number] Sodium Chloride 0.9% 1, 1000 000 ml @ 999 mls/hr IV . Q1H1M [facility] Rx#:[id number] Vancomycin 1,250 mg In 250 Sodium Chloride 0.9% 250 ml @ 125 mls/hr IVPB Q12HR [facility] Rx#:[id number] Vancomycin 1,500 mg In 166 Sodium Chloride 0.9% 500 ml 500 ml @ 167 mls/hr IVPB Q12HR [facility] Rx#: [id number] cefTRIAXone 2 gm In 50 100 Sodium Chloride 0.9% 50 ml @ 100 mls/hr IVPB Q12HR [facility] Rx#:[id number] Intake, IV Titration 83.853 Amount Norepinephrine 4 mg In 15.648 Sodium Chloride 0.9% 250 ml @ 0.03 MCG/KG/MIN 10. 628 mls/hr IV .[id number] [facility] Rx#:[id number] propofoL 1,000 mg In 68.205 Empty Bag 1 bag @ 15 MCG/ KG/MIN 8.369 mls/hr IV . [id number] [facility] Rx#:[id number] Output: Urine 400 1170 650 Other: Voiding Method Indwelling Catheter Indwelling Catheter Bedside Commode # Voids 1 # Bowel Movements 1 - Exam Patient is asleep, on waking up, patient wakes up, but has slow mentation, prolonged latency time to answer questions. Speech and language functions are intact. Her visual agosto are full. Face is symmetric. Tongue protrudes to midline. No evidence of oral trauma. On muscle strength testing there is no pronator drift. The strength in the upper limbs is about 4+ bilaterally. In the lower limbs, hip flexion are 0-4-pdibnibozzy, but patient has right foot drop which is something new. Her right foot dorsiflexion is 2, whereas 5-on the left side. Sensory to touch is equal with no neglect. - Labs CBC & Chem 7: 10/18/23 06:47 10/18/23 16:18 Labs: Abnormal Lab Results - Last 24 Hours (Table) 10/17/23 10/18/23 10/18/23 Range/Units 21:11 00:17 03:14 RBC (3.80-5.40) m/uL Hgb (11.4-16.0) gm/dL Hct (34.0-46.0) % MCV (80.0-100.0) fL RDW (11.5-15.5) % Potassium 2.1 L* (3.5-5.1) mmol/L Chloride 116 H (98-107) mmol/L Glucose 111 H (74-99) mg/dL POC Glucose (mg/dL) 128 H (70-110) mg/dL Calcium 7.6 L (8.4-10.2) mg/dL Ionized Calcium Silvia 3.9 L (4.5-5.3) mg/dL Magnesium 1.3 L 3.3 H (1.6-2.3) mg/dL 10/18/23 10/18/23 10/18/23 Range/Units 03:14 06:47 06:47 RBC 2.87 L 2.99 L (3.80-5.40) m/uL Hgb 9.6 L 9.9 L (11.4-16.0) gm/dL Hct 29.2 L 30.6 L (34.0-46.0) % MCV 101.6 H 102.5 H (80.0-100.0) fL RDW 15.7 H 15.6 H (11.5-15.5) % Potassium (3.5-5.1) mmol/L Chloride 115 H (98-107) mmol/L Glucose (74-99) mg/dL POC Glucose (mg/dL) (70-110) mg/dL Calcium 7.6 L (8.4-10.2) mg/dL Ionized Calcium Silvia (4.5-5.3) mg/dL Magnesium 2.9 H (1.6-2.3) mg/dL Microbiology - Last 24 Hours (Table) 10/17/23 09:35 Urine Culture - Final Urine,Catheterized 10/15/23 17:44 Gram Stain - Final Sputum Sputum Culture - Final 10/17/23 08:00 Gram Stain - Preliminary Breast - Right 10/15/23 21:22 Blood Culture - Preliminary Blood 10/15/23 21:13 Blood Culture Gram Stain - Preliminary Blood Blood Culture - Preliminary Presumptive Staph aureus Assessment and Plan Assessment: This is a 48 year-old woman with a history of stage IV breast cancer with metastases to the lung, liver as well as the brain with multiple lines of therapy, new onset seizure in May 2023 who presented emergency department on 10/14/2023 because of abnormal labs and was told she had the potassium was low then while in ED she had reported seizure then had cardiopumonary arrest. Breakthrough seizure. 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 Has PEA. Then had another cardiopulmonary arrest yesterday at night close to midnight. Severe hypokalemia--improved Severe hyperglycemia possible reactive from seizure and cardiopulmonary arrest---resolved History of seizure since 05/2023 and is on Keppra 750mg bid. 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 Francois has increased her home Keppra from 750mg bid to 1500mg bid. Patient is tolerating it well. No further seizures reported. Seizure precaution and pads EEG revealed no epileptiform activity. Official report pending. MRI Brain w/ and w/o contrast completed. On my review, there are evidence of metastasis, but appears better than the MRI from July 2023. We will await official radiology report. No definitive evidence of an acute stroke. Patie nt's new onset right foot drop is of unclear cause. We will await MRI report. Patient denies any neck or back pain. Uncertain if related to Rober's paralysis. We will continue to follow. Will defer the rest of medical management to the primary and other specialist. Discussed with patient's in detail.
[2023-10-18] MEDS: LORazepam 2 MG/ML INJ IV PRN (18:24)
--- NOTE | 2023-10-18 21:31 | P.PN ---
Subjective 48 year-old woman with a history of stage IV breast cancer with metastases to the lung, liver as well as the brain with multiple lines of therapy, new onset seizure in May 2023 who presented emergency department on 10/14/2023 because of abnormal labs and was told she had the potassium was low. Shortly after she arrived to the ER she developed a seizure and then developed pulseless electrical activity arrest. As a result CPR started and she was intubated on a ventilator.patient is on Keppra 750 mg twice a day. She received 5mg of Valium in ED. Currently the patient is on IV propofol 55mcg/kg/min. No further clinical seizures. Patient was previously admitted to the hospital on 05/28/2023 in which she had new onset seizure and it was felt due to her brain metastases. Patient is on Keppra 750 mg twice a day. patient had an EEG which was abnormal. Tobacco slowing suggestive of mild encephalopathy. Excessive beta activity is likely due to medication effect. Otherwise there is no focal slowing, epileptiform discharges or seizure on the EEG. Please refer to my prior notes for further details. patient's Potassium was as low as 2.1 currently is 2.8.calcium is 7.7, phosphorus 3.9, magnesium is 2.5, AST of 78 ALTs; most recent sodium is 138, glucose is 138, CT of the head is reported as no acute intracranial hemorrhage, midline shift or mass effect. Some small residual hypodensity can be seen which appear to correlate with the site of some of the larger metastasis previously identified. In the limits of unenhanced as CT head there does not seem to be a tremendous increase in metastatic lesion. 10/17/2023 Patient is seen and evaluated in room at bedside --Patient has been extubated; sitting up in bed with family at bedside -- Per nursing staff patient has very poor oral intake which has been ongoing before admission; we will add a small dose of Remeron and monitor closely -Patient takes Eliquis 5 mg twice daily for DVT; we will resume home dose Neurology recommending to increase home Keppra from 750 mg twice daily up to 1500 mg twice daily and continue with seizure precautions --MRI of the brain and EEG to be completed tomorrow 10/18/2023 patient got extubated She is awake alert oriented to time place and person She has diarrhea for 2 months about once a day No chest pain no dyspnea, she has mild coughing No urinary symptoms Right breast wound with granulation tissue, dressing in place no surrounding cellulitis, the dressing looks slightly soaked Varma catheter in place Patient undergoing EEG in the morning Patient remains on ceftriaxone and IV vancomycin and normal saline 30 mL/h and Eliquis Patient on Keppra for her seizure secondary to metastatic disease to the brain with source of the is depressed Prognosis remains guarded Objective - Vital Signs Vital signs: Vital Signs Temp 97.9 F 10/18/23 11:00 Pulse 75 10/18/23 11:00 Resp 24 10/18/23 11:00 BP 110/65 10/18/23 11:00 Pulse Ox 98 10/18/23 11:00 FiO2 40 10/17/23 10:00 Intake & Output 10/17/23 10/18/23 10/18/23 18:59 06:59 18:59 Intake Total 2519.853 2009 1000 Output Total 400 1170 650 Balance 2119.853 840 350 Weight 99.5 kg Intake: IV 2436 2009 999 Magnesium Sulfate-D5w Pmx 500 1 gm In Dextrose/Water 1 100ml.bag @ 100 mls/hr IVPB ONCE [facility] Rx#: [id number] Potassium Chloride 10 meq 600 In Water For Injection 1 100ml.bag @ 100 mls/hr IVPB Q1HR [facility] Rx#: [id number] Potassium Chloride 20 meq 100 In Water For Injection 1 100ml.bag @ 50 mls/hr IVPB Q2HR [facility] Rx#: [id number] Sodium Chloride 0.9% 1, 1120 910 650 000 ml @ 130 mls/hr IV . Q7H42M [facility] Rx#:[id number] Sodium Chloride 0.9% 1, 1000 000 ml @ 999 mls/hr IV . Q1H1M [facility] Rx#:[id number] Vancomycin 1,250 mg In 250 Sodium Chloride 0.9% 250 ml @ 125 mls/hr IVPB Q12HR [facility] Rx#:[id number] Vancomycin 1,500 mg In 166 Sodium Chloride 0.9% 500 ml 500 ml @ 167 mls/hr IVPB Q12HR [facility] Rx#: [id number] cefTRIAXone 2 gm In 50 100 Sodium Chloride 0.9% 50 ml @ 100 mls/hr IVPB Q12HR [facility] Rx#:[id number] Intake, IV Titration 83.853 Amount Norepinephrine 4 mg In 15.648 Sodium Chloride 0.9% 250 ml @ 0.03 MCG/KG/MIN 10. 628 mls/hr IV .[id number] [facility] Rx#:[id number] propofoL 1,000 mg In 68.205 Empty Bag 1 bag @ 15 MCG/ KG/MIN 8.369 mls/hr IV . [id number] [facility] Rx#:[id number] Output: Urine 400 1170 650 Other: Voiding Method Indwelling Catheter Indwelling Catheter Bedside Commode # Bowel Movements 1 - Exam GENERAL: The patient is alert and oriented x3, not in any acute distress. Well developed, well nourished. HEENT: Pupils are round and equally reacting to light. EOMI. No scleral icterus. No conjunctival pallor. Normocephalic, atraumatic. No pharyngeal erythema. No thyromegaly. CARDIOVASCULAR: S1 and S2 present. No murmurs, rubs, or gallops. PULMONARY: Chest is clear to auscultation, no wheezing , no crackles. ABDOMEN: Soft, nontender, nondistended, normoactive bowel sounds. No palpable organomegaly. MUSCULOSKELETAL: No joint swelling or deformity. EXTREMITIES: No cyanosis, clubbing, or pedal edema. NEUROLOGICAL: Gross neurological examination did not reveal any focal deficits. SKIN: No rashes. no petechiae. - Labs CBC & Chem 7: 10/18/23 06:47 10/18/23 16:18 Labs: Abnormal Lab Results - Last 24 Hours (Table) 10/17/23 10/17/23 10/17/23 Range/Units 12:32 16:00 21:11 RBC (3.80-5.40) m/uL Hgb (11.4-16.0) gm/dL Hct (34.0-46.0) % MCV (80.0-100.0) fL RDW (11.5-15.5) % Potassium 3.0 L 3.0 L 2.1 L* (3.5-5.1) mmol/L Chloride (98-107) mmol/L Glucose (74-99) mg/dL POC Glucose (mg/dL) (70-110) mg/dL Calcium (8.4-10.2) mg/dL Ionized Calcium Silvia 3.9 L (4.5-5.3) mg/dL Magnesium 1.3 L (1.6-2.3) mg/dL 10/18/23 10/18/23 10/18/23 Range/Units 00:17 03:14 03:14 RBC 2.87 L (3.80-5.40) m/uL Hgb 9.6 L (11.4-16.0) gm/dL Hct 29.2 L (34.0-46.0) % MCV 101.6 H (80.0-100.0) fL RDW 15.7 H (11.5-15.5) % Potassium (3.5-5.1) mmol/L Chloride 116 H (98-107) mmol/L Glucose 111 H (74-99) mg/dL POC Glucose (mg/dL) 128 H (70-110) mg/dL Calcium 7.6 L (8.4-10.2) mg/dL Ionized Calcium Silvia (4.5-5.3) mg/dL Magnesium 3.3 H (1.6-2.3) mg/dL 10/18/23 10/18/23 Range/Units 06:47 06:47 RBC 2.99 L (3.80-5.40) m/uL Hgb 9.9 L (11.4-16.0) gm/dL Hct 30.6 L (34.0-46.0) % MCV 102.5 H (80.0-100.0) fL RDW 15.6 H (11.5-15.5) % Potassium (3.5-5.1) mmol/L Chloride 115 H (98-107) mmol/L Glucose (74-99) mg/dL POC Glucose (mg/dL) (70-110) mg/dL Calcium 7.6 L (8.4-10.2) mg/dL Ionized Calcium Silvia (4.5-5.3) mg/dL Magnesium 2.9 H (1.6-2.3) mg/dL Microbiology - Last 24 Hours (Table) 10/15/23 17:44 Gram Stain - Final Sputum Sputum Culture - Final 10/17/23 08:00 Gram Stain - Preliminary Breast - Right 10/15/23 21:22 Blood Culture - Preliminary Blood 10/15/23 21:13 Blood Culture Gram Stain - Preliminary Blood Blood Culture - Preliminary Presumptive Staph aureus Assessment and Plan Assessment: PEA cardiac arrest Right breast cancer with metastasis to the brain, also patient with seizure on Keppra Sepsis with elevated lactic acid and source is secondary to right breast cellulitis, improved Bacteremia secondary to above A-fib Severe hypokalemia, improved Anemia Plan: Continue with Eliquis On IV vancomycin and ceftriaxon And normal saline Continue with Keppra Several consultants on the case including critical team r d manager, neurologist and district sales coordinator DVT prophylaxis Eliquis GI prophylaxis Protonix Prognosis guarded
--- NOTE | 2023-10-18 22:02 | PN ---
PROGRESS NOTE Edith is a 48-year-old lady with history of metastatic breast cancer, who is in the emergency room because of hypokalemia and had a seizure-like activity and then had pulseless electrical activity followed by cardiac arrest and subsequently had ventricular tachycardia, probably secondary to hypokalemia and hypomagnesemia. The patient has had potassium and magnesium supplements. At the time of my evaluation this morning, she remains in sinus rhythm. Heart rate is 75 beats per minute. Blood pressure is 114/65, respiratory rate 18. Chest exam reveals diminished air entry bilaterally. Heart exam reveals first and second heart sounds. No gallop. No murmur. Examination of extremities did not reveal any edema. Peripheral pulses are felt. ASSESSMENT: 1. Metastatic breast cancer. 2. Ventricular tachycardia. 3. Prolonged QT interval. PLAN: Please avoid QT prolonging drugs to keep the potassium and magnesium within normal limits. We will continue to follow with you. No other cardiac intervention at this time. MMODL / IJN: [id number] /
--- NOTE | 2023-10-18 22:49 | MR ---
EXAMINATION TYPE: MR brain wo/w con DATE OF EXAM: 10/18/2023 COMPARISON: 08/09/2023 HISTORY: BRAIN METS, SEIZURE CONTRAST: Performed utilizing 8ML mL intravenous Gadavist gadolinium contrast. TECHNIQUE: Multiplanar, multiecho imaging on a 3.0 Destiny magnet is performed through the brain. Stud y is performed within 24 hours of arrival to the hospital. The craniovertebral junction is normal. The pituitary is normal. Optic chiasm appears unremarkable Diffusion-weighted imaging is performed. There is a solitary 0.7 hyperintensity within the medial le ft centrum semiovale, series 303 image 192. There is some periventricular white matter hyperintensity on inversion recovery weighted sequences wh ich is nonspecific could be related to microvascular ischemic change. Subcortical white matter change s are present in the parietal and occipital lobes. Findings present previously findings appear somewh at smaller than prior. Multiple scattered small hypointensities are present within the brain on T2 im aging. Following contrast, and postcontrast images sequence 801, Multiple small enhancing lesions are presen t including right cerebellum image 43, image 130 right parietal lobe, image 130 right occipital lobe. Previous additional small ring lesions are not identified. Ventricles and sulci are appropriate for the patient age. There is some minimal mucosal thickening within the posterior left lateral frontal sinus. There is opacification to the bilateral mastoid air cells. Correlate for acute bilateral mastoiditis. IMPRESSION: 1. Diminished number of enhancing lesions within the brain. Areas of white matter change appears to h ave a similar distribution although smaller than comparison. 2. Correlate for bilateral acute mastoiditis
--- NOTE | 2023-10-19 01:20 | EEG ---
ELECTROENCEPHALOGRAM REPORT PREAMBLE: This is a 48-year-old female who was brought to the hospital for abnormal labs. Shortly after the patient arrived to the ED, she had a seizure and developed a pulseless cardiac arrest. The patient has stage IV breast cancer with metastasis to the lungs, liver, and brain. New onset seizure since May 2023. CURRENT MEDICATIONS: 1. Eliquis. 2. Keppra. 3. Ceftriaxone. 4. Ativan. 5. Norepinephrine. EEG FINDINGS: This is a 21-channel digital EEG recorded with video competent, utilizing 10/20 international system with referential and bipolar montages. Background consists of well developed, well regulated, and moderate voltage activity in 8 hertz alpha. Background is posterior dominant and seems to be reactive to eye opening and closing. Some drowsiness was seen with appearance of bilaterally symmetric theta frequency rhythm. Deeper stages of sleep were not seen. Photic driving response was not seen. No focal or generalized epileptiform activity was seen. IMPRESSION: This is a normal awake and drowsy EEG. No focal, lateralized, or epileptiform activity was seen. MMODL / IJN: [id number] /
[2023-10-19] MEDS: NOREPINEPHRINE 8 MG in SODIUM CHLORIDE 0.9% 250 ML IV SCH (06:25)
--- NOTE | 2023-10-19 10:30 | P.PN ---
Subjective 48 year-old woman with a history of stage IV breast cancer with metastases to the lung, liver as well as the brain with multiple lines of therapy, new onset seizure in May 2023 who presented emergency department on 10/14/2023 because of abnormal labs and was told she had the potassium was low. Shortly after she arrived to the ER she developed a seizure and then developed pulseless electrical activity arrest. As a result CPR started and she was intubated on a ventilator.patient is on Keppra 750 mg twice a day. She received 5mg of Valium in ED. Currently the patient is on IV propofol 55mcg/kg/min. No further clinical seizures. Patient was previously admitted to the hospital on 05/28/2023 in which she had new onset seizure and it was felt due to her brain metastases. Patient is on Keppra 750 mg twice a day. patient had an EEG which was abnormal. Tobacco slowing suggestive of mild encephalopathy. Excessive beta activity is likely due to medication effect. Otherwise there is no focal slowing, epileptiform discharges or seizure on the EEG. Please refer to my prior notes for further details. patient's Potassium was as low as 2.1 currently is 2.8.calcium is 7.7, phosphorus 3.9, magnesium is 2.5, AST of 78 ALTs; most recent sodium is 138, glucose is 138, CT of the head is reported as no acute intracranial hemorrhage, midline shift or mass effect. Some small residual hypodensity can be seen which appear to correlate with the site of some of the larger metastasis previously identified. In the limits of unenhanced as CT head there does not seem to be a tremendous increase in metastatic lesion. 10/17/2023 Patient is seen and evaluated in room at bedside --Patient has been extubated; sitting up in bed with family at bedside -- Per nursing staff patient has very poor oral intake which has been ongoing before admission; we will add a small dose of Remeron and monitor closely -Patient takes Eliquis 5 mg twice daily for DVT; we will resume home dose Neurology recommending to increase home Keppra from 750 mg twice daily up to 1500 mg twice daily and continue with seizure precautions --MRI of the brain and EEG to be completed tomorrow 10/18/2023 patient got extubated She is awake alert oriented to time place and person She has diarrhea for 2 months about once a day No chest pain no dyspnea, she has mild coughing No urinary symptoms Right breast wound with granulation tissue, dressing in place no surrounding cellulitis, the dressing looks slightly soaked Varma catheter in place Patient undergoing EEG in the morning Patient remains on ceftriaxone and IV vancomycin and normal saline 30 mL/h and Eliquis Patient on Keppra for her seizure secondary to metastatic disease to the brain with source of the is depressed Prognosis remains guarded 10/19/2023 patient sitting up in bed, mentation at baseline, she feels fine denies any symptoms, she wants to go home. She is hemodynamically stable Potassium this morning is 5.1 magnesium 2.2 Patient is to start diet this morning. Abdomen is soft. She remains on IV vancomycin and ceftriaxone with positive blood culture showing staph pending final results. We'll consult ID team for further recommendation. we will call For physical therapy evaluation patient remains on liquids Lower normal saline to 75 mL/h She is on Keppra. MRI of the brain showing diminished lesions in his lesions EEG is normal Objective - Vital Signs Vital signs: Vital Signs Temp 98.2 F 10/19/23 09:02 Pulse 85 10/19/23 07:54 Resp 16 10/19/23 07:54 BP 111/65 10/19/23 07:54 Pulse Ox 97 10/19/23 07:54 FiO2 50 10/18/23 14:55 Intake & Output 10/18/23 10/19/23 10/19/23 18:59 06:59 18:59 Intake Total 1390 20 Output Total 900 Balance 490 20 Intake: IV 1390 20 Invasive Line 2 10 Invasive Line 3 10 Sodium Chloride 0.9% 1, 1040 000 ml @ 130 mls/hr IV . Q7H42M [facility] Rx#:[id number] Vancomycin 1,250 mg In 250 Sodium Chloride 0.9% 250 ml @ 125 mls/hr IVPB Q12HR [facility] Rx#:[id number] cefTRIAXone 2 gm In 100 Sodium Chloride 0.9% 50 ml @ 100 mls/hr IVPB Q12HR [facility] Rx#:[id number] Output: Urine 650 Oral Regurgitation 250 Other: Voiding Method Bedside Commode # Voids 1 2 2 # Bowel Movements 1 1 - Exam GENERAL: The patient is alert and oriented x3, not in any acute distress. Well developed, well nourished. HEENT: Pupils are round and equally reacting to light. EOMI. No scleral icterus. No conjunctival pallor. Normocephalic, atraumatic. No pharyngeal erythema. No thyromegaly. CARDIOVASCULAR: S1 and S2 present. No murmurs, rubs, or gallops. PULMONARY: Chest is clear to auscultation, no wheezing , no crackles. ABDOMEN: Soft, nontender, nondistended, normoactive bowel sounds. No palpable or ganomegaly. MUSCULOSKELETAL: No joint swelling or deformity. EXTREMITIES: No cyanosis, clubbing, or pedal edema. NEUROLOGICAL: Gross neurological examination did not reveal any focal deficits. SKIN: No rashes. no petechiae. - Labs CBC & Chem 7: 10/18/23 06:47 10/18/23 16:18 Labs: Microbiology - Last 24 Hours (Table) 10/15/23 21:22 Blood Culture - Preliminary Blood 10/17/23 09:35 Urine Culture - Final Urine,Catheterized 10/15/23 17:44 Gram Stain - Final Sputum Sputum Culture - Final 10/17/23 08:00 Gram Stain - Preliminary Breast - Right Assessment and Plan Assessment: PEA cardiac arrest, with evidence of cardiac arrhythmia and torsades V. tach secondary to hypokalemia from poor oral intake and diarrhea Right breast cancer with metastasis to the brain, also patient with seizure on Keppra Sepsis with elevated lactic acid and source is secondary to right breast cellulitis, improved Bacteremia secondary to above A-fib Severe hypokalemia, improved Anemia Plan: Continue with Eliquis On IV vancomycin and ceftriaxon. Consult ID team And normal saline (75 mL/h) Continue with Keppra Several consultants on the case including critical team small engine technician, neurologist and fabrication and assembly supervisor DVT prophylaxis Eliquis GI prophylaxis Protonix Prognosis guarded
[2023-10-19 12:07] VITALS: BP 104/60; PULSE 79; RESP 18; TEMP 98
[2023-10-19 12:34] LABS: African American GFR (CKD) >90 (>60 ml/min/1.73 sqM); Non-African American GFR(CKD) >90 (>60 ml/min/1.73 sqM)
--- NOTE | 2023-10-19 12:46 | P.PN ---
Subjective HISTORY OF PRESENT ILLNESS: Patient examined this afternoon at the bedside. Patient denies chest pain or pressure. She denies chest pain. No further episodes of V. tach/V-fib. Echocardiogram completed revealing ejection fraction 50 to 55% with no pericardial effusion PHYSICAL EXAM: VITAL SIGNS: Reviewed. GENERAL: Well-developed in no acute distress. NECK: Supple. No JVD or thyromegaly LUNGS: Respirations even and unlabored. Lungs essentially clear to auscultation bilaterally. HEART: Regular rate and rhythm. S1 and S2 heard. EXTREMITIES: Normal range of motion. No clubbing or cyanosis. Peripheral pulses intact. No lower extremity edema ASSESSMENT: Metastatic breast cancer with mets to the brain Torsades with V-fib arrest, likely secondary to hypokalemia Prolonged QTc Severe hypokalemia PEA cardiac arrest in ER 10/16/2023 Grand mal seizures Anemia History of DVT on Eliquis PLAN: Continue cardiac medications Continue to monitor potassium and magnesium Continue telemetry monitoring Further recommendations pending patient course Nurse practitioner note has been reviewed by physician. Signing provider agrees with the documented findings, assessment, and plan of care documented by POISER [employer] as a scribe. Objective - Vital Signs Vital signs: Vital Signs Temp 98 F 10/19/23 11:49 Pulse 79 10/19/23 11:49 Resp 18 10/19/23 11:49 BP 104/60 10/19/23 11:49 Pulse Ox 98 10/19/23 11:49 FiO2 50 10/18/23 14:55 Intake & Output 10/18/23 10/19/23 10/19/23 18:59 06:59 18:59 Intake Total 1390 20 Output Total 900 Balance 490 20 Intake: IV 1390 20 Invasive Line 2 10 Invasive Line 3 10 Sodium Chloride 0.9% 1, 1040 000 ml @ 75 mls/hr IV . [id number] [facility] Rx#:[id number] Vancomycin 1,250 mg In 250 Sodium Chloride 0.9% 250 ml @ 125 mls/hr IVPB Q12HR [facility] Rx#:[id number] cefTRIAXone 2 gm In 100 Sodium Chloride 0.9% 50 ml @ 100 mls/hr IVPB Q12HR [facility] Rx#:[id number] Output: Urine 650 Oral Regurgitation 250 Other: Voiding Method Bedside Commode Bedside Commode # Voids 1 2 2 # Bowel Movements 1 1 1 - Labs CBC & Chem 7: 10/18/23 06:47 10/19/23 11:36 Labs: Abnormal Lab Results - Last 24 Hours (Table) 10/19/23 Range/Units 11:36 Creatinine 0.48 L (0.52-1.04) mg/dL Microbiology - Last 24 Hours (Table) 10/15/23 21:13 Blood Culture Gram Stain - Final Blood Blood Culture - Final Staphylococcus aureus Molecular ID 10/15/23 21:22 Blood Culture - Preliminary Blood 10/17/23 09:35 Urine Culture - Final Urine,Catheterized 10/15/23 17:44 Gram Stain - Final Sputum Sputum Culture - Final
[2023-10-19] MEDS: ALPRAZolam 1 MG TAB PO PRN (13:22)
[2023-10-19] MEDS: FLUoxetine HCL 20 MG CAP PO SCH (13:22)
--- NOTE | 2023-10-19 14:40 | P.CONS ---
History of Present Illness - Reason for Consult Consult date: 10/19/23 - History of Present Illness Chart reviewed blood culture repeat ordered antibiotic adjusted to cefazolin Patient left AGAINST MEDICAL ADVICE before the patient could be evaluated so, consult not completed Past Medical History Past Medical History: Cancer Additional Past Medical History / Comment(s): Hx. spinal meningitis twice 1999 and 2002, Breast Cancer 2019, one seizure age 6, "nodule on rt lung", History of Any Multi-Drug Resistant Organisms: None Reported Past Surgical History: Appendectomy, Section Additional Past Surgical History / Comment(s): right shoulder cyst removal, breast biopsy Past Anesthesia/Blood Transfusion Reactions: No Reported Reaction Past Psychological History: Anxiety, Depression Smoking Status: Current every day smoker Past Alcohol Use History: Rare Additional Past Alcohol Use History / Comment(s): smokes 1/2 PPD, has smoked since age 24 Past Drug Use History: Marijuana - Past Family History Mother Family Medical History: Cancer, Deep Vein Thrombosis (DVT) Additional Family Medical History / Comment(s): BREAST CANCER WITH METS TO LUNG. Medications and Allergies Home Medications Medication Instructions Recorded Confirmed Type ALPRAZolam [Xanax] 2 mg PO BID 04/27/19 10/15/23 History FLUoxetine HCL [PROzac] 20 mg PO DAILY 05/03/19 10/15/23 History FLUoxetine HCL [PROzac] 40 mg PO DAILY 05/27/23 10/15/23 History Pantoprazole [Protonix] 40 mg PO DAILY #30 tab 05/29/23 10/15/23 Rx levETIRAcetam [Keppra] 750 mg PO Q12HR #60 tab 05/29/23 10/15/23 Rx Apixaban [Eliquis] 5 mg PO BID 10/15/23 10/15/23 History Ondansetron [Zofran] 4 mg PO Q8HR PRN 10/15/23 10/15/23 History Allergies Allergy/AdvReac Type Severity Reaction Status Date / Time Iodine and Iodide Containing Allergy Rash/Hives Verified 10/15/23 18:52 Produc Physical Exam Vitals: Vital Signs Temp Pulse Resp BP BP Pulse Ox FiO2 10/19/23 11:49 98 F 79 18 104/60 98 10/19/23 09:02 98.2 F 10/19/23 07:54 96.9 F L 85 16 111/65 97 10/19/23 04:00 98.2 F 73 16 110/68 97 10/19/23 00:00 98.0 F 72 18 110/63 97 10/18/23 21:00 98.2 F 77 18 115/65 99 10/18/23 19:53 97.6 F 71 18 116/65 96 10/18/23 16:00 98.0 F 75 19 103/65 98 10/18/23 14:55 50 Intake and Output 10/18/23 10/19/23 10/19/23 22:59 06:59 14:59 Intake Total 410 180 Output Total 250 Balance 160 180 Intake: IV 410 Invasive Line 2 10 Invasive Line 3 10 Sodium Chloride 0.9% 1, 390 000 ml @ 75 mls/hr IV . [id number] [facility] Rx#:[id number] Oral 180 Output: Oral Regurgitation 250 Other: Voiding Method Bedside Commode # Voids 1 2 2 # Bowel Movements 1 1 1 Results CBC & Chem 7: 10/18/23 06:47 10/19/23 11:36 Labs: Abnormal Lab Results - Last 24 Hours (Table) 10/19/23 Range/Units 11:36 Creatinine 0.48 L (0.52-1.04) mg/dL Microbiology - Last 24 Hours (Table) 10/15/23 21:13 Blood Culture Gram Stain - Final Blood Blood Culture - Final Staphylococcus aureus Molecular ID 10/15/23 21:22 Blood Culture - Preliminary Blood 10/17/23 09:35 Urine Culture - Final Urine,Catheterized 10/15/23 17:44 Gram Stain - Final Sputum Sputum Culture - Final
--- NOTE | 2023-10-19 14:50 | P.PN ---
Subjective Progress Note Date: 10/19/23 Principal diagnosis: Cardiac arrest. This is a 48-year-old female with known history of triple negative metastatic breast cancer, including brain metastasis, status post RT, status post multiple lines of therapy most recently patient hadC6 of [place] on 10/14/23 patient came into the ER last night mostly because of abnormal labs and she was told that her potassium was low. Shortly after she arrived to the ER, patient developed a seizure, and went on to develop pulseless electrical activity arrest, CPR was started, patient was intubated, stabilized in the ER, CT angiogram of the chest showed no evidence of pulmonary embolism. CT also showed pulmonary nodules which have been present for quite some time. Potassium was as low as 2.1. Hemoglobin was 11 WBC count was 26,000. CT of the head showed stable lesions of metastatic breast lesions in the brain. I saw this patient in the ER, patient is intubated and mechanically ventilated, she is on assist-control rate of 20 tidal volume 400 FiO2 50% and PEEP of 5 ABG showed a pO2 of 198 pCO2 39 pH of 7.48. Hence cut down FiO2 to 40%. Her blood pressure is marginal, patient is receiving fluids, she is also on propofol at 45 mcg/kg/min, recommended norepinephrine if needed for low blood pressure seems to be soft. Looking at the notes from the oncologist, patient was last seen in the oncology clinic on 09/14/2023, she was seen by Dr. Rich, and she had mild drainage from breast lesion, was feeling tired, but she had no shortness of breath, no chest pain, patient has been maintained on Eliquis for symptomatic SVT of the left lower extremity. In the ER, patient is maintained on mechanical ventilation, she is also on antibiotics in the form of Rocephin, and vancomycin, calcium is being corrected as per protocol, chest x-ray showed a 4 cm left upper lobe mass, and this was present previously Patient was reevaluated today on 10/17/2023, patient remains in the ICU, sedated and mechanically ventilated, she is on assist-control rate of 20 tidal volume 400 FiO2 40% and PEEP of 5 ABG showed a pO2 of 108 pCO2 38 pH of 7.50. Patient was on propofol overnight at 15 mcg/kg/min, however during my evaluation, I singh ggested stopping propofol, and her norepinephrine use to be at 0.03 mcg/kg/min and is now on hold. Patient is maintaining adequate blood pressure off norepinephrine. Patient is maintained on Keppra, her potassium has been corrected as per protocol, today's potassium is 3.6. Echocardiogram showed good LV function with ejection fraction of 50 to 55%. Patient remains on antibiotics in the form of ceftriaxone and vancomycin for her large breast wound in the right upper chest area. Patient is also on Keppra for her seizures. And no seizure activity noted over the last 24 hours. Last night the patient had a brief episode of ventricular fibrillation, went into asystole, she received 1 dose of epinephrine, and very brief CPR, and there was return of spontaneous circulation. Again her potassium was noted to be low, and this was further addressed and corrected. WBC count today is 9.9 hemoglobin is 10.4.Basic metabolic profile is normal renal profile is normal magnesium is 2.4 chest x-ray today showed mostly left upper lobe masslike density, otherwise no acute findings The patient is seen today October 18, 2023 in follow-up in the intensive care unit.. Awake and alert in no acute distress. Maintaining O2 saturation in the 90s on room air. She is afebrile. Hemodynamically stable. She was extubated yesterday. Blood cultures are showing presumptive Staph aureus. Her right breast wound culture is pending. She has been seen by the wound center physician. Count 7.4. Hemoglobin 9.9. Platelets 171. Sodium 139. Potassium 4.5. Bicarb 23. BUN 8. Creatinine 0.62. Glucose 93. Calcium 7.6. Magnesium 2.9. She remains on ceftriaxone and vancomycin. Potassium being replaced. Magnesium being replaced. She is anticoagulated with Eliquis. Normal saline at 130 MLS per hour. Progress note dated October 19, 2023. The patient is seen today in room 371. She is currently on room air. She is getting saline at 130 cc an hour. The patient continues on Rocephin and vancomycin. The patient is clinically much better today than she was the last few days. She is sitting up in her bed, not wearing any oxygen, and not complaining of any difficulty in breathing. Labs today include a creatinine of 0.48. She tested negative for C. difficile. Magnesium level was 2.2. Blood cultures were positive for Staphylococcus aureus. Objective - Vital Signs Vital signs: Vital Signs Temp 98 F 10/19/23 11:49 Pulse 79 10/19/23 11:49 Resp 18 10/19/23 11:49 BP 104/60 10/19/23 11:49 Pulse Ox 98 10/19/23 11:49 FiO2 50 10/18/23 14:55 Intake & Output 10/18/23 10/19/23 10/19/23 18:59 06:59 18:59 Intake Total 1390 20 180 Output Total 900 Balance 490 20 180 Intake: IV 1390 20 Invasive Line 2 10 Invasive Line 3 10 Sodium Chloride 0.9% 1, 1040 000 ml @ 75 mls/hr IV . Q18P01C [facility] Rx#:[id number] Vancomycin 1,250 mg In 250 Sodium Chloride 0.9% 250 ml @ 125 mls/hr IVPB Q12HR [facility] Rx#:[id number] cefTRIAXone 2 gm In 100 Sodium Chloride 0.9% 50 ml @ 100 mls/hr IVPB Q12HR [facility] Rx#:[id number] Oral 180 Output: Urine 650 Oral Regurgitation 250 Other: Voiding Method Bedside Commode Bedside Commode # Voids 1 2 2 # Bowel Movements 1 1 1 - Exam No acute distress, oriented 3. Currently, the patient is on room air. HEENT examination is grossly unremarkable. Mucous membranes are moist. No oral lesions. Neck supple. Full range of motion. No adenopathy thyromegaly or neck vein d istention. Cardiovascular examination reveals regular rhythm rate. S1-S2 normal. No S3 or S4. No discernible murmur noted. Heart rate 79 bpm. Lungs reveal clear breath sounds. Breath sounds are equal bilaterally. No adventitious lung sounds including wheezes rhonchi or crackles. Saturations are 98%. Abdomen soft bowel sounds are heard. No masses or tenderness. Extremities are intact. No cyanosis clubbing or edema. Skin is without rash or lesion. Neurologic examination is brief but nonfocal. - Labs CBC & Chem 7: 10/18/23 06:47 10/19/23 11:36 Labs: Abnormal Lab Results - Last 24 Hours (Table) 10/19/23 Range/Units 11:36 Creatinine 0.48 L (0.52-1.04) mg/dL Microbiology - Last 24 Hours (Table) 10/15/23 21:13 Blood Culture Gram Stain - Final Blood Blood Culture - Final Staphylococcus aureus Molecular ID 10/15/23 21:22 Blood Culture - Preliminary Blood 10/17/23 09:35 Urine Culture - Final Urine,Catheterized Assessment and Plan Assessment: PEA cardiac arrest x 1 in the ER, in the setting of severe hypokalemia. A-fib cardiac arrest x 1 in the ICU. Severe hypokalemia, improved. Leukocytosis with lactic acidosis. Sepsis, with bacteremia showing presumptive MRSA, likely source is her skin lesion/right breast. Metastatic breast cancer. 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 Acute seizure, most likely secondary to metastatic disease involving the brain. Plan: Plan dated October 19, 2023. The patient continues on antibiotics in the form of vancomycin and ceftriaxone. Clinically, the patient is doing much better. The patient is currently on room air. The patient is getting saline at 130 cc an hour. Labs, x-rays, medications are reviewed. Patient's overall prognosis remains guarded, given her metastatic breast cancer. We will continue to follow make recommendations along the way. Time with Patient: Less than 30
--- NOTE | 2023-10-19 23:24 | P.DS ---
Providers Date of admission: 10/15/23 18:13 Attending physician: Mikey Reynolds Consults: 10/15/23 18:10 Consult Physician Routine Consulting Provider: Becky Elizabeth Consult Reason/Comments: icu Do you want consulting provider notified?: Yes Consult Physician Routine Consulting Provider: Cat Rich Consult Reason/Comments: known Do you want consulting provider notified?: Yes Consult Physician Urgent Consulting Provider: Murali Francois Consult Reason/Comments: sz Do you want consulting provider notified?: Yes Consult Physician Urgent Consulting Provider: Gladis Cole Consult Reason/Comments: Vfib Do you want consulting provider notified?: Yes 10/19/23 10:21 Consult Physician Routine Consulting Provider: Cindy Amanda Consult Reason/Comments: BACTEREMIA Do you want consulting provider notified?: Yes Primary care physician: Cat Rich [facility] Course: Please note patient was not discharged but left AGAINST MEDICAL ADVICE After rounding I got a message from the bedside nurse that patient left AMA before I have a chance to talk to the patient or admit her again. Based upon my evaluation earlier patient has capacity to make medical decision. Also of male family member was in the room with her involved in her care upon her request as well. Please refer to previous notes for more details Patient Condition at Discharge: Critical Plan - Discharge Summary New Discharge Prescriptions: No Action RX: ALPRAZolam [Xanax] 2 mg PO BID RX: FLUoxetine HCL [PROzac] 20 mg PO DAILY levETIRAcetam [Keppra] 750 mg PO Q12HR #60 tab RX: Pantoprazole [Protonix] 40 mg PO DAILY #30 tab RX: FLUoxetine HCL [PROzac] 40 mg PO DAILY Ondansetron [Zofran] 4 mg PO Q8HR PRN PRN Reason: Nausea Apixaban [Eliquis] 5 mg PO BID Discharge Medication List RX: ALPRAZolam [Xanax] 2 mg PO BID 04/27/19 [History] RX: FLUoxetine HCL [PROzac] 20 mg PO DAILY 05/03/19 [History] RX: FLUoxetine HCL [PROzac] 40 mg PO DAILY 05/27/23 [History] RX: Pantoprazole [Protonix] 40 mg PO DAILY #30 tab 05/29/23 [Rx] levETIRAcetam [Keppra] 750 mg PO Q12HR #60 tab 05/29/23 [Rx] Apixaban [Eliquis] 5 mg PO BID 10/15/23 [History] Ondansetron [Zofran] 4 mg PO Q8HR PRN 10/15/23 [History] Follow up Appointment(s)/Referral(s): [facility], [NON-STAFF] - Cat Rich MD [Primary Care Provider] - 1-2 days Discharge Disposition: LEFT AGAINST MEDICAL ADVICE
[2023-10-20] MEDS ORDERED: FLUoxetine HCL 20 MG CAP PO SCH (09:00)
--- NOTE | 2023-10-20 12:28 | P.PN ---
Subjective Progress Note Date: 10/19/23 No acute events. Pt seen on cardiac step down unit at todays visit. Reporting significant improvement in symptoms. Patient is more alert today. Denies headache and nausea vomiting. Vital signs stable. Patient is reporting frustration as she has not received her antidepressant and Xanax this morning. Have spoke to primary RN and is awaiting home meds to be reconciled. Objective - Vital Signs Vital signs: Vital Signs Temp 98 F 10/19/23 11:49 Pulse 79 10/19/23 11:49 Resp 18 10/19/23 11:49 BP 104/60 10/19/23 11:49 Pulse Ox 98 10/19/23 11:49 FiO2 50 10/18/23 14:55 Intake & Output 10/19/23 10/20/23 10/20/23 18:59 06:59 18:59 Intake Total 180 Balance 180 Intake: Oral 180 Other: Voiding Method Bedside Commode # Voids 2 # Bowel Movements 1 - Constitutional General appearance: Present: average body habitus, no acute distress - EENT Eyes: Present: anicteric sclerae, EOMI ENT: Present: hearing grossly normal - Respiratory Details: Breathing is even and unlabored - Cardiovascular Details: Skin warm and dry - Gastrointestinal General gastrointestinal: Present: soft. Absent: tenderness - Integumentary Integumentary: Absent: cyanotic - Neurologic Neurologic Comment(s): No focal deficit - Musculoskeletal Musculoskeletal: Present: strength equal bilaterally - Psychiatric Psychiatric: Present: A&O x's 3 - Labs CBC & Chem 7: 10/18/23 06:47 10/19/23 11:36 Labs: Abnormal Lab Results - Last 24 Hours (Table) 10/19/23 Range/Units 11:36 Creatinine 0.48 L (0.52-1.04) mg/dL Microbiology - Last 24 Hours (Table) 10/17/23 08:00 Gram Stain - Final Breast - Right Wound Culture - Final Staphylococcus aureus 10/15/23 21:13 Blood Culture Gram Stain - Final Blood Blood Culture - Final Staphylococcus aureus Molecular ID Assessment and Plan (1) Breast cancer Status: Acute Priority: High Code(s): C50.919 - MALIGNANT NEOPLASM OF UNSP SITE OF UNSPECIFIED FEMALE BREAST SNOMED Code(s): 995440401 (2) Cardiac arrest Status: Acute Priority: High Code(s): I46.9 - CARDIAC ARREST, CAUSE UNSPECIFIED SNOMED Code(s): 882475200 (3) Metastasis to brain Status: Acute Priority: High Code(s): C79.31 - SECONDARY MALIGNANT NEOPLASM OF BRAIN SNOMED Code(s): 77900236 (4) Seizure Status: Acute Priority: High Code(s): R56.9 - UNSPECIFIED CONVULSIONS SNOM ED Code(s): 74157051 Plan: Ms. Lawson is a very pleasant 48 yo female with history of triple negative breast cancer with brain, lung, liver met's, s/p multiple lines of therapy, most recently on Enhertu, s/p C6 given on 10/14/23. She is here for hypokalemia, underwent PEA arrest while in ED. Work up with increased lung mass, K 2.1, lactate 4.5, WBC 26. Was stabilized and intubated, was extubated yesterday, SPO2 98% on room air. - Severe hypokalemia, electrolyte replacement as per primary team. Potassium improved, 5.1 - Lactic acidosis improved with fluids - Metastatic breast cancer on Enhertu, hold chemotherapy until pt stabilizes - Leukocytosis, reactive; anemia due to chemotherapy - Monitor CBC closely, watch for neutropenia with recent chemo - Diarrhea sx since last cycle. C-Diff negative. Continue anti-diarrheals prn - CTA chest was negative for PE. Multiple bilateral pulmonary nodules redemonstrated. Largest in the left upper lobe measures minimally larger, at 3.2 cm x 4 cm, previously measuring 3 x 3.2 cm. - MRI brain w/ wo ordered to evaluate for progression of mets. Scan revealed diminished number of enhancing lesions within the brain. CT chest abdomen and pelvis on 09/08/23 revealed likely progression of disease. MRI brain July 2023 revealed marked improvement in size and number of brain metastases. At last follow-up with Dr. Rich, patient was clinically stable and with not much additional treatment options, and felt it was reasonable to continue enhertu for now and repeat imaging in 2 months. After today's visit, upon review of notes, patient had left hospital AMA. Will schedule lab encounter on 10/21 for CBC, CMP and magnesium recheck, and clinic follow-up next week. Will further discuss goals of care and treatment with patient and family
== END 2023-10-19 14:09 | disposition left against medical advice (07) | DRG 720 ==
LOC: EC 14:52 → 2SICU 18:13 → 3SCARD 10-18 21:48
PROVIDERS: ADMIT Hospitalist; ATTEND Hospitalist
PROC: 5A1945Z Respiratory Ventilation, 24-96 Consecutive Hours (ICD-10-PCS; principal; 2023-10-15)
PROC: 0BH17EZ Insertion of Endotracheal Airway into Trachea, Via Natural or Artificial Opening (ICD-10-PCS; 2023-10-15)
PROC: 5A12012 Performance of Cardiac Output, Single, Manual (ICD-10-PCS; 2023-10-16)
PROC: 3E043XZ Introduction of Vasopressor into Central Vein, Percutaneous Approach (ICD-10-PCS; 2023-10-16)
DX: A41.02 Sepsis due to Methicillin resistant Staphylococcus aureus (principal); C50.811 Malignant neoplasm of overlapping sites of right female breast; C78.02 Secondary malignant neoplasm of left lung; R65.20 Severe sepsis without septic shock; C79.31 Secondary malignant neoplasm of brain; C79.89 Secondary malignant neoplasm of other specified sites; G93.41 Metabolic encephalopathy; Z17.1 Estrogen receptor negative status [ER-]; D64.81 Anemia due to antineoplastic chemotherapy; E83.42 Hypomagnesemia; E87.20 Acidosis, unspecified; E87.6 Hypokalemia; J96.90 Respiratory failure, unspecified, unspecified whether with hypoxia or hypercapnia; T45.1X5A Adverse effect of antineoplastic and immunosuppressive drugs, initial encounter; C78.7 Secondary malignant neoplasm of liver and intrahepatic bile duct; I82.812 Embolism and thrombosis of superficial veins of left lower extremity; R19.7 Diarrhea, unspecified; F17.210 Nicotine dependence, cigarettes, uncomplicated; F32.A Depression, unspecified; F41.9 Anxiety disorder, unspecified; G40.409 Other generalized epilepsy and epileptic syndromes, not intractable, without status epilepticus; I46.2 Cardiac arrest due to underlying cardiac condition; I47.21 Torsades de pointes; I49.01 Ventricular fibrillation; R73.9 Hyperglycemia, unspecified; I48.91 Unspecified atrial fibrillation; N61.0 Mastitis without abscess; Z53.29 Procedure and treatment not carried out because of patient's decision for other reasons; Z79.01 Long term (current) use of anticoagulants; Z79.899 Other long term (current) drug therapy; Z86.61 Personal history of infections of the central nervous system; Z92.3 Personal history of irradiation; Z86.718 Personal history of other venous thrombosis and embolism; Z28.310 Unvaccinated for COVID-19; Z56.0 Unemployment, unspecified; Z91.041 Radiographic dye allergy status
CPT/HCPCS: 31500; 36415; 36600; 70450; 70553; 71045; 71275; 80048; 80053; 80202; 82330; 82565; 82805; 83605; 83735; 83880; 84100; 84132; 84484; 85025; 85379; 85610; 85730; 87040; 87070; 87075; 87077; 87086; 87186; 87205; 87324; 92950; 93005; 93308; 94002; 94003; 94640; 95816; 96361; 96365; 96366; 96367; 96368; 96375; 96376; 99291

== ENCOUNTER 2023-10-21 15:39 | Emergency (ER) | payer OTHER ==
--- NOTE | 2023-10-21 16:02 | ED ---
General Adult HPI - General Chief complaint: Recheck/Abnormal Lab/Rx Stated complaint: Abn Labs Time Seen by Provider: 10/21/23 15:50 Source: patient, RN notes reviewed, old records reviewed Mode of arrival: ambulatory Limitations: no limitations - History of Present Illness Initial comments: 48-year-old female with breast cancer and recent admission with cardiac arrest. The cardiac arrest was apparently on 2 separate episodes. She has history of br east cancer and is currently on chemotherapy. Most recent was 1 week ago. No fever. She states she does not feel well but is unable to exactly describe her symptoms. No nausea or vomiting. No fever. No pain complaints. - Related Data Home Medications Medication Instructions Recorded Confirmed ALPRAZolam [Xanax] 2 mg PO BID 04/27/19 10/21/23 FLUoxetine HCL [PROzac] 20 mg PO DAILY 05/03/19 10/21/23 FLUoxetine HCL [PROzac] 40 mg PO DAILY 05/27/23 10/21/23 Apixaban [Eliquis] 5 mg PO BID 10/15/23 10/21/23 Ondansetron [Zofran] 4 mg PO Q8HR PRN 10/15/23 10/21/23 Previous Rx's Medication Instructions Recorded Pantoprazole [Protonix] 40 mg PO DAILY #30 tab 05/29/23 levETIRAcetam [Keppra] 750 mg PO Q12HR #60 tab 05/29/23 Cephalexin [Keflex] 500 mg PO Q12HR #20 cap 10/21/23 Allergies Allergy/AdvReac Type Severity Reaction Status Date / Time Iodine and Iodide Containing Allergy Rash/Hives Verified 10/21/23 16:18 Produc Review of Systems ROS Statement: Those systems with pertinent positive or pertinent negative responses have been documented in the HPI. ROS Other: All systems not noted in ROS Statement are negative. Past Medical History Past Medical History: Cancer Additional Past Medical History / Comment(s): Hx. spinal meningitis twice 1999 and 2002, Breast Cancer 2019, one seizure age 6, "nodule on rt lung", V Fib Arrest. History of Any Multi-Drug Resistant Organisms: None Reported Past Surgical History: Appendectomy, Section Additional Past Surgical History / Comment(s): right shoulder cyst removal, breast biopsy Past Anesthesia/Blood Transfusion Reactions: No Reported Reaction Past Psychological History: Anxiety, Depression Smoking Status: Current every day smoker Past Alcohol Use History: None Reported Past Drug Use History: None Reported - Past Family History Mother Family Medical History: Cancer, Deep Vein Thrombosis (DVT) Additional Family Medical History / Comment(s): BREAST CANCER WITH METS TO LUNG. General Exam Limitations: no limitations General appearance: alert Head exam: Present: atraumatic, normocephalic Eye exam: Present: normal appearance, PERRL ENT exam: Present: mucous membranes dry Neck exam: Present: normal inspection. Absent: tenderness, meningismus Respiratory exam: Present: normal lung sounds bilaterally. Absent: respiratory distress, wheezes Cardiovascular Exam: Present: regular rate, normal rhythm GI/Abdominal exam: Present: soft. Absent: distended, tenderness, guarding Neurological exam: Present: alert. Absent: motor sensory deficit Psychiatric exam: Present: flat affect Skin exam: Present: pallor Course Vital Signs 10/21/23 10/21/23 15:41 17:41 Temperature 98.5 F Pulse Rate 92 85 Respiratory 20 18 Rate Blood Pressure 98/66 96/65 O2 Sat by Pulse 99 96 Oximetry Medical Decision Making - Medical Decision Making Was pt. sent in by a medical professional or institution (, PA, MEDIA REPORTER, urgent care, hospital, or correction...) When possible be specific @ -No Did you speak to anyone other than the patient for history (EMS, parent, family, police, friend...)? What history was obtained from this source @ -No Did you review nursing and triage notes (agree or disagree)? Why? @ -I reviewed and agree with nursing and triage notes Were old charts reviewed (outside hosp., previous admission, EMS record, old EKG, old radiological studies, urgent care reports/EKG's, correction records)? Report findings @ -No old charts were reviewed Differential Diagnosis (chest pain, altered mental status, abdominal pain women, abdominal pain men, vaginal bleeding, weakness, fever, dyspnea, syncope, headache, dizziness, GI bleed, back pain, seizure, CVA, palpatations, mental health, musculoskeletal)? @ -Not applicable EKG interpreted by me (3pts min.). @ -Sinus rhythm incomplete right bundle branch block, significant artifact limiting assessment, I do not see any ST segment elevation ventricular rate of 80, [place] interval 165, QRS duration 106, QTc 469. Repeat EKG at 1642, incomplete right bundle branch block, rate of 85 X-rays interpreted by me (1pt min.). @ -Chest x-ray negative for acute cardiopulmonary findings, no pneumothorax, no focal pneumonia CT interpreted, [place] interval 169, QRS duration 106, QTc [address] segment elevat ion by me (1pt min.). @ -None done U/S interpreted by me (1pt. min.). @ -None done What testing was considered but not performed or refused? (CT, X-rays, U/S, labs)? Why? @ -None What meds were considered but not given or refused? Why? @ -None Did you discuss the management of the patient with other professionals (professionals i.e. , PA, MEDIA REPORTER, lab, RT, psych nurse, school social worker, credentials specialist, teacher, crime prevention police officer, child welfare caseworker)? Give summary @I did discuss case with Dr. Duarte, who indicates that there was no plan or need for pacemaker or defibrillator and that her arrest was related to electrolyte abnormalities. Was smoking cessation discussed for >3mins.? @ -No Was critical care preformed (if so, how long)? @ -No Were there social determinants of health that impacted care today? How? (Homelessness, low income, unemployed, alcoholism, drug addiction, transportation, low edu. Level, literacy, decrease access to med. care, [facility], rehab)? @ -No Was there de-escalation of care discussed even if they declined (Discuss DNR or withdrawal of care, Hospice)? DNR status @ -No What co-morbidities impacted this encounter? (DM, HTN, Smoking, COPD, CAD, Cancer, CVA, ARF, Chemo, Hep., AIDS, mental health diagnosis, sleep apnea, morbid obesity)? @ -[Breast cancer with metastases, recent cardiac arrest secondary to ventricular fibrillation. Was patient admitted / discharged? Hospital course, mention meds given and route, prescriptions, significant lab abnormalities, going to OR and other pertinent info. @ 48-year-old female with complicated medical history, active breast cancer, recent hospital admission with hypokalemia prolonged QT and ventricular fibrillation. Patient is in sinus rhythm with normal QTc stable vitals. She has a chronic anemia. She has albumin 2.6, normal magnesium, normal potassium. She does have signs of urinary tract infection currently. Patient does not want to be admitted. She states she was here to have her electrolytes obtained. She has very high risk with chronic medical conditions. Prognosis is guarded, will treat UTI and discharge at this time. Undiagnosed new problem with uncertain prognosis? @ -No Drug Therapy requiring intensive monitoring for toxicity (Heparin, Nitro, Insulin, Cardizem)? @ -No Were any procedures done? @ -No Diagnosis/symptom? @ -UTI, breast cancer, weakness Acute, or Chronic, or Acute on Chronic? @ -Acute on chronic Uncomplicated (without systemic symptoms) or Complicated (systemic symptoms)? @ -Complicated Side effects of treatment? @ -No Exacerbation, Progression, or Severe Exacerbation? @ -No Poses a threat to life or bodily function? How? (Chest pain, [place], [place], pneumonia, PE, COPD, DKA, ARF, appy, cholecystitis, CVA, Diverticulitis, Homicidal, Suicidal, threat to staff... and all critical care pts) @ -Moderate risk due to chronic medical conditions - Lab Data Result diagrams: 10/21/23 16:22 10/21/23 16:22 Lab Results 10/21/23 10/21/23 10/21/23 Range/Units 16:22 16:22 16:22 WBC 8.2 (3.8-10.6) k/uL RBC 2.98 L (3.80-5.40) m/uL Hgb 9.9 L (11.4-16.0) gm/dL Hct 29.4 L (34.0-46.0) % MCV 98.6 (80.0-100.0) fL MCH 33.1 (25.0-35.0) pg MCHC 33.6 (31.0-37.0) g/dL RDW 14.9 (11.5-15.5) % Plt Count 93 L (150-450) k/uL MPV 8.6 Neutrophils % 83 % Lymphocytes % 12 % Monocytes % 3 % Eosinophils % 1 % Basophils % 0 % Neutrophils # 6.8 (1.3-7.7) k/uL Lymphocytes # 1.0 (1.0-4.8) k/uL Monocytes # 0.3 (0-1.0) k/uL Eosinophils # 0.1 (0-0.7) k/uL Basophils # 0.0 (0-0.2) k/uL Manual Slide Review Performed PT 12.6 H (10.0-12.5) sec INR 1.2 H (<1.2) APTT 22.3 (22.0-30.0) sec Sodium 136 L (137-145) mmol/L Potassium 4.1 (3.5-5.1) mmol/L Chloride 105 (98-107) mmol/L Carbon Dioxide 25 (22-30) mmol/L Anion Gap 6 mmol/L BUN 5 L (7-17) mg/dL Creatinine 0.54 (0.52-1.04) mg/dL Est GFR (CKD-EPI)AfAm >90 (>60 ml/min/1.73 sqM) Est GFR (CKD-EPI)NonAf >90 (>60 ml/min/1.73 sqM) Glucose 95 (74-99) mg/dL Plasma Lactic Acid Jonathan (0.7-2.0) mmol/L Calcium 8.4 (8.4-10.2) mg/dL Magnesium 1.6 (1.6-2.3) mg/dL Total Bilirubin 0.6 (0.2-1.3) mg/dL AST 45 H (14-36) U/L ALT 71 H (4-34) U/L Alkaline Phosphatase 78 (38-126) U/L Troponin I (0.000-0.034) ng/mL Total Protein 5.3 L (6.3-8.2) g/dL Albumin 2.6 L (3.5-5.0) g/dL Urine Color Urine Appearance (Clear) Urine pH (5.0-8.0) Ur Specific [place] (1.001-1.035) Urine Protein (Negative) Urine Glucose (UA) (Negative) Urine Ketones (Negative) Urine Blood (Negative) Urine Nitrite (Negative) Urine Bilirubin (Negative) Urine Urobilinogen (<2.0) mg/dL Ur Leukocyte Esterase (Negative) Urine RBC (0-5) /hpf Urine WBC (0-5) /hpf Urine WBC Clumps (None) /hpf Ur Squamous Epith Cells (0-4) /hpf Urine Bacteria (None) /hpf Urine Mucus (None) /hpf 10/21/23 10/21/23 10/21/23 Range/Units 16:22 16:22 17:42 WBC (3.8-10.6) k/uL RBC (3.80-5.40) m/uL Hgb (11.4-16.0) gm/dL Hct (34.0-46.0) % MCV (80.0-100.0) fL MCH (25.0-35.0) pg MCHC (31.0-37.0) g/dL RDW (11.5-15.5) % Plt Count (150-450) k/uL MPV Neutrophils % % Lymphocytes % % Monocytes % % Eosinophils % % Basophils % % Neutrophils # (1.3-7.7) k/uL Lymphocytes # (1.0-4.8) k/uL Monocytes # (0-1.0) k/uL Eosinophils # (0-0.7) k/uL Basophils # (0-0.2) k/uL Manual Slide Review PT (10.0-12.5) sec INR (<1.2) APTT (22.0-30.0) sec Sodium (137-145) mmol/L Potassium (3.5-5.1) mmol/L Chloride (98-107) mmol/L Carbon Dioxide (22-30) mmol/L Anion Gap mmol/L BUN (7-17) mg/dL Creatinine (0.52-1.04) mg/dL Est GFR (CKD-EPI)AfAm (>60 ml/min/1.73 sqM) Est GFR (CKD-EPI)NonAf (>60 ml/min/1.73 sqM) Glucose (74-99) mg/dL Plasma Lactic Acid Jonathan 1.3 (0.7-2.0) mmol/L Calcium (8.4-10.2) mg/dL Magnesium (1.6-2.3) mg/dL Total Bilirubin (0.2-1.3) mg/dL AST (14-36) U/L ALT (4-34) U/L Alkaline Phosphatase (38-126) U/L Troponin I <0.012 (0.000-0.034) ng/mL Total Protein (6.3-8.2) g/dL Albumin (3.5-5.0) g/dL Urine Color Light Yellow Urine Appearance Turbid H (Clear) Urine pH 7.0 (5.0-8.0) Ur Specific [place] 1.013 (1.001-1.035) Urine Protein 1+ H (Negative) Urine Glucose (UA) Negative (Negative) Urine Ketones 1+ H (Negative) Urine Blood Small H (Negative) Urine Nitrite Negative (Negative) Urine Bilirubin Negative (Negative) Urine Urobilinogen <2.0 (<2.0) mg/dL Ur Leukocyte Esterase Large H (Negative) Urine RBC >182 H (0-5) /hpf Urine WBC >182 H (0-5) /hpf Urine WBC Clumps Many H (None) /hpf Ur Squamous Epith Cells 1 (0-4) /hpf Urine Bacteria Occasional H (None) /hpf Urine Mucus Rare H (None) /hpf Disposition Clinical Impression: Breast cancer, UTI (urinary tract infection) Disposition: HOME SELF-CARE Condition: Fair Instructions (If sedation given, give patient instructions): Urinary Tract Infection in Women (ED) Prescriptions: Cephalexin [Keflex] 500 mg PO Q12HR #20 cap Is patient prescribed a controlled substance at d/c from ED?: No Referrals: None,Stated [Primary Care Provider] - 1-2 days Time of Disposition: 18:39
--- NOTE | 2023-10-21 16:38 | XR ---
EXAMINATION: XR chest 2V: 10/21/2023 4:31 PM CLINICAL INDICATION: Weakness TECHNIQUE: Departmental protocol COMPARISON: 10/17/2023 FINDINGS: Left subclavian port catheter tip superimposed of the mid SVC. EKG leads noted. 3.5 cm JENN mass is stable. Overall lung inflation pattern similar to the prior study 10/17/2023. The pleural spaces are negative. The cardiac silhouette appears top normal in size, with evidence of left atrial enlargement noted. The skeletal structures and soft tissues are negative for acute findings. IMPRESSION: Stable abnormalities as seen on 10/17/2023.
[2023-10-21 16:42] LABS: Basophils % (A) 0 %; Eosinophils # (A) 0.1 k/uL (0-0.7); Eosinophils % (A) 1 %; HCT 29.4 % (34.0-46.0); HGB 9.9 gm/dL (11.4-16.0); Lymphocytes % (A) 12 %; MCH 33.1 pg (25.0-35.0); MCHC 33.6 g/dL (31.0-37.0); MCV 98.6 fL (80.0-100.0); Mean Platelet Volume 8.6; Monocytes # (A) 0.3 k/uL (0-1.0); Monocytes % (A) 3 %; Neutrophils # (A) 6.8 k/uL (1.3-7.7); Neutrophils % (A) 83 %; RBC 2.98 m/uL (3.80-5.40); RDW 14.9 % (11.5-15.5); WBC 8.2 k/uL (3.8-10.6)
[2023-10-21 16:44] LABS: ALT 71 U/L (4-34); AST 45 U/L (14-36); African American GFR (CKD) >90 (>60 ml/min/1.73 sqM); Albumin 2.6 g/dL (3.5-5.0); Alkaline Phosphatase 78 U/L (38-126); Anion Gap 6 mmol/L; Blood Urea Nitrogen 5 mg/dL (7-17); Calcium 8.4 mg/dL (8.4-10.2); Carbon Dioxide 25 mmol/L (22-30); Chloride 105 mmol/L (98-107); Glucose 95 mg/dL (74-99); Magnesium 1.6 mg/dL (1.6-2.3); Non-African American GFR(CKD) >90 (>60 ml/min/1.73 sqM); Sodium 136 mmol/L (137-145); Total Bilirubin 0.6 mg/dL (0.2-1.3); Total Protein 5.3 g/dL (6.3-8.2)
[2023-10-21 16:47] LABS: INR 1.2 (<1.2); Partial Thromboplastin Time 22.3 sec (22.0-30.0); Prothrombin Time 12.6 sec (10.0-12.5)
[2023-10-21 16:48] LABS: Potassium 4.1 mmol/L (3.5-5.1)
[2023-10-21 17:01] LABS: Platelet Count 93 k/uL (150-450)
[2023-10-21 17:59] LABS: Appearance,Urine Turbid (Clear); Bacteria,Urine Occasional /hpf; Bilirubin,Urine Negative (Negative); Blood,Urine Small (Negative); Color,Urine Light Yellow; Glucose,Urine (UA) Negative (Negative); Ketones,Urine 1+ (Negative); Leukocyte Esterase,Urine Large (Negative); Mucus,Urine Rare /hpf; Nitrite,Urine Negative (Negative); Protein,Urine 1+ (Negative); RBC,Urine >182 /hpf (0-5); Specific Gravity,Urine 1.013 (1.001-1.035); Squamous Epithelial Cell,Urine 1 /hpf (0-4); Urobilinogen,Urine <2.0 mg/dL (<2.0); WBC,Urine >182 /hpf (0-5)
[2023-10-21 19:19] VITALS: BP 111/68; PULSE 80; RESP 20; TEMP 98.6
== END 2023-10-21 18:50 | disposition home or self-care (01) ==
LOC: EC 15:39
DX: N39.0 Urinary tract infection, site not specified (principal); C50.919 Malignant neoplasm of unspecified site of unspecified female breast; I45.10 Unspecified right bundle-branch block; D64.9 Anemia, unspecified; F17.200 Nicotine dependence, unspecified, uncomplicated; Z88.8 Allergy status to other drugs, medicaments and biological substances
CPT/HCPCS: 36415; 71046; 80053; 81001; 83605; 83735; 84484; 85025; 85610; 85730; 93005; 99284

== ENCOUNTER → 2023-11-09 | Outpatient (CLI) | payer OTHER ==
[2023-11-09 12:10] LABS: African American GFR (CKD) >90 (>60 ml/min/1.73 sqM); Blood Urea Nitrogen 11 mg/dL (7-17); Non-African American GFR(CKD) >90 (>60 ml/min/1.73 sqM)
--- NOTE | 2023-11-16 11:17 | CT ---
EXAMINATION TYPE: CT ChestAbdPelvis w con CT DLP: 1583 mGycm, Automated exposure control for dose reduction was used. DATE OF EXAM: 11/09/2023 12:58 PM COMPARISON: 10/06/2023, 09/08/2023. CLINICAL INDICATION:Female, 48 years old with history of C50.419 MALIG NEOPLASM OF UPPER-OUTER QUADRA NT OF; PHH, ca f/u Technique: CT ChestAbdPelvis w con; Multiple axial images were obtained. Two-dimensional coronal and sagittal reconstructions were obtained. Contrast used:100ml mL of Isovue 300 with IV Contrast, Oral contrast used: with Oral Contrast Findings: CHEST: LUNGS/ PLEURA: Left upper lung pulmonary mass measuring 35 x 32 mm. Which is not significantly changed to mildly dec reased in size compared to 10/15/2023. Additional scattered likely metastatic disease throughout the lungs including right upper lung 9 mm, right lower lobe 21 mm, left lower lobe 16 mm nodules as examples. Majority of these nodules are incr eased in size compared to immediate prior 10/15/2023. AIRWAY: Patent and unremarkable. HEART: Size within normal limits. Epicardial fat lymph nodes on the right measuring up to 6 mm are in determinate. MEDIASTINUM: AP window lymph node with central low-attenuation suggesting necrosis measuring 12 mm in short axis. Prevascular space lymph node measuring up to 18 mm in short axis. The AP window lymph no de has increased in size and bulkiness previously measuring 10 mm in short axis. VASCULATURE: No aortic aneurysm. Left chest wall Dcbtne-l-Pnvs tip terminating at the left brachioce phalic vein/superior vena cava confluence. MUSCULOSKELETAL: No acute osseous abnormalities. SOFT TISSUES/LYMPH NODES: Right breast soft tissue abnormality with skin thickening. LOWER NECK: No significant findings. ABDOMEN: ABDOMEN LIVER: Liver mass measuring 7.8 x 5.1 cm. This is not significantly changed from prior given differen gavino in measuring technique and timing of contrast Diffuse low-attenuation to the liver, GALLBLADDER AND BILE DUCTS: Unremarkable. PANCREAS: Unremarkable. SPLEEN: Unremarkable. ADRENAL GLANDS: Unremarkable. KIDNEYS AND URETERS: No evidence of hydronephrosis or renal calculus. The ureters are unremarkable. PELVIS BLADDER: Unremarkable REPRODUCTIVE: Unremarkable. ABDOMEN & PELVIS STOMACH AND BOWEL: No evidence of bowel obstruction. PERITONEUM: No evidence of pneumoperitoneum or free fluid. VASCULATURE: No evidence of aortic aneurysm. MUSCULOSKELETAL: No acute osseous abnormalities LYMPH NODES: No gross evidence for lymphadenopathy. SOFT TISSUE/ABDOMINAL WALL: Unremarkable IMPRESSION: Findings suggestive of progression of disease with increasing size of pulmonary nodules and AP window lymph node with mild decrease in size of left upper lung dominant pulmonary mass compared to immedia te prior but larger compared to 09/08/2023. Additionally a right epicardial fat lymph node is also mor e pronounced compared to immediate prior. Liver lesion is felt to be similar given differences in joseph us timing compared to immediate prior but larger than 09/08/2023.
== END | disposition home or self-care (01) ==
LOC: RADCTMAIN 10:23
PROVIDERS: ATTEND Internal Medicine Hematology & Oncology
DX: C50.419 Malignant neoplasm of upper-outer quadrant of unspecified female breast (principal); G89.3 Neoplasm related pain (acute) (chronic); I82.812 Embolism and thrombosis of superficial veins of left lower extremity; Z71.3 Dietary counseling and surveillance
CPT/HCPCS: 82565; 84520; 71260; 74177; 36415; Q9967

== ENCOUNTER → 2023-11-09 | Outpatient (CLI) | payer OTHER ==
--- NOTE | 2023-11-10 16:59 | MR ---
EXAMINATION TYPE: MR brain wo/w con DATE OF EXAM: 11/09/2023 COMPARISON: 10/18/2023 HISTORY: Malignant neoplasm CONTRAST: Performed utilizing 10.5 mL intravenous Gadavist gadolinium contrast. TECHNIQUE: Multiplanar, multiecho imaging on a 3.0 Destiny magnet is performed through the brain. Stud y is performed within 24 hours of arrival to the hospital. The craniovertebral junction is normal. The pituitary is normal. Diffusion-weighted imaging is performed. There is a punctate hyperintensity within the posterior med ial wall of the left lateral ventricle, series 303 image 168. This is an interval change. This is not visualized on the T2-weighted sequences. Subcortical vasogenic edema may be in the occipital regions bilaterally the right prior occipital reg ion. Small hyperintensities are within the posterior right occipital lobes and within the parietal-oc cipital lobes on the right. Following contrast administration punctate area of enhancement may be within the right cerebellum. Se saul 701 image 40. This was present previously. An additional area of hyperintensity is in the medial right cerebellum, series 701 image 47. This may be smaller than the small ring-enhancing lesion whic h was present at this location previously. A ring lesion is in the subcortical white matter right occipital parietal region, series 701 image 12 0. This was present previously and appear stable. A right posterior parietal cortical lesion was pres ent previously. Series 701 image 124. Tiny cortical lesion may been present previously, series 701 image 120 in the right parietal region s mall area of enhancement in the left occipital cortex may be present series 701 image 121 present pre viously. Ventricles and sulci are appropriate for the patient age. Mastoid air cells are opacified. Correlate for bilateral mastoiditis. IMPRESSION: 1. Stable appearing small ring-enhancing lesions within the brain compatible with metastasis. Finding s appear stable from the comparison of 10/18/2023.
== END | disposition home or self-care (01) ==
LOC: RADMRIMAIN 10:25
PROVIDERS: ATTEND Radiology Radiation Oncology
DX: G93.89 Other specified disorders of brain (principal); C79.31 Secondary malignant neoplasm of brain; C50.211 Malignant neoplasm of upper-inner quadrant of right female breast; F17.210 Nicotine dependence, cigarettes, uncomplicated
CPT/HCPCS: 70553; A9585

== ENCOUNTER → 2024-01-07 | Outpatient (CLI) | payer OTHER ==
[2024-01-08 01:55] LABS: HCT 35.9 % (37.2-46.3); HGB 11.2 g/dL (12.0-15.0); MCH 32.9 pg (27.0-32.0); MCHC 31.2 g/dL (32.0-37.0); MCV 105.6 FL (80.0-97.0); Mean Platelet Volume 10.8 FL (9.5-12.2); NRBC Per 100 WBC 0 X 10*3/uL (0.00-0.01); Platelet Count 220 X 10*3/uL (140-440); WBC 9.53 X 10*3/uL (4.50-10.00)
[2024-01-08 02:29] LABS: Basophils # (A) 0.04 X 10*3/uL (0.00-0.10); Basophils % (A) 0.4 %; Eosinophils # (A) 0.05 X 10*3/uL (0.04-0.35); Eosinophils % (A) 0.5 %; Lymphocytes # (A) 1.37 X 10*3/uL (0.90-5.00); Lymphocytes % (A) 14.4 %; Monocytes # (A) 0.65 X 10*3/uL (0.20-1.00); Monocytes % (A) 6.8 %; Neutrophils # (A) 7.38 X 10*3/uL (1.80-7.70); Neutrophils % (A) 77.5 %
[2024-01-08 02:54] LABS: ALT 16 U/L (8-44); AST 19 U/L (13-35); Albumin 2.7 g/dL (3.8-4.9); Albumin/Globulin Ratio 0.79 Ratio (1.60-3.17); Alkaline Phosphatase 136 U/L (41-126); Blood Urea Nitrogen 11.5 mg/dL (9.0-27.0); Calcium 8.8 mg/dL (8.7-10.3); Carbon Dioxide 23.4 mmol/L (21.6-31.8); Chloride 104 mmol/L (96-109); Globulin 3.4 g/dL (1.6-3.3); Glucose 101 mg/dL (70-110); Potassium 3.8 mmol/L (3.5-5.5); Sodium 140 mmol/L (135-145); Total Bilirubin 0.4 mg/dL (0.3-1.2); Total Protein 6.1 g/dL (6.2-8.2)
== END | disposition home or self-care (01) ==
LOC: LABWHC1 15:43
PROVIDERS: ATTEND Internal Medicine Hematology & Oncology
DX: C50.419 Malignant neoplasm of upper-outer quadrant of unspecified female breast (principal); G89.3 Neoplasm related pain (acute) (chronic); I82.812 Embolism and thrombosis of superficial veins of left lower extremity; Z71.3 Dietary counseling and surveillance
CPT/HCPCS: 36415; 80053; 85025

== ENCOUNTER 2024-03-02 17:26 | Inpatient (IN) | payer OTHER ==
[~2024-03-02 17:26] MED LIST changes: -ALBUTEROL NEB (CONC) 2.5 MG/0.5 ML INHALATION ONE; +ALPRAZolam 1 MG TAB ONE; +APIXABAN 5 MG TAB ONE; +DEXAMETHASONE SOD PHOSPHATE 10 MG/ML 1 ML VIAL ONE; -DEXAMETHASONE SOD PHOSPHATE 4 MG/ML 1 ML VIAL IV ONE; +HYDROcodone/APAP 5-325MG 1 EACH TAB ONE; +HYDROmorphone 0.5 MG/0.5 ML SYRINGE ONE; -LACTATED RINGERS 1,000 ML IV SCH; -LIDOCAINE 1% (10MG/ML) FOR IV START INTRADERMA PRN; -LIDOCAINE 2% (PF) 20 MG/ML 5 ML VIAL INHALATION ONE; -LIDOCAINE VISCOUS 300 MG/15 ML CUP MUCOUS MEM ONE; -ONDANSETRON 4 MG/2 ML VIAL IVP ONE
[2024-03-02] MEDS ORDERED: DEXAMETHASONE SOD PHOSPHATE 4 MG/ML 1 ML VIAL ONE (19:02)
[2024-03-02] MEDS ORDERED: HEPARIN SODIUM,PORCINE 5,000 UNIT/ML 1 ML VIAL ONE (20:05)
[2024-03-02] MEDS ORDERED: PANTOPRAZOLE 40 MG/10 ML VIAL ONE (20:05)
[2024-03-02] MEDS ORDERED: APIXABAN 5 MG TAB ONE (20:07)
[2024-03-02] MEDS ORDERED: levETIRAcetam 500 MG TAB ONE (20:08)
[2024-03-02] MEDS ORDERED: ALPRAZolam 1 MG TAB ONE (20:09)
[2024-03-02] MEDS ORDERED: HYDROcodone/APAP 5-325MG 1 EACH TAB ONE (20:09)
[2024-03-02] MEDS ORDERED: ceFAZolin 10 GM VIAL IVPB ONE (23:59)
[2024-03-02] MEDS ORDERED: SODIUM CHLORIDE 0.9% 1,000 ML BAG ONE (23:59)
[2024-03-02] MEDS ORDERED: SODIUM CHLORIDE 0.9% 50 ML BAG ONE (23:59)
[2024-03-03] MEDS ORDERED: HYDROcodone/APAP 5-325MG 1 EACH TAB ONE ×3 (02:59→18:45)
[2024-03-03] MEDS ORDERED: PANTOPRAZOLE 40 MG/10 ML VIAL ONE ×2 (08:11→22:55)
[2024-03-03] MEDS ORDERED: APIXABAN 5 MG TAB ONE ×2 (08:12→22:55)
[2024-03-03] MEDS ORDERED: levETIRAcetam 500 MG TAB ONE ×2 (08:13→22:55)
[2024-03-03] MEDS ORDERED: HEPARIN SODIUM,PORCINE 5,000 UNIT/ML 1 ML VIAL ONE ×2 (08:14→22:54)
[2024-03-03] MEDS ORDERED: DEXAMETHASONE SOD PHOSPHATE 4 MG/ML 1 ML VIAL ONE ×3 (12:34→23:59)
[2024-03-03] MEDS ORDERED: INSULIN ASPART (NovoLOG) 100 UNIT/ML VIAL SQ ONE ×2 (12:34→23:59)
[2024-03-03] MEDS ORDERED: PIPERACILLIN-TAZOBACTAM 3.375 GM VIAL ONE (22:55)
[2024-03-03] MEDS ORDERED: ALPRAZolam 1 MG TAB ONE (22:57)
[2024-03-03] MEDS ORDERED: SODIUM CHLORIDE 0.9% 100 ML BAG ONE (23:59)
[2024-03-03] MEDS ORDERED: SODIUM CHLORIDE 0.9% 1,000 ML BAG ONE (23:59)
[2024-03-03] MEDS ORDERED: ceFAZolin 10 GM VIAL IVPB ONE (23:59)
[2024-03-04] MEDS ORDERED: HYDROmorphone 1 MG/ML 1 ML SYRINGE ONE ×4 (00:04→20:41)
[2024-03-04] MEDS ORDERED: DEXAMETHASONE SOD PHOSPHATE 4 MG/ML 1 ML VIAL ONE ×4 (00:05→17:24)
[2024-03-04] MEDS ORDERED: PIPERACILLIN-TAZOBACTAM 3.375 GM VIAL ONE ×3 (04:32→20:42)
[2024-03-04] MEDS ORDERED: levETIRAcetam 500 MG TAB ONE ×2 (09:27→20:22)
[2024-03-04] MEDS ORDERED: HEPARIN SODIUM,PORCINE 5,000 UNIT/ML 1 ML VIAL ONE ×2 (09:27→20:22)
[2024-03-04] MEDS ORDERED: APIXABAN 5 MG TAB ONE ×2 (09:27→20:20)
[2024-03-04] MEDS ORDERED: PANTOPRAZOLE 40 MG/10 ML VIAL ONE ×2 (09:28→20:24)
[2024-03-04] MEDS ORDERED: PANTOPRAZOLE 40 MG TABLET PO ONE (20:18)
[2024-03-04] MEDS ORDERED: ALPRAZolam 1 MG TAB ONE (20:20)
[2024-03-04] MEDS ORDERED: COLLAGENASE 250 UNIT/GM OINTMENT 30 GM TUBE TOPICAL ONE (23:59)
[2024-03-04] MEDS ORDERED: LORazepam 0.5 MG TAB ONE (23:59)
[2024-03-04] MEDS ORDERED: SODIUM CHLORIDE 0.9% 1,000 ML BAG ONE (23:59)
[2024-03-04] MEDS ORDERED: SODIUM CHLORIDE 0.9% 100 ML BAG ONE (23:59)
[2024-03-05] MEDS ORDERED: PIPERACILLIN-TAZOBACTAM 3.375 GM VIAL ONE ×3 (03:58→20:04)
[2024-03-05] MEDS ORDERED: DEXAMETHASONE SOD PHOSPHATE 4 MG/ML 1 ML VIAL ONE ×5 (04:33→23:25)
[2024-03-05] MEDS ORDERED: HYDROmorphone 1 MG/ML 1 ML SYRINGE ONE ×2 (04:44→15:08)
[2024-03-05] MEDS ORDERED: HEPARIN SODIUM,PORCINE 5,000 UNIT/ML 1 ML VIAL ONE ×2 (08:08→20:03)
[2024-03-05] MEDS ORDERED: APIXABAN 5 MG TAB ONE ×2 (08:08→20:03)
[2024-03-05] MEDS ORDERED: levETIRAcetam 500 MG TAB ONE ×2 (08:09→20:03)
[2024-03-05] MEDS ORDERED: PANTOPRAZOLE 40 MG/10 ML VIAL ONE ×2 (08:10→20:04)
[2024-03-05] MEDS ORDERED: HYDROcodone/APAP 5-325MG 1 EACH TAB ONE ×3 (11:58→22:28)
[2024-03-05] MEDS ORDERED: LORazepam 0.5 MG TAB ONE (12:09)
[2024-03-05] MEDS ORDERED: ALPRAZolam 1 MG TAB ONE (20:09)
[2024-03-05] MEDS ORDERED: SODIUM CHLORIDE 0.9% 100 ML BAG ONE (23:59)
[2024-03-06] MEDS ORDERED: HYDROmorphone 1 MG/ML 1 ML SYRINGE ONE ×3 (00:25→17:52)
[2024-03-06] MEDS ORDERED: PIPERACILLIN-TAZOBACTAM 3.375 GM VIAL ONE ×3 (03:06→21:23)
[2024-03-06] MEDS ORDERED: DEXAMETHASONE SOD PHOSPHATE 4 MG/ML 1 ML VIAL ONE ×4 (06:00→23:58)
[2024-03-06] MEDS ORDERED: HEPARIN SODIUM,PORCINE 5,000 UNIT/ML 1 ML VIAL ONE (09:01)
[2024-03-06] MEDS ORDERED: APIXABAN 5 MG TAB ONE ×2 (09:01→21:22)
[2024-03-06] MEDS ORDERED: PANTOPRAZOLE 40 MG/10 ML VIAL ONE ×2 (09:02→21:23)
[2024-03-06] MEDS ORDERED: POTASSIUM CHLORIDE ER 10 MEQ TAB.ER.PRT PO ONE (09:02)
[2024-03-06] MEDS ORDERED: levETIRAcetam 500 MG TAB ONE ×2 (09:02→21:22)
[2024-03-06] MEDS ORDERED: HYDROcodone/APAP 5-325MG 1 EACH TAB ONE (09:05)
[2024-03-06] MEDS ORDERED: ALPRAZolam 1 MG TAB ONE (21:24)
[2024-03-06] MEDS ORDERED: SODIUM CHLORIDE 0.9% 100 ML BAG ONE (23:59)
[2024-03-07] MEDS ORDERED: PIPERACILLIN-TAZOBACTAM 3.375 GM VIAL ONE ×3 (04:03→20:07)
[2024-03-07] MEDS ORDERED: DEXAMETHASONE SOD PHOSPHATE 4 MG/ML 1 ML VIAL ONE ×2 (06:13→10:23)
[2024-03-07] MEDS ORDERED: APIXABAN 5 MG TAB ONE ×2 (10:23→21:00)
[2024-03-07] MEDS ORDERED: POTASSIUM CHLORIDE ER 10 MEQ TAB.ER.PRT PO ONE (10:24)
[2024-03-07] MEDS ORDERED: PANTOPRAZOLE 40 MG/10 ML VIAL ONE ×2 (10:25→20:59)
[2024-03-07] MEDS ORDERED: levETIRAcetam 500 MG TAB ONE (10:27)
[2024-03-07] MEDS ORDERED: HYDROmorphone 1 MG/ML 1 ML SYRINGE ONE ×2 (10:39→19:50)
[2024-03-07] MEDS ORDERED: ALPRAZolam 1 MG TAB ONE (21:00)
[2024-03-07] MEDS ORDERED: SODIUM CHLORIDE 0.9% 100 ML BAG ONE (23:59)
[2024-03-08] MEDS ORDERED: DEXAMETHASONE SOD PHOSPHATE 4 MG/ML 1 ML VIAL ONE ×4 (00:08→17:47)
[2024-03-08] MEDS ORDERED: PIPERACILLIN-TAZOBACTAM 3.375 GM VIAL ONE ×3 (03:52→20:04)
[2024-03-08] MEDS ORDERED: HYDROmorphone 1 MG/ML 1 ML SYRINGE ONE ×4 (04:36→17:47)
[2024-03-08] MEDS ORDERED: POTASSIUM CHLORIDE ER 10 MEQ TAB.ER.PRT PO ONE (08:05)
[2024-03-08] MEDS ORDERED: PANTOPRAZOLE 40 MG/10 ML VIAL ONE ×2 (08:05→19:57)
[2024-03-08] MEDS ORDERED: APIXABAN 5 MG TAB ONE (08:05)
[2024-03-08] MEDS ORDERED: levETIRAcetam 500 MG TAB ONE (08:07)
[2024-03-08] MEDS ORDERED: ALPRAZolam 1 MG TAB ONE (19:57)
[2024-03-08] MEDS ORDERED: SENNOSIDES 8.6 MG TAB ONE (22:54)
[2024-03-08] MEDS ORDERED: SODIUM CHLORIDE 0.9% 100 ML BAG ONE (23:59)
[2024-03-09] MEDS ORDERED: DEXAMETHASONE SOD PHOSPHATE 4 MG/ML 1 ML VIAL ONE ×3 (00:43→23:59)
[2024-03-09] MEDS ORDERED: HYDROmorphone 1 MG/ML 1 ML SYRINGE ONE ×2 (00:48→09:12)
[2024-03-09] MEDS ORDERED: POTASSIUM CHLORIDE ER 10 MEQ TAB.ER.PRT PO ONE (09:01)
[2024-03-09] MEDS ORDERED: PANTOPRAZOLE 40 MG/10 ML VIAL ONE ×2 (09:01→20:59)
[2024-03-09] MEDS ORDERED: SENNOSIDES 8.6 MG TAB ONE (09:02)
[2024-03-09] MEDS ORDERED: PIPERACILLIN-TAZOBACTAM 3.375 GM VIAL ONE ×3 (12:45→23:59)
[2024-03-09] MEDS ORDERED: ALPRAZolam 1 MG TAB ONE ×2 (14:14→20:58)
[2024-03-09] MEDS ORDERED: LACTATED RINGERS 1,000 ML BAG ONE (16:00)
[2024-03-09] MEDS ORDERED: LIDOCAINE 1% INJ 10MG/ML (20 ML MDV) ONE (16:11)
[2024-03-09] MEDS ORDERED: fentaNYL (PF) 50 MCG/ML 2 ML AMP ONE (16:11)
[2024-03-09] MEDS ORDERED: HYDROmorphone (PF) 1 MG/ML ONE (16:11)
[2024-03-09] MEDS ORDERED: PROPOFOL 10 MG/ML 20 ML VIAL IV ONE (16:11)
[2024-03-09] MEDS ORDERED: MIDAZOLAM 2 MG/2 ML VIAL ONE (16:11)
[2024-03-09] MEDS ORDERED: HYDROmorphone 0.5 MG/0.5 ML SYRINGE ONE ×3 (17:20→17:53)
[2024-03-09] MEDS ORDERED: SODIUM CHLORIDE 0.9% 1,000 ML BAG ONE (23:59)
[2024-03-09] MEDS ORDERED: SODIUM CHLORIDE 0.9% 100 ML BAG ONE (23:59)
[2024-03-10] MEDS ORDERED: ALPRAZolam 1 MG TAB ONE ×4 (00:04→20:44)
[2024-03-10] MEDS ORDERED: HYDROmorphone 1 MG/ML 1 ML SYRINGE ONE ×5 (00:04→20:44)
[2024-03-10] MEDS ORDERED: DEXAMETHASONE SOD PHOSPHATE 4 MG/ML 1 ML VIAL ONE ×2 (05:51→12:34)
[2024-03-10] MEDS ORDERED: HYDROcodone/APAP 5-325MG 1 EACH TAB ONE ×3 (05:51→18:19)
[2024-03-10] MEDS ORDERED: SENNOSIDES 8.6 MG TAB ONE ×2 (09:35→20:42)
[2024-03-10] MEDS ORDERED: POTASSIUM CHLORIDE ER 10 MEQ TAB.ER.PRT PO ONE ×2 (09:35→09:52)
[2024-03-10] MEDS ORDERED: PANTOPRAZOLE 40 MG/10 ML VIAL ONE ×2 (09:36→20:43)
[2024-03-10] MEDS ORDERED: PIPERACILLIN-TAZOBACTAM 3.375 GM VIAL ONE ×2 (12:34→20:42)
[2024-03-10] MEDS ORDERED: polyethylene glycoL 3350 17 GM POWD.PACK ONE (16:30)
[2024-03-10] MEDS ORDERED: DEXAMETHASONE SOD PHOSPHATE 10 MG/ML 1 ML VIAL ONE (17:57)
[2024-03-10] MEDS ORDERED: APIXABAN 5 MG TAB ONE (20:52)
[2024-03-10] MEDS ORDERED: SODIUM CHLORIDE 0.9% 100 ML BAG ONE (23:59)
[2024-03-11] MEDS ORDERED: DEXAMETHASONE SOD PHOSPHATE 4 MG/ML 1 ML VIAL ONE ×3 (00:19→23:59)
[2024-03-11] MEDS ORDERED: PIPERACILLIN-TAZOBACTAM 3.375 GM VIAL ONE ×2 (04:10→23:59)
[2024-03-11] MEDS ORDERED: HYDROcodone/APAP 5-325MG 1 EACH TAB ONE (05:51)
[2024-03-11] MEDS ORDERED: ALPRAZolam 1 MG TAB ONE ×3 (05:51→23:59)
[2024-03-11] MEDS ORDERED: APIXABAN 5 MG TAB ONE ×2 (08:10→23:59)
[2024-03-11] MEDS ORDERED: PANTOPRAZOLE 40 MG/10 ML VIAL ONE ×2 (08:11→23:59)
[2024-03-11] MEDS ORDERED: POTASSIUM CHLORIDE ER 10 MEQ TAB.ER.PRT PO ONE ×2 (08:11→23:59)
[2024-03-11] MEDS ORDERED: SENNOSIDES 8.6 MG TAB ONE ×2 (08:11→23:59)
[2024-03-11] MEDS ORDERED: HYDROmorphone 1 MG/ML 1 ML SYRINGE ONE ×3 (08:19→23:59)
[2024-03-11] MEDS ORDERED: MAGNESIUM SULFATE-D5W PMX 1 GM/100 ML BAG IVPB ONE (23:59)
[2024-03-11] MEDS ORDERED: SODIUM CHLORIDE 0.9% 100 ML BAG ONE (23:59)
[2024-03-12] MEDS ORDERED: PROCHLORPERAZINE 10 MG TAB PO PRN
[2024-03-12] MEDS ORDERED: LORazepam 0.5 MG TAB PO PRN
[2024-03-12] MEDS ORDERED: IBUPROFEN 400 MG TAB PO PRN
[2024-03-12] MEDS ORDERED: diphenhydrAMINE 50 MG CAP PO PRN
[2024-03-12] MEDS ORDERED: ACETAMINOPHEN TAB 325 MG TAB PO PRN
[2024-03-12] MEDS ORDERED: ONDANSETRON 4 MG/2 ML VIAL IVP PRN
[2024-03-12] MEDS: SODIUM CHLORIDE 0.9% 1,000 ML IV SCH (02:53)
[2024-03-12] MEDS: DEXAMETHASONE SOD PHOSPHATE 4 MG/ML 1 ML VIAL IVP SCH (02:53)
[2024-03-12] MEDS: HYDROmorphone 1 MG/ML 1 ML SYRINGE IVP PRN (05:00)
[2024-03-12] MEDS: PIPERACILLIN-TAZOBACTAM 3.375 GM in SODIUM CHLORIDE 0.9% 100 ML IVPB SCH (05:27)
[2024-03-12 05:34] LABS: African American GFR (CKD) >90 (>60 ml/min/1.73 sqM); Anion Gap 2 mmol/L; Blood Urea Nitrogen 20 mg/dL (7-17); Calcium 8.9 mg/dL (8.4-10.2); Carbon Dioxide 29 mmol/L (22-30); Chloride 104 mmol/L (98-107); Glucose 115 mg/dL (74-99); Magnesium 1.8 mg/dL (1.6-2.3); Non-African American GFR(CKD) >90 (>60 ml/min/1.73 sqM); Potassium 3.8 mmol/L (3.5-5.1); Sodium 135 mmol/L (137-145)
[2024-03-12 05:36] LABS: Basophils % (A) 0 %; Eosinophils % (A) 0 %; HGB 10.7 gm/dL (11.4-16.0); Hypochromasia Slight; Lymphocytes # (A) 0.7 k/uL (1.0-4.8); Lymphocytes % (A) 4 %; MCH 31.4 pg (25.0-35.0); MCHC 32.5 g/dL (31.0-37.0); MCV 96.7 fL (80.0-100.0); Mean Platelet Volume 7.9; Monocytes # (A) 0.7 k/uL (0-1.0); Monocytes % (A) 4 %; Neutrophils # (A) 15.5 k/uL (1.3-7.7); Neutrophils % (A) 92 %; Platelet Count 299 k/uL (150-450); RBC 3.41 m/uL (3.80-5.40); RDW 14.5 % (11.5-15.5); WBC 16.9 k/uL (3.8-10.6)
[2024-03-12] MEDS: APIXABAN 5 MG TAB PO SCH (09:17)
[2024-03-12] MEDS: ALPRAZolam 1 MG TAB PO SCH (09:17)
[2024-03-12] MEDS: PANTOPRAZOLE 40 MG/10 ML VIAL IVP SCH (09:17)
[2024-03-12] MEDS: POTASSIUM CHLORIDE ER 10 MEQ TAB.ER.PRT PO SCH (09:18)
[2024-03-12] MEDS: SENNOSIDES 8.6 MG TAB PO SCH (09:18)
--- NOTE | 2024-03-12 10:58 | P.PN ---
Progress Note - Text Progress Note Date: 03/12/24 Patient seen and examined. ALIZAO. Pain is well controlled General-NAD Chest- Dressing C/D/I, no purulence noted 48 year old female s/p Debridement Right Breast - Local wound care by Nursing and Wound Care - Continue Antibiotics - Pain Control - No further debridement planned
[2024-03-12] MEDS: polyethylene glycoL 3350 17 GM POWD.PACK PO PRN (13:27)
--- NOTE | 2024-03-12 15:14 | P.PN ---
Subjective Progress Note Date: 03/12/24 This is a 48 year old female with medical history of breast cancer and smoking. Patient came in with concern for chest wall infection on the right side. Patient also presented with altered mental status. Brain CT revealed vasogenic edema and mass and patient is currently being followed by oncology and rad/onc underwent brain radiation on Wednesday and scheduled to undergo radiation again on Wednesday. She had surgical debridement of the right chest wall with cultures showing E. Coli and she continues on IV zosyn for this with ID following closely. Patient is having bowel movements now. She continues on IV decadron. Plan is for rehab when medically stable. Review of Systems Constitutional: Denied any fatigue denied any fever. Cardio vascular: denied any chest pain, palpitations Gastrointestinal: denied any nausea, vomiting, diarrhea Pulmonary: Denied any shortness of breath cough Neurologic denied any new focal deficits All inpatient medications were reviewed and appropriate changes in these med ications as dictated in the interval history and assessment and plan. PHYSICAL EXAMINATION: GENERAL: The patient is alert and oriented x3, not in any acute distress. Well developed, well nourished. Fatigued, ill appearing HEENT: Pupils are round and equally reacting to light. EOMI. No scleral icterus. No conjunctival pallor. Normocephalic, atraumatic. No pharyngeal erythema. No thyromegaly. CARDIOVASCULAR: S1 and S2 present. No murmurs, rubs, or gallops. PULMONARY: Chest is clear to auscultation, no wheezing or crackles. ABDOMEN: Soft, nontender, nondistended, normoactive bowel sounds. No palpable organomegaly. MUSCULOSKELETAL: No joint swelling or deformity. EXTREMITIES: No cyanosis, clubbing, or pedal edema. NEUROLOGICAL: Gross neurological examination did not reveal any focal deficits. Diffusely weak SKIN: No rashes. Right chest wall wound dressing intact Assessment -Metastatic stage IV right breast cancer -Altered mental status due to vasogenic edema/ brain mets -Right chest well necrotic wound status post surgical debridement culture showing E.Coli -Hx of seizures as a child -Hx of anxiety -Generalized weakness and medical debility secondary to above -Chronic nicotine use GI prophylaxis Protonix DVT prophylaxis Eliquis Full Code Plan -Plan for radiation on Wednesday -Needs to see her main oncologist Dr. Plolock on discharge -Continue eliquis has been resumed post surgical debridement. -Continue mirilax and bowel regiment -Local wound care with santyl to the right chest wall -Continue IV zosyn -Continue IV decadron -Continue pain management. -Continue normal saline -Monitor labs The impression and plan of care has been dictated by Sarika Casas, Nurse Practitioner as directed. Dr. Brittany MD I have performed a history and physical examination and medical decision making of this patient, discussed the same with the dictator, and agree with the dictators assessment and plan as written, documented as a scribe. Based on total visit time, I have performed more than 50% of this visit. Objective - Vital Signs Vital signs: Vital Signs Temp 97.8 F 03/12/24 08:00 Pulse 91 03/12/24 08:00 Resp 16 03/12/24 08:00 BP 111/74 03/12/24 08:00 Pulse Ox 97 03/12/24 08:00 FiO2 Intake & Output 03/11/24 03/12/24 03/12/24 18:59 06:59 18:59 Output Total 1100 Balance -1100 Weight 75 kg Output: Urine 1100 Other: Voiding Method Indwelling Catheter Indwelling Catheter - Labs CBC & Chem 7: 03/12/24 04:00 03/12/24 04:00 Labs: Abnormal Lab Results - Last 24 Hours (Table) 03/12/24 03/12/24 Range/Units 04:00 04:00 WBC 16.9 H (3.8-10.6) k/uL RBC 3.41 L (3.80-5.40) m/uL Hgb 10.7 L (11.4-16.0) gm/dL Hct 33.0 L (34.0-46.0) % Neutrophils # 15.5 H (1.3-7.7) k/uL Lymphocytes # 0.7 L (1.0-4.8) k/uL Sodium 135 L (137-145) mmol/L BUN 20 H (7-17) mg/dL Creatinine 0.47 L (0.52-1.04) mg/dL Glucose 115 H (74-99) mg/dL Assessment and Plan Time with Patient: Less than 30
[2024-03-12] MEDS: COLLAGENASE 250 UNIT/GM OINTMENT 30 GM TUBE TOPICAL SCH (16:13)
--- NOTE | 2024-03-12 21:44 | P.PN ---
Subjective Progress Note Date: 03/12/24 Principal diagnosis: Reason for follow-up is right chest wall wound and cellulitis Patient is a 48-year-old female with a past medical history significant for metastatic right breast cancer with initially presented to hospital with mental status changes noticed to have a significant wound to the right chest wall in this patient who is status post surgical debridement. On today's evaluation that is 03/12/2024,the patient denies any fever or any chills, patient is breathing comfortably on room air, the patient denies chest pain shortness of breath and no significant cough, patient denies abdominal pain, no nausea vomiting or diarrhea. Patient denies any worsening pain to the right chest wall. Patient white count is 16.9, creatinine 0.47 Objective - Vital Signs Vital signs: Vital Signs Temp 97.4 F L 03/12/24 14:00 Pulse 85 03/12/24 14:00 Resp 16 03/12/24 14:00 BP 124/81 03/12/24 14:00 Pulse Ox 100 03/12/24 14:00 FiO2 Intake & Output 03/11/24 03/12/24 03/12/24 18:59 06:59 18:59 Output Total 1100 750 Balance -1100 -750 Weight 75 kg Output: Urine 1100 750 Other: Voiding Method Indwelling Catheter Indwelling Catheter - Exam GENERAL DESCRIPTION: Middle-age female lying in bed in no distress RESPIRATORY SYSTEM: Unlabored breathing , decreased breath sounds at bases HEART: S1 S2 regular rate and rhythm , ABDOMEN: Soft , no tenderness Right chest wall wound is currently dressed no drainage - Labs CBC & Chem 7: 03/12/24 04:00 03/12/24 04:00 Labs: Abnormal Lab Results - Last 24 Hours (Table) 03/12/24 03/12/24 Range/Units 04:00 04:00 WBC 16.9 H (3.8-10.6) k/uL RBC 3.41 L (3.80-5.40) m/uL Hgb 10.7 L (11.4-16.0) gm/dL Hct 33.0 L (34.0-46.0) % Neutrophils # 15.5 H (1.3-7.7) k/uL Lymphocytes # 0.7 L (1.0-4.8) k/uL Sodium 135 L (137-145) mmol/L BUN 20 H (7-17) mg/dL Creatinine 0.47 L (0.52-1.04) mg/dL Glucose 115 H (74-99) mg/dL Assessment and Plan (1) Open wound of right chest wall Current Visit: Yes Status: Acute Code(s): S21.101A - UNSP OPN WND R FRNT WL OF THORAX W/O PENET THOR CAVITY, INIT SNOMED Code(s): 61027810887055071 (2) Cellulitis of chest wall Current Visit: Yes Status: Acute Code(s): L03.313 - CELLULITIS OF CHEST WALL SNOMED Code(s): 08412422 Plan: 1patient with extensive wound to the right chest wall/breast area in this krystle ent who did have a history of metastatic breast cancer status post debridement of the wound 2-awaiting for the OR cultures to be finalized 3-also have elevated white count could be related to the steroids 4patient is currently being treated with Zosyn 3.375 g every 8 hour We will follow on clinical condition and cultures to further adjust medication if needed Thank you for this consultation we will follow the patient along with you Dictation was produced using [employer] dictation software. please excuse any grammatical, word or spelling errors. Time with Patient: Less than 30
[2024-03-12] MEDS: HYDROcodone/APAP 10-325MG 1 EACH TAB PO PRN (23:11)
[2024-03-13 04:24] LABS: Basophils # (A) 0.3 k/uL (0-0.2); Basophils % (A) 2 %; Eosinophils % (A) 0 %; HCT 32.6 % (34.0-46.0); HGB 10.5 gm/dL (11.4-16.0); Hypochromasia Slight; Lymphocytes # (A) 0.4 k/uL (1.0-4.8); Lymphocytes % (A) 3 %; MCH 31.3 pg (25.0-35.0); MCHC 32.2 g/dL (31.0-37.0); MCV 97.3 fL (80.0-100.0); Mean Platelet Volume 8.2; Monocytes # (A) 0.5 k/uL (0-1.0); Monocytes % (A) 3 %; Neutrophils # (A) 14.6 k/uL (1.3-7.7); Neutrophils % (A) 92 %; Platelet Count 306 k/uL (150-450); RBC 3.35 m/uL (3.80-5.40); RDW 14.4 % (11.5-15.5); WBC 15.9 k/uL (3.8-10.6)
[2024-03-13 09:16] LABS: BUN/Creat Ratio 57.25 Ratio (12.00-20.00); Blood Urea Nitrogen 22.9 mg/dL (9.0-27.0); Calcium 8.7 mg/dL (8.7-10.3); Carbon Dioxide 25.2 mmol/L (21.6-31.8); Chloride 102 mmol/L (96-109); Glucose 139 mg/dL (70-110); Magnesium 1.8 mg/dL (1.5-2.4); Potassium 4.2 mmol/L (3.5-5.5); Sodium 137 mmol/L (135-145)
--- NOTE | 2024-03-13 11:00 | P.PN ---
Subjective Progress Note Date: 03/13/24 CHIEF COMPLAINT: Right breast wound HISTORY OF PRESENT ILLNESS: Patient is s/p debridement of right breast. Patient started having significant amount of bleeding last night per nursing staff. Dressings were saturated. Patient seen by Dr. Hsu with wound care service he placed a suture around 9 AM this morning. Nursing staff changed dressings. And since then the dressings are clean and dry. There is been no further active bleeding. Hemoglobin was stable this morning and vital stable. Eliquis was held. Hemoglobin 10.5 WBC 15.9. Repeat CBC pending. Pain controlled. PHYSICAL EXAM: VITAL SIGNS: Reviewed. GENERAL: no acute distress. CHEST: Dressing was pulled down. Right breast wound now with a suture placed by wound care service. No active blood oozing. There is a small amount of blood noted on the wound. Dressings clean dry and intact. ASSESSMENT: 1. Right breast wound status post debridement 2. History of metastatic breast cancer PLAN: -Continue to monitor for any further active bleeding -Follow-up on repeat CBC -Continue local wound care -Continue antibiotics -Will notify rad onc service of bleeding. -Hold Mortezais Physician Clay Artisan note has been reviewed by physician. Signing provider agrees with the documented findings, assessment, and plan of care. Objective - Vital Signs Vital signs: Vital Signs Temp 97.5 F L 03/13/24 08:00 Pulse 81 03/13/24 10:00 Resp 16 03/13/24 10:00 BP 106/75 03/13/24 10:00 Pulse Ox 97 03/13/24 10:00 FiO2 Intake & Output 03/12/24 03/13/24 03/13/24 18:59 06:59 18:59 Intake Total 118 Output Total 850 850 Balance -685 -732 Intake: Oral 118 Output: Urine 850 850 Other: Voiding Method Indwelling Catheter Indwelling Catheter - Labs CBC & Chem 7: 03/13/24 03:01 03/13/24 03:01 Labs: Abnormal Lab Results - Last 24 Hours (Table) 03/13/24 03/13/24 Range/Units 03:01 03:01 WBC 15.9 H (3.8-10.6) k/uL RBC 3.35 L (3.80-5.40) m/uL Hgb 10.5 L (11.4-16.0) gm/dL Hct 32.6 L (34.0-46.0) % Neutrophils # 14.6 H (1.3-7.7) k/uL Lymphocytes # 0.4 L (1.0-4.8) k/uL Basophils # 0.3 H (0-0.2) k/uL Creatinine 0.4 L (0.6-1.5) mg/dL BUN/Creatinine Ratio 57.25 H (12.00-20.00) Ratio Glucose 139 H (70-110) mg/dL
[2024-03-13 11:03] LABS: HCT 30.1 % (34.0-46.0); HGB 9.8 gm/dL (11.4-16.0); MCH 32.6 pg (25.0-35.0); MCHC 32.7 g/dL (31.0-37.0); MCV 99.7 fL (80.0-100.0); Macrocytosis Slight; Mean Platelet Volume 8.3; Platelet Count 308 k/uL (150-450); RBC 3.02 m/uL (3.80-5.40); RDW 14.8 % (11.5-15.5); WBC 17.3 k/uL (3.8-10.6)
--- NOTE | 2024-03-13 12:27 | P.CON ---
Consult Note - . Consult date: 03/13/24 Assessment/Plan:: Wound care consultation: Reason for consult: Open surgical wound status post mastectomy History chief complaint: This patient does not provide history. She responds mostly to pain. Her sensorium is very cloudy. From a significant other we get the history that she had a mastectomy about a week ago. The wound was left open. In the last 24 hours she developed some bleeding in the wound and had a large dressing placed. The patient is currently being treated for stage IV carcinoma the breast with brain metastasis. Physical examination: We find a very sleepy 48-year-old woman who responds really only to painful stimuli. She is unable to answer specific questions. She is status post right mastectomy with an open wound that is about 15 x 20 cm. It is fairly clean. On the medial inferior aspect there is a specific spot of bleeding with what appears to be a small arterial source. Utilizing 3-0 Vicryl we placed a couple of [id number] stitches right at the source of bleeding and were able to control it completely. Recommendation: Currently I would recommend utilizing Opticell silver as a topical treatment. Given the severity of her current symptoms from metastatic disease, further treatment is somewhat at question. For the time being I would simply change the Opticell silver 3 times a week. If at some point a more definitive treatment would be in order, I would recommend utilizing a wound VAC. I would certainly hold off on the wound VAC for couple of days to be certain that the bleeding is completely resolved. We would be happy to follow her in wound care, condition warranting, for management of wound VAC or a more palliative form of therapy.
[2024-03-13] MEDS: HYDROmorphone 1 MG/ML 1 ML SYRINGE ONE ×8 (12:46→12:55)
[2024-03-13] MEDS: HYDROcodone/APAP 10-325MG 1 EACH TAB ONE ×2 (12:51→12:52)
[2024-03-13] MEDS: SENNOSIDES-DOCUSATE SODIUM 1 EACH TAB PO ONE (12:52)
--- NOTE | 2024-03-13 15:07 | P.PN ---
Subjective Progress Note Date: 03/13/24 This is a 48 year old female with medical history of breast cancer and smoking. Patient came in with concern for chest wall infection on the right side. Patient also presented with altered mental status. Brain CT revealed vasogenic edema and mass and patient is currently being followed by oncology and rad/onc underwent brain radiation on Wednesday and scheduled to undergo radiation again on Wednesday. She had surgical debridement of the right chest wall with cultures showing E. Coli and she continues on IV zosyn for this with ID following closely. Patient is having bowel movements now. She continues on IV decadron. Plan is for rehab when medically stable. 03/13/2024 Patient is seen and evaluated in follow-up lethargic and asleep although arousable although falls asleep almost immediately after responding to her name. Patient is on a number of pain medications and anxiety medications and appears extremely somnolent and sedated. Will adjust medications accordingly. Patient follows with oncology Dr. Pollock or Danielle outpatient out of [facility] and family discussing wanting her transferred there as her oncology team is out of there. Patient is scheduled to receive radiation therapy on Wednesday with Dr. Gabriel Wilson here and ultimately was planning on rehab on discharge for continued strength and mobility. Family members at the bedside are also not aware that patient will need to be agreeable to have no oncological care while at [facility] and will need to follow-up once discharged from rehab with her primary oncologist. Case management is following and explained the purposes of transf ers and family at the bedside was demanding to take her out AGAINST MEDICAL ADVICE. Another conversation was had and apparently per Dr. Cho orders, she is to remain hospitalized here until Wednesday and receive radiation treatments and then discharged to rehab. Patient's white count remains elevated and is maintained on antibiotics with infectious disease following. Culture showing E. coli. Per nursing staff patient also had her chest dressing saturated with blood and wound care Dr. Solano was at bedside and redressed and applied 2 sutures to the area to stop the bleeding. Patient is maintained on Eliquis and a repeat stat CBC was ordered and pending. Review of Systems Constitutional: Denied any fatigue denied any fever. Cardio vascular: denied any chest pain, palpitations Gastrointestinal: denied any nausea, vomiting, diarrhea Pulmonary: Denied any shortness of breath cough Neurologic denied any new focal deficits, extremely weak All inpatient medications were reviewed and appropriate changes in these medications as dictated in the interval history and assessment and plan. PHYSICAL EXAMINATION: GENERAL: The patient is alert and oriented x2 although extremely lethargic and falls asleep and fatigues very easily, not in any acute distress. Well developed, ill-appearing, elderly appearing HEENT: Pupils are round and equally reacting to light. EOMI. No scleral icterus. No conjunctival pallor. Normocephalic, atraumatic. No pharyngeal erythema. No thyromegaly. CARDIOVASCULAR: S1 and S2 present. No murmurs, rubs, or gallops. PULMONARY: Diminished breath sounds bilaterally otherwise chest is clear to auscultation, no wheezing or crackles. ABDOMEN: Soft, nontender, nondistended, normoactive bowel sounds. No palpable organomegaly. MUSCULOSKELETAL: No joint swelling or deformity. EXTREMITIES: No cyanosis, clubbing, or pedal edema. NEUROLOGICAL: Gross neurological examination did not reveal any focal deficits. Diffusely weak SKIN: No rashes. Right chest wall wound dressing intact status post 2 sutures placed by wound care physician today with no further bleeding noted Assessment -Metastatic stage IV right breast cancer -Altered mental status due to vasogenic edema/ brain mets -Right chest well necrotic wound status post surgical debridement culture showing E.Coli -Hx of seizures as a child -Hx of anxiety -Generalized weakness and medical debility secondary to above -Chronic nicotine use GI prophylaxis Protonix DVT prophylaxis Eliquis Full Code Plan -Plan for radiation on Wednesday with Dr. Gabriel Wilson -Needs to see her main oncologist Dr. Pollock on discharge. Patient's family or boyfriend and friends were requesting transfer to [facility] where this oncologist is and unfortunately there is no need for transfer for tertiary treatment at this time and this would be patient request. There are multiple holds at [facility] and not able to accept transfer patients with family request. Oncology here has evaluated the patient recommending to continue with radiation treatment and stable for discharge after that standpoint to [facility] for continued strength and mobility -Case management following as family was requesting to take the patient AMA and take her to [facility] themselves. Apparently Dr. Cho primary oncology contacted family this afternoon and reported she should stay hospitalized here and receive radiation treatment for the next few days and then transferred to [facility] for rehab. Family was also never made aware that she will not be able to receive any oncological care while at rehab. Family reported they were never notified what AMA entitles and they have since changed their minds and would like to stay to receive radiation treatment. Per nursing staff, family has also been recording all conversation from anyone entering the room. Nursing staff and management made aware and they have been informed they are not allowed to record due to HIPAA violations. 1 family member reported his travel registered nurse nicu told him he is allowed to record such events. -Continue eliquis has been resumed post surgical debridement. Follow-up on repeat CBC this afternoon as patient was having some bleeding noted on dressing from the chest wall and had [address] Solano wound care provider at bedside -Continue mirilax and bowel regiment -Local wound care with santyl to the right chest wall -Continue IV zosyn -Continue IV decadron -Continue pain management. Adjusting some medications as patient is heavily sedated and extremely lethargic unable to have any type of conversation other than responding to her name. -Continue normal saline -Monitor labs -Overall prognosis is guarded The impression and plan of care has been dictated by Laura Cordoba, Nurse Practitioner as directed. Dr. Brittany MD I have performed a history and physical examination and medical decision making of this patient, discussed the same with the dictator, and agree with the dictators assessment and plan as written, documented as a scribe. Based on total visit time, I have performed more than 50% of this visit. Objective - Vital Signs Vital signs: Vital Signs Temp 97.5 F L 03/13/24 08:00 Pulse 81 03/13/24 10:00 Resp 16 03/13/24 10:00 BP 106/75 03/13/24 10:00 Pulse Ox 97 03/13/24 10:00 FiO2 Intake & Output 03/12/24 03/13/24 03/13/24 18:59 06:59 18:59 Intake Total 118 Output Total 850 850 Balance -245 -731 Intake: Oral 118 Output: Urine 850 850 Other: Voiding Method Indwelling Catheter Indwelling Catheter - Labs CBC & Chem 7: 03/13/24 10:32 03/13/24 03:01 Labs: Abnormal Lab Results - Last 24 Hours (Table) 03/13/24 03/13/24 Range/Units 03:01 03:01 WBC 15.9 H (3.8-10.6) k/uL RBC 3.35 L (3.80-5.40) m/uL Hgb 10.5 L (11.4-16.0) gm/dL Hct 32.6 L (34.0-46.0) % Neutrophils # 14.6 H (1.3-7.7) k/uL Lymphocytes # 0.4 L (1.0-4.8) k/uL Basophils # 0.3 H (0-0.2) k/uL Creatinine 0.4 L (0.6-1.5) mg/dL BUN/Creatinine Ratio 57.25 H (12.00-20.00) Ratio Glucose 139 H (70-110) mg/dL
--- NOTE | 2024-03-13 15:29 | P.PN ---
Subjective Patient seen and evaluated at bedside. Patient resting comfortably. Discussed w/ family. Objective - Vital Signs Vital signs: Vital Signs Temp 98.1 F 03/13/24 13:08 Pulse 122 H 03/13/24 13:08 Resp 16 03/13/24 13:08 BP 107/76 03/13/24 13:08 Pulse Ox 99 03/13/24 13:08 FiO2 Intake & Output 03/12/24 03/13/24 03/13/24 18:59 06:59 18:59 Intake Total 118 Output Total 850 850 Balance -850 732 Intake: Oral 118 Output: Urine 850 850 Other: Voiding Method Indwelling Catheter Indwelling Catheter Indwelling Catheter - Exam gen: nad cv: rrr pul: non labored breathing abd: soft, non disteneded breast: bandaged, with no strike through - Labs CBC & Chem 7: 03/13/24 10:32 03/13/24 03:01 Labs: Abnormal Lab Results - Last 24 Hours (Table) 03/13/24 03/13/24 03/13/24 Range/Units 03:01 03:01 10:32 WBC 15.9 H 17.3 H (3.8-10.6) k/uL RBC 3.35 L 3.02 L (3.80-5.40) m/uL Hgb 10.5 L 9.8 L (11.4-16.0) gm/dL Hct 32.6 L 30.1 L (34.0-46.0) % Neutrophils # 14.6 H (1.3-7.7) k/uL Lymphocytes # 0.4 L (1.0-4.8) k/uL Basophils # 0.3 H (0-0.2) k/uL Creatinine 0.4 L (0.6-1.5) mg/dL BUN/Creatinine Ratio 57.25 H (12.00-20.00) Ratio Glucose 139 H (70-110) mg/dL Assessment and Plan Assessment: 48 yo female w/ metastatic breast cancer -currently not bleeding -recommend radiation oncology family inquiring about to transfer to [facility] Time with Patient: Less than 30
[2024-03-13] MEDS ORDERED: ALPRAZolam 1 MG TAB PO SCH (16:00)
[2024-03-13] MEDS: ALPRAZolam 1 MG TAB PO PRN (20:08)
--- NOTE | 2024-03-14 08:40 | P.PN ---
Subjective Progress Note Date: 03/13/24 Principal diagnosis: Reason for follow-up is right chest wall wound and cellulitis Patient is a 48-year-old female with a past medical history significant for metastatic right breast cancer with initially presented to hospital with mental status changes noticed to have a significant wound to the right chest wall in this patient who is status post surgical debridement. On today's evaluation that is 03/13/2024,the patient did have significant bleeding from manage right chest wall has been evaluated by wound care and apparently did have location of to switch his, remains to be afebrile, patient is on room air not requiring supplemental oxygen patient is currently sleepy lethargic and reported history of vomiting or diarrhea has been reported. Patient white count 17.3, creatinine 0.4 Objective - Vital Signs Vital signs: Vital Signs Temp 97.5 F L 03/13/24 08:00 Pulse 81 03/13/24 10:00 Resp 16 03/13/24 10:00 BP 106/75 03/13/24 10:00 Pulse Ox 97 03/13/24 10:00 FiO2 Intake & Output 03/12/24 03/13/24 03/13/24 18:59 06:59 18:59 Intake Total 118 Output Total 850 850 Balance -499 -771 Intake: Oral 118 Output: Urine 850 850 Other: Voiding Method Indwelling Catheter Indwelling Catheter - Exam GENERAL DESCRIPTION: Middle-age female lying in bed in no distress RESPIRATORY SYSTEM: Unlabored breathing , decreased breath sounds at bases HEART: S1 S2 regular rate and rhythm , ABDOMEN: Soft , no tenderness Right chest wall wound is currently dressed no drainage - Labs CBC & Chem 7: 03/13/24 10:32 03/13/24 03:01 Labs: Abnormal Lab Results - Last 24 Hours (Table) 03/13/24 03/13/24 03/13/24 Range/Units 03:01 03:01 10:32 WBC 15.9 H 17.3 H (3.8-10.6) k/uL RBC 3.35 L 3.02 L (3.80-5.40) m/uL Hgb 10.5 L 9.8 L (11.4-16.0) gm/dL Hct 32.6 L 30.1 L (34.0-46.0) % Neutrophils # 14.6 H (1.3-7.7) k/uL Lymphocytes # 0.4 L (1.0-4.8) k/uL Basophils # 0.3 H (0-0.2) k/uL Creatinine 0.4 L (0.6-1.5) mg/dL BUN/Creatinine Ratio 57.25 H (12.00-20.00) Ratio Glucose 139 H (70-110) mg/dL Assessment and Plan (1) Open wound of right chest wall Current Visit: Yes Status: Acute Code(s): S21.101A - UNSP OPN WND R FRNT WL OF THORAX W/O PENET THOR CAVITY, INIT SNOMED Code(s): 45112431104717813 (2) Cellulitis of chest wall Current Visit: Yes Status: Acute Code(s): L03.313 - CELLULITIS OF CHEST WALL SNOMED Code(s): 51599607 Plan: 1patient with extensive wound to the right chest wall/breast area in this patient who did have a history of metastatic breast cancer status post debridement of the wound 2-awaiting for the OR cultures to be finalized 3-also have elevated white count could be related to the steroids and need to monitor closely 4patient is being treated with Zosyn 3.375 g every 8 hour Family at the bedside questions were answered Dictation was produced using [employer] dictation software. please excuse any grammatical, word or spelling errors. Time with Patient: Less than 30
[2024-03-14 09:30] LABS: Basophils # (A) 0.01 X 10*3/uL (0.00-0.10); Basophils % (A) 0.1 %; Eosinophils # (A) 0 X 10*3/uL (0.04-0.35); Eosinophils % (A) 0 %; HCT 23.7 % (37.2-46.3); HGB 7.6 g/dL (12.0-15.0); Lymphocytes # (A) 1.21 X 10*3/uL (0.90-5.00); Lymphocytes % (A) 7.5 %; MCH 31.7 pg (27.0-32.0); MCHC 32.1 g/dL (32.0-37.0); MCV 98.8 FL (80.0-97.0); Mean Platelet Volume 11.1 FL (9.5-12.2); Monocytes # (A) 0.83 X 10*3/uL (0.20-1.00); Monocytes % (A) 5.1 %; NRBC Per 100 WBC 0 X 10*3/uL (0.00-0.01); Neutrophils # (A) 14.06 X 10*3/uL (1.80-7.70); Neutrophils % (A) 86.6 %; Platelet Count 247 X 10*3/uL (140-440); RDW 14.1 % (11.5-14.5); WBC 16.22 X 10*3/uL (4.50-10.00)
[2024-03-14 12:18] VITALS: RESP 16
[2024-03-14 12:30] VITALS: BMI 25.9
--- NOTE | 2024-03-14 13:37 | P.PN ---
Subjective Progress Note Date: 03/14/24 Principal diagnosis: Reason for follow-up is right chest wall wound and cellulitis Patient is a 48-year-old female with a past medical history significant for metastatic right breast cancer with initially presented to hospital with mental status changes noticed to have a significant wound to the right chest wall in this patient who is status post surgical debridement. On today's evaluation that is 03/14/2024, the patient continues to be afebrile, the patient is on room air and breathing comfortably, the Pt denies having any chest pain or cough, the patient denies having any abdominal pain no vomiting or any diarrhea has been reported by the nursing staff, no further bleeding from the right chest wall wound. The patient white count is 16.0 Objective - Vital Signs Vital signs: Vital Signs Temp 98.1 F 03/14/24 12:17 Pulse 97 03/14/24 12:17 Resp 16 03/14/24 12:17 BP 105/69 03/14/24 12:17 Pulse Ox 99 03/14/24 12:17 FiO2 Intake & Output 03/13/24 03/14/24 03/14/24 18:59 06:59 18:59 Intake Total 240 Output Total 350 50 Balance -350 -50 240 Weight 75 kg Intake: Oral 240 Output: Urine 350 50 Other: Voiding Method Indwelling Catheter Indwelling Catheter Indwelling Catheter - Exam GENERAL DESCRIPTION: Middle-age female lying in bed in no distress RESPIRATORY SYSTEM: Unlabored breathing , decreased breath sounds at bases HEART: S1 S2 regular rate and rhythm , ABDOMEN: Soft , no tenderness Right chest wall wound is currently dressed no drainage - Labs CBC & Chem 7: 03/14/24 02:23 03/13/24 03:01 Labs: Abnormal Lab Results - Last 24 Hours (Table) 03/14/24 Range/Units 02:23 WBC 16.22 H (4.50-10.00) X 10*3/uL RBC 2.40 L (4.10-5.20) X 10*6/uL Hgb 7.6 L (12.0-15.0) g/dL Hct 23.7 L (37.2-46.3) % MCV 98.8 H (80.0-97.0) FL Immature Gran # 0.11 H (0.00-0.04) X 10*3/uL Neutrophils # 14.06 H (1.80-7.70) X 10*3/uL Eosinophils # 0 L (0.04-0.35) X 10*3/uL Assessment and Plan (1) Open wound of right chest wall Current Visit: Yes Status: Acute Code(s): S21.101A - UNSP OPN WND R FRNT WL OF THORAX W/O PENET THOR CAVITY, INIT SNOMED Code(s): 98777920904316322 (2) Cellulitis of chest wall Current Visit: Yes Status: Acute Code(s): L03.313 - CELLULITIS OF CHEST WALL SNOMED Code(s): 73713829 Plan: 1patient with extensive wound to the right chest wall/breast area in this patient who did have a history of metastatic breast cancer status post debridement of the wound 2-awaiting for the OR cultures to be finalized 3-also have elevated white count could be related to the steroids and need to monitor closely 4patient is being treated with Zosyn awaiting culture from the chest wall to be finalized Dictation was produced using [employer] dictation software. please excuse any grammatical, word or spelling errors. Time with Patient: Less than 30
--- NOTE | 2024-03-14 16:03 | P.PN ---
Progress Note - Text Progress Note Date: 03/14/24 Patient Seen and Examined. No acute events overnight. Patient discussed with the nurse who states there has been no further bleeding from the breast. Hemoglobin did drop today and is 7.6(9.8). VSS General-NAD CVS-RRR Chest-Dressing C/D/I, not saturated Lungs-NLB Abdomen-soft, NTND 48 year old female s/p Sharp Excisional Debridement Right Breast -Continue to monitor Hemoglobin. If hemoglobin trends below 7, patient would benefit from transfusion -If patient does have any further bleeding episodes, would benefit from radiation oncology evaluation -Local Wound Care per nursing/wound care nurse -Regular Diet
[2024-03-15 04:59] LABS: African American GFR (CKD) >90 (>60 ml/min/1.73 sqM); Anion Gap 2 mmol/L; Blood Urea Nitrogen 28 mg/dL (7-17); Calcium 8.6 mg/dL (8.4-10.2); Carbon Dioxide 28 mmol/L (22-30); Chloride 104 mmol/L (98-107); Glucose 127 mg/dL (74-99); Non-African American GFR(CKD) >90 (>60 ml/min/1.73 sqM); Potassium 3.9 mmol/L (3.5-5.1); Sodium 134 mmol/L (137-145)
[2024-03-15 05:06] LABS: Basophils % (A) 0 %; Eosinophils % (A) 0 %; Lymphocytes # (A) 0.6 k/uL (1.0-4.8); Lymphocytes % (A) 5 %; MCH 31.7 pg (25.0-35.0); MCHC 32.2 g/dL (31.0-37.0); MCV 98.4 fL (80.0-100.0); Macrocytosis Slight; Mean Platelet Volume 8.6; Monocytes # (A) 0.5 k/uL (0-1.0); Monocytes % (A) 4 %; Neutrophils # (A) 12.9 k/uL (1.3-7.7); Neutrophils % (A) 91 %; Platelet Count 235 k/uL (150-450); RBC 2.44 m/uL (3.80-5.40); RDW 15.1 % (11.5-15.5); WBC 14.1 k/uL (3.8-10.6)
[2024-03-15 05:12] LABS: HGB 7.7 gm/dL (11.4-16.0)
--- NOTE | 2024-03-15 06:38 | P.PN ---
Subjective Progress Note Date: 03/14/24 This is a 48 year old female with medical history of breast cancer and smoking. Patient came in with concern for chest wall infection on the right side. Patient also presented with altered mental status. Brain CT revealed vasogenic edema and mass and patient is currently being followed by oncology and rad/onc underwent brain radiation on Wednesday and scheduled to undergo radiation again on Wednesday. She had surgical debridement of the right chest wall with cultures showing E. Coli and she continues on IV zosyn for this with ID following closely. Patient is having bowel movements now. She continues on IV decadron. Plan is for rehab when medically stable. 03/13/2024 Patient is seen and evaluated in follow-up lethargic and asleep although arousable although falls asleep almost immediately after responding to her name. Patient is on a number of pain medications and anxiety medications and appears extremely somnolent and sedated. Will adjust medications accordingly. Patient follows with oncology Dr. Pollock or Danielle outpatient out of [facility] and family discussing wanting her transferred there as her oncology team is out of there. Patient is scheduled to receive radiation therapy on Wednesday with Dr. Gabriel Wilson here and ultimately was planning on rehab on discharge for continued strength and mobility. Family members at the bedside are also not aware that patient will need to be agreeable to have no oncological care while at [facility] and will need to follow-up once discharged from rehab with her primary oncologist. Case management is following and explained the purposes of transf ers and family at the bedside was demanding to take her out AGAINST MEDICAL ADVICE. Another conversation was had and apparently per Dr. Cho orders, she is to remain hospitalized here until Wednesday and receive radiation treatments and then discharged to rehab. Patient's white count remains elevated and is maintained on antibiotics with infectious disease following. Culture showing E. coli. Per nursing staff patient also had her chest dressing saturated with blood and wound care Dr. Solano was at bedside and redressed and applied 2 sutures to the area to stop the bleeding. Patient is maintained on Eliquis and a repeat stat CBC was ordered and pending. 03/14/2024 Patient is seen in follow-up today more awake with boyfriend at the bedside. Patient scheduled to undergo radiation treatment sometime today and we will follow-up with patient. Patient continues to report pain and is maintained on continuous pain regimen with IV pain medications as well as oral narcotics. Patient is afebrile and white count remains elevated. Patient continues on antibiotics with infectious disease following and general surgery as well. Hemoglobin is 7.6 today with no further bleeding noted. Eliquis remains on hold due to the low hemoglobin and bleeding and patient has received sutures in the breast with no further bleeding noted. Continue local wound care and will follow-up on repeat labs. Will transfuse if 7 or less. Review of Systems Constitutional: Denied any fatigue denied any fever. Cardio vascular: denied any chest pain, palpitations Gastrointestinal: denied any nausea, vomiting, diarrhea Pulmonary: Denied any shortness of breath cough Neurologic denied any new focal deficits, extremely weak All inpatient medications were reviewed and appropriate changes in these medicat ions as dictated in the interval history and assessment and plan. PHYSICAL EXAMINATION: GENERAL: The patient is alert and oriented x2 much more awake and alert today. not in any acute distress. Well developed, ill-appearing, elderly appearing HEENT: Pupils are round and equally reacting to light. EOMI. No scleral icterus. No conjunctival pallor. Normocephalic, atraumatic. No pharyngeal erythema. No thyromegaly. CARDIOVASCULAR: S1 and S2 present. No murmurs, rubs, or gallops. PULMONARY: Diminished breath sounds bilaterally otherwise chest is clear to auscultation, no wheezing or crackles. ABDOMEN: Soft, nontender, nondistended, normoactive bowel sounds. No palpable organomegaly. MUSCULOSKELETAL: No joint swelling or deformity. EXTREMITIES: No cyanosis, clubbing, or pedal edema. NEUROLOGICAL: Gross neurological examination did not reveal any focal deficits. Diffusely weak SKIN: No rashes. Right chest wall wound dressing intact status post 2 sutures placed by wound care physician on 03/13/2024 with no further bleeding noted Assessment -Metastatic stage IV right breast cancer -Altered mental status due to vasogenic edema/ brain mets -Right chest well necrotic wound status post surgical debridement culture showing E.Coli -Hx of seizures as a child -Hx of anxiety -Generalized weakness and medical debility secondary to above -Chronic nicotine use GI prophylaxis Protonix DVT prophylaxis Eliquis Full Code Plan -Plan for radiation today and will await report with Dr. Gabriel Wilson -Needs to see her main oncologist Dr. Pollock on discharge. Patient's family or boyfriend and friends were requesting transfer to [facility] where this oncologist is and unfortunately there is no need for transfer for tertiary treatment at this time and this would be patient request. There are multiple holds at [facility] and not able to accept transfer patients with family [facility] [facility] Oncology here has evaluated the patient recommending to continue with radiation treatment and stable for discharge after that standpoint to ECF for continued strength and mobility. Will follow-up with radiation oncology regarding possible radiation therapy on 03/15/2024. -Case management following as family was requesting to take the patient AMA and take her to [facility] themselves. Apparently Dr. Cho primary oncology contacted family this afternoon and reported she should stay hospitalized here and receive radiation treatment for the next few days and then transferred to ECF for rehab. Family was also never made aware that she will not be able to receive any oncological care while at rehab. Family reported they were never notified what AMA entitles and they have since changed their minds and would like to stay to receive radiation treatment. Will discuss further with case navid burleson regarding discharge planning if patient and family continues to want to go to rehab for strength mobility. Patient has had prolonged hospitalization and significant weakness. Patient may also require insurance authorization. Per nursing staff, family has also been recording all conversation from anyone entering the room. Nursing staff and management made aware and they have been informed they are not allowed to record due to HIPAA violations. 1 family member reported his data architect manager told him he is allowed to record such events. - eliquis has been placed on hold due to the drop in hemoglobin and bleeding at the site. Follow-up on repeat CBC is 7.7. Will transfuse if 7 or less. Monitor for any further bleeding -Continue MiraLAX and bowel regimen -Local wound care with santyl to the right chest wall -Continue IV zosyn -Continue IV decadron -Continue pain management. -Overall prognosis is guarded The impression and plan of care has been dictated by Laura Cordoba, Nurse Practitioner as directed. Dr. Brittany MD I have performed a history and physical examination and medical decision making of this patient, discussed the same with the dictator, and agree with the dictators assessment and plan as written, documented as a scribe. Based on total visit time, I have performed more than 50% of this visit. Objective - Vital Signs Vital signs: Vital Signs Temp 98.3 F 03/14/24 06:53 Pulse 80 03/14/24 06:53 Resp 15 03/14/24 06:53 BP 105/67 03/14/24 06:53 Pulse Ox 100 03/14/24 06:53 FiO2 Intake & Output 03/13/24 03/14/24 03/14/24 18:59 06:59 18:59 Intake Total 240 Output Total 350 50 Balance -350 -50 240 Intake: Oral 240 Output: Urine 350 50 Other: Voiding Method Indwelling Catheter Indwelling Catheter Indwelling Catheter - Labs CBC & Chem 7: 03/15/24 04:37 03/15/24 04:37 Labs: Abnormal Lab Results - Last 24 Hours (Table) 03/13/24 03/14/24 Range/Units 10:32 02:23 WBC 17.3 H 16.22 H (3.8-10.6) k/uL RBC 3.02 L 2.40 L (3.80-5.40) m/uL Hgb 9.8 L 7.6 L (11.4-16.0) gm/dL Hct 30.1 L 23.7 L (34.0-46.0) % MCV 98.8 H (80.0-97.0) FL Immature Gran # 0.11 H (0.00-0.04) X 10*3/uL Neutrophils # 14.06 H (1.80-7.70) X 10*3/uL Eosinophils # 0 L (0.04-0.35) X 10*3/uL
--- NOTE | 2024-03-15 07:44 | P.PN ---
Progress Note - Text Progress Note Date: 03/15/24 Patient Seen and Examined. No acute events overnight. Patient discussed with the nurse who states there has been no further bleeding from the breast. Hemoglobin is stable 7.7(7.6). VSS General-NAD CVS-RRR Chest-Dressing C/D/I, not saturated Lungs-NLB Abdomen-soft, NTND 48 year old female s/p Sharp Excisional Debridement Right Breast -Hgb stable this AM. Continue to monitor Hemoglobin. If hemoglobin trends below 7, patient would benefit from transfusion -If patient does have any further bleeding episodes, would benefit from radiation oncology evaluation -Local Wound Care per nursing/wound care nurse -Regular Diet
[2024-03-15] MEDS: HYDROcodone/APAP 5-325MG 1 EACH TAB PO PRN (09:30)
--- NOTE | 2024-03-15 12:37 | P.PN ---
Subjective Progress Note Date: 03/15/24 Principal diagnosis: Reason for follow-up is right chest wall wound and cellulitis Patient is a 48-year-old female with a past medical history significant for metastatic right breast cancer with initially presented to hospital with mental status changes noticed to have a significant wound to the right chest wall in this patient who is status post surgical debridement. On today's evaluation that is 03/15/2024, Patient is afebrile patient is currently on room air and denies having any shortness of breath, the patient denies any chest pain or cough, the patient denies any nausea vomiting did not have any abdominal pain and no diarrhea, denies any further bleeding from the right chest wall wound mention feeling better. Patient white count 14.1, creatinine 3.49 Objective - Vital Signs Vital signs: Vital Signs Temp 98.2 F 03/15/24 06:44 Pulse 79 03/15/24 06:44 Resp 16 03/15/24 06:44 BP 124/81 03/15/24 06:44 Pulse Ox 99 03/15/24 06:44 FiO2 Intake & Output 03/14/24 03/15/24 03/15/24 18:59 06:59 18:59 Intake Total 2760 480 Output Total 1100 1000 600 Balance 1660 -1000 -120 Weight 75 kg Intake: Oral 2760 480 Output: Urine 1100 1000 600 Uretheral (Varma) 600 350 600 Other: Voiding Method Indwelling Catheter Indwelling Catheter - Exam GENERAL DESCRIPTION: Middle-age female lying in bed in no distress RESPIRATORY SYSTEM: Unlabored breathing , decreased breath sounds at bases HEART: S1 S2 regular rate and rhythm , ABDOMEN: Soft , no tenderness Right chest wall wound is currently dressed no drainage - Labs CBC & Chem 7: 03/15/24 04:37 03/15/24 04:37 Labs: Abnormal Lab Results - Last 24 Hours (Table) 03/15/24 03/15/24 Range/Units 04:37 04:37 WBC 14.1 H (3.8-10.6) k/uL RBC 2.44 L (3.80-5.40) m/uL Hgb 7.7 L D (11.4-16.0) gm/dL Hct 24.0 L (34.0-46.0) % Neutrophils # 12.9 H (1.3-7.7) k/uL Lymphocytes # 0.6 L (1.0-4.8) k/uL Sodium 134 L (137-145) mmol/L BUN 28 H (7-17) mg/dL Creatinine 0.49 L (0.52-1.04) mg/dL Glucose 127 H (74-99) mg/dL Assessment and Plan (1) Open wound of right chest wall Current Visit: Yes Status: Acute Code(s): S21.101A - UNSP OPN WND R FRNT WL OF THORAX W/O PENET THOR CAVITY, INIT SNOMED Code(s): 91614872074589615 (2) Cellulitis of chest wall Current Visit: Yes Status: Acute Code(s): L03.313 - CELLULITIS OF CHEST WALL SNOMED Code(s): 75257089 Plan: 1patient with extensive wound to the right chest wall/breast area in this patient who did have a history of metastatic breast cancer status post debrideme nt of the wound 2-awaiting for the OR cultures to be finalized 3-also have elevated white count could be related to the steroids and is trending down about 40,000 today 4patient is being treated with Zosyn culture report has been discussed with the CARPET FINISHING SUPERVISOR for admitting team we will suggest oral Cipro and Flagyl x 10 days on discharge Dictation was produced using [employer] dictation software. please excuse any grammatical, word or spelling errors. Time with Patient: Less than 30
[2024-03-15] MEDS: bisacodyL 10 MG SUPP RECTAL PRN (20:48)
[2024-03-16] MEDS ORDERED: DEXAMETHASONE SOD PHOSPHATE 4 MG/ML 1 ML VIAL ONE
--- NOTE | 2024-03-16 09:40 | P.PN ---
Subjective she seen and evaluated bedside. Patient denies pain of right breast patient denies bleeding Objective - Vital Signs Vital signs: Vital Signs Temp 98.2 F 03/16/24 06:53 Pulse 93 03/16/24 06:53 Resp 16 03/16/24 06:53 BP 110/69 03/16/24 06:53 Pulse Ox 99 03/16/24 06:53 FiO2 Intake & Output 03/15/24 03/16/24 03/16/24 18:59 06:59 18:59 Intake Total 2280 700 240 Output Total 1800 400 300 Balance 480 300 -60 Intake: Intake, IV Titration 700 Amount Piperacillin-Tazobactam 3 100 .375 gm In Sodium Chloride 0.9% 100 ml @ 25 mls/hr IVPB Q8H JORDIN Rx#: [id number] Sodium Chloride 0.9% 1, 600 000 ml @ 50 mls/hr IV . Q20H JORDIN Rx#:[id number] Oral 2280 240 Output: Urine 1800 400 300 Uretheral (Varma) 1200 300 Other: Voiding Method Indwelling Catheter # Bowel Movements 1 - Exam gen: nad cv: rrr right breast demonstrates no strikethrough and no active bleeding pul: non labored breathing abd: soft, non tender to palpation, no guarding or rebound tenderness - Labs CBC & Chem 7: 03/15/24 04:37 03/15/24 04:37 Assessment and Plan Assessment: 48 show female with metastatic breast cancer Improvement/cessation of right breast bleeding status post right breast debridement, status post radiation Patient at high risk for rebleed, hopefully focal radiation will prevent this in the future We will continue to follow peripherally and please call if the patient begins to bleed again Had an extensive discussion with the family regarding prognosis Time with Patient: Less than 30
--- NOTE | 2024-03-16 10:11 | P.PN ---
Subjective Progress Note Date: 03/15/24 This is a 48 year old female with medical history of breast cancer and smoking. Patient came in with concern for chest wall infection on the right side. Patient also presented with altered mental status. Brain CT revealed vasogenic edema and mass and patient is currently being followed by oncology and rad/onc underwent brain radiation on Wednesday and scheduled to undergo radiation again on Wednesday. She had surgical debridement of the right chest wall with cultures showing E. Coli and she continues on IV zosyn for this with ID following closely. Patient is having bowel movements now. She continues on IV decadron. Plan is for rehab when medically stable. 03/13/2024 Patient is seen and evaluated in follow-up lethargic and asleep although arousable although falls asleep almost immediately after responding to her name. Patient is on a number of pain medications and anxiety medications and appears extremely somnolent and sedated. Will adjust medications accordingly. Patient follows with oncology Dr. Pollock or Danielle outpatient out of [facility] and family discussing wanting her transferred there as her oncology team is out of there. Patient is scheduled to receive radiation therapy on Wednesday with Dr. Gabriel Wilson here and ultimately was planning on rehab on discharge for continued strength and mobility. Family members at the bedside are also not aware that patient will need to be agreeable to have no oncological care while at [facility] and will need to follow-up once discharged from rehab with her primary oncologist. Case management is following and explained the purposes of transf ers and family at the bedside was demanding to take her out AGAINST MEDICAL ADVICE. Another conversation was had and apparently per Dr. Cho orders, she is to remain hospitalized here until Wednesday and receive radiation treatments and then discharged to rehab. Patient's white count remains elevated and is maintained on antibiotics with infectious disease following. Culture showing E. coli. Per nursing staff patient also had her chest dressing saturated with blood and wound care Dr. Solano was at bedside and redressed and applied 2 sutures to the area to stop the bleeding. Patient is maintained on Eliquis and a repeat stat CBC was ordered and pending. 03/14/2024 Patient is seen in follow-up today more awake with boyfriend at the bedside. Patient scheduled to undergo radiation treatment sometime today and we will follow-up with patient. Patient continues to report pain and is maintained on continuous pain regimen with IV pain medications as well as oral narcotics. Patient is afebrile and white count remains elevated. Patient continues on antibiotics with infectious disease following and general surgery as well. Hemoglobin is 7.6 today with no further bleeding noted. Eliquis remains on hold due to the low hemoglobin and bleeding and patient has received sutures in the breast with no further bleeding noted. Continue local wound care and will follow-up on repeat labs. Will transfuse if 7 or less. 03/15/2024 Patient seen in follow up today and currently scheduled to undergo another radiation therapy treatment with Dr. Wilson. Patient is maintained on IV dexamethasone and will continue a taper on discharge and close outpatient follow-up with oncology. Patient has multiple factors that going on the culture from the breast and chest wound although no official report as there was downtime and lab is currently working on faxing all finalized cultures. Thus f ar it is showing acinobacter lwoffi, ecoli, enterobacter cloacea, staph aureus and multiple bacteroids with beta lactames positive. Infectious disease following and patient will continue on oral antibiotics in the form of Cipro and Flagyl on discharge for a 10-day course. General surgery following and patient has been resumed on Eliquis with no further bleeding noted recommended continue wound care and close outpatient follow-up. Case management following making arrangements for discharge planning including a hospital bed and Betty to be able to manage the patient for frequent position changes due to severe pain. Patient will follow-up with primary oncologist out of [facility] on discharge. Boyfriend at the bedside reports they have a follow-up appointment this week. Patient is afebrile and denies any chest pain or shortness of breath. Patient is maintaining oxygen saturations on room air. Continue bowel regimen as patient has not been having daily bowel movements. Patient is high risk for constipation given the amount of narcotics. Plan is for patient to go home now as opposed to [facility] and family has support and will care for her at home. Review of Systems Constitutional: Denied any fatigue denied any fever. Cardio vascular: denied any chest pain, palpitations Gastrointestinal: denied any nausea, vomiting, diarrhea Pulmonary: Denied any shortness of breath cough Neurologic denied any new focal deficits, extremely weak All inpatient medications were reviewed and appropriate changes in these medications as dictated in the interval history and assessment and plan. PHYSICAL EXAMINATION: GENERAL: The patient is alert and oriented x2 much more awake and alert today. not in any acute distress. Well developed, ill-appearing, elderly appearing HEENT: Pupils are round and equally reacting to light. EOMI. No scleral icterus. No conjunctival pallor. Normocephalic, atraumatic. No pharyngeal erythema. No thyromegaly. CARDIOVASCULAR: S1 and S2 present. No murmurs, rubs, or gallops. PULMONARY: Diminished breath sounds bilaterally otherwise chest is clear to au scultation, no wheezing or crackles. ABDOMEN: Soft, nontender, nondistended, normoactive bowel sounds. No palpable organomegaly. MUSCULOSKELETAL: No joint swelling or deformity. EXTREMITIES: No cyanosis, clubbing, or pedal edema. NEUROLOGICAL: Gross neurological examination did not reveal any focal deficits. Diffusely weak SKIN: No rashes. Right chest wall wound dressing intact status post 2 sutures placed by wound care physician on 03/13/2024 with no further bleeding noted Assessment -Metastatic stage IV right breast cancer -Altered mental status due to vasogenic edema/ brain mets -Right chest well necrotic wound status post surgical debridement culture showing E.Coli -Hx of seizures as a child -Hx of anxiety -Generalized weakness and medical debility secondary to above -Chronic nicotine use GI prophylaxis Protonix DVT prophylaxis Maninder Full Code Plan -Plan for radiation again today and will await report with Dr. Gabriel Wilson -Needs to see her main oncologist Dr. Pollock on discharge. Family at the bedside reports she has a follow-up appointment this week with her oncologist. Patient's family or boyfriend and friends were requesting transfer to [facility] where this oncologist is and unfortunately there is no need for transfer for tertiary treatment at this time and this would be patient request. There are multiple holds at [facility] and not able to accept transfer patients with family request. Oncology here has evaluated the patient recommending to cont inue with radiation treatment and stable for discharge after that standpoint to [facility] for continued strength and mobility. Will follow-up with radiation oncology regarding possible radiation therapy on 03/15/2024. -Case management following and working on discharge planning as the plans have changed and patient family plans on taking her home to care for her. Waking arrangements for a hospital bed and Betty lift Patient is significantly weak and is extremely high risk for rehospitalization and has had significantly prolonged hospitalization. - eliquis has been resumed as there is no further bleeding and will monitor for any further bleeding. Hemoglobin is stable above 7.6. Will follow-up on repeat labs in transfuse if 7 or less -Continue MiraLAX and bowel regimen -Local wound care with santyl to the right chest wall -Continue IV zosyn and will transition to oral antibiotics per ID rec ommendations. Multiple bacteria noted on wound cultures and unfortunately unable to receive final cultures until they are faxed from micro lab during the downtime. -Continue IV decadron. Will add Decadron taper on discharge and discussed with hematology/oncology -Continue pain management. -Overall prognosis is guarded and again patient is extremely high risk for rehospitalization. Discussed with family at the bedside to urgently follow-up with oncologist in the outpatient setting. Brandin[place]ury reports they have an appointment this week coming up. -Possible discharge home in the next 24 hours. The impression and plan of care has been dictated by Laura Cordoba, Nurse Practitioner as directed. Dr. Brittany MD I have performed a history and physical examination and medical decision making of this patient, discussed the same with the dictator, and agree with the dictators assessment and plan as written, documented as a scribe. Based on total visit time, I have performed more than 50% of this visit. Objective - Vital Signs Vital signs: Vital Signs Temp 98.2 F 03/15/24 06:44 Pulse 79 03/15/24 06:44 Resp 16 03/15/24 06:44 BP 124/81 03/15/24 06:44 Pulse Ox 99 03/15/24 06:44 FiO2 Intake & Output 03/14/24 03/15/24 03/15/24 18:59 06:59 18:59 Intake Total 2760 480 Output Total 1100 1000 600 Balance 1660 -1000 -120 Weight 75 kg Intake: Oral 2760 480 Output: Urine 1100 1000 600 Uretheral (Varma) 600 350 600 Other: Voiding Method Indwelling Catheter Indwelling Catheter - Labs CBC & Chem 7: 03/15/24 04:37 03/15/24 04:37 Labs: Abnormal Lab Results - Last 24 Hours (Table) 03/15/24 03/15/24 Range/Units 04:37 04:37 WBC 14.1 H (3.8-10.6) k/uL RBC 2.44 L (3.80-5.40) m/uL Hgb 7.7 L D (11.4-16.0) gm/dL Hct 24.0 L (34.0-46.0) % Neutrophils # 12.9 H (1.3-7.7) k/uL Lymphocytes # 0.6 L (1.0-4.8) k/uL Sodium 134 L (137-145) mmol/L BUN 28 H (7-17) mg/dL Creatinine 0.49 L (0.52-1.04) mg/dL Glucose 127 H (74-99) mg/dL
[2024-03-16 11:07] LABS: Basophils # (A) 0.02 X 10*3/uL (0.00-0.10); Basophils % (A) 0.1 %; Eosinophils # (A) 0 X 10*3/uL (0.04-0.35); Eosinophils % (A) 0 %; HCT 24.4 % (37.2-46.3); HGB 7.7 g/dL (12.0-15.0); Lymphocytes % (A) 6.4 %; MCH 31.7 pg (27.0-32.0); MCHC 31.6 g/dL (32.0-37.0); MCV 100.4 FL (80.0-97.0); Mean Platelet Volume 11.2 FL (9.5-12.2); Monocytes # (A) 0.85 X 10*3/uL (0.20-1.00); NRBC Per 100 WBC 0.02 X 10*3/uL (0.00-0.01); Neutrophils # (A) 15.06 X 10*3/uL (1.80-7.70); Neutrophils % (A) 87.8 %; Platelet Count 242 X 10*3/uL (140-440); RBC 2.43 X 10*6/uL (4.10-5.20); RDW 14.6 % (11.5-14.5); WBC 17.15 X 10*3/uL (4.50-10.00)
[2024-03-16 11:15] LABS: BUN/Creat Ratio 59.75 Ratio (12.00-20.00); Blood Urea Nitrogen 23.9 mg/dL (9.0-27.0); Calcium 8.4 mg/dL (8.7-10.3); Chloride 103 mmol/L (96-109); Glucose 94 mg/dL (70-110); Potassium 3.9 mmol/L (3.5-5.5); Sodium 138 mmol/L (135-145)
[2024-03-16 12:46] VITALS: BP 96/60; PULSE 73; TEMP 98.6
--- NOTE | 2024-03-16 15:34 | P.PN ---
Subjective Progress Note Date: 03/16/24 Principal diagnosis: Reason for follow-up is right chest wall wound and cellulitis Patient is a 48-year-old female with a past medical history significant for metastatic right breast cancer with initially presented to hospital with mental status changes noticed to have a significant wound to the right chest wall in this patient who is status post surgical debridement. On today's evaluation that is 03/16/2024, patient has been afebrile, patient is breathing comfortably and is currently on room air, patient denies having any significant cough no chest pain shortness of breath, patient denies nausea vomiting or diarrhea and no abdominal pain denies any worsening pain to the right chest wall or any further bleeding. The patient white count 17.15 creatinine 0.4 Objective - Vital Signs Vital signs: Vital Signs Temp 98.6 F 03/16/24 12:45 Pulse 73 03/16/24 12:45 Resp 16 03/16/24 12:45 BP 96/60 03/16/24 12:45 Pulse Ox 92 L 03/16/24 12:45 FiO2 Intake & Output 03/15/24 03/16/24 03/16/24 18:59 06:59 18:59 Intake Total 2280 700 240 Output Total 0450 505 7711 Balance 480 300 -960 Intake: Intake, IV Titration 700 Amount Piperacillin-Tazobactam 3 100 .375 gm In Sodium Chloride 0.9% 100 ml @ 25 mls/hr IVPB Q8H JORDIN Rx#: [id number] Sodium Chloride 0.9% 1, 600 000 ml @ 50 mls/hr IV . Q20H JORDIN Rx#:[id number] Oral 2280 240 Output: Urine 8307 723 6523 Uretheral (Varma) 1200 1200 Other: Voiding Method Indwelling Catheter Indwelling Catheter # Bowel Movements 1 - Exam GENERAL DESCRIPTION: Middle-age female lying in bed in no distress RESPIRATORY SYSTEM: Unlabored breathing , decreased breath sounds at bases HEART: S1 S2 regular rate and rhythm , ABDOMEN: Soft , no tenderness Right chest wall wound is currently dressed no drainage - Labs CBC & Chem 7: 03/16/24 07:03 03/16/24 07:03 Labs: Abnormal Lab Results - Last 24 Hours (Table) 03/16/24 03/16/24 Range/Units 07:03 07:03 WBC 17.15 H (4.50-10.00) X 10*3/uL RBC 2.43 L (4.10-5.20) X 10*6/uL Hgb 7.7 L (12.0-15.0) g/dL Hct 24.4 L (37.2-46.3) % MCV 100.4 H (80.0-97.0) FL MCHC 31.6 L (32.0-37.0) g/dL RDW 14.6 H (11.5-14.5) % Immature Gran # 0.12 H (0.00-0.04) X 10*3/uL Neutrophils # 15.06 H (1.80-7.70) X 10*3/uL Eosinophils # 0 L (0.04-0.35) X 10*3/uL NRBC/100 WBC Diff 0.02 H (0.00-0.01) X 10*3/uL Creatinine 0.4 L (0.6-1.5) mg/dL BUN/Creatinine Ratio 59.75 H (12.00-20.00) Ratio Calcium 8.4 L (8.7-10.3) mg/dL Assessment and Plan (1) Open wound of right chest wall Current Visit: Yes Status: Acute Code(s): S21.101A - UNSP OPN WND R FRNT WL OF THORAX W/O PENET THOR CAVITY, INIT SNOMED Code(s): 35335485882576777 (2) Cellulitis of chest wall Current Visit: Yes Status: Acute Code(s): L03.313 - CELLULITIS OF CHEST WALL SNOMED Code(s): 83484653 Plan: 1patient with extensive wound to the right chest wall/breast area in this patient who did have a history of metastatic breast cancer status post debridement of the wound 2-awaiting for the OR cultures to be finalized 3-leukocytosis could be related to the steroids and will monitor closely 4patient is being treated with Zosyn while inpatient plan to finish therapy with oral Cipro and Flagyl x 10 days on discharge Dictation was produced using Loand[employer] software. please excuse any grammatical, word or spelling errors. Time with Patient: Less than 30
--- NOTE | 2024-03-22 06:01 | P.DS ---
Providers Date of admission: 03/02/24 17:26 Expected date of discharge: 03/16/24 Attending physician: Mikey Reynolds Consults: 03/11/24 16:40 Consult Physician Routine Consulting Provider: Freedom Murillo Consult Reason/Comments: STAGE IV BREAST CA Do you want consulting provider notified?: Already Contacted 03/11/24 16:41 Consult Physician Routine Consulting Provider: Gabriel Wilson Consult Reason/Comments: RADIATION -> VASOGENIC EDEMA Do you want consulting provider notified?: Already Contacted Consult Physician Routine Consulting Provider: Cindy Amanda Consult Reason/Comments: CHEST WOUND Do you want consulting provider notified?: Already Contacted Primary care physician: Stated None Hospital Course: Final diagnosis -Metastatic stage IV right breast cancer -Altered mental status due to vasogenic edema/ brain mets -Right chest well necrotic wound status post surgical debridement culture showing E.Coli -Hx of seizures as a child -Hx of anxiety -Generalized weakness and medical debility secondary to above -Chronic nicotine use GI prophylaxis Protonix DVT prophylaxis Eliquis Full Code Discharge disposition Patient is being discharged in a stable condition with guarded prognosis to home with home care. Patient will follow-up with Dr. Orellana in the outpatient setting upon discharge. Patient is to continue with oral antibiotics for a 10- day course and close outpatient follow-up with general surgery and infectious disease as scheduled. Total time taken is greater than 35 minutes. Hospital course This is a 48-year-old female who was recently admitted with stage IV breast cancer with altered mentation with concerns of vasogenic edema as patient has significant history of breast cancer with metastasis to the brain. Patient also noted to have necrotic wound on the chest status post surgical debridement with culture showing E. coli. Patient maintained with local wound care and also IV antibiotics and will transition to oral antibiotics for 10-day course. Recommend close outpatient follow-up with wound care as well as oncology and primary oncology Dr. Pollock out of [facility]. Patient has received palliative radiation and is maintained on Decadron and will continue a taper on discharge with close outpatient follow-up. Patient has been cleared by consultations. Please refer to consultation notes for further HPI. Currently no reports of chest pain, shortness of breath, or palpitations. Patient is afebrile. No reports of nausea or vomiting and patient is tolerating diet. Patient will be discharged home today. Guarded prognosis and high risk for readmissions given patient's prolonged hospitalization with generalized weakness and debility. Patient initially planning on going to [facility] although significant other and family members would like to take the patient home. Arrangements being made with case management for discharge planning including a Betty lift and a bed. Physical exam: Gen: This is a 48-year-old female who is awake, alert and oriented x 2, baseline, lethargic although more awake, well-developed, elderly appearing, ill- appearing HEENT: Head is atraumatic, normocephalic. Pupils equal, round. Sclerae is anicteric. NECK: Supple. No JVD. No lymphadenopathy. No thyromegaly. LUNGS: Diminished breath sounds bilaterally otherwise clear to auscultation. No wheezes or rhonchi. No intercostal retractions. Chest wall dressing is currently dry and intact HEART: Regular rate and rhythm. No murmur. ABDOMEN: Soft. Bowel sounds are present. No masses. No tenderness. EXTREMITIES: No pedal edema. No calf tenderness. NEUROLOGICAL: Patient is awake, alert and oriented x2. Diffusely weak Please refer to medication reconciliation sheet for a list of medications. The impression and plan of care has been dictated by Laura Cordoba, Nurse Practitioner as directed. Dr. Brittany MD I have performed a history and examination and MDM of this patient, discussed the same with the dictator, and agree with the dictator's assessment and plan as written ,documented as a scribe. Based on total visit time, I have performed more than 50% of the visit. Patient Condition at Discharge: Fair Plan - Discharge Summary New Discharge Prescriptions: New bisacodyL [Dulcolax] 10 mg RECTAL DAILY PRN #30 suppositor PRN Reason: Constipation Acetaminophen Tab [Tylenol] 650 mg PO Q6H PRN tab PRN Reason: MILD PAIN/FEVER >100.5 Ciprofloxacin HCl [Cipro] 500 mg PO BID 10 Days #20 tab polyethylene glycoL 3350 [Miralax] 17 gm PO DAILY PRN #30 packet PRN Reason: CONSTIPATION Sennosides [Senokot] 8.6 mg PO BID #60 tab dexAMETHasone [Decadron] 4 mg PO TID #60 tablet metroNIDAZOLE [Flagyl] 500 mg PO TID 10 Days #30 tab Continue ALPRAZolam [Xanax] 2 mg PO BID FLUoxetine HCL [PROzac] 20 mg PO DAILY levETIRAcetam [Keppra] 750 mg PO Q12HR #60 tab Pantoprazole [Protonix] 40 mg PO DAILY #30 tab FLUoxetine HCL [PROzac] 40 mg PO DAILY Ondansetron [Zofran] 4 mg PO Q8HR PRN PRN Reason: Nausea Apixaban [Eliquis] 5 mg PO BID Discontinued Cephalexin [Keflex] 500 mg PO Q12HR #20 cap Discharge Medication List ALPRAZolam [Xanax] 2 mg PO BID 04/27/19 [History] FLUoxetine HCL [PROzac] 20 mg PO DAILY 05/03/19 [History] FLUoxetine HCL [PROzac] 40 mg PO DAILY 05/27/23 [History] Pantoprazole [Protonix] 40 mg PO DAILY #30 tab 05/29/23 [Rx] levETIRAcetam [Keppra] 750 mg PO Q12HR #60 tab 05/29/23 [Rx] Apixaban [Eliquis] 5 mg PO BID 10/15/23 [History] Ondansetron [Zofran] 4 mg PO Q8HR PRN 10/15/23 [History] Acetaminophen Tab [Tylenol] 650 mg PO Q6H PRN tab 03/16/24 [Rx] Ciprofloxacin HCl [Cipro] 500 mg PO BID 10 Days #20 tab 03/16/24 [Rx] Sennosides [Senokot] 8.6 mg PO BID #60 tab 03/16/24 [Rx] bisacodyL [Dulcolax] 10 mg RECTAL DAILY PRN #30 suppositor 03/16/24 [Rx] dexAMETHasone [Decadron] 4 mg PO TID #60 tablet 03/16/24 [Rx] metroNIDAZOLE [Flagyl] 500 mg PO TID 10 Days #30 tab 03/16/24 [Rx] polyethylene glycoL 3350 [Miralax] 17 gm PO DAILY PRN #30 packet 03/16/24 [Rx] Follow up Appointment(s)/Referral(s): [facility], [NON-STAFF] - 1 Week Ambulatory/Diagnostic Orders: Complete Blood Count w/diff [LAB.AMB] Time Frame: 3 Days, Location: None Selected Patient Instructions/Handouts: Ciprofloxacin (By mouth), Metronidazole (By mouth), Dexamethasone (By mouth), Polyethylene Glycol 3350 (By mouth), Bisacodyl (By mouth), Senna (By mouth), Cellulitis (GEN) Activity/Diet/Wound Care/Special Instructions: Activity limited until follow-up Follow-up with primary oncologist out of [facility] this week as scheduled Continue taking medications as prescribed Continue with local wound care with home care Follow-up with general surgery outpatient Continue bowel regimen daily and as needed. Apply Opticell silver, Saline moist gauze an then dry gauze, covered with ABD pads. Dressing to be changed every other day and reinforced as needed for increased drainage.
--- NOTE | 2024-03-27 15:48 | MR ---
Patient: Katya Lawson Ordering Physician: Unknown, Unknown ID: [id number] Phone, Pager: P opal: N/A Pager: N/A : [phone] Age/Gender: 48Y, F Primary Location: N/A Procedure: MR brain wo/w con Study Date: 03/06/2024 5:39:47 PM EXAMINATION TYPE: MR brain without con DATE OF EXAM: 03/07/2024 6:08 AM CLINICAL INDICATION: Hx cancer w/ mets to brain. COMPARISON: 11/09/2023 TECHNIQUE: Multi planar, multi sequence imaging was performed through the brain including: T1, T2, In version recovery, susceptibility weighted imaging and gradient echo imaging and Diffusion weighted im aging. IV Contrast: cc none FINDINGS: Suboptimal evaluation without IV contrast. Comparing other sequences including FLAIR, there is new va sogenic edema within the left temporal lobe, right frontal lobe as well as the left posterior frontal lobe. There is a 12 mm mass in the posterior frontal lobe identified which was not seen on prior an ascending vasogenic edema. Additionally there is a right temporal lobe lesion thought to be present m easuring 8 mm without significant vasogenic edema. Scattered blooming artifact likely microhemorrhage from prior metastatic disease. The bone marrow signal is within normal limits. Paranasal sinuses and mastoid air cells: High T2 signal within the right mastoid air cells. Improved/ reduction with plaster of fluid. Visualized orbits: Orbital contents are intact. IMPRESSION: Limited exam for metastatic disease with IV contrast. There is new vasogenic edema concerning for pro gression of metastatic disease scattered throughout the exam. Follow-up postcontrast examination for comparison. At least one mass is identified in the right posterior frontal lobe. 2. Right mastoid air cell effusion. Improved left mastoid air cell effusion..
--- NOTE | 2024-03-27 16:12 | CT ---
Patient: Katya Lawson Ordering Physician: Unknown, Unknown ID: [id number] Phone, Pager: P opal: N/A Pager: N/A : [phone] Age/Gender: 48Y, F Primary Location: N/A Procedure: CT BRAIN W/O Study Date: 03/09/2024 11:39:00 AM EXAMINATION TYPE: CT brain w con DATE OF EXAM: 03/09/2024 COMPARISON: MRI brain 03/06/2024. Patient refused contrast on MRI brain. INDICATION: Metastases DLP: 1225 mGycm, Automated exposure control for dose reduction was used. CONTRAST: 100 mL Isovue-300 CT of the brain is performed utilizing 3 mm thick sections through the posterior fossa and 3 mm thick sections through the remaining calvarium. Study is performed within 24 hours of arrival to the hosp ital. No abnormal hyperdensity is present to suggest an acute intracranial hemorrhage. There are areas of vasogenic edema in the left trilobar region and within the right centrum semiovale . An enhancing lesion appears to be in the superior right frontal lobe measuring 1.7 cm. The right temporal lobe lesion is not as clearly identified on the CT examination. No acute infarcts are evident. Ventricles and sulci are appropriate for the patient age. There is fluid-filled inferior right mastoid air cells. Correlate for a acute right mastoiditis. No s eptal destruction is identified. Left mastoid air cells are clear. Small retention cysts within the inferior left frontal sinus. Paranasal sinuses within the field of v iew are otherwise clear. IMPRESSION: 1. Areas suspicious for vasogenic edema in the left trilobar region and right frontal lobe. Subtle enhancing lesion may be in the right frontal lobe by CT. Patient's known right temporal lobe mass is not well visualized by CT. Postcontrast MRI brain may be more sensitive for smaller metastatic lesion s.
--- NOTE | 2024-04-04 12:23 | XR ---
Site ID [facility] Patient Katya Lawson ID [id number] Order # Procedure XR CHEST 1 VIEW PORTABLE EXAMINATION TYPE: XR chest 1V DATE OF EXAM: 03/02/2024 8:39 AM CLINICAL INDICATION: Weakness COMPARISON: THIS EXAM WAS READ DURING PACS DOWNTIME, NO PRIORS AVAILABLE. TECHNIQUE: XR chest 1V Frontal view of the chest. FINDINGS: Lungs/Pleura: Multifocal nodules are seen throughout the lungs compatible with metastatic disease. Th ere is no evidence of pleural effusion, focal consolidation, or pneumothorax. Pulmonary vascularity: Pulmonary vascular congestion. Heart/mediastinum: Cardiomediastinal silhouette is unremarkable. Musculoskeletal: No acute osseous pathology. [id number] tip in the superior vena cava. IMPRESSION: 1. Multifocal pulmonary nodules compatible with metastatic disease seen throughout the lungs. 2. Superimposed pulmonary congestion may be present.
--- NOTE | 2024-04-04 13:03 | CT ---
[id number] DANIELLE HENRY : 1975 EXAM: Brain without contrast. DATE: 03/01/2024 18:40 INDICATION: WEAKNESS, AMS COMPARISON: None, please note PACS downtime occurred during the radiologist interpretation of these images with limited priors/reports.. TECHNIQUE: Multiple axial CT images of the brain were obtained without IV contrast. One or more CT dose reduction strategies were utilized during this examination. Total DLP administered was 1154.5 mGycm. FINDINGS: Extra-axial spaces: No abnormal extra-axial fluid collections. Ventricular system: Within normal limits Cerebral parenchyma: Extensive white matter changes with large geographic confluent areas in the right frontal lobe and left parietal region. Pruett-white matter differentiation is maintained. No masses definitively visualized in these regions. No acute intraparenchymal hemorrhage or mass effect. The pruett-white junction is well differentiated. Cerebellum: Unremarkable. Mass effect: No evidence of midline shift. Intracranial vasculature: unremarkable Soft tissues: Normal. Calvarium/osseous structures: No depressed skull fracture. Paranasal sinuses and mastoid air cells: Opacified right mastoid air cells. Visualized orbits: Orbital contents are intact. IMPRESSION: 1. White matter changes possibly representing vasogenic edema versus sequela of prior injuries. Correlate for history of malignancy. Correlate with history of prior injury CVA. If there is a history of malignancy consider MRI brain with IV contrast. 2. Right mastoid air cell effusions MTDD
--- NOTE | 2024-04-04 13:50 | CT ---
Patient: Katya Lawson Ordering Physician: Unknown, Unknown ID: [id number] Phone, Pager: P opal: N/A Pager: N/A : 1975 Age/Gender: 48Y, F Primary Location: N/A Procedure: CT BRAIN W/O Study Date: 03/09/2024 11:39:00 AM EXAMINATION TYPE: CT brain w con DATE OF EXAM: 03/09/2024 COMPARISON: MRI brain 03/06/2024. Patient refused contrast on MRI brain. INDICATION: Metastases DLP: 1225 mGycm, Automated exposure control for dose reduction was used. CONTRAST: 100 mL Isovue-300 CT of the brain is performed utilizing 3 mm thick sections through the posterior fossa and 3 mm thick sections through the remaining calvarium. Study is performed within 24 hours of arrival to the hosp [facility]. No abnormal hyperdensity is present to suggest an acute intracranial hemorrhage. There are areas of vasogenic edema in the left trilobar region and within the right centrum semiovale . An enhancing lesion appears to be in the superior right frontal lobe measuring 1.7 cm. The right temporal lobe lesion is not as clearly identified on the CT examination. No acute infarcts are evident. Ventricles and sulci are appropriate for the patient age. There is fluid-filled inferior right mastoid air cells. Correlate for a acute right mastoiditis. No s eptal destruction is identified. Left mastoid air cells are clear. Small retention cysts within the inferior left frontal sinus. Paranasal sinuses within the field of v iew are otherwise clear. IMPRESSION: 1. Areas suspicious for vasogenic edema in the left trilobar region and right frontal lobe. Subtle enhancing lesion may be in the right frontal lobe by CT. Patient's known right temporal lobe mass is not well visualized by CT. Postcontrast MRI brain may be more sensitive for smaller metastatic lesion s. [facility], , 04/04/2024 1:48 PM
--- NOTE | 2024-04-04 15:51 | XR ---
Patient Katya Lawson ID [id number] Order # EXAMINATION TYPE: XR foot complete RT DATE OF EXAM: 03/03/2024 COMPARISON: No comparison available on downtime PACS. HISTORY: Pain following fall TECHNIQUE: 3 view right foot FINDINGS: No acute fracture or dislocation is evident. Very minimal plantar calcaneal heel spurs pres ent. Joint spaces are preserved. There is some varus deformity of the distal fourth digit. Follow up exams can be performed 7-10 days from acute trauma for continued pain. IMPRESSION: 1. No acute osseous abnormalities right foot
--- NOTE | 2024-04-13 14:42 | CONS ---
CONSULTATION REASON FOR CONSULTATION: Right breast wound and cellulitis. HISTORY OF PRESENT ILLNESS: The patient is a 48-year-old female with a past medical history significant for metastatic breast cancer to the right breast, status post surgery and has received radiation therapy, also with history of seizure disorder. The patient has been brought to the hospital for evaluation of weakness, mental status changes and apparently the patient says she has a fall and has possibly fractured her toe. The patient is not very clear when she received her last radiation chemotherapy for right breast cancer, currently did have a large foul swelling wound to the area. She is not very clear to tell me what kind of treatment she is getting for the right breast wound. The patient denies any headache or URI symptoms. No chest pain, shortness of breath, or cough. No nausea, or vomiting. No abdominal pain and no diarrhea. The patient did have local wound cultures obtained from the right breast, started on cefazolin. Infectious Disease was consulted for further management of antibiotic therapy. The patient is complaining of mostly foul smelling drainage to the right breast area, did have mild dull aching pain about 2 to 3/10. No radiation. REVIEW OF SYSTEMS: Positive points have been mentioned in HPI. Rest of systems negative. PAST MEDICAL HISTORY: Metastatic breast cancer, seizure disorder. PAST SURGICAL HISTORY: Lumpectomy and . SOCIAL HISTORY: Smoking. Denies drinking or drug use. FAMILY HISTORY: No pertinent findings were noticed. ALLERGIES: Iodine. MEDICATIONS: Currently the patient is on, 1. Cefazolin 2 grams q.8 hours. 2. Protonix . 3. Humalog sliding scale. 4. Heparin. 5. Decadron. 6. Eliquis. 7. Xanax. 8. Keppra. 9. [place]. 10.Tylenol. 11.Benadryl. PHYSICAL EXAMINATION: VITAL SIGNS: Blood pressure 105/80, pulse of 102, temperature 98.1. She is 97% on room air. GENERAL DESCRIPTION: This is a middle-aged female, lying in bed, in no distress. No tachypnea or accessory muscle of respiration use. HEENT: Slight pallor. No scleral icterus. Oral mucosa is moist. NECK: Trachea is central. No thyromegaly. LUNGS: Unlabored breathing. Clear to auscultation anteriorly. HEART: S1, S2. Regular rate and rhythm. ABDOMEN: Soft. No tenderness. EXTREMITIES: No edema in the feet. BREASTS: Examination of right breast did have a large wound with foul smelling. There is significant amount of slough tissue. NEUROLOGIC: The patient is awake, alert, oriented x3. Mood and affect normal. LABORATORY DATA: Creatinine 0.58, hemoglobin is 9.5, white count 14.88. Urine is mildly positive. Culture from the right breast wound is currently pending. DIAGNOSTIC IMPRESSION AND PLAN: 1. Patient with large right breast wound in this patient who did have metastatic breast cancer, now with a foul smelling drainage concerning for secondary infection. We will need to cover for the polymicrobial jay associated infection. 2. The patient also has a mildly positive UA and possible UTI may be playing a role in her mental status changes. 3. We will discontinue cefazolin we will start the patient on Zosyn 3.375 g q.8 hours. 4. Local wound care with Santyl followed by dressing change daily. Thank you for this consultation. We will follow this patient along with you. MMODL / IJN: [id number] /
--- NOTE | 2024-04-13 14:42 | PN ---
PROGRESS NOTE DATE OF SERVICE: 03/04/2024 LOCATION: [facility]. REASON FOR FOLLOWUP: Right breast infected wound and cellulitis. INTERVAL HISTORY: The patient is afebrile. She is breathing comfortably. The patient denies having any chest pain or shortness of breath or cough. Overall discomfort to the right breast is decreased, still has some foul smelling drainage. No vomiting or diarrhea. PHYSICAL EXAMINATION: VITAL SIGNS: Blood pressure 130/84, pulse 107, temperature 96. GENERAL DESCRIPTION: Middle-aged female lying in bed in no distress. RESPIRATORY SYSTEM: Unlabored breathing, clear to auscultation anteriorly. CHEST: Right breast wound is currently dressed. ABDOMEN: Soft, no tenderness. LABS: White count has came down to be normal compared to elevated white count of 40,000 yesterday. Culture pending. DIAGNOSTIC IMPRESSION AND PLAN: The patient with right breast wound with secondary cellulitis. Waiting for the culture to finalize. Continue Zosyn. Local wound care with Santyl followed by moist dressing. Family at the bedside. Questions answered. MMODL / IJN: [id number] /
--- NOTE | 2024-04-13 14:43 | PN ---
PROGRESS NOTE DATE OF SERVICE: 03/05/2024 LOCATION: [facility]. REASON FOR FOLLOWUP: Right breast infected wound and cellulitis. INTERVAL HISTORY: The patient is afebrile. The patient is breathing comfortably. Denies any worsening pain to the right chest wall wound area. No nausea. No vomiting. No abdominal pain or diarrhea. PHYSICAL EXAMINATION: VITAL SIGNS: Blood pressure 112/74, pulse of 65, temperature 98.1. GENERAL DESCRIPTION: This is a middle-aged female, lying in bed, in no distress. RESPIRATORY SYSTEM: Unlabored breathing. Clear to auscultation anteriorly. HEART: S1, S2. Regular rate and rhythm. ABDOMEN: Soft, no tenderness. BREASTS: Right breast wound is currently dressed. No drainage on the dressing. LABORATORY DATA: Creatinine 0.9. White count down to 9.7. Wound cultures currently pending. DIAGNOSTIC IMPRESSION AND PLAN: The patient with infected right chest wall/previous mastectomy site wound in this patient with metastatic breast cancer. We are currently waiting for the culture to finalize. Continue Zosyn. Family at the bedside. Questions were answered. MMODL / IJN: [id number] /
--- NOTE | 2024-04-13 14:44 | PN ---
PROGRESS NOTE DATE OF SERVICE: 03/06/2024 LOCATION: 1. REASON FOR FOLLOWUP: Right breast wound infection. INTERVAL HISTORY: The patient is afebrile. She is breathing comfortably. Has been complaining mostly pain to the bilateral knee area and some weakness. Denies any worsening pain to the right chest wall wound area. No nausea or vomiting. No abdominal pain or diarrhea. PHYSICAL EXAMINATION: VITAL SIGNS: Blood pressure 127/81, pulse of 107, temperature 98. GENERAL DESCRIPTION: Middle-aged female, lying in bed, in no distress. RESPIRATORY SYSTEM: Unlabored breathing. Clear to auscultation anteriorly. HEART: S1 and S2. Regular rate and rhythm. ABDOMEN: Soft, no tenderness. EXTREMITIES: No edema in feet. Chest wall wound is currently dressed. LABORATORY DATA: White count is 10.9, creatinine 0.46. Cultures are currently pending. DIAGNOSTIC IMPRESSION AND PLAN: Right chest wall wound in this patient, who did have right breast metastatic cancer, status post surgery and radiation with a necrotic wound. We are currently waiting for the cultures. responded to Zosyn. We will continue and monitor clinical course closely. MMODL / IJN: [id number] /
--- NOTE | 2024-04-13 14:44 | PN ---
PROGRESS NOTE DATE OF SERVICE: 03/07/2024 LOCATION: [facility]. REASON FOR FOLLOWUP: Left chest wall/mastectomy site wound and cellulitis. INTERVAL HISTORY: The patient is afebrile she is breathing comfortably. Pain to the right chest wall has slightly decreased intensity. No nausea, no vomiting. No abdominal pain or diarrhea. PHYSICAL EXAMINATION: VITAL SIGNS: Blood pressure is /76, pulse of 86, temperature 97.7. GENERAL DESCRIPTION: Middle-aged female, lying in bed, in no distress. RESPIRATORY SYSTEM: Unlabored breathing. Clear to auscultation anteriorly. HEART: S1, S2. Regular rate and rhythm. ABDOMEN: Soft, nontender. EXTREMITIES: right chest wall wound is currently dressed. Dressing has been changed at night has reported by the nursing staff. DIAGNOSTIC IMPRESSION AND PLAN: Patient with right chest wall/mastectomy site wound with secondary cellulitis. We are still waiting for the culture. The patient's white count responded to the Zosyn that will be continued. Local wound care to continue as ordered. Discharge antibiotic on the basis of final cultures, will benefit from IV on discharge. This was discussed with the nursing staff. MMODL / IJN: [id number] /
--- NOTE | 2024-04-13 14:45 | PN ---
PROGRESS NOTE DATE OF SERVICE: 03/08/2024 LOCATION: 1. REASON FOR FOLLOWUP: Right chest wall wound infection. INTERVAL HISTORY: The patient is afebrile. She is breathing comfortably. Denies any worsening pain to the right chest wall wound. No nausea. No vomiting. No abdominal pain. No diarrhea. PHYSICAL EXAMINATION: VITAL SIGNS: Blood pressure 130/68, pulse of 69, temperature 97.7. GENERAL DESCRIPTION: This is a middle-aged female, lying in bed, in no distress. RESPIRATORY SYSTEM: Unlabored breathing. Clear to auscultation anteriorly. HEART: S1, S2. Regular rate and rhythm. ABDOMEN: Soft. No tenderness. CHEST: Right chest wall wounds have significant slough tissue. Surrounding redness has decreased. LABORATORY DATA: White count is 11.68. Creatinine is normal. Local culture with gram-negative bacilli and Staph aureus. DIAGNOSTIC IMPRESSION AND PLAN: The patient with extensive wounds to the right breast. Still has significant amount of slough tissue and will benefit from surgical debridement. Surgery should be consulted. Continue Zosyn while waiting for the cultures to finalize. Family at the bedside. Questions answered. MMODL / IJN: [id number] /
--- NOTE | 2024-04-13 14:46 | PN ---
PROGRESS NOTE DATE OF SERVICE: 03/09/2024 LOCATION: [facility]. REASON FOR FOLLOWUP: Right breast chest wall infected wound. INTERVAL HISTORY: The patient is afebrile, has been breathing comfortably on room air. No chest pain, shortness of breath, or cough. No abdominal pain or any diarrhea. PHYSICAL EXAMINATION: VITAL SIGNS: Blood pressure 110/71, pulse 64, temperature . GENERAL DESCRIPTION: This is a middle-aged female, lying in bed, in no distress. RESPIRATORY SYSTEM: Unlabored breathing. Clear to auscultation anteriorly. HEART: S1, S2. Regular rate and rhythm. ABDOMEN: Soft. No tenderness. LABORATORY DATA: White count 11.08, creatinine 0.95. DIAGNOSTIC IMPRESSION AND PLAN: The patient with infected right chest wall wound in this patient with metastatic breast cancer, currently waiting for surgical debridement and deep cultures. Continue with Zosyn. Discharge antibiotic on the basis of final culture. Questions were answered. MMODL / IJN: [id number] /
--- NOTE | 2024-04-13 14:47 | PN ---
PROGRESS NOTE DATE OF SERVICE: 03/10/2024 LOCATION: [facility]. REASON FOR FOLLOWUP: Right chest wall wound infection. INTERVAL HISTORY: The patient is status post debridement of the right chest wall wound. The patient tolerated the procedure. The patient denies having any worsening pain to the right chest wall. No nausea, no vomiting. No abdominal pain. No diarrhea. PHYSICAL EXAMINATION: VITAL SIGNS: Blood pressure 169/78 with a pulse of 69, temperature is 97.8. She is 98% on room air. GENERAL DESCRIPTION: This is a middle-aged female, lying in bed, in no distress. RESPIRATORY SYSTEM: Unlabored breathing. Clear to auscultation anteriorly. HEART: S1, S2. Regular rate and rhythm. ABDOMEN: Soft. Right chest wall wound. Overall, wound base looks clean post discharge. LABORATORY DATA: White count is 11.6, creatinine 0.47. DIAGNOSTIC IMPRESSION AND PLAN: The patient with right chest wall wound in a patient with a history of breast cancer, status post debridement. Deep cultures requested to have hopefully collected. Continue Zosyn. Adjusting antibiotic further on the basis of those cultures. Continue supportive care. MMODL / IJN: [id number] /
--- NOTE | 2024-04-13 14:47 | PN ---
PROGRESS NOTE DATE OF SERVICE: 03/11/2024 LOCATION: [facility]. REASON FOR FOLLOWUP: Left chest wall wound and cellulitis. INTERVAL HISTORY: The patient is afebrile. The patient is currently breathing comfortably on room air. In no distress. The patient is sleepy, did not answer any questions. No vomiting or diarrhea. No change reported by the nursing staff. PHYSICAL EXAMINATION: VITAL SIGNS: Blood pressure 139/72 with a pulse of 72, temperature 98.7. GENERAL: This is a middle-aged female, lying in bed, in no distress. RESPIRATORY: Unlabored breathing. CHEST: Right chest wall wound is currently dressed. Minimal drainage on the dressing. LABORATORY DATA: Creatinine 0.70. White count 14.4. DIAGNOSTIC IMPRESSION AND PLAN: A patient with right chest wall wound in a patient with a history of metastatic cancer. Cultures currently pending. There was a culture on the chart showing E coli, the source was not identified. Continue Zosyn till the culture is finalized. Nursing staff to take the deep culture and continue supportive care. MMODL / IJN: [id number] /
== END 2024-03-16 21:01 | disposition home health service (06) | DRG 26 ==
LOC: 6NMEDSUR 17:26 → 5NMEDONC 03-13 12:07
PROVIDERS: ADMIT Hospitalist; ATTEND Hospitalist
PROC: 0HB5XZZ Excision of Chest Skin, External Approach (ICD-10-PCS; principal; 2024-03-09)
PROC: DW011ZZ Beam Radiation of Head and Neck using Photons 1 - 10 MeV (ICD-10-PCS; 2024-03-10)
PROC: 0HQ5XZZ Repair Chest Skin, External Approach (ICD-10-PCS; 2024-03-13)
PROC: DW011ZZ Beam Radiation of Head and Neck using Photons 1 - 10 MeV (ICD-10-PCS; 2024-03-13)
DX: G93.6 Cerebral edema (principal); G93.41 Metabolic encephalopathy; L76.22 Postprocedural hemorrhage of skin and subcutaneous tissue following other procedure; I96 Gangrene, not elsewhere classified; L03.313 Cellulitis of chest wall; C50.911 Malignant neoplasm of unspecified site of right female breast; C79.31 Secondary malignant neoplasm of brain; C78.00 Secondary malignant neoplasm of unspecified lung; C78.7 Secondary malignant neoplasm of liver and intrahepatic bile duct; B96.20 Unspecified Escherichia coli [E. coli] as the cause of diseases classified elsewhere; D63.0 Anemia in neoplastic disease; F41.9 Anxiety disorder, unspecified; T38.0X5A Adverse effect of glucocorticoids and synthetic analogues, initial encounter; R53.83 Other fatigue; S99.911A Unspecified injury of right ankle, initial encounter; S21.001A Unspecified open wound of right breast, initial encounter; W18.09XA Striking against other object with subsequent fall, initial encounter; Y83.8 Other surgical procedures as the cause of abnormal reaction of the patient, or of later complication, without mention of misadventure at the time of the procedure; Z87.891 Personal history of nicotine dependence; Z86.69 Personal history of other diseases of the nervous system and sense organs; Z17.1 Estrogen receptor negative status [ER-]; Z91.041 Radiographic dye allergy status
CPT/HCPCS: 70450; 70460; 70551; 71045; 77300; 77301; 77338; 77386; 80048; 83735; 85025; 85027; 87077; 87086; 87186; 88307; 96361; 96374; 99285

== ENCOUNTER → 2024-03-09 | Day surgery (SDC) | payer OTHER | LOC: OR 13:00 | PROVIDERS: ATTEND Surgery | DX: C50.911 Malignant neoplasm of unspecified site of right female breast ==

== ENCOUNTER 2024-03-27 13:18 | Inpatient (IN) | payer OTHER ==
--- NOTE | 2024-03-27 15:37 | ED ---
General Adult HPI - General Chief complaint: Weakness Stated complaint: Legions on spine Time Seen by Provider: 03/27/24 14:35 Source: patient, family, RN notes reviewed Mode of arrival: wheelchair Limitations: no limitations - History of Present Illness Initial comments: Patient is a 48-year-old female presenting to the emergency department with concerns for lesion on her spine. Patient had an MRI done of the spine just within the past couple of days. They did receive a call with concern for lesions to the spine. Patient does have metastatic breast cancer and has had radiation treatment to the brain as well. Patient has not been able to ambulate for the past couple of weeks. Patient complains of generalized pain - Related Data Home Medications Medication Instructions Recorded Confirmed ALPRAZolam [Xanax] 2 mg PO BID 04/27/19 10/21/23 FLUoxetine HCL [PROzac] 20 mg PO DAILY 05/03/19 10/21/23 FLUoxetine HCL [PROzac] 40 mg PO DAILY 05/27/23 10/21/23 Apixaban [Eliquis] 5 mg PO BID 10/15/23 10/21/23 Ondansetron [Zofran] 4 mg PO Q8HR PRN 10/15/23 10/21/23 Previous Rx's Medication Instructions Recorded Pantoprazole [Protonix] 40 mg PO DAILY #30 tab 05/29/23 levETIRAcetam [Keppra] 750 mg PO Q12HR #60 tab 05/29/23 Acetaminophen Tab [Tylenol] 650 mg PO Q6H PRN tab 03/16/24 Ciprofloxacin HCl [Cipro] 500 mg PO BID 10 Days #20 tab 03/16/24 Sennosides [Senokot] 8.6 mg PO BID #60 tab 03/16/24 bisacodyL [Dulcolax] 10 mg RECTAL DAILY PRN #30 03/16/24 suppositor dexAMETHasone [Decadron] 4 mg PO TID #60 tablet 03/16/24 metroNIDAZOLE [Flagyl] 500 mg PO TID 10 Days #30 tab 03/16/24 polyethylene glycoL 3350 [Miralax] 17 gm PO DAILY PRN #30 packet 03/16/24 Allergies Allergy/AdvReac Type Severity Reaction Status Date / Time Iodine and Iodide Containing Allergy Rash/Hives Verified 03/27/24 13:25 Produc Review of Systems ROS Statement: Those systems with pertinent positive or pertinent negative responses have been documented in the HPI. ROS Other: All systems not noted in ROS Statement are negative. Constitutional: Denies: fever ENT: Denies: throat pain Respiratory: Denies: dyspnea Cardiovascular: Denies: chest pain Endocrine: Reports: fatigue Gastrointestinal: Denies: abdominal pain Past Medical History Past Medical History: Cancer Additional Past Medical History / Comment(s): Hx. spinal meningitis twice 1999 and 2002, Breast Cancer 2019, one seizure age 6, "nodule on rt lung", V Fib Arrest. History of Any Multi-Drug Resistant Organisms: None Reported Past Surgical History: Appendectomy, Section Additional Past Surgical History / Comment(s): right shoulder cyst removal, breast biopsy Past Anesthesia/Blood Transfusion Reactions: No Reported Reaction Past Psychological History: Anxiety, Depression Past Alcohol Use History: None Reported Past Drug Use History: None Reported - Past Family History Mother Family Medical History: Cancer, Deep Vein Thrombosis (DVT) Additional Family Medical History / Comment(s): BREAST CANCER WITH METS TO LUNG. General Exam Limitations: no limitations General appearance: alert, in no apparent distress Head exam: Present: normocephalic Eye exam: Present: normal appearance Neck exam: Present: normal inspection Respiratory exam: Present: normal lung sounds bilaterally Cardiovascular Exam: Present: regular rate, normal rhythm GI/Abdominal exam: Present: soft. Absent: tenderness Extremities exam: Present: normal inspection Neurological exam: Present: alert Expanded Neurological exam: Present: protecting the airway Speech: Present: fluid speech Motor strength exam: RUE: 5, LUE: 5, RLE: 2/1, LLE: 2/1 Eye Response: (4) open spontaneously Motor Response: (6) obeys commands Verbal Response: (5) oriented Psychiatric exam: Present: normal affect, normal mood Skin exam: Present: normal color Course Vital Signs 03/27/24 03/27/24 03/27/24 13:22 15:57 16:08 Temperature 98.1 F 99.0 F Pulse Rate 82 75 65 Respiratory 16 16 14 Rate Blood Pressure 104/68 103/66 O2 Sat by Pulse 99 99 97 Oximetry 03/27/24 16:45 Temperature Pulse Rate 63 Respiratory 16 Rate Blood Pressure 106/72 O2 Sat by Pulse 97 Oximetry Medical Decision Making - Medical Decision Making Was pt. sent in by a medical professional or institution (KELLEN Weber, MANAGEMENT INTERN, urgent care, hospital, or skilled nursing...) When possible be specific @ -No Did you speak to anyone other than the patient for history (EMS, parent, family, police, friend...)? What history was obtained from this source @ - present and helps provide history including recent MRI Did you review nursing and triage notes (agree or disagree)? Why? @ -I reviewed and agree with nursing and triage notes Were old charts reviewed (outside hosp., previous admission, EMS record, old EKG, old radiological studies, urgent care reports/EKG's, skilled nursing records)? Report findings @ -Attempting to get a hold of recent MRI report Differential Diagnosis (chest pain, altered mental status, abdominal pain women, abdominal pain men, vaginal bleeding, weakness, fever, dyspnea, syncope, headache, dizziness, GI bleed, back pain, seizure, CVA, palpatations, mental health, musculoskeletal)? @ -M differential weakness differential Weakness: Hypoglycemia, shock, sepsis, hyponatremia, anemia, infection, CT, ETOH, adverse medicine reaction, overdose, stroke, this is not meant to be an all-inclusive list. EKG interpreted by me (3pts min.). @ -As above X-rays interpreted by me (1pt min.). @ -None done CT interpreted by me (1pt min.). @ -None done U/S interpreted by me (1pt. min.). @ -None done What testing was considered but not performed or refused? (CT, X-rays, U/S, labs)? Why? @ -Considering lumbar imaging however patient just had this done and we are emptying to get results still. What meds were considered but not given or refused? Why? @ -None Did you discuss the management of the patient with other professionals (professionals i.e. KELLEN Weber, MANAGEMENT INTERN, lab, RT, psych nurse, social security assessor, cake batter mixer, teacher, chief program officer, case advocate)? Give summary @ -Case discussed with Dr. Baltazar who will admit covering hospital call Was smoking cessation discussed for >3mins.? @ -No Was critical care preformed (if so, how long)? @ -No Were there social determinants of health that impacted care today? How? (Homelessness, low income, unemployed, alcoholism, drug addiction, transportation, low edu. Level, literacy, decrease access to med. care, long term, rehab)? @ -No Was there de-escalation of care discussed even if they declined (Discuss DNR or withdrawal of care, Hospice)? DNR status @ -No What co-morbidities impacted this encounter? (DM, HTN, Smoking, COPD, CAD, Cancer, CVA, ARF, Chemo, Hep., AIDS, mental health diagnosis, sleep apnea, morbid obesity)? @ -Metastatic breast cancer Was patient admitted / discharged? Hospital course, mention meds given and route, prescriptions, significant lab abnormalities, going to OR and other p ertinent info. @ -Patient presents with leg weakness for couple of weeks with new spine lesion. Patient will be admitted with Decadron and consults. Admission orders written Undiagnosed new problem with uncertain prognosis? @ -No Drug Therapy requiring intensive monitoring for toxicity (Heparin, Nitro, Insulin, Cardizem)? @ -No Were any procedures done? @ -No Diagnosis/symptom? @ -Leg weakness, metastatic breast cancer Acute, or Chronic, or Acute on Chronic? @ -Acute, acute on chronic Uncomplicated (without systemic symptoms) or Complicated (systemic symptoms)? @ -Located with inability to walk Side effects of treatment? @ -No Exacerbation, Progression, or Severe Exacerbation? @ -No Poses a threat to life or bodily function? How? (Chest pain, USA, CT, pneumonia, PE, COPD, DKA, ARF, appy, cholecystitis, CVA, Diverticulitis, Homicidal, Suicidal, threat to staff... and all critical care pts) @ -No - Lab Data Result diagrams: 03/27/24 15:40 03/27/24 15:40 Lab Results 03/27/24 03/27/24 03/27/24 Range/Units 15:40 15:40 15:40 WBC 9.9 (3.8-10.6) k/uL RBC 3.21 L (3.80-5.40) m/uL Hgb 10.3 L (11.4-16.0) gm/dL Hct 32.4 L (34.0-46.0) % MCV 100.8 H (80.0-100.0) fL MCH 32.1 (25.0-35.0) pg MCHC 31.9 (31.0-37.0) g/dL RDW 15.5 (11.5-15.5) % Plt Count 263 (150-450) k/uL MPV 8.0 Neutrophils % 90 % Lymphocytes % 5 % Monocytes % 4 % Eosinophils % 0 % Basophils % 0 % Neutrophils # 8.9 H (1.3-7.7) k/uL Lymphocytes # 0.5 L (1.0-4.8) k/uL Monocytes # 0.4 (0-1.0) k/uL Eosinophils # 0.0 (0-0.7) k/uL Basophils # 0.0 (0-0.2) k/uL Hypochromasia Moderate Macrocytosis Slight PT 10.7 (10.0-12.5) sec INR 1.0 (<1.2) APTT 19.5 L (22.0-30.0) sec Sodium 136 L (137-145) mmol/L Potassium 4.0 (3.5-5.1) mmol/L Chloride 103 (98-107) mmol/L Carbon Dioxide 34 H (22-30) mmol/L Anion Gap -1 mmol/L BUN 33 H (7-17) mg/dL Creatinine 0.38 L (0.52-1.04) mg/dL Est GFR (CKD-EPI)AfAm >90 (>60 ml/min/1.73 sqM) Est GFR (CKD-EPI)NonAf >90 (>60 ml/min/1.73 sqM) Glucose 104 H (74-99) mg/dL Calcium 8.7 (8.4-10.2) mg/dL Magnesium 1.9 (1.6-2.3) mg/dL Total Bilirubin 0.4 (0.2-1.3) mg/dL AST 45 H (14-36) U/L ALT 102 H (4-34) U/L Alkaline Phosphatase 70 (38-126) U/L Total Protein 5.2 L (6.3-8.2) g/dL Albumin 3.0 L (3.5-5.0) g/dL Disposition Clinical Impression: Weakness, Neoplasm of breast, primary tumor staging category T4c: extension to chest wall, not including only adherence and/or invasion to pectoralis muscle with ulceration and/or ipsilateral satellite nodules and/or edema (including peau d'orange) of skin, excluding inflammatory carcinoma Disposition: ADMITTED IP TO THIS HOSP Condition: Serious Is patient prescribed a controlled substance at d/c from ED?: No Referrals: Nonstaff,Physician [Primary Care Provider] - 1-2 days Time of Disposition: 16:58
[2024-03-27 15:49] LABS: Basophils % (A) 0 %; Eosinophils % (A) 0 %; HCT 32.4 % (34.0-46.0); HGB 10.3 gm/dL (11.4-16.0); Hypochromasia Moderate; Lymphocytes # (A) 0.5 k/uL (1.0-4.8); Lymphocytes % (A) 5 %; MCH 32.1 pg (25.0-35.0); MCHC 31.9 g/dL (31.0-37.0); MCV 100.8 fL (80.0-100.0); Macrocytosis Slight; Monocytes # (A) 0.4 k/uL (0-1.0); Monocytes % (A) 4 %; Neutrophils # (A) 8.9 k/uL (1.3-7.7); Neutrophils % (A) 90 %; Platelet Count 263 k/uL (150-450); RBC 3.21 m/uL (3.80-5.40); RDW 15.5 % (11.5-15.5); WBC 9.9 k/uL (3.8-10.6)
[2024-03-27 15:58] LABS: ALT 102 U/L (4-34); AST 45 U/L (14-36); African American GFR (CKD) >90 (>60 ml/min/1.73 sqM); Alkaline Phosphatase 70 U/L (38-126); Anion Gap -1 mmol/L; Blood Urea Nitrogen 33 mg/dL (7-17); Calcium 8.7 mg/dL (8.4-10.2); Carbon Dioxide 34 mmol/L (22-30); Chloride 103 mmol/L (98-107); Glucose 104 mg/dL (74-99); Magnesium 1.9 mg/dL (1.6-2.3); Non-African American GFR(CKD) >90 (>60 ml/min/1.73 sqM); Sodium 136 mmol/L (137-145); Total Bilirubin 0.4 mg/dL (0.2-1.3); Total Protein 5.2 g/dL (6.3-8.2)
[2024-03-27] MEDS: HYDROmorphone 1 MG/ML 1 ML SYRINGE IVP STA (15:59)
[2024-03-27] MEDS: SODIUM CHLORIDE 0.9% 1,000 ML IV STA (16:04)
[2024-03-27] MEDS: DEXAMETHASONE SOD PHOSPHATE 4 MG/ML 1 ML VIAL IVP SCH (16:05)
[2024-03-27 16:23] LABS: Prothrombin Time 10.7 sec (10.0-12.5)
[2024-03-27 16:29] LABS: Partial Thromboplastin Time 19.5 sec (22.0-30.0)
[2024-03-27] MEDS ORDERED: NALOXONE 0.4 MG/ML 1 ML VIAL IV PRN (16:58)
[2024-03-27] MEDS ORDERED: HYDROcodone/APAP 5-325MG 1 EACH TAB PO PRN (16:58)
[2024-03-27] MEDS: SODIUM CHLORIDE 0.9% 1,000 ML IV SCH (17:13)
[2024-03-27] MEDS ORDERED: NON FORMULARY DRUG (Midazolam [Nayzilam] 5 MG/0.1 ML Each) EA NOSTRIL PRN (17:52)
[2024-03-27] MEDS ORDERED: ONDANSETRON 4 MG TAB PO PRN (17:52)
[2024-03-27] MEDS: HYDROcodone/APAP 10-325MG 1 EACH TAB PO PRN (20:14)
[2024-03-27] MEDS: ALPRAZolam 1 MG TAB PO SCH (20:14)
[2024-03-27] MEDS: APIXABAN 5 MG TAB PO SCH (20:15)
[2024-03-27] MEDS: GABAPENTIN 300 MG CAP PO SCH (20:15)
[2024-03-28] MEDS: HYDROmorphone 1 MG/ML 1 ML SYRINGE IVP PRN (05:19)
[2024-03-28] MEDS: POTASSIUM CHLORIDE ER 20 MEQ TAB.ER PO SCH (09:01)
[2024-03-28] MEDS: POTASSIUM CHLORIDE ER 10 MEQ TAB.ER.PRT PO SCH (09:01)
[2024-03-28] MEDS: PANTOPRAZOLE 40 MG TABLET PO SCH (09:01)
[2024-03-28] MEDS: ALPRAZolam 1 MG TAB PO SCH (09:02)
[2024-03-28] MEDS: METOPROLOL SUCCINATE (ER) 25 MG TAB.ER.24H PO SCH (09:02)
--- NOTE | 2024-03-28 12:49 | P.CNOR ---
History of Present Illness - [facility] Consult date: 03/28/24 Consult reason: other History of present illness: Bilateral lower extremity weakness due to breast metastasis and T12 spinal cord lesion Patient is a 48-year-old female who is seen and examined today at bedside. She has a history of metastatic breast cancer first diagnosed in 2019. She has been in and out of the hospital numerous times and has undergone numerous different treatments. Most recently she was admitted to this hospital in late February for treatment evaluation and care. She was able to be discharged but had severe debility and was continuing her treatment for her metastatic breast cancer with lesions at her liver and brain. She was to continue her treatment and care at [facility] but was having further weakness and presented here reporting on hospital. Apparently the patient has been having significant and severe weakness at the bilateral lower extremities. She was recently diagnosed after obtaining an MRI of her lumbar spine and her report hospital 2 days ago on 03/26/2024. She had severe weakness and was told there was an issue with a lesion around T12 and presented back here to the hospital. The patient says she is not having pain in her lower extremities. She has some diffuse overall pain for which she takes regular and chronic pain medication. She says she is not having changes in her sensation in her lower extremities but she is unable to move her ankles feet toes knees or hips. She has been using a Varma catheter over the past few weeks. She says that a few weeks ago she was able to mobilize and transfer with some assistance but now has severe weakness in her bilateral lower extremities unable to walk at all. She denies any new injuries. Denies any new fevers or chills. She remains on antibiotics regarding recent procedures and infection. Review of Systems Significant history of metastatic breast cancer with brain and liver mets. She has altered mental status due to vasogenic edema and brain mets. She has right chest wall necrotic wound status postsurgical debridement with chronic infection. History of seizures. History of anxiety. Generalized weakness and medical debility due to above. Chronic nicotine use. Past Medical History Past Medical History: Cancer Additional Past Medical History / Comment(s): Hx. spinal meningitis twice 1999 and 2002, Breast Cancer 2019, one seizure age 6, "nodule on rt lung", V Fib Arrest. Metastatic stage IV breast cancer with altered mental status due to vasogenic edema at the brain mets. Necrotic chest wall wound status postsurgical debridement showing E. coli chronically, history of seizures, and anxiety with generalized medical weakness and debility History of Any Multi-Drug Resistant Organisms: None Reported Past Surgical History: Appendectomy, Section Additional Past Surgical History / Comment(s): right shoulder cyst removal, breast biopsy Past Anesthesia/Blood Transfusion Reactions: No Reported Reaction Past Psychological History: Anxiety, Depression Smoking Status: Current some day smoker Past Alcohol Use History: None Reported Additional Past Alcohol Use History / Comment(s): smokes 1/2 PPD, has smoked since age 24 Past Drug Use History: None Reported - Past Family History Mother Family Medical History: Cancer, Deep Vein Thrombosis (DVT) Additional Family Medical History / Comment(s): BREAST CANCER WITH METS TO LUNG. Medications and Allergies Home Medications Medication Instructions Recorded Confirmed Type Pantoprazole [Protonix] 40 mg PO DAILY #30 tab 05/29/23 03/27/24 Rx levETIRAcetam [Keppra] 750 mg PO Q12HR #60 tab 05/29/23 03/27/24 Rx Apixaban [Eliquis] 5 mg PO BID 10/15/23 03/27/24 History ALPRAZolam [Xanax] 1 mg PO BID@0900,1200 03/27/24 03/27/24 History ALPRAZolam [Xanax] 1.5 mg PO HS 03/27/24 03/27/24 History Gabapentin 300 mg PO BID 03/27/24 03/27/24 History HYDROcodone/APAP 5-325MG [[place] 1 tab PO Q6HR 03/27/24 03/27/24 History 5-325] Metoprolol Succinate (ER) [Toprol 12.5 mg PO DAILY 03/27/24 03/27/24 History Xl] Midazolam [Nayzilam] 1 spray NASAL DIRECTED PRN 03/27/24 03/27/24 History Potassium Chloride [Klor-Con 10 ER] 10 meq PO DAILY 03/27/24 03/27/24 History Potassium Chloride [Klor-Con M20] 20 meq PO DAILY 03/27/24 03/27/24 History ondansetron HCL [Zofran] 8 mg PO Q8H PRN 03/27/24 03/27/24 History Allergies Allergy/AdvReac Type Severity Reaction Status Date / Time Iodine and Iodide Containing Allergy Rash/Hives Verified 03/27/24 17:19 Produc Physical Examination Osteopathic Statement: *. No significant issues noted on an osteopathic structural exam other than those noted in the History and Physical/Consult. - L Spine: dermatomal strength & reflexes bilateral Strength: hip flexion: 0/5 Strength: hip extension: 0/5 Strength: knee flexion: 0/5 Strength: knee extension: 0/5 Strength: ankle dorsiflexion: 0/5 (0 out of 5 strength of bilateral ankles feet hips knees and toes. She says her sensations intact at her thighs ankles and feet circumferentially.) Strength: ankle plantar flexion: 0/5 (The patient's bilateral lower extremities have flaccid paralysis. She has 0 out of 5 strength dorsiflexion plantarflexion EHL hip flexion and knee extension. She is able to move her trunk to appear that there is some movement in her hips but she is unable to lift her legs up with 0 out of 5 streng) Results - Labs Labs: Abnormal Lab Results - Last 24 Hours (Table) 03/27/24 03/27/24 03/27/24 Range/Units 15:40 15:40 15:40 RBC 3.21 L (3.80-5.40) m/uL Hgb 10.3 L (11.4-16.0) gm/dL Hct 32.4 L (34.0-46.0) % MCV 100.8 H (80.0-100.0) fL Neutrophils # 8.9 H (1.3-7.7) k/uL Lymphocytes # 0.5 L (1.0-4.8) k/uL APTT 19.5 L (22.0-30.0) sec Sodium 136 L (137-145) mmol/L Carbon Dioxide 34 H (22-30) mmol/L BUN 33 H (7-17) mg/dL Creatinine 0.38 L (0.52-1.04) mg/dL Glucose 104 H (74-99) mg/dL AST 45 H (14-36) U/L ALT 102 H (4-34) U/L Total Protein 5.2 L (6.3-8.2) g/dL Albumin 3.0 L (3.5-5.0) g/dL H & H 03/27/24 Range/Units 15:40 Hgb 10.3 L (11.4-16.0) gm/dL Hct 32.4 L (34.0-46.0) % Coagulation 03/27/24 Range/Units 15:40 INR 1.0 (<1.2) Result Diagrams: 03/27/24 15:40 03/27/24 15:40 - Diagnostic results Lumbar MRI with contrast: report reviewed (There is a report from [facility] from 03/26/2024 of her lumbar spine which reports an irregular enhancing lesion inside the distal spinal cord of T12 with surrounding edema suspicious for metastatic lesion. 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 She has multiple issues due to the metastasis and now has a metastatic drop lesion at the spinal cord at T12 intradurally, causing bilateral lower extremity paralysis. We do not have actual imaging as the MRI was done at [facility] 2 days ago. We have the report discussing the lesion. Given the fact that his intradural lesion this would be beyond the scope of surgical intervention of this hospital and if she were to consider any intervention for the area she would require transfer to tertiary care facility such as [address] [place] [address]. Given her severe status and multiple lesions it would be very difficult to determine if she could have significant benefit with surgical intervention particularly given her status as well as her active infectious issues with necrotic nonhealing ulceration at her chest. She is not a good surgical candidate for such a procedure. I will discuss that with her. She should do significant measures to prevent pressure sores and ulcers as she is doing in her hospital bed accommodated fully. She is not having severe pain at her lower extremities and should continue her regular pain regimen. It is okay for her to try to mobilize with some assistance for transfers and sitting up if she is able. If the patient is interested in further intervention for the metastatic lesion at the intradural lesion of the cord behind T12, then she will need transfer to tertiary facility
[2024-03-28] MEDS ORDERED: polyethylene glycoL 3350 17 GM POWD.PACK PO PRN (13:32)
--- NOTE | 2024-03-28 14:27 | P.DS ---
Providers Date of admission: 03/27/24 17:01 Attending physician: Guzman Soto Consults: 03/27/24 16:58 Consult Physician Routine Consulting Provider: Freedom Murillo Consult Reason/Comments: Metastatic breast cancer Do you want consulting provider notified?: Yes Consult Physician Routine Consulting Provider: Pal Molina Consult Reason/Comments: spinal lesion Do you want consulting provider notified?: Yes Consult Physician Urgent Consulting Provider: Gabriel Wilson Consult Reason/Comments: spinal lesion Do you want consulting provider notified?: Yes Primary care physician: Physician Nonstaff Hospital Course: Patient is a 48-year-old female came in with a flaccid paralysis of bilateral lower extremities. Patient had symptoms that are going on for about 2 weeks patient was admitted in the hospital at that time found to have metastatic disease from her breast cancer to the brain and the patient was started on radiation therapy to subsequently discharged. Patient did not have any significant improvement and had a regular visit to [facility] oncologist who ordered an MRI of the spine which showed a lesion at T12 which is inside the spinal column or intradural lesion. Images are not available but the reports are available from [facility]. Patient was started on high-dose steroids and admitted with consultation to oncology and radiation oncology as w ell as spinal specialist. Orthopedics spine surgeon recommended transfer to [facility] if patient's family want any further intervention although any further intervention may not improve the patient's symptoms. As per the family's request if accepted patient will be transferred to [facility]. PHYSICAL EXAMINATION: GENERAL: The patient is alert and oriented x3, not in any acute distress. Well developed, well nourished. HEENT: Pupils are round and equally reacting to light. EOMI. No scleral icterus. No conjunctival pallor. Normocephalic, atraumatic. No pharyngeal erythema. No thyromegaly. CARDIOVASCULAR: S1 and S2 present. No murmurs, rubs, or gallops. PULMONARY: Chest is clear to auscultation, no wheezing or crackles. ABDOMEN: Soft, nontender, nondistended, normoactive bowel sounds. No palpable organomegaly. MUSCULOSKELETAL: No joint swelling or deformity. EXTREMITIES: No cyanosis, clubbing, or pedal edema. NEUROLOGICAL: Flaccid paralysis of bilateral lower extremities SKIN: No rashes. Assessment and plan -Intradural spinal cord lesion at T12 secondary to metastatic breast cancer. Patient also has mets to the brain patient is started on Decadron with consultation to radiation oncology. Possible transfer to [facility] for further neurosurgical evaluation. 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 -History of DVT for which patient is on Eliquis which will be continued DVT prophylaxis: On Eliquis Patient Condition at Discharge: Serious Plan - Discharge Summary Discharge Rx Participant: No New Discharge Prescriptions: No Action levETIRAcetam [Keppra] 750 mg PO Q12HR #60 tab Pantoprazole [Protonix] 40 mg PO DAILY #30 tab ondansetron HCL [Zofran] 8 mg PO Q8H PRN PRN Reason: Nausea Midazolam [Nayzilam] 1 spray NASAL DIRECTED PRN PRN Reason: Seizures Potassium Chloride [Klor-Con 10 ER] 10 meq PO DAILY Potassium Chloride [Klor-Con M20] 20 meq PO DAILY Gabapentin 300 mg PO BID Metoprolol Succinate (ER) [Toprol Xl] 12.5 mg PO DAILY ALPRAZolam [Xanax] 1 mg PO BID@0900,1200 Apixaban [Eliquis] 5 mg PO BID HYDROcodone/APAP 5-325MG [Fluker 5-325] 1 tab PO Q6HR ALPRAZolam [Xanax] 1.5 mg PO HS Discharge Medication List Pantoprazole [Protonix] 40 mg PO DAILY #30 tab 05/29/23 [Rx] levETIRAcetam [Keppra] 750 mg PO Q12HR #60 tab 05/29/23 [Rx] Apixaban [Eliquis] 5 mg PO BID 10/15/23 [History] ALPRAZolam [Xanax] 1 mg PO BID@0900,1200 03/27/24 [History] ALPRAZolam [Xanax] 1.5 mg PO HS 03/27/24 [History] Gabapentin 300 mg PO BID 03/27/24 [History] HYDROcodone/APAP 5-325MG [Fluker 5-325] 1 tab PO Q6HR 03/27/24 [History] Metoprolol Succinate (ER) [Toprol Xl] 12.5 mg PO DAILY 03/27/24 [History] Midazolam [Nayzilam] 1 spray NASAL DIRECTED PRN 03/27/24 [History] Potassium Chloride [Klor-Con 10 ER] 10 meq PO DAILY 03/27/24 [History] Potassium Chloride [Klor-Con M20] 20 meq PO DAILY 03/27/24 [History] ondansetron HCL [Zofran] 8 mg PO Q8H PRN 03/27/24 [History] Follow up Appointment(s)/Referral(s): Nonstaff,Physician [Primary Care Provider] - 1-2 days
--- NOTE | 2024-03-28 14:27 | P.HPIM ---
History of Present Illness Patient is a 48-year-old female came in with a flaccid paralysis of bilateral lower extremities. Patient had symptoms that are going on for about 2 weeks patient was admitted in the hospital at that time found to have metastatic disea se from her breast cancer to the brain and the patient was started on radiation therapy to subsequently discharged. Patient did not have any significant improvement and had a regular visit to [facility] oncologist who ordered an MRI of the spine which showed a lesion at T12 which is inside the spinal column or intradural lesion. Images are not available but the reports are available from [facility]. Patient was started on high-dose steroids and admitted with consultation to oncology and radiation oncology as well as spinal specialist. Orthopedics spine surgeon recommended transfer to [facility] if patient's family want any further intervention although any further intervention may not improve the patient's symptoms. As per the family's request if accepted patient will be transferred to [facility]. REVIEW OF SYSTEMS: All other systems are negative except those mentioned in the HPI PHYSICAL EXAMINATION: GENERAL: The patient is alert and oriented x3, not in any acute distress. Well developed, well nourished. HEENT: Pupils are round and equally reacting to light. EOMI. No scleral icterus. No conjunctival pallor. Normocephalic, atraumatic. No pharyngeal erythema. No thyromegaly. CARDIOVASCULAR: S1 and S2 present. No murmurs, rubs, or gallops. PULMONARY: Chest is clear to auscultation, no wheezing or crackles. ABDOMEN: Soft, nontender, nondistended, normoactive bowel sounds. No palpable organomegaly. MUSCULOSKELETAL: No joint swelling or deformity. EXTREMITIES: No cyanosis, clubbing, or pedal edema. NEUROLOGICAL: Flaccid paralysis of bilateral lower extremities SKIN: No rashes. Assessment and plan -Intradural spinal cord lesion at T12 secondary to metastatic breast cancer. Patient also has mets to the brain patient is started on Decadron with consultation to radiation oncology. Possible transfer to [facility] for further neurosurgical evaluation. 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 spinal meningitis twice 1999 and 2002, Breast Cancer 2019, one seizure age 6, "nodule on rt lung", V Fib Arrest. Metastatic stage IV breast cancer with altered mental status due to vasogenic edema at the brain mets. Necrotic chest wall wound status postsurgical debridement showing E. coli chronically, history of seizures, and anxiety with generalized medical weakness and debility History of Any Multi-Drug Resistant Organisms: None Reported Past Surgical History: Appendectomy, Section Additional Past Surgical History / Comment(s): right shoulder cyst removal, breast biopsy Past Anesthesia/Blood Transfusion Reactions: No Reported Reaction Past Psychological History: Anxiety, Depression Smoking Status: Current some day smoker Past Alcohol Use History: None Reported Additional Past Alcohol Use History / Comment(s): smokes 1/2 PPD, has smoked since age 24 Past Drug Use History: None Reported - Past Family History Mother Family Medical History: Cancer, Deep Vein Thrombosis (DVT) Additional Family Medical History / Comment(s): BREAST CANCER WITH METS TO LUNG. Medications and Allergies Home Medications Medication Instructions Recorded Confirmed Type Pantoprazole [Protonix] 40 mg PO DAILY #30 tab 05/29/23 03/27/24 Rx levETIRAcetam [Keppra] 750 mg PO Q12HR #60 tab 05/29/23 03/27/24 Rx Apixaban [Eliquis] 5 mg PO BID 10/15/23 03/27/24 History ALPRAZolam [Xanax] 1 mg PO BID@0900,1200 03/27/24 03/27/24 History ALPRAZolam [Xanax] 1.5 mg PO HS 03/27/24 03/27/24 History Gabapentin 300 mg PO BID 03/27/24 03/27/24 History HYDROcodone/APAP 5-325MG [Dick[place] 1 tab PO Q6HR 03/27/24 03/27/24 History 5-325] Metoprolol Succinate (ER) [Toprol 12.5 mg PO DAILY 03/27/24 03/27/24 History Xl] Midazolam [Nayzilam] 1 spray NASAL DIRECTED PRN 03/27/24 03/27/24 History Potassium Chloride [Klor-Con 10 ER] 10 meq PO DAILY 03/27/24 03/27/24 History Potassium Chloride [Klor-Con M20] 20 meq PO DAILY 03/27/24 03/27/24 History ondansetron HCL [Zofran] 8 mg PO Q8H PRN 03/27/24 03/27/24 History Allergies Allergy/AdvReac Type Severity Reaction Status Date / Time Iodine and Iodide Containing Allergy Rash/Hives Verified 03/27/24 17:19 Produc Physical Exam Vitals: Vital Signs Temp Pulse Pulse Resp BP BP Pulse Ox 03/28/24 11:59 98.0 F 76 18 108/71 97 03/28/24 08:00 97.9 F 80 18 108/67 99 03/28/24 07:43 82 18 118/79 98 03/28/24 02:00 70 12 102/69 100 03/27/24 21:00 81 16 110/69 96 03/27/24 19:40 62 16 109/69 98 03/27/24 18:25 98.4 F 64 14 107/66 100 03/27/24 17:15 98.0 F 63 18 108/71 98 03/27/24 16:45 63 16 106/72 97 03/27/24 16:08 65 14 103/66 97 03/27/24 15:57 99.0 F 75 16 104/68 99 Intake and Output 03/27/24 03/28/24 03/28/24 22:59 06:59 14:59 Output Total 500 Balance -500 Output: Urine 500 Other: Weight 74.389 kg Results CBC & Chem 7: 03/27/24 15:40 03/27/24 15:40 Labs: Abnormal Lab Results - Last 24 Hours (Table) 03/27/24 03/27/24 03/27/24 Range/Units 15:40 15:40 15:40 RBC 3.21 L (3.80-5.40) m/uL Hgb 10.3 L (11.4-16.0) gm/dL Hct 32.4 L (34.0-46.0) % MCV 100.8 H (80.0-100.0) fL Neutrophils # 8.9 H (1.3-7.7) k/uL Lymphocytes # 0.5 L (1.0-4.8) k/uL APTT 19.5 L (22.0-30.0) sec Sodium 136 L (137-145) mmol/L Carbon Dioxide 34 H (22-30) mmol/L BUN 33 H (7-17) mg/dL Creatinine 0.38 L (0.52-1.04) mg/dL Glucose 104 H (74-99) mg/dL AST 45 H (14-36) U/L ALT 102 H (4-34) U/L Total Protein 5.2 L (6.3-8.2) g/dL Albumin 3.0 L (3.5-5.0) g/dL
--- NOTE | 2024-03-28 17:35 | P.CONS ---
History of Present Illness - Reason for Consult Consult date: 03/28/24 metastatic breast cancer Requesting physician: Fabián Rosales - Chief Complaint lower extremity weakness - History of Present Illness Patient is a 48 year old female with a significant history of metastatic breast cancer. She is a patient of Dr. Rich, She presented with palpable right breast mass,she first noticed over a year prior to her presentation, it became signifi cantly larger, associated with skin ulceration and significant chest wall pain,she had her first mammograms and breast U/S in April/2019 which revealed a very large mass ,about 7.8x4.4x5.5cm at 1 o'clock right breast,no suspicious nodes on U/S of axilla,core biopsy on 05/15/2019 revealed grade 2,invasive ductal carcinoma,triple negative,additional biopsies of 4 and 5 o'clock lesions were benign. Repeat ER/LA and HER2/PATRICIA at outside lab confirmed triple negative disease. On 06/03/2019,CT scan of chest/abdomen/pelvis revealed non specific 6 mm RML lung nodule,otherwise negative,bone scan was negative. 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 On 06/28/2019,she started neoadjuvant dose dense AC and completed 4 cycles on 08/10/2019 (she had minimal clinical response to it). On 08/25/2019,she started weekly taxol and carboplatin and completed 12 weekly treatment on 11/16/2019. Repeat 01/05/2020,repeat CT scan of chest/abdomen/pelvis revealed stable non specific lung nodule. She completed neoadjuvant radiation therapy on 01/18/2020,then she did not follow up and did have any treatment systemic or local therapy for her breast.She was last seen in February/2020. She presented to Dr. Gorman in October/2021 with worsening ulceration and swelling in right breast. PET scan on 10/24/2021 revealed very large right breast mass with skin ulceration,multiple bilateral lung nodues,largest 2.5 cm in left lung and evidence of suspicious right hilar nodes. On 01/15/2022,she underwent EBUS,FNA from mediastinal nodes was positive,biopsy of JENN lung lesion was positive for metastatic breast cancer,ER/LA negative and HER2/PATRICIA negative. Liquid biopsy through [facility] [facility] revealed TP53 mutation. Since she has been on multiple regimens due to disease progression. It has been discussed with patient that comfort care measures was recommended as her performance status has continued to decline, however pt and family wanted to continue to pursue further treatment options. They have been very adamant about not wanting hospice. She was then referred for second opinion to Dr. Sachi Orellana at [facility] who she has been following with. Plan was to start patient on Eribulin, which she has yet to start. She underwent MRI lumbar spine on 03/26/24 due to progressing lower extremity weakness which showed irregular enhancing lesion in the distal spinal cord at the T12 level with surrounding edema. With mild multilevel degenerative changes of the lumbar spine. Patient was started on Decadron by her oncologist and was being referred to radiation oncology to evaluate for RT of spinal lesion. Patient presented to the emergency room for concerns of spinal lesion and persisting lower extremity weakness. During today's visit patient is lethargic and slept most of visit. Boyfriend was providing HPI. He states patient has been having progressive lower extremity weakness and is no longer able to ambulate. She is using wheelchair at this time. Patient was restarted on Decadron 4 mg every 6 hours. Radiation oncology and orthopedics have been consulted. Labs reviewed, WBC 9.9, hemoglobin 10.3, platelets 263,000. Creatinine 0.38, GFR greater than 90. Bilirubin 0.4, AST 45, ALT 102, ALP 70. Review of Systems 10 point ROS is negative except as stated in the HPI Past Medical History Past Medical History: Cancer Additional Past Medical History / Comment(s): Hx. spinal meningitis twice 1999 and 2002, Breast Cancer 2019, one seizure age 6, "nodule on rt lung", V Fib Arrest. History of Any Multi-Drug Resistant Organisms: None Reported Past Surgical History: Appendectomy, Section Additional Past Surgical History / Comment(s): right shoulder cyst removal, breast biopsy Past Anesthesia/Blood Transfusion Reactions: No Reported Reaction Past Psychological History: Anxiety, Depression Past Alcohol Use History: None Reported Past Drug Use History: None Reported - Past Family History Mother Family Medical History: Cancer, Deep Vein Thrombosis (DVT) Additional Family Medical History / Comment(s): BREAST CANCER WITH METS TO LUNG. Medications and Allergies Home Medications Medication Instructions Recorded Confirmed Type Pantoprazole [Protonix] 40 mg PO DAILY #30 tab 05/29/23 03/27/24 Rx levETIRAcetam [Keppra] 750 mg PO Q12HR #60 tab 05/29/23 03/27/24 Rx Apixaban [Eliquis] 5 mg PO BID 10/15/23 03/27/24 History ALPRAZolam [Xanax] 1 mg PO BID@0900,1200 03/27/24 03/27/24 History ALPRAZolam [Xanax] 1.5 mg PO HS 03/27/24 03/27/24 History Gabapentin 300 mg PO BID 03/27/24 03/27/24 History HYDROcodone/APAP 5-325MG [[place] 1 tab PO Q6HR 03/27/24 03/27/24 History 5-325] Metoprolol Succinate (ER) [Toprol 12.5 mg PO DAILY 03/27/24 03/27/24 History Xl] Midazolam [Nayzilam] 1 spray NASAL DIRECTED PRN 03/27/24 03/27/24 History Potassium Chloride [Klor-Con 10 ER] 10 meq PO DAILY 03/27/24 03/27/24 History Potassium Chloride [Klor-Con M20] 20 meq PO DAILY 03/27/24 03/27/24 History ondansetron HCL [Zofran] 8 mg PO Q8H PRN 03/27/24 03/27/24 History Allergies Allergy/AdvReac Type Severity Reaction Status Date / Time Iodine and Iodide Containing Allergy Rash/Hives Verified 03/27/24 17:19 Produc Physical Exam Vitals: Vital Signs Temp Pulse Pulse Resp BP BP Pulse Ox 03/28/24 08:00 97.9 F 80 18 108/67 99 03/28/24 07:43 82 18 118/79 98 03/28/24 02:00 70 12 102/69 100 03/27/24 21:00 81 16 110/69 96 03/27/24 19:40 62 16 109/69 98 03/27/24 18:25 98.4 F 64 14 107/66 100 03/27/24 17:15 98.0 F 63 18 108/71 98 03/27/24 16:45 63 16 106/72 97 03/27/24 16:08 65 14 103/66 97 03/27/24 15:57 99.0 F 75 16 104/68 99 03/27/24 13:22 98.1 F 82 16 99 Intake and Output 03/27/24 03/28/2403/28/24 22:59 06:59 14:59 Output Total 500 Balance -500 Output: Urine 500 - Constitutional General appearance: average body habitus, no acute distress - EENT Eyes: EOMI ENT: hearing grossly normal - Respiratory Respiratory: bilateral: CTA - Cardiovascular Rhythm: regular - Gastrointestinal General gastrointestinal: soft, no tenderness - Integumentary Integumentary: no cyanotic - Musculoskeletal Bilateral lower extremity strength 1/5 Musculoskeletal: generalized weakness - Psychiatric lethargic Results CBC & Chem 7: 03/27/24 15:40 03/27/24 15:40 Labs: Abnormal Lab Results - Last 24 Hours (Table) 03/27/24 03/27/24 03/27/24 Range/Units 15:40 15:40 15:40 RBC 3.21 L (3.80-5.40) m/uL Hgb 10.3 L (11.4-16.0) gm/dL Hct 32.4 L (34.0-46.0) % MCV 100.8 H (80.0-100.0) fL Neutrophils # 8.9 H (1.3-7.7) k/uL Lymphocytes # 0.5 L (1.0-4.8) k/uL APTT 19.5 L (22.0-30.0) sec Sodium 136 L (137-145) mmol/L Carbon Dioxide 34 H (22-30) mmol/L BUN 33 H (7-17) mg/dL Creatinine 0.38 L (0.52-1.04) mg/dL Glucose 104 H (74-99) mg/dL AST 45 H (14-36) U/L ALT 102 H (4-34) U/L Total Protein 5.2 L (6.3-8.2) g/dL Albumin 3.0 L (3.5-5.0) g/dL Comments: MRI lumbar spine reviewed Assessment and Plan (1) Neoplasm of breast, primary tumor staging category T4c: extension to chest wall, not including only adherence and/or invasion to pectoralis muscle with ulceration and/or ipsilateral satellite nodules and/or edema (including peau d'orange) of skin, excluding inflammatory carcinoma Current Visit: Yes Status: Acute Priority: High Code(s): C50.919 - MA LIGNANT NEOPLASM OF UNSP SITE OF UNSPECIFIED FEMALE BREAST SNOMED Code(s): 285502078 (2) Weakness Current Visit: Yes Status: Acute Priority: High Code(s): R53.1 - WEAKNESS SNOMED Code(s): 70486517 Plan: Metastatic breast cancer: -Oncology history and plan as dictated in HPI -She has been on multiple regimens due to disease progression. It has been discussed with patient that comfort care measures was recommended as her performance status has continued to decline, however pt and family wanted to continue to pursue further treatment options. They have been very adamant about not wanting hospice. She was then referred for second opinion to Dr. Sachi Orellana at [facility] who she has been following with. Plan was to start patient on Eribulin, which she has yet to start. -She underwent MRI lumbar spine on 03/26/24 due to progressing lower extremity weakness which showed irregular enhancing lesion in the distal spinal cord at the T12 level with surrounding edema. She was started on Decadron by her oncologist and was being referred to radiation oncology, Dr. Wilson to evaluate for RT of spinal lesion -Decadron 4 mg every 6 hours ordered -Radiation oncology and orthopedics have been consulted -Agree with continuation of decadron. Will await rad onc and ortho recommendations -F/u with primary oncologist, Dr. Orellana on d/c for further management of metastatic disease After visit, spoke with admitting team regarding POC. Ortho has evaluated pt and has no plan for surgical intervention at this time. Pt and family would like to be further evaluated, and plan is to transfer pt to [facility]
[2024-03-28 20:09] VITALS: BP 134/80; PULSE 88; RESP 16; TEMP 98.5
== END 2024-03-28 20:47 | disposition short-term general hospital (02) | DRG 343 ==
LOC: EC 13:18 → 5NMEDONC 17:01
PROVIDERS: ADMIT Internal Medicine; ATTEND Internal Medicine
DX: C79.51 Secondary malignant neoplasm of bone (principal); G93.6 Cerebral edema; C79.49 Secondary malignant neoplasm of other parts of nervous system; I96 Gangrene, not elsewhere classified; G81.01 Flaccid hemiplegia affecting right dominant side; G81.02 Flaccid hemiplegia affecting left dominant side; C78.7 Secondary malignant neoplasm of liver and intrahepatic bile duct; C79.31 Secondary malignant neoplasm of brain; C50.911 Malignant neoplasm of unspecified site of right female breast; Z86.74 Personal history of sudden cardiac arrest; G40.909 Epilepsy, unspecified, not intractable, without status epilepticus; L98.499 Non-pressure chronic ulcer of skin of other sites with unspecified severity; F32.A Depression, unspecified; B96.20 Unspecified Escherichia coli [E. coli] as the cause of diseases classified elsewhere; F41.9 Anxiety disorder, unspecified; F17.210 Nicotine dependence, cigarettes, uncomplicated; M47.816 Spondylosis without myelopathy or radiculopathy, lumbar region; R53.81 Other malaise; Z17.1 Estrogen receptor negative status [ER-]; Z79.891 Long term (current) use of opiate analgesic; Z79.01 Long term (current) use of anticoagulants; Z92.3 Personal history of irradiation; Z92.21 Personal history of antineoplastic chemotherapy; Z79.899 Other long term (current) drug therapy; Z91.041 Radiographic dye allergy status; Z86.61 Personal history of infections of the central nervous system; Z80.3 Family history of malignant neoplasm of breast; Z80.1 Family history of malignant neoplasm of trachea, bronchus and lung; Z86.718 Personal history of other venous thrombosis and embolism
CPT/HCPCS: 36415; 80053; 83735; 85025; 85610; 85730; 87635; 96361; 96374; 96375; 96376; 99285

== ENCOUNTER 2024-04-20 13:08 | Inpatient (IN) | payer OTHER ==
--- NOTE | 2024-04-20 13:30 | ED ---
General Adult HPI - General Chief complaint: Shortness of Breath Stated complaint: SOB Time Seen by Provider: 04/20/24 13:13 Source: patient, EMS Mode of arrival: EMS Limitations: no limitations - History of Present Illness Initial comments: Dictation was produced using [employer] dictation software. please excuse any grammatical, word or spelling errors. Chief Complaint: 48-year-old female presents to the ER for shortness of breath History of Present Illness: Patient is a 48-year-old female she has extensive history of breast cancer with metastatic spread to the brain along with multiple other parts of her body. She states that she felt acutely dyspneic over the last 1 hour. She has no history of blood clot. She does not take any anticoagulation medications. Patient has been in and out of hospital admissions due to complications of breast cancer. Has not had any surgery. She was not amenable for chemotherapy due to recent hospitalizations and feeling ill. She has however been getting radiation treatment. Feels significantly weak. The ROS documented in this emergency department record has been reviewed and confirmed by me. Those systems with pertinent positive or negative responses have been documented in the HPI. All other systems are other negative and/or noncontributory. - Related Data Home Medications Medication Instructions Recorded Confirmed Apixaban [Eliquis] 5 mg PO BID 10/15/23 04/20/24 ALPRAZolam [Xanax] 1 mg PO BID@0900,1200 03/27/24 04/20/24 ALPRAZolam [Xanax] 1.5 mg PO HS 03/27/24 04/20/24 Gabapentin 300 mg PO BID 03/27/24 04/20/24 HYDROcodone/APAP 5-325MG [[place] 1 tab PO Q6HR 03/27/24 04/20/24 5-325] Metoprolol Succinate (ER) [Toprol 12.5 mg PO DAILY 03/27/24 04/20/24 Xl] Midazolam [Nayzilam] 5 mg NASAL DIRECTED PRN 03/27/24 04/20/24 Potassium Chloride [Klor-Con 10 ER] 10 meq PO DAILY 03/27/24 04/20/24 ondansetron HCL [Zofran] 8 mg PO Q8H PRN 03/27/24 04/20/24 Sennosides [Senokot] 8.6 mg PO BID 04/20/24 04/20/24 Sertraline HCl [Zoloft] 50 mg PO DAILY 04/20/24 04/20/24 dexAMETHasone [Decadron] See Taper PO DIRECTED 04/20/24 04/20/24 polyethylene glycoL 3350 [Miralax] 17 gm PO DAILY 04/20/24 04/20/24 Previous Rx's Medication Instructions Recorded Pantoprazole [Protonix] 40 mg PO DAILY #30 tab 05/29/23 levETIRAcetam [Keppra] 750 mg PO Q12HR #60 tab 05/29/23 Allergies Allergy/AdvReac Type Severity Reaction Status Date / Time Iodine and Iodide Containing Allergy Rash/Hives Verified 04/20/24 13:13 Produc Review of Systems ROS Statement: Those systems with pertinent positive or pertinent negative responses have been documented in the HPI. ROS Other: All systems not noted in ROS Statement are negative. Past Medical History Past Medical History: Cancer Additional Past Medical History / Comment(s): Hx. spinal meningitis twice 1999 and 2002, Breast Cancer 2018, one seizure age 6, "nodule on rt lung", V Fib Arrest. History of Any Multi-Drug Resistant Organisms: None Reported Past Surgical History: Appendectomy, Section Additional Past Surgical History / Comment(s): right shoulder cyst removal, breast biopsy Past Anesthesia/Blood Transfusion Reactions: No Reported Reaction Past Psychological History: Anxiety, Depression Past Alcohol Use History: None Reported Past Drug Use History: None Reported - Past Family History Mother Family Medical History: Cancer, Deep Vein Thrombosis (DVT) Additional Family Medical History / Comment(s): BREAST CANCER WITH METS TO LUNG. General Exam - General Exam Comments Initial Comments: PHYSICAL EXAM: General Impression: Alert and oriented x3, malaised HEENT: Normocephalic atraumatic, extra-ocular movements intact, pupils equal and reactive to light bilaterally, mucous membranes Cardiovascular: Heart regular rate and rhythm Chest: Able to complete full sentences, no retractions, no tachypnea Abdomen: abdomen soft, non-tender, non-distended, no organomegaly Musculoskeletal: Pulses present and equal in all extremities, no peripheral edema Motor: no focal deficits noted Neurological: CN II-XII grossly intact, no focal motor or sensory deficits noted Skin: Extensive nonerythematous nondraining wound to the right chest Psych: Normal affect and mood Limitations: no limitations Course Vital Signs 04/20/24 04/20/24 04/20/24 13:15 14:49 16:15 Temperature 98.2 F Pulse Rate 107 H 106 H 104 H Respiratory 20 18 16 Rate Blood Pressure 105/69 106/79 107/77 O2 Sat by Pulse 92 L 96 97 Oximetry 04/20/24 04/20/24 16:37 17:28 Temperature 99.8 F H Pulse Rate 105 H Respiratory 18 20 Rate Blood Pressure 119/73 O2 Sat by Pulse 95 Oximetry EKG Findings - EKG Comments: EKG Findings:: My EKG interpretation: Ventricular rate 107, sinus tachycardia,. 158, QRS 90, QTc 396. No RI prolongation, no QTC prolongation, no ST or T-wave changes noted. Overall, this EKG is specific Medical Decision Making - Medical Decision Making Was pt. sent in by a medical professional or institution (, PA, PROJECTOR OPERATOR, urgent care, hospital, or correction...) When possible be specific @ -No Did you speak to anyone other than the patient for history (EMS, parent, family, police, friend...)? What history was obtained from this source @ -History obtained from family member at the bedside Did you review nursing and triage notes (agree or disagree)? Why? @ -I reviewed and agree with nursing and triage notes Were old charts reviewed (outside hosp., previous admission, EMS record, old EKG, old radiological studies, urgent care reports/EKG's, correction records)? Report findings @ -No old charts were reviewed Differential Diagnosis (chest pain, altered mental status, abdominal pain women, abdominal pain men, vaginal bleeding, musculoskeletal, weakness, fever, dyspnea, syncope, headache, dizziness, GI bleed, back pain, seizure, CVA, palpatations, mental health)? @ -Differential Dyspnea: Coronary syndrome, arrhythmia, tamponade, asthma, COPD, pulmonary embolism, pneumonia, pneumothorax, pulmonary effusion, anaphylaxis, diabetic ketoacidosis, flailed chest, pulmonary contusion, diaphragmatic rupture, anemia, neuromuscular, this is not meant to be an all-inclusive list. EKG interpreted by me (3pts min.). @ -See above X-rays interpreted by me (1pt min.). @ -Chest x-ray shows airspace opacities CT interpreted by me (1pt min.). @ -CT shows multiple third order branch PEs with multiple pulmonary nodules U/S interpreted by me (1pt. min.). @ -None done What testing was considered but not performed or refused? (CT, X-rays, U/S, labs)? Why? @ -None What meds were considered but not given or refused? Why? @ -None Was smoking cessation discussed for >3mins.? @ -No Were there social determinants of health that impacted care today? How? (Homelessness, low income, unemployed, alcoholism, drug addiction, transportation, low edu. Level, literacy, decrease access to med. care, alf, rehab)? @ -No Was there de-escalation of care discussed even if they declined (Discuss DNR or withdrawal of care, Hospice)? DNR status @ -No What co-morbidities impacted this encounter? (DM, HTN, Smoking, COPD, CAD, Cancer, CVA, ARF, Chemo, Hep., AIDS, mental health diagnosis, sleep apnea, morbid obesity)? @ -Cancer with metastatic spread Was patient admitted / discharged? Hospital course, mention meds given and route, prescriptions, significant lab abnormalities, going to OR and other pertinent info. @ -48-year-old breast cancer patient with history of metastatic spread presents to the ER for acute dyspnea. Vital signs shows mild tachycardia. Rest of vital signs within acceptable limits. Evaluation obtained. D-dimer is elevated 2.35. Urinalysis positive for UTI. Patient given antibiotics. PEs identified on CT angiography of the chest. Patient started on heparin. Disposition options were discussed. She is agreeable for admission here. Vascular, pul monology and oncology consulted. Case discussed with Dr. Gong for admission Did you discuss the management of the patient with other professionals (professionals i.e. , PA, PROJECTOR OPERATOR, lab, RT, psych nurse, neonatal social worker, field horticultural specialty grower, teacher, delinquency prevention officer, case repairer)? Give summary @ -See above Was critical care preformed (if so, how long)? @ -yes, 33 minutes Undiagnosed new problem with uncertain prognosis? @ -No Drug Therapy requiring intensive monitoring for toxicity (Heparin, Nitro, Insulin, Cardizem)? @ -No Were any procedures done? @ -No Diagnosis/symptom? Acute, or Chronic, or Acute on Chronic? Uncomplicated (without systemic symptoms) or Complicated (systemic symptoms)? @ -PE, lung cancer complicated by dyspnea Side effects of treatment? @ -No Exacerbation, Progression, or Severe Exacerbation? @ -No Poses a threat to life or bodily function? How? (Chest pain, USA, IA, pneumonia, PE, COPD, DKA, ARF, appy, cholecystitis, CVA, Diverticulitis, Homicidal, Suicidal, threat to staff... and all critical care pts) @ -yes - Lab Data Result diagrams: 04/20/24 13:34 04/20/24 13:34 Lab Results 04/20/24 04/20/24 04/20/24 Range/Units 13:34 13:34 13:34 WBC 7.9 (3.8-10.6) k/uL RBC 3.46 L (3.80-5.40) m/uL Hgb 10.9 L (11.4-16.0) gm/dL Hct 34.8 (34.0-46.0) % MCV 100.6 H (80.0-100.0) fL MCH 31.6 (25.0-35.0) pg MCHC 31.4 (31.0-37.0) g/dL RDW 15.3 (11.5-15.5) % Plt Count 146 L (150-450) k/uL MPV 8.2 Neutrophils % 91 % Lymphocytes % 5 % Monocytes % 3 % Eosinophils % 0 % Basophils % 0 % Neutrophils # 7.2 (1.3-7.7) k/uL Lymphocytes # 0.4 L (1.0-4.8) k/uL Monocytes # 0.2 (0-1.0) k/uL Eosinophils # 0.0 (0-0.7) k/uL Basophils # 0.0 (0-0.2) k/uL Hypochromasia Slight Macrocytosis Slight PT 11.1 (10.0-12.5) sec INR 1.0 (<1.2) APTT 30.5 H (22.0-30.0) sec D-Dimer 2.35 H (<0.60) mg/L FEU Sodium 138 (137-145) mmol/L Potassium 3.7 (3.5-5.1) mmol/L Chloride 108 H (98-107) mmol/L Carbon Dioxide 29 (22-30) mmol/L Anion Gap 1 mmol/L BUN 29 H (7-17) mg/dL Creatinine 0.37 L (0.52-1.04) mg/dL Est GFR (CKD-EPI)AfAm >90 (>60 ml/min/1.73 sqM) Est GFR (CKD-EPI)NonAf >90 (>60 ml/min/1.73 sqM) Glucose 109 H (74-99) mg/dL Plasma Lactic Acid Jonathan (0.7-2.0) mmol/L Calcium 8.5 (8.4-10.2) mg/dL Ionized Calcium Sil[place] 4.7 (4.5-5.3) mg/dL Magnesium 1.7 (1.6-2.3) mg/dL Total Bilirubin 0.5 (0.2-1.3) mg/dL AST 54 H (14-36) U/L ALT 253 H (4-34) U/L Alkaline Phosphatase 97 (38-126) U/L Troponin I (0.000-0.034) ng/mL NT-Pro-B Natriuret Pep 90 pg/mL Total Protein 5.1 L (6.3-8.2) g/dL Albumin 2.8 L (3.5-5.0) g/dL Urine Color Urine Appearance (Clear) Urine pH (5.0-8.0) Ur Specific [place] (1.001-1.035) Urine Protein (Negative) Urine Glucose (UA) (Negative) Urine Ketones (Negative) Urine Blood (Negative) Urine Nitrite (Negative) Urine Bilirubin (Negative) Urine Urobilinogen (<2.0) mg/dL Ur Leukocyte Esterase (Negative) Urine RBC (0-5) /hpf Urine WBC (0-5) /hpf Calcium Oxalate Crystal (None) /hpf Urine Bacteria (None) /hpf Urine Mucus (None) /hpf 04/20/24 04/20/24 04/20/24 Range/Units 13:34 13:34 13:34 WBC (3.8-10.6) k/uL RBC (3.80-5.40) m/uL Hgb (11.4-16.0) gm/dL Hct (34.0-46.0) % MCV (80.0-100.0) fL MCH (25.0-35.0) pg MCHC (31.0-37.0) g/dL RDW (11.5-15.5) % Plt Count (150-450) k/uL MPV Neutrophils % % Lymphocytes % % Monocytes % % Eosinophils % % Basophils % % Neutrophils # (1.3-7.7) k/uL Lymphocytes # (1.0-4.8) k/uL Monocytes # (0-1.0) k/uL Eosinophils # (0-0.7) k/uL Basophils # (0-0.2) k/uL Hypochromasia Macrocytosis PT (10.0-12.5) sec INR (<1.2) APTT (22.0-30.0) sec D-Dimer (<0.60) mg/L FEU Sodium (137-145) mmol/L Potassium (3.5-5.1) mmol/L Chloride (98-107) mmol/L Carbon Dioxide (22-30) mmol/L Anion Gap mmol/L BUN (7-17) mg/dL Creatinine (0.52-1.04) mg/dL Est GFR (CKD-EPI)AfAm (>60 ml/min/1.73 sqM) Est GFR (CKD-EPI)NonAf (>60 ml/min/1.73 sqM) Glucose (74-99) mg/dL Plasma Lactic Acid Jonathan 1.4 (0.7-2.0) mmol/L Calcium (8.4-10.2) mg/dL Ionized Calcium [place] (4.5-5.3) mg/dL Magnesium (1.6-2.3) mg/dL Total Bilirubin (0.2-1.3) mg/dL AST (14-36) U/L ALT (4-34) U/L Alkaline Phosphatase (38-126) U/L Troponin I <0.012 (0.000-0.034) ng/mL NT-Pro-B Natriuret Pep pg/mL Total Protein (6.3-8.2) g/dL Albumin (3.5-5.0) g/dL Urine Color Yellow Urine Appearance Cloudy H (Clear) Urine pH 5.5 (5.0-8.0) Ur Specific [place] 1.034 (1.001-1.035) Urine Protein 1+ H (Negative) Urine Glucose (UA) Negative (Negative) Urine Ketones Negative (Negative) Urine Blood Moderate H (Negative) Urine Nitrite Positive H (Negative) Urine Bilirubin Negative (Negative) Urine Urobilinogen <2.0 (<2.0) mg/dL Ur Leukocyte Esterase Small H (Negative) Urine RBC 43 H (0-5) /hpf Urine WBC 20 H (0-5) /hpf Calcium Oxalate Crystal Rare H (None) /hpf Urine Bacteria Few H (None) /hpf Urine Mucus Many H (None) /hpf Disposition Clinical Impression: Pulmonary emboli, UTI (urinary tract infection) Disposition: ADMITTED IP TO THIS HOSP Condition: Critical Referrals: Nonstaff,Physician [Primary Care Provider] - 1-2 days Decision Time: 18:15
[2024-04-20] MEDS: HYDROmorphone 1 MG/ML 1 ML SYRINGE IVP STA (14:16)
[2024-04-20 14:20] LABS: Appearance,Urine Cloudy (Clear); Bacteria,Urine Few /hpf; Bilirubin,Urine Negative (Negative); Blood,Urine Moderate (Negative); Calcium Oxalate Crystals,Urine Rare /hpf; Color,Urine Yellow; Glucose,Urine (UA) Negative (Negative); Ketones,Urine Negative (Negative); Leukocyte Esterase,Urine Small (Negative); Mucus,Urine Many /hpf; Nitrite,Urine Positive (Negative); PH, Urine 5.5 (5.0-8.0); Protein,Urine 1+ (Negative); RBC,Urine 43 /hpf (0-5); Specific Gravity,Urine 1.034 (1.001-1.035); Urobilinogen,Urine <2.0 mg/dL (<2.0); WBC,Urine 20 /hpf (0-5)
[2024-04-20 14:40] LABS: Basophils % (A) 0 %; Eosinophils % (A) 0 %; HCT 34.8 % (34.0-46.0); HGB 10.9 gm/dL (11.4-16.0); Hypochromasia Slight; Lymphocytes # (A) 0.4 k/uL (1.0-4.8); Lymphocytes % (A) 5 %; MCH 31.6 pg (25.0-35.0); MCHC 31.4 g/dL (31.0-37.0); MCV 100.6 fL (80.0-100.0); Macrocytosis Slight; Mean Platelet Volume 8.2; Monocytes # (A) 0.2 k/uL (0-1.0); Monocytes % (A) 3 %; Neutrophils # (A) 7.2 k/uL (1.3-7.7); Neutrophils % (A) 91 %; Platelet Count 146 k/uL (150-450); RBC 3.46 m/uL (3.80-5.40); RDW 15.3 % (11.5-15.5); WBC 7.9 k/uL (3.8-10.6)
[2024-04-20] MEDS: HYDROmorphone 1 MG/ML 1 ML SYRINGE IM STA (14:46)
[2024-04-20] MEDS: SODIUM CHLORIDE 0.9% 1,000 ML IV STA (14:53)
[2024-04-20 14:54] LABS: Partial Thromboplastin Time 30.5 sec (22.0-30.0); Prothrombin Time 11.1 sec (10.0-12.5)
[2024-04-20 14:57] LABS: Ionized Calcium 4.7 mg/dL (4.5-5.3)
[2024-04-20 15:03] LABS: ALT 253 U/L (4-34); AST 54 U/L (14-36); African American GFR (CKD) >90 (>60 ml/min/1.73 sqM); Albumin 2.8 g/dL (3.5-5.0); Alkaline Phosphatase 97 U/L (38-126); Blood Urea Nitrogen 29 mg/dL (7-17); Calcium 8.5 mg/dL (8.4-10.2); Chloride 108 mmol/L (98-107); Glucose 109 mg/dL (74-99); Magnesium 1.7 mg/dL (1.6-2.3); Non-African American GFR(CKD) >90 (>60 ml/min/1.73 sqM); Potassium 3.7 mmol/L (3.5-5.1); Sodium 138 mmol/L (137-145); Total Bilirubin 0.5 mg/dL (0.2-1.3); Total Protein 5.1 g/dL (6.3-8.2)
[2024-04-20 15:21] LABS: Anion Gap 1 mmol/L; Carbon Dioxide 29 mmol/L (22-30)
--- NOTE | 2024-04-20 15:27 | XR ---
EXAMINATION TYPE: XR chest 2V DATE OF EXAM: 04/20/2024 3:17 PM CLINICAL INDICATION: Female, 48 years old with history of dyspnea; [facility] COMPARISON: Chest radiographs from 03/01/2024 TECHNIQUE: XR chest 2V Frontal view of the chest. FINDINGS: Lungs/Pleura: Enlarging left upper lung masslike consolidation now measuring 7.6 x 6.1 cm, previously up to 4.3 cm New scattered airspace opacities throughout the lungs. Other nodular changes throughout the lungs pre sent. Pulmonary vascularity: Unremarkable. Heart/mediastinum: Cardiomediastinal silhouette is partially obscured due to overlying and adjacent o pacities. Musculoskeletal: No acute osseous pathology. Other findings: None IMPRESSION: 1. Airspace opacities of the lungs correlate for pneumonia. 2. Scattered lung masses or nodules with Enlarging left upper lung masslike consolidation now measur ing 7.6 x 6.1 cm, previously up to 4.3 cm. [facility], , 04/20/2024 3:25 PM
[2024-04-20 15:30] LABS: NT-Pro-B-Type Natriuretic Pept 90 pg/mL
[2024-04-20] MEDS: diphenhydrAMINE 50 MG/ML 1 ML VIAL IVP STA (16:21)
[2024-04-20] MEDS: methylPREDNISolone SOD SUCCI 125 MG/2 ML VIAL IV STA (16:22)
[2024-04-20] MEDS: FAMOTIDINE 20 MG/2 ML VIAL IV STA (16:24)
--- NOTE | 2024-04-20 17:43 | CT ---
EXAMINATION TYPE: CT angio chest DATE OF EXAM: 04/20/2024 COMPARISON: CT chest 11/09/2023 HISTORY: Stage IV Ca. Positive dimer. CT DLP: 468.1 mGycm CONTRAST: CT chest with contrast and 3D reconstruction with MIP imaging is performed with IV Contrast, patient injected with 70 cc mL of Isovue 370. Contrast-enhanced CT of the chest was performed through the course of the pulmonary arteries with rani g and mediastinal window settings submitted. 3D reconstruction with MIP imaging was also performed. PULMONARY ARTERIES: Filling defects are seen within multiple bilateral second and third order pulmona ry arterial tributaries compatible with pulmonary embolism. There is no evidence for large central em bolus with saddle component. No evidence of right heart strain. LUNGS: Innumerable pulmonary nodules and masses significantly increased from prior examination. The l argest mass in the left upper lobe measures 6.2 cm. The largest mass within the right lung is seen in right lower lobe posteriorly measuring 5.2 cm MEDIASTINUM: Necrotic AP window lymph node measuring 2.4 cm. Supraclavicular adenopathy bilaterally. High right paratracheal mass measuring 4.5 cm. HILAR STRUCTURES: No evidence for mass. No hilar lymph nodes greater than 1 cm. UPPER ABDOMEN: Hepatic masses seen. The largest hepatic mass is seen within the left hepatic lobe barnt suring 10.6 x 8.7 cm. IMPRESSION: 1. Filling defects are seen within multiple bilateral second and third order pulmonary arterial trib utaries compatible with pulmonary embolism. There is no evidence for large central embolus with saddl e component. 2. Innumerable pulmonary nodules and masses which have increased in size in overall number since prio r study compatible with metastatic disease. 2. Multiple hepatic masses compatible with metastatic disease. [facility], , 04/20/2024 5:41 PM
[2024-04-20] MEDS ORDERED: HEPARIN SODIUM 1,000 UN/ML (10ML VL) IV PRN (18:05)
[2024-04-20] MEDS ORDERED: NALOXONE 0.4 MG/ML 1 ML VIAL IV PRN (18:10)
[2024-04-20] MEDS: CEFEPIME 2 GM in SODIUM CHLORIDE 0.9% 100 ML IVPB STA (18:23)
[2024-04-20] MEDS: SODIUM CHLORIDE 0.9% 1,000 ML IV SCH (18:27)
[2024-04-20] MEDS: HEPARIN SOD,PORK IN 0.45% NACL 25,000 UNIT in 0.45% NACL 1 250ML.BAG IV SCH (18:44)
[2024-04-20] MEDS: HEPARIN SODIUM 1,000 UN/ML (10ML VL) IV ONE (18:46)
--- NOTE | 2024-04-20 21:04 | P.HPIM ---
History of Present Illness H&P Date: 04/20/24 Chief Complaint: Shortness of breath Patient is a 48-year-old female with PMH of DVT (on Eliquis), metastatic breast cancer presented to the ED for shortness of breath. The patient started getting short of breath this afternoon. She was not involved in any strenuous activity at the time. She also experienced some dry cough, chills and lightheadedness but denies falls. She also mentioned R sided strictly pleuritic chest discomfort which started at the same time as the dyspnea. Denies fever, abdominal pain, nausea, vomiting, dysuria fainting, joint pain, muscle aches. The patient has an extensive history of breast cancer with metastasis to the brain, liver, lung. The cancer was diagnosed in 2019 and is she is currently undergoing radiation therapy. She also has a history of new onset seizure in May 2023 and also had a cardiopulmonary arrest in September 2023. She also has a history of DVT. ED workup revealed chest CTA that showed filling defects within multiple bilateral second and third order pulmonary arterial tributaries compatible pulmonary embolism. She was treated with heparin drip, Solu-Medrol, cefepime, Benadryl, 0.9 normal saline in the ED. Vitals: T 98.2F, P 107bpm, RR 20, BP 105/69, O2 sat at 92% on 2L NC EKG: Sinus tachycardia, incomplete right bundle branch block, T wave inversions in lead III, V1-V3, flattened T wave in V4, rate of 107 bpm, QTc 396 ms Labs: Hemoglobin 10.9, MCV 100.6, platelet 146, chloride 108, BUN 29, creati nine 0.37, AST 54, ALT 253, total protein 5.1, albumin 2.8 Coagulation panel: APTT 30.5, D-dimer 2.35, Urinalysis: Cloudy, 1+ protein, moderate blood, positive nitrite, small leukocyte esterase, 43 RBC, 20 WBC, few bacteria, many mucus, rare calcium oxalate crystals. Chest x-ray: Scattered lung nodules enlarging left upper lung masslike consolidation now measuring 7.6X 6.1 cm, previously up to 4.3 cm Chest CTA: Filling defects are seen within multiple bilateral second and third order pulmonary arterial tributaries compatible with pulmonary embolism. There is no evidence for large central embolus with saddle component. Innumerable pulmonary nodules and masses which have increased in size and overall number since prior study compatible with metastatic disease. Multiple hepatic masses compatible with metastatic disease. ED documentation reviewed. Review of systems: Pertinent positives and negatives as discussed in HPI, a complete review of systems was performed and all other systems are negative. PMH: Breast cancer, anxiety, depression, seizures, DVT FMH: Bladder cancer Allergies: Iodine Social history: Tobacco: Current everyday smoker since age of 24 Alcohol: Denies use Recreational drugs: Denies use Sick contacts: None Physical examination: Vital signs reviewed General: non toxic, no distress, appears at stated age, overweight Derm: Bruises on all 4 extremities, bandaged wound on the chest Head: atraumatic, normocephalic, symmetric Eyes: EOMI, anicteric sclera ENT: Nose and ears atraumatic Mouth: no lip lesion, mucus membranes moist Cardiovascular: S1S2 reg, no murmur, no edema Lungs: CTA bilateral, no rhonchi, no rales, no accessory muscle use Abdominal: soft, nontender to palpation, no guarding Ext: no gross muscle atrophy, no contractures Neuro: CN II-XI grossly intact, no gross focal neuro deficits Psych: Alert, oriented, appropriate affect Assessment/Plan: Patient is a 48-year-old female with breast cancer presented to the ED for shortness of breath and she has been admitted for pulmonary embolism as seen on chest CTA. #. Pulmonary embolism, non-massive, failure of DOAC therapy (Eliquis) Elevated APTT 30.5, D-dimer 2.35, - WNL troponin< 0.012, pro BNP 90, blood pressure 105/69 - C/w high intensity heparin drip 18 units/kg/h - Vascular surgery consulted in ED in case patient needs EKOS or IVC filter in light of failure of anticoagulation therapy - Pulmonology consulted #. Abnormal urinalysis Cloudy appearance, positive nitrite, small leukocyte esterase, few bacteria, moderate blood Patient is asymptomatic S/p 2 g cefepime in the ED - Blood culture and urine culture ordered in the ED - Hold off on further Abxs as likely colonization #. Normocytic anemia, at baseline - Low hemoglobin 10.9, normal MCV 100.6 Monitor CBC #. Thrombocytopenia - Low platelet 146 Monitor CBC #. Elevated transaminase levels AST 54, ALT 253 Monitor BMP #. Hypoproteinemia Total protein 5.1, albumin 2.8 Monitor BMP #. Metastatic breast cancer Patient mentions she is on radiation therapy - Oncology consulted #. History of anxiety/depression C/W alprazolam 1 mg p.o. twice daily and sertraline 50 mg p.o. daily #. History of GERD C/W continue Protonix 40 mg p.o. daily #. Nausea and vomiting C/W ondansetron 8 mg p.o. every 8 hours #. History of seizures C/W levetiracetam 30 mg p.o. every 12 hours F: 0.9 normal saline 20 mL/h E: Replete as required N: Heart healthy diet A: DVT prophylaxis: Heparin drip The patient is admitted with an anticipated more than 2 midnight stay for evaluation of shortness of breath CODE STATUS: Full code Discussed with: Patient Anticipated discharge place: Home Past Medical History Past Medical History: Cancer Additional Past Medical History / Comment(s): Hx. spinal meningitis twice 1999 and 2002, Breast Cancer 2019, one seizure age 6, "nodule on rt lung", V Fib Arrest. History of Any Multi-Drug Resistant Organisms: None Reported Past Surgical History: Appendectomy, Section Additional Past Surgical History / Comment(s): right shoulder cyst removal, breast biopsy Past Anesthesia/Blood Transfusion Reactions: No Reported Reaction Past Psychological History: Anxiety, Depression Past Alcohol Use History: None Reported Past Drug Use History: None Reported - Past Family History Mother Family Medical History: Cancer, Deep Vein Thrombosis (DVT) Additional Family Medical History / Comment(s): BREAST CANCER WITH METS TO LUNG. Medications and Allergies Home Medications Medication Instructions Recorded Confirmed Type Pantoprazole [Protonix] 40 mg PO DAILY #30 tab 05/29/23 04/20/24 Rx levETIRAcetam [Keppra] 750 mg PO Q12HR #60 tab 05/29/23 04/20/24 Rx Apixaban [Eliquis] 5 mg PO BID 10/15/23 04/20/24 History ALPRAZolam [Xanax] 1 mg PO BID@0900,1200 03/27/24 04/20/24 History ALPRAZolam [Xanax] 1.5 mg PO HS 03/27/24 04/20/24 History Gabapentin 300 mg PO BID 03/27/24 04/20/24 History HYDROcodone/APAP 5-325MG [[place] 1 tab PO Q6HR 03/27/24 04/20/24 History 5-325] Metoprolol Succinate (ER) [Toprol 12.5 mg PO DAILY 03/27/24 04/20/24 History Xl] Midazolam [Nayzilam] 5 mg NASAL DIRECTED PRN 03/27/24 04/20/24 History Potassium Chloride [Klor-Con 10 ER] 10 meq PO DAILY 03/27/24 04/20/24 History ondansetron HCL [Zofran] 8 mg PO Q8H PRN 03/27/24 04/20/24 History Sennosides [Senokot] 8.6 mg PO BID 04/20/24 04/20/24 History Sertraline HCl [Zoloft] 50 mg PO DAILY 04/20/24 04/20/24 History dexAMETHasone [Decadron] See Taper PO DIRECTED 04/20/24 04/20/24 History polyethylene glycoL 3350 [Miralax] 17 gm PO DAILY 04/20/24 04/20/24 History Allergies Allergy/AdvReac Type Severity Reaction Status Date / Time Iodine and Iodide Containing Allergy Rash/Hives Verified 04/20/24 13:13 Produc Physical Exam Vitals: Vital Signs Temp Pulse Resp BP Pulse Ox 04/20/24 19:15 99.5 F 98 22 110/65 95 04/20/24 17:28 99.8 F H 105 H 20 119/73 95 04/20/24 16:37 18 04/20/24 16:15 104 H 16 107/77 97 04/20/24 14:49 106 H 18 106/79 96 04/20/24 13:15 98.2 F 107 H 20 105/69 92 L Intake and Output 04/20/24 04/20/24 04/20/24 06:59 14:59 22:59 Other: Weight 79.379 kg Results CBC & Chem 7: 04/20/24 13:34 04/20/24 13:34 Labs: Abnormal Lab Results - Last 24 Hours (Table) 04/20/24 04/20/24 04/20/24 Range/Units 13:34 13:34 13:34 RBC 3.46 L (3.80-5.40) m/uL Hgb 10.9 L (11.4-16.0) gm/dL MCV 100.6 H (80.0-100.0) fL Plt Count 146 L (150-450) k/uL Lymphocytes # 0.4 L (1.0-4.8) k/uL APTT 30.5 H (22.0-30.0) sec D-Dimer 2.35 H (<0.60) mg/L FEU Chloride 108 H (98-107) mmol/L BUN 29 H (7-17) mg/dL Creatinine 0.37 L (0.52-1.04) mg/dL Glucose 109 H (74-99) mg/dL AST 54 H (14-36) U/L ALT 253 H (4-34) U/L Total Protein 5.1 L (6.3-8.2) g/dL Albumin 2.8 L (3.5-5.0) g/dL Urine Appearance (Clear) Urine Protein (Negative) Urine Blood (Negative) Urine Nitrite (Negative) Ur Leukocyte Esterase (Negative) Urine RBC (0-5) /hpf Urine WBC (0-5) /hpf Calcium Oxalate Crystal (None) /hpf Urine Bacteria (None) /hpf Urine Mucus (None) /hpf 04/20/24 Range/Units 13:34 RBC (3.80-5.40) m/uL Hgb (11.4-16.0) gm/dL MCV (80.0-100.0) fL Plt Count (150-450) k/uL Lymphocytes # (1.0-4.8) k/uL APTT (22.0-30.0) sec D-Dimer (<0.60) mg/L FEU Chloride (98-107) mmol/L BUN (7-17) mg/dL Creatinine (0.52-1.04) mg/dL Glucose (74-99) mg/dL AST (14-36) U/L ALT (4-34) U/L Total Protein (6.3-8.2) g/dL Albumin (3.5-5.0) g/dL Urine Appearance Cloudy H (Clear) Urine Protein 1+ H (Negative) Urine Blood Moderate H (Negative) Urine Nitrite Positive H (Negative) Ur Leukocyte Esterase Small H (Negative) Urine RBC 43 H (0-5) /hpf Urine WBC 20 H (0-5) /hpf Calcium Oxalate Crystal Rare H (None) /hpf Urine Bacteria Few H (None) /hpf Urine Mucus Many H (None) /hpf
[2024-04-20] MEDS: GABAPENTIN 300 MG CAP PO SCH (21:22)
[2024-04-20] MEDS: ALPRAZolam 1 MG TAB PO STA (22:52)
[2024-04-21] MEDS: PANTOPRAZOLE 40 MG TABLET PO SCH (06:35)
[2024-04-21] MEDS: METOPROLOL SUCCINATE (ER) 25 MG TAB.ER.24H PO SCH (08:35)
[2024-04-21] MEDS: ALPRAZolam 1 MG TAB PO SCH (08:37)
[2024-04-21] MEDS: SERTRALINE 50 MG TAB PO SCH (08:37)
[2024-04-21] MEDS: polyethylene glycoL 3350 17 GM POWD.PACK PO SCH (08:38)
--- NOTE | 2024-04-21 08:40 | US ---
EXAMINATION TYPE: US venous doppler duplex LE BI DATE OF EXAM: 04/21/2024 8:35 AM COMPARISON: [facility] 2021 CLINICAL INDICATION: Female, 48 years old with history of Bilateral pulmonary embolism; PE SIDE PERFORMED: Bilateral TECHNIQUE: The lower extremity deep venous system is examined utilizing real time linear array sonog efrain with graded compression, color doppler sonography, and spectral doppler. VESSELS IMAGED: Common Femoral Vein Deep Femoral Vein Greater Saphenous Vein * Femoral Vein Popliteal Vein Small Saphenous Vein * Proximal Calf Veins (* superficial vessels) Right Leg: No evidence of DVT. Left Leg: No evidence of DVT. Unable to visualize PTV/peroneals at ankle. IMPRESSION: No evidence for deep vein thrombosis. [facility], , 04/21/2024 8:38 AM
--- NOTE | 2024-04-21 10:21 | P.GSCN ---
History of Present Illness Consult date: 04/21/24 Reason for Consult: PE Requesting physician: Jeremy Suarez History of present illness: This a pleasant 48-year-old female with with metastatic breast cancer to multiple areas of her body including lungs, liver, brain and bone who presented to the emergency department with acute onset of shortness of breath especially with exertion. Patient's past medical history includes diagnosis of breast cancer in 2019 her states she underwent chemo at that time and developed blood clots in the legs. No history of pulmonary embolism. She has been on Eliquis 5 mg twice daily, and her report that she has been taking it as directed. Follows with oncologist out of [facility]. She was noted to have elevated D-dimer and a CT angiogram of the chest was completed showing bilateral pulmonary emboli without any burden and no evidence of right heart strain. Vascular surgery was consulted for pulmonary embolism. She states that she is feeling much better today. Not having any significant shortness of breath. Denies any chest pain. Denies pain in her lower extremities. Troponins were negative. Oxygen saturation 95 to 96% on 2 L nasal cannula. States she is unable to walk. Review of Systems A 14 point review systems was completed all pertinent positives and negatives as stated in the HPI. Past Medical History Past Medical History: Cancer Additional Past Medical History / Comment(s): Hx. spinal meningitis twice 1999 and 2002, Breast Cancer 2018, one seizure age 6, "nodule on rt lung", V Fib Arrest. History of Any Multi-Drug Resistant Organisms: None Reported Past Surgical History: Appendectomy, Section Additional Past Surgical History / Comment(s): right shoulder cyst removal, breast biopsy Past Anesthesia/Blood Transfusion Reactions: No Reported Reaction Past Psychological History: Anxiety, Depression Past Alcohol Use History: None Reported Past Drug Use History: None Reported - Past Family History Mother Family Medical History: Cancer, Deep Vein Thrombosis (DVT) Additional Family Medical History / Comment(s): BREAST CANCER WITH METS TO LUNG. Medications and Allergies Home Medications Medication Instructions Recorded Confirmed Type Pantoprazole [Protonix] 40 mg PO DAILY #30 tab 05/29/23 04/20/24 Rx levETIRAcetam [Keppra] 750 mg PO Q12HR #60 tab 05/29/23 04/20/24 Rx Apixaban [Eliquis] 5 mg PO BID 10/15/23 04/20/24 History ALPRAZolam [Xanax] 1 mg PO BID@0900,1200 03/27/24 04/20/24 History ALPRAZolam [Xanax] 1.5 mg PO HS 03/27/24 04/20/24 History Gabapentin 300 mg PO BID 03/27/24 04/20/24 History HYDROcodone/APAP 5-325MG [[place] 1 tab PO Q6HR 03/27/24 04/20/24 History 5-325] Metoprolol Succinate (ER) [Toprol 12.5 mg PO DAILY 03/27/24 04/20/24 History Xl] Midazolam [Nayzilam] 5 mg NASAL DIRECTED PRN 03/27/24 04/20/24 History Potassium Chloride [Klor-Con 10 ER] 10 meq PO DAILY 03/27/24 04/20/24 History ondansetron HCL [Zofran] 8 mg PO Q8H PRN 03/27/24 04/20/24 History Sennosides [Senokot] 8.6 mg PO BID 04/20/24 04/20/24 History Sertraline HCl [Zoloft] 50 mg PO DAILY 04/20/24 04/20/24 History dexAMETHasone [Decadron] See Taper PO DIRECTED 04/20/24 04/20/24 History polyethylene glycoL 3350 [Miralax] 17 gm PO DAILY 04/20/24 04/20/24 History Allergies Allergy/AdvReac Type Severity Reaction Status Date / Time Iodine and Iodide Containing Allergy Rash/Hives Verified 04/20/24 13:13 Produc Surgical - Exam Vital Signs Temp Pulse Resp BP Pulse Ox 98.2 F 107 H 20 105/69 92 L 04/20/24 13:15 04/20/24 13:15 04/20/24 13:15 04/20/24 13:15 04/20/24 13:15 General appearance: The patient is alert, oriented, appears in no acute distress. HET: Head is normocephalic and atraumatic. 2 L nasal cannula. Neck: Supple. Heart: Regular. Lungs: Equal expansion, normal respiratory effort. Abdomen: Soft, nondistended. Extremities: Normal skin color and turgor. Neurological: Patient is alert and oriented, appears to have some possible memory impairment. Results - Labs 04/20/24 13:34 04/20/24 13:34 Abnormal Lab Results - Last 24 Hours (Table) 04/20/24 04/20/24 04/20/24 Range/Units 13:34 13:34 13:34 RBC 3.46 L (3.80-5.40) m/uL Hgb 10.9 L (11.4-16.0) gm/dL MCV 100.6 H (80.0-100.0) fL Plt Count 146 L (150-450) k/uL Lymphocytes # 0.4 L (1.0-4.8) k/uL APTT 30.5 H (22.0-30.0) sec D-Dimer 2.35 H (<0.60) mg/L FEU Chloride 108 H (98-107) mmol/L BUN 29 H (7-17) mg/dL Creatinine 0.37 L (0.52-1.04) mg/dL Glucose 109 H (74-99) mg/dL AST 54 H (14-36) U/L ALT 253 H (4-34) U/L Total Protein 5.1 L (6.3-8.2) g/dL Albumin 2.8 L (3.5-5.0) g/dL Urine Appearance (Clear) Urine Protein (Negative) Urine Blood (Negative) Urine Nitrite (Negative) Ur Leukocyte Esterase (Negative) Urine RBC (0-5) /hpf Urine WBC (0-5) /hpf Calcium Oxalate Crystal (None) /hpf Urine Bacteria (None) /hpf Urine Mucus (None) /hpf 04/20/24 04/21/24 Range/Units 13:34 02:43 RBC (3.80-5.40) m/uL Hgb (11.4-16.0) gm/dL MCV (80.0-100.0) fL Plt Count (150-450) k/uL Lymphocytes # (1.0-4.8) k/uL APTT 64.3 H (22.0-30.0) sec D-Dimer (<0.60) mg/L FEU Chloride (98-107) mmol/L BUN (7-17) mg/dL Creatinine (0.52-1.04) mg/dL Glucose (74-99) mg/dL AST (14-36) U/L ALT (4-34) U/L Total Protein (6.3-8.2) g/dL Albumin (3.5-5.0) g/dL Urine Appearance Cloudy H (Clear) Urine Protein 1+ H (Negative) Urine Blood Moderate H (Negative) Urine Nitrite Positive H (Negative) Ur Leukocyte Esterase Small H (Negative) Urine RBC 43 H (0-5) /hpf Urine WBC 20 H (0-5) /hpf Calcium Oxalate Crystal Rare H (None) /hpf Urine Bacteria Few H (None) /hpf Urine Mucus Many H (None) /hpf Diabetes panel 04/20/24 Range/Units 13:34 Sodium 138 (137-145) mmol/L Potassium 3.7 (3.5-5.1) mmol/L Chloride 108 H (98-107) mmol/L Carbon Dioxide 29 (22-30) mmol/L BUN 29 H (7-17) mg/dL Creatinine 0.37 L (0.52-1.04) mg/dL Glucose 109 H (74-99) mg/dL Calcium 8.5 (8.4-10.2) mg/dL AST 54 H (14-36) U/L ALT 253 H (4-34) U/L Alkaline Phosphatase 97 (38-126) U/L Total Protein 5.1 L (6.3-8.2) g/dL Albumin 2.8 L (3.5-5.0) g/dL Calcium panel 04/20/24 Range/Units 13:34 Calcium 8.5 (8.4-10.2) mg/dL Ionized Calcium [place] 4.7 (4.5-5.3) mg/dL Albumin 2.8 L (3.5-5.0) g/dL Pituitary panel 04/20/24 Range/Units 13:34 Sodium 138 (137-145) mmol/L Potassium 3.7 (3.5-5.1) mmol/L Chloride 108 H (98-107) mmol/L Carbon Dioxide 29 (22-30) mmol/L BUN 29 H (7-17) mg/dL Creatinine 0.37 L (0.52-1.04) mg/dL Glucose 109 H (74-99) mg/dL Calcium 8.5 (8.4-10.2) mg/dL Adrenal panel 04/20/24 Range/Units 13:34 Sodium 138 (137-145) mmol/L Potassium 3.7 (3.5-5.1) mmol/L Chloride 108 H (98-107) mmol/L Carbon Dioxide 29 (22-30) mmol/L BUN 29 H (7-17) mg/dL Creatinine 0.37 L (0.52-1.04) mg/dL Glucose 109 H (74-99) mg/dL Calcium 8.5 (8.4-10.2) mg/dL Total Bilirubin 0.5 (0.2-1.3) mg/dL AST 54 H (14-36) U/L ALT 253 H (4-34) U/L Alkaline Phosphatase 97 (38-126) U/L Total Protein 5.1 L (6.3-8.2) g/dL Albumin 2.8 L (3.5-5.0) g/dL - Imaging Comments: Chest CTA reports filling defect seen within multiple bilateral second and third order pulmonary arterial tributaries compatible with pulmonary embolism. There is no evidence for large central embolus with saddle component. No evidence of right heart strain. Innumerable pulmonary nodules and masses which have increased in size and overall number since prior study compatible with metastatic disease. Multiple hepatic masses compatible with metastatic disease. Venous Doppler bilateral lower extremities negative for DVT Chest x-ray reports airspace opacities of the lungs correlate for pneumonia. Scattered lung masses or nodules with enlarging left upper lung masslike consolidation now measuring 7.6 x 6.1 cm, previously up to 4.3 cm Assessment and Plan Assessment: 1. Pulmonary emboli without evidence of right heart strain 2. Metastatic breast cancer 3. Nonambulatory 4. History of DVT currently on Eliquis Plan: 1. There is no evidence of submassive pulmonary embolism or right heart strain. No indication for vascular surgical intervention. 2. Will defer to oncology/hematology for anticoagulation recommendations as patient was already on Eliquis Thank you for this consultation, we will sign off at this time. The impression and plan of care has been dictated as directed. Dr. Varma I performed a history and examination of this patient, discussed the same with the dictator. I agree with the dictator's note ,documented as a scribe. Any additional findings or plans will be noted.
[2024-04-21] MEDS: ENOXAPARIN 80 MG/0.8 ML SYRINGE SQ SCH (11:56)
[2024-04-21] MEDS ORDERED: ALPRAZolam 1 MG TAB PO PRN (11:56)
[2024-04-21] MEDS: HYDROcodone/APAP 5-325MG 1 EACH TAB PO SCH (13:17)
--- NOTE | 2024-04-21 15:11 | P.CNPUL ---
History of Present Illness Consult date: 04/21/24 Requesting physician: Bobo Gong Reason for consult: dyspnea, abnormal CXR/CT Chief complaint: Shortness of breath History of present illness: This is a 48-year-old female patient with a known history of metastatic breast cancer to the brain, liver and lung initially diagnosed back in 2019. She has gone through multiple rounds of chemotherapy and radiation therapy without much success. She had most recently been referred to Dr. Sachi Pollock at [facility] and the patient was to start on eribulin but due to multiple admissions for other complications this medication has not been started yet. 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 No records from that admission are available. She re- presented here to the emergency room yesterday with a rather sudden onset of shortness of breath. X-ray revealed airspace opacities bilaterally. There is scattered lung masses or nodules with enlarging left upper lung massli ke consolidation measuring 7.6 x 6.1 cm. Previous records from February 2024 show it at 4.[address] angiogram revealed filling defects seen within multiple bilateral second and third pulmonary arterial tributaries compatible with pulmonary embolism. Innumerable pulmonary nodules and masses which have increased in size and number compared to previous. Multiple hepatic masses compatible with metastatic disease. Of note the patient had had a previous DVT of the lower extremity and is maintained on Eliquis. She and her boyfriend who is present states that she does not miss any doses. She is seen today in consultation on the regular medical floor. She is currently resting in bed. Awake and alert in no acute distress. She is maintaining saturations in the 90s on 2 L/min per nasal cannula. She is afebrile. Hemodynamically stable. Doppler of the lower extremities today reveal no evidence of DVT bilaterally. D-dimer 2.35. White count 7.9. Hemoglobin 10.9. Platelets 146. Sodium 138. Potassium 3.7. Bicarb 29. BUN 29. Creatinine 0.37. proBNP 90. Troponin negative x 1. Urinalysis with positive nitrites. She has been initiated on a heparin drip. Pain. Normal saline at KVO. Review of Systems REVIEW OF SYSTEMS: CONSTITUTIONAL: Denies any recent significant weight loss or weight gain. EYES: Denies change in vision. EARS, NOSE, MOUTH, THROAT: Denies headaches, denies sore throat. CARDIOVASCULAR: Denies chest pain, palpitations or syncopal episodes. RESPIRATORY: Positive for shortness of breath, no cough, congestion or hemoptysis. GASTROINTESTINAL: Denies change in appetite, denies abdominal pain GENITOURINARY: Denies hematuria, denies infections. MUSKULOSKELETAL: Denies pain, denies swelling. INTEGUMENTARY: Denies rash, denies eczema. NEUROLOGICAL: Denies recent memory loss, no recent seizure activity. PSYCHIATRIC: Denies anxiety, denies depression. HEMATOLOGIC/LYMPHATIC: Denies anemia, denies enlarged lymph nodes. Past Medical History Past Medical History: Cancer Additional Past Medical History / Comment(s): Hx. spinal meningitis twice 1999 and 2002, Breast Cancer 2019, one seizure age 6, "nodule on rt lung", V Fib Arrest. History of Any Multi-Drug Resistant Organisms: None Reported Past Surgical History: Appendectomy, Section Additional Past Surgical History / Comment(s): right shoulder cyst removal, breast biopsy Past Anesthesia/Blood Transfusion Reactions: No Reported Reaction Past Psychological History: Anxiety, Depression Past Alcohol Use History: None Reported Past Drug Use History: None Reported - Past Family History Mother Family Medical History: Cancer, Deep Vein Thrombosis (DVT) Additional Family Medical History / Comment(s): BREAST CANCER WITH METS TO LUNG. Medications and Allergies Home Medications Medication Instructions Recorded Confirmed Type Pantoprazole [Protonix] 40 mg PO DAILY #30 tab 05/29/23 04/20/24 Rx levETIRAcetam [Keppra] 750 mg PO Q12HR #60 tab 05/29/23 04/20/24 Rx Apixaban [Eliquis] 5 mg PO BID 10/15/23 04/20/24 History ALPRAZolam [Xanax] 1 mg PO BID@0900,1200 03/27/24 04/20/24 History ALPRAZolam [Xanax] 1.5 mg PO HS 03/27/24 04/20/24 History Gabapentin 300 mg PO BID 03/27/24 04/20/24 History HYDROcodone/APAP 5-325MG [[place] 1 tab PO Q6HR 03/27/24 04/20/24 History 5-325] Metoprolol Succinate (ER) [Toprol 12.5 mg PO DAILY 03/27/24 04/20/24 History Xl] Midazolam [Nayzilam] 5 mg NASAL DIRECTED PRN 03/27/24 04/20/24 History Potassium Chloride [Klor-Con 10 ER] 10 meq PO DAILY 03/27/24 04/20/24 History ondansetron HCL [Zofran] 8 mg PO Q8H PRN 03/27/24 04/20/24 History Sennosides [Senokot] 8.6 mg PO BID 04/20/24 04/20/24 History Sertraline HCl [Zoloft] 50 mg PO DAILY 04/20/24 04/20/24 History dexAMETHasone [Decadron] See Taper PO DIRECTED 04/20/24 04/20/24 History polyethylene glycoL 3350 [Miralax] 17 gm PO DAILY 04/20/24 04/20/24 History Allergies Allergy/AdvReac Type Severity Reaction Status Date / Time Iodine and Iodide Containing Allergy Rash/Hives Verified 04/20/24 13:13 Produc Physical Exam Vitals: Vital Signs Temp Pulse Pulse Pulse Resp BP BP 04/21/24 12:00 99.1 F 110 H 18 108/69 04/21/24 08:35 98 F 92 92 16 110/76 04/21/24 03:57 92 19 107/72 04/20/24 23:46 98.5 F 104 H 19 122/80 04/20/24 22:59 106 H 16 107/80 04/20/24 21:37 105 H 17 119/73 04/20/24 19:15 99.5 F 98 22 110/65 04/20/24 17:28 99.8 F H 105 H 20 119/73 04/20/24 16:37 18 04/20/24 16:15 104 H 16 107/77 Pulse Ox 04/21/24 12:00 98 04/21/24 08:35 94 L 04/21/24 03:57 95 04/20/24 23:46 96 04/20/24 22:59 95 04/20/24 21:37 95 04/20/24 19:15 95 04/20/24 17:28 95 04/20/24 16:37 04/20/24 16:15 97 Intake and Output 04/20/24 04/21/2404/21/24 22:59 06:59 14:59 Intake Total 1120 Output Total 450 Balance -450 1120 Intake: Intake, IV Titration 100 Amount Cefepime 2 gm In Sodium 100 Chloride 0.9% 100 ml @ 200 mls/hr IVPB ONCE STA Rx#:[id number] Oral 1020 Output: Urine 450 Other: Voiding Method Indwelling Catheter Indwelling Catheter Weight 79.379 kg GENERAL EXAM: Alert,, frail 48-year-old female, on 2 L nasal cannula, fairly comfortable in no apparent distress. HEAD: Normocephalic. EYES: Normal reaction of pupils, equal size. NOSE: Clear with pink turbinates. THROAT: No erythema or exudates. NECK: No masses, no JVD. CHEST: Dressing over the right breast clean and dry. LUNGS: Equal air entry with no crackles, wheeze, rhonchi or dullness. CVS: S1 and S2 normal with no audible murmur, regular rhythm. ABDOMEN: No hepatosplenomegaly, normal bowel sounds, no guarding or rigidity. SPINE: Unstageable pressure ulcer on coccyx SKIN: Ecchymosis noted on the extremities. CENTRAL NERVOUS SYSTEM: No focal deficits, tone is normal in all 4 extremities. EXTREMITIES: There is no peripheral edema. No clubbing, no cyanosis. Peripheral pulses are intact. Results - Laboratory Findings CBC and BMP: 04/20/24 13:34 04/20/24 13:34 PT/INR, D-dimer PT 11.1 sec (10.0-12.5) 04/20/24 13:34 INR 1.0 (<1.2) 04/20/24 13:34 D-Dimer 2.35 mg/L FEU (<0.60) H 04/20/24 13:34 Abnormal lab findings: Abnormal Labs 04/20/24 04/20/24 04/20/24 13:34 13:34 13:34 RBC 3.46 L Hgb 10.9 L MCV 100.6 H Plt Count 146 L Lymphocytes # 0.4 L APTT 30.5 H D-Dimer 2.35 H Chloride 108 H BUN 29 H Creatinine 0.37 L Glucose 109 H AST 54 H ALT 253 H Total Protein 5.1 L Albumin 2.8 L Urine Appearance Urine Protein Urine Blood Urine Nitrite Ur Leukocyte Esterase Urine RBC Urine WBC Calcium Oxalate Crystal Urine Bacteria Urine Mucus 10/03/24 10/04/24 13:34 02:43 RBC Hgb MCV Plt Count Lymphocytes # APTT 64.3 H D-Dimer Chloride BUN Creatinine Glucose AST ALT Total Protein Albumin Urine Appearance Cloudy H Urine Protein 1+ H Urine Blood Moderate H Urine Nitrite Positive H Ur Leukocyte Esterase Small H Urine RBC 43 H Urine WBC 20 H Calcium Oxalate Crystal Rare H Urine Bacteria Few H Urine Mucus Many H - Diagnostic Findings Chest x-ray: image reviewed CT scan - chest: image reviewed Assessment and Plan Assessment: Acute hypoxemic respiratory failure secondary to acute bilateral pulmonary emboli, failed Eliquis Previous history of DVT, anticoagulated with Eliquis, compliant according to patient and significant other History of metastatic breast cancer in 2019 with involvement to the brain, liver, lung and bone. Multiple rounds of treatment without success. Most recently following at [facility] and was to be initiated on eribulin History of seizures History of anxiety/depression Plan: The patient was seen and evaluated Imaging, labs and medications reviewed Bilateral pulmonary emboli, failed Eliquis Recommend Lovenox 80 mg twice daily Currently stable and on 2 L nasal cannula Titrate down the FiO2 as tolerated Overall prognosis remains quite guarded Medical oncology following We will continue to follow and make further recommendations based on her clinical status I have personally seen and examined the patient, performed the documentation and the assessment and plan as written. Number of minutes spent on the visit: 20.
--- NOTE | 2024-04-21 16:21 | P.PN ---
Subjective Progress Note Date: 04/21/24 Patient is a 48-year-old female with PMH of DVT (on Eliquis), metastatic breast cancer presented to the ED for shortness of breath. The patient started getting short of breath this afternoon. She was not involved in any strenuous activity at the time. She also experienced some dry cough, chills and lightheadedness but denies falls. She also mentioned R sided strictly pleuritic chest discomfort which started at the same time as the dyspnea. Denies fever, abdominal pain, nausea, vomiting, dysuria fainting, joint pain, muscle aches. The patient has an extensive history of breast cancer with metastasis to the brain, liver, lung. The cancer was diagnosed in 2019 and is she is currently undergoing radiation therapy. She also has a history of new onset seizure in May 2023 and also had a cardiopulmonary arrest in September 2023. She also has a history of DVT. ED workup revealed chest CTA that showed filling defects within multiple bilateral second and third order pulmonary arterial tributaries compatible pulmonary embolism. She was treated with heparin drip, Solu-Medrol, cefepime, Benadryl, 0.9 normal saline in the ED. Vitals: T 98.2F, P 107bpm, RR 20, BP 105/69, O2 sat at 92% on 2L NC EKG: Sinus tachycardia, incomplete right bundle branch block, T wave inversions in lead III, V1-V3, flattened T wave in V4, rate of 107 bpm, QTc 396 ms Labs: Hemoglobin 10.9, MCV 100.6, platelet 146, chloride 108, BUN 29, creatinine 0.37, AST 54, ALT 253, total protein 5.1, albumin 2.8 Coagulation panel: APTT 30.5, D-dimer 2.35, Urinalysis: Cloudy, 1+ protein, moderate blood, positive nitrite, small leukocyte esterase, 43 RBC, 20 WBC, few bacteria, many mucus, rare calcium oxalate crystals. Chest x-ray: Scattered lung nodules enlarging left upper lung masslike consolidation now measuring 7.6X 6.1 cm, previously up to 4.3 cm Chest CTA: Filling defects are seen within multiple bilateral second and third order pulmonary arterial tributaries compatible with pulmonary embolism. There is no evidence for large central embolus with saddle component. Innumerable pulmonary nodules and masses which have increased in size and overall number since prior study compatible with metastatic disease. Multiple hepatic masses compatible with metastatic disease. Progress note 4patient seen and examined at bedside. Patient states she has no current chest pain or shortness of breath. Patient with unstageable ulcer on coccyx. No other complaints at this time. Review of systems: Pertinent positives and negatives as discussed in HPI, a complete review of syst ems was performed and all other systems are negative. Physical examination: Vital signs reviewed General: non toxic, no distress, appears at stated age, overweight Derm: Bruises on all 4 extremities, bandaged wound on the chest, unstageable ulcer on coccyx Head: atraumatic, normocephalic, symmetric Eyes: EOMI, anicteric sclera ENT: Nose and ears atraumatic Mouth: no lip lesion, mucus membranes moist Cardiovascular: S1S2 reg, no murmur, no edema Lungs: CTA bilateral, no rhonchi, no rales, no accessory muscle use Abdominal: soft, nontender to palpation, no guarding Ext: no gross muscle atrophy, no contractures Neuro: CN II-XI grossly intact, no gross focal neuro deficits Psych: Alert, oriented, appropriate affect Labs reviewed todayprior day evening admission labs Imaging reviewed todayUS venous Doppler duplex lower extremity bilateral with no evidence of DVT Assessment/Plan: Patient is a 48-year-old female with breast cancer presented to the ED for shortness of breath and she has been admitted for pulmonary embolism as seen on chest CTA. #. Pulmonary embolism, non-massive, failure of DOAC therapy (Eliquis) Elevated APTT 30.5, D-dimer 2.35, - WNL troponin< 0.012, pro BNP 90, blood pressure 105/69 -Discontinue high intensity heparin drip Begin Lovenox 80 mg subcu every 12 hours - Vascular surgery consulted, recommends to follow-up with heme-onc -Case discussed with pulmonology, they agree with lovenox for AC #. Asymptomatic Bacteriuria Cloudy appearance, positive nitrite, small leukocyte esterase, few bacteria, m oderate blood Patient is asymptomatic S/p 2 g cefepime in the ED - Blood culture and urine culture ordered in the ED - Hold off on further Abxs as likely colonization #Sacral pressure ulcer Unstageable ulcer on coccyx Consult wound care #. Bicytopenia - Normocytic anemia, at baseline and Thrombocytopenia - Low hemoglobin 10.9, normal MCV 100.6 - Low platelet 146 Monitor CBC #. Elevated transaminase levels AST 54, ALT 253 Monitor BMP #. Hypoproteinemia Total protein 5.1, albumin 2.8 Monitor BMP #. Metastatic breast cancer Patient mentions she is on radiation therapy - Oncology consulted #. History of anxiety/depression C/W alprazolam 1 mg p.o. twice daily and sertraline 50 mg p.o. daily - Resumed alprazolam 1.5mg HS today per home med #. History of GERD C/W continue Protonix 40 mg p.o. daily #. Nausea and vomiting C/W ondansetron 8 mg p.o. every 8 hours #. History of seizures C/W levetiracetam 30 mg p.o. every 12 hours F: 0.9 normal saline 20 mL/h E: Replete as required N: Heart healthy diet A: DVT prophylaxis: enoxaparin The patient is admitted with an anticipated more than 2 midnight stay for evaluation of shortness of breath CODE STATUS: Full code Discussed with: Patient Anticipated discharge place: Home I saw and evaluated the patient during the sainz and critical portions of this encounter, and discussed the case in detail with the resident author of this note, I agree with the Assessment and Plan, and my changes, if any, are highlighted in blue. Objective - Vital Signs Vital signs: Vital Signs Temp 99.1 F 04/21/24 12:00 Pulse 110 H 04/21/24 12:00 Resp 18 04/21/24 12:00 BP 108/69 04/21/24 12:00 Pulse Ox 98 04/21/24 12:00 FiO2 Intake & Output 04/20/24 04/21/24 04/21/24 18:59 06:59 18:59 Intake Total 1120 Output Total 450 Balance -450 1120 Weight 79.379 kg 79.379 kg Intake: Intake, IV Titration 100 Amount Cefepime 2 gm In Sodium 100 Chloride 0.9% 100 ml @ 200 mls/hr IVPB ONCE STA Rx#:[id number] Oral 1020 Output: Urine 450 Other: Voiding Method Indwelling Catheter Indwelling Catheter - Labs CBC & Chem 7: 04/20/24 13:34 04/20/24 13:34 Labs: Abnormal Lab Results - Last 24 Hours (Table) 04/21/24 Range/Units 02:43 APTT 64.3 H (22.0-30.0) sec
[2024-04-21] MEDS: ONDANSETRON 4 MG TAB PO PRN (17:47)
--- NOTE | 2024-04-21 18:51 | P.CONS ---
History of Present Illness - Reason for Consult Consult date: 04/21/24 hx breast cancer Requesting physician: Jeremy Suarez - Chief Complaint SOB - History of Present Illness Patient is a 48 year old female with a significant history of metastatic breast cancer. She is a patient of Dr. Rich, She presented with palpable right breast mass,she first noticed over a year prior to her presentation, it became significantly larger, associated with skin ulceration and significant chest wall pain,she had her first mammograms and breast U/S in April/2019 which revealed a very large mass ,about 7.8x4.4x5.5cm at 1 o'clock right breast,no suspicious nodes on U/S of axilla,core biopsy on 05/15/2019 revealed grade 2,invasive ductal carcinoma,triple negative,additional biopsies of 4 and 5 o'clock lesions were benign. Repeat ER/WI and HER2/PATRICIA at outside lab confirmed triple negative disease. On 06/03/2019,CT scan of chest/abdomen/pelvis revealed non specific 6 mm RML lung nodule,otherwise negative,bone scan was negative. 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 On 06/28/2019,she started neoadjuvant dose dense AC and completed 4 cycles on 08/10/2019 (she had minimal clinical response to it). On 08/25/2019,she started weekly taxol and carboplatin and completed 12 weekly treatment on 11/16/2019. Repeat 01/05/2020,repeat CT scan of chest/abdomen/p adrien revealed stable non specific lung nodule. She completed neoadjuvant radiation therapy on 01/18/2020,then she did not follow up and did have any treatment systemic or local therapy for her breast.She was last seen in February/2020. She presented to Dr. Gorman in October/2021 with worsening ulce ration and swelling in right breast. PET scan on 10/24/2021 revealed very large right breast mass with skin ulceration,multiple bilateral lung nodues,largest 2.5 cm in left lung and evidence of suspicious right hilar nodes. On 01/15/2022,she underwent EBUS,FNA from mediastinal nodes was positive,biopsy of JENN lung lesion was positive for metastatic breast cancer,ER/WI negative and HER2/PATRICIA negative. Liquid biopsy through [place] [id number] revealed TP53 mutation. Since she has been on multiple regimens due to disease progression. It has been discussed with patient that comfort care measures was recommended as her performance status has continued to decline, however pt and family wanted to continue to pursue further treatment options. They have been very adamant about not wanting hospice. She was then referred for second opinion to Dr. Sachi Orellana at [facility] who she has been following with. Plan was to start patient on Eribulin, which she has yet to start. She underwent MRI lumbar spine on 03/26/24 due to progressing lower extremity weakness which showed irregular enhancing lesion in the distal spinal cord at the T12 level with surrounding edema. With mild multilevel degenerative changes of the lumbar spine. Patient was started on Decadron by her oncologist and was being referred to radiation oncology to evaluate for RT of spinal lesion. Patient states since her last admission last month she has not started systemic treatment or RT. Patient presented to the emergency room for SOB. 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 D dimer was elevated at 2.38. CTA chest showed filling defect seen within multiple bilateral second and third order pulmonary arterial tributaries compatible pulmonary embolism. No evidence for large central embolus with saddle component. Innumerable pulmonary nodules and masses which have increased in size and overall number since prior study. Multiple hepatic masses. Heparin drip was initially started but patient has now been transitioned to Lovenox. WBC 7.9, hemoglobin 10.9, platelets 146,000 At today's visit patient denies missing any doses of Eliquis which she is on for previous DVT. She states that while she was at [facility] last month she was not taken off Eliquis and had no surgical procedures performed. Patient is reporting improvement in shortness of breath but reports right sided chest wall pain at wound site. Review of Systems 10 point ROS is negative except as stated in the HPI Past Medical History Past Medical History: Cancer Additional Past Medical History / Comment(s): Hx. spinal meningitis twice 1999 and 2002, Breast Cancer 2019, one seizure age 6, "nodule on rt lung", V Fib Arrest. History of Any Multi-Drug Resistant Organisms: None Reported Past Surgical History: Appendectomy, Section Additional Past Surgical History / Comment(s): right shoulder cyst removal, breast biopsy Past Anesthesia/Blood Transfusion Reactions: No Reported Reaction Past Psychological History: Anxiety, Depression Past Alcohol Use History: None Reported Past Drug Use History: None Reported - Past Family History Mother Family Medical History: Cancer, Deep Vein Thrombosis (DVT) Additional Family Medical History / Comment(s): BREAST CANCER WITH METS TO LUNG. Medications and Allergies Home Medications Medication Instructions Recorded Confirmed Type Pantoprazole [Protonix] 40 mg PO DAILY #30 tab 05/29/23 04/20/24 Rx levETIRAcetam [Keppra] 750 mg PO Q12HR #60 tab 05/29/23 04/20/24 Rx Apixaban [Eliquis] 5 mg PO BID 10/15/23 04/20/24 History ALPRAZolam [Xanax] 1 mg PO BID@0900,1200 03/27/24 04/20/24 History ALPRAZolam [Xanax] 1.5 mg PO HS 03/27/24 04/20/24 History Gabapentin 300 mg PO BID 03/27/24 04/20/24 History HYDROcodone/APAP 5-325MG [[place] 1 tab PO Q6HR 03/27/24 04/20/24 History 5-325] Metoprolol Succinate (ER) [Toprol 12.5 mg PO DAILY 03/27/24 04/20/24 History Xl] Midazolam [Nayzilam] 5 mg NASAL DIRECTED PRN 03/27/24 04/20/24 History Potassium Chloride [Klor-Con 10 ER] 10 meq PO DAILY 03/27/24 04/20/24 History ondansetron HCL [Zofran] 8 mg PO Q8H PRN 03/27/24 04/20/24 History Sennosides [Senokot] 8.6 mg PO BID 04/20/24 04/20/24 History Sertraline HCl [Zoloft] 50 mg PO DAILY 04/20/24 04/20/24 History dexAMETHasone [Decadron] See Taper PO DIRECTED 04/20/24 04/20/24 History polyethylene glycoL 3350 [Miralax] 17 gm PO DAILY 04/20/24 04/20/24 History Dabigatran [Pradaxa] 150 mg PO BID #60 capsule 04/21/24 Rx Allergies Allergy/AdvReac Type Severity Reaction Status Date / Time Iodine and Iodide Containing Allergy Rash/Hives Verified 04/20/24 13:13 Produc Physical Exam Vitals: Vital Signs Temp Pulse Pulse Pulse Resp BP BP 04/21/24 12:00 99.1 F 110 H 18 108/69 04/21/24 08:35 98 F 92 92 16 110/76 04/21/24 03:57 92 19 107/72 04/20/24 23:46 98.5 F 104 H 19 122/80 04/20/24 22:59 106 H 16 107/80 04/20/24 21:37 105 H 17 119/73 04/20/24 19:15 99.5 F 98 22 110/65 04/20/24 17:28 99.8 F H 105 H 20 119/73 04/20/24 16:37 18 04/20/24 16:15 104 H 16 107/77 Pulse Ox 04/21/24 12:00 98 04/21/24 08:35 94 L 04/21/24 03:57 95 04/20/24 23:46 96 04/20/24 22:59 95 04/20/24 21:37 95 04/20/24 19:15 95 04/20/24 17:28 95 04/20/24 16:37 04/20/24 16:15 97 Intake and Output 04/21/24 04/21/24 04/21/24 06:59 14:59 22:59 Intake Total 1120 Output Total 450 Balance -450 1120 Intake: Intake, IV Titration 100 Amount Cefepime 2 gm In Sodium 100 Chloride 0.9% 100 ml @ 200 mls/hr IVPB ONCE STA Rx#:[id number] Oral 1020 Output: Urine 450 Other: Voiding Method Indwelling Catheter Indwelling Catheter - Constitutional General appearance: no acute distress - EENT Eyes: anicteric sclerae, EOMI ENT: hearing grossly normal - Respiratory Respiratory: bilateral: CTA - Cardiovascular well perfused - Integumentary Integumentary: no cyanotic - Musculoskeletal Musculoskeletal: generalized weakness - Psychiatric Psychiatric: A&O x's 3 Results CBC & Chem 7: 04/20/24 13:34 04/20/24 13:34 Labs: Abnormal Lab Results - Last 24 Hours (Table) 04/21/24 Range/Units 02:43 APTT 64.3 H (22.0-30.0) sec CT scan - chest: report reviewed Assessment and Plan (1) Pulmonary emboli Current Visit: Yes Status: Acute Priority: High Code(s): I26.99 - OTHER PULMONARY EMBOLISM WITHOUT ACUTE COR PULMONALE SNOMED Code(s): 46776361 (2) Breast cancer Current Visit: Yes Status: Acute Priority: Medium Code(s): C50.919 - MALIGNANT NEOPLASM OF UNSP SITE OF UNSPECIFIED FEMALE BREAST SNOMED Code(s): 000149205 Plan: PE: Presented to the emergency room for acute onset SOB. -D dimer was elevated at 2.38. CTA chest showed filling defect seen within multiple bilateral second and third order pulmonary arterial tributaries compatible pulmonary embolism. No evidence for large central embolus with s addle component. Innumerable pulmonary nodules and masses which have increased in size and overall number since prior study. Multiple hepatic masses -Heparin drip was initially started but patient has now been transitioned to Lovenox -Patient denies missing any doses of Eliquis which she is on for previous DVT. She states that while she was at [facility] last month she was not taken off Eliquis and had no surgical procedures performed. Based on these findings, this would be considered treatment failure. Would recommend switching anticoagulation to pradaxa -Case management consulted for pradaxa prior auth. Once obtained patient can be transitioned to Pradaxa Metastatic breast cancer: -Oncology history and plan as dictated in HPI -She has been on multiple regimens due to disease progression. It has been discussed with patient that comfort care measures was recommended as her performance status has continued to decline, however pt and family wanted to continue to pursue further treatment options. They have been very adamant about not wanting hospice. She was then referred for second opinion to Dr. Sachi Orellana at [facility] who she has been following with. Plan was to start patient on Eribulin, which she has yet to start. -She underwent MRI lumbar spine on 03/26/24 due to progressing lower extremity weakness which showed irregular enhancing lesion in the distal spinal cord at the T12 level with surrounding edema. She was started on Decadron by her oncologist and was being referred to radiation oncology. She has not started RT -F/u with primary oncologist, Dr. Orellana on d/c for further management of metastatic disease
[2024-04-21] MEDS: ALPRAZolam 0.5 MG TAB PO SCH (20:19)
[2024-04-22 04:55] LABS: HCT 31.6 % (34.0-46.0); HGB 10.2 gm/dL (11.4-16.0); MCH 32.4 pg (25.0-35.0); MCHC 32.1 g/dL (31.0-37.0); MCV 100.7 fL (80.0-100.0); Macrocytosis Slight; Mean Platelet Volume 8.7; Platelet Count 121 k/uL (150-450); RBC 3.14 m/uL (3.80-5.40); RDW 15.6 % (11.5-15.5)
[2024-04-22 05:23] LABS: African American GFR (CKD) >90 (>60 ml/min/1.73 sqM); Anion Gap 0 mmol/L; Blood Urea Nitrogen 26 mg/dL (7-17); Calcium 8.5 mg/dL (8.4-10.2); Carbon Dioxide 31 mmol/L (22-30); Chloride 106 mmol/L (98-107); Glucose 98 mg/dL (74-99); Non-African American GFR(CKD) >90 (>60 ml/min/1.73 sqM); Potassium 4.1 mmol/L (3.5-5.1); Sodium 137 mmol/L (137-145)
[2024-04-22] MEDS: bisacodyL 10 MG SUPP RECTAL STA (13:08)
[2024-04-22] MEDS: SENNOSIDES-DOCUSATE SODIUM 1 EACH TAB PO SCH (13:08)
--- NOTE | 2024-04-22 13:18 | P.PN ---
Subjective Progress Note Date: 04/22/24 This is a 48-year-old female patient with a known history of metastatic breast cancer to the brain, liver and lung initially diagnosed back in 2019. She has gone through multiple rounds of chemotherapy and radiation therapy without much success. She had most recently been referred to Dr. Sachi Pollock at [facility] and the patient was to start on eribulin but due to multiple admissions for other complications this medication has not been started yet. 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 No records from that admission are available. She re- presented here to the emergency room yesterday with a rather sudden onset of shortness of breath. X-ray revealed airspace opacities bilaterally. There is scattered lung masses or nodules with enlarging left upper lung masslike consolidation measuring 7.6 x 6.1 cm. Previous records from February 2024 show it at 4.[address] angiogram revealed filling defects seen within multiple bilateral second and third pulmonary arterial tributaries compatible with pulmonary embolism. Innumerable pulmonary nodules and masses which have increased in size and number compared to previous. Multiple hepatic masses compatible with metastatic disease. Of note the patient had had a previous DVT of the lower extremity and is maintained on Eliquis. She and her boyfriend who is present states that she does not miss any doses. She is seen today in consultation on the regular medical floor. She is currently resting in bed. Awake and alert in no acute distress. She is maintaining saturations in the 90s on 2 L/min per nasal cannula. She is afebrile. Hemodynamically stable. Doppler of the lower extremities today reveal no evidence of DVT bilaterally. D-dimer 2.35. White count 7.9. Hemoglobin 10.9. Platelets 146. Sodium 138. Potassium 3.7. Bicarb 29. BUN 29. Creatinine 0.37. proBNP 90. Troponin negative x 1. Urinalysis with positive nitrites. She has been initiated on a heparin drip. Pain. Normal saline at KVO. The patient is seen today April 22, 2024 in follow-up on the selective care unit. She is currently sitting up in bed having breakfast. Awake and alert in no acute distress. Denies any worsening shortness of breath, cough or congestion. She is maintaining good O2 saturation in the upper 90s on 3 L/min per nasal cannula. She has been afebrile. Hemodynamically stable. White count 6.0. Hemoglobin 10.2. Platelets 121. Sodium 137. Potassium 4.1. Bicarb 31. BUN 26. Creatinine 0.25. She remains on therapeutic Lovenox 80 mg subcu every 12 hours. Objective - Vital Signs Vital signs: Vital Signs Temp 98.3 F 04/22/24 08:43 Pulse 106 H 04/22/24 08:43 Resp 16 04/22/24 08:43 BP 116/74 04/22/24 08:43 Pulse Ox 96 04/22/24 08:43 FiO2 Intake & Output 04/21/24 04/22/24 04/22/24 18:59 06:59 18:59 Intake Total 1238 20 10 Output Total 750 Balance 1238 -730 10 Weight 81.5 kg Intake: IV 20 10 Invasive Line 2 10 Invasive Line 3 10 10 Intake, IV Titration 100 Amount Cefepime 2 gm In Sodium 100 Chloride 0.9% 100 ml @ 200 mls/hr IVPB ONCE STA Rx#:[id number] Oral 1138 Output: Urine 750 Other: Voiding Method Indwelling Catheter Indwelling Catheter Indwelling Catheter - Exam GENERAL EXAM: Alert, awake frail 48-year-old female, on 3 L nasal cannula, comfortable in no apparent distress. HEAD: Normocephalic. EYES: Normal reaction of pupils, equal size. NOSE: Clear with pink turbinates. THROAT: No erythema or exudates. NECK: No masses, no JVD. CHEST: Dressing over the right breast clean and dry. LUNGS: Equal air entry with no crackles, wheeze, rhonchi or dullness. CVS: S1 and S2 normal with no audible murmur, regular rhythm. ABDOMEN: No hepatosplenomegaly, normal bowel sounds, no guarding or rigidity. SPINE: Unstageable pressure ulcer on coccyx SKIN: Ecchymosis noted on the extremities. CENTRAL NERVOUS SYSTEM: No focal deficits, tone is normal in all 4 extremities. EXTREMITIES: There is no peripheral edema. No clubbing, no cyanosis. Peripheral pulses are intact. - Labs CBC & Chem 7: 04/22/24 04:27 04/22/24 04:27 Labs: Abnormal Lab Results - Last 24 Hours (Table) 04/22/24 04/22/24 Range/Units 04:27 04:27 RBC 3.14 L (3.80-5.40) m/uL Hgb 10.2 L (11.4-16.0) gm/dL Hct 31.6 L (34.0-46.0) % MCV 100.7 H (80.0-100.0) fL RDW 15.6 H (11.5-15.5) % Plt Count 121 L (150-450) k/uL Carbon Dioxide 31 H (22-30) mmol/L BUN 26 H (7-17) mg/dL Creatinine 0.25 L (0.52-1.04) mg/dL Microbiology - Last 24 Hours (Table) 04/20/24 13:34 Urine Culture - Final Urine,Voided 04/20/24 14:55 Blood Culture - Preliminary Blood Assessment and Plan Assessment: Acute hypoxemic respiratory failure secondary to acute bilateral pulmonary emboli, failed Eliquis Previous history of DVT, anticoagulated with Eliquis, compliant according to patient and significant other History of metastatic breast cancer in 2019 with involvement to the brain, liver, lung and bone. Multiple rounds of treatment without success. Most recently following at [facility] and was to be initiated on eribulin History of seizures History of anxiety/depression Plan: The patient was seen and evaluated Labs and medications reviewed Recommend Lovenox 80 mg twice daily Overall prognosis remains quite guarded Plan is to follow-up with her oncologist at [facility] next week I have personally seen and examined the patient, performed the documentation and the assessment and plan as written. Number of minutes spent on the visit: 10.
[2024-04-22] MEDS ORDERED: ZINC OXIDE PASTE (Z-GUARD) 1 APPLIC TOPICAL PRN (16:17)
--- NOTE | 2024-04-22 17:53 | P.PN ---
Subjective Progress Note Date: 04/22/24 Patient is a 48-year-old female with PMH of DVT (on Eliquis), metastatic breast cancer presented to the ED for shortness of breath. The patient started getting short of breath this afternoon. She was not involved in any strenuous activity at the time. She also experienced some dry cough, chills and lightheadedness but denies falls. She also mentioned R sided strictly pleuritic chest discomfort which started at the same time as the dyspnea. Denies fever, abdominal pain, nausea, vomiting, dysuria fainting, joint pain, muscle aches. The patient has an extensive history of breast cancer with metastasis to the brain, liver, lung. The cancer was diagnosed in 2019 and is she is currently undergoing radiation therapy. She also has a history of new onset seizure in May 2023 and also had a cardiopulmonary arrest in September 2023. She also has a history of DVT. ED workup revealed chest CTA that showed filling defects within multiple bilateral second and third order pulmonary arterial tributaries compatible pulmonary embolism. She was treated with heparin drip, Solu-Medrol, cefepime, Benadryl, 0.9 normal saline in the ED. Vitals: T 98.2F, P 107bpm, RR 20, BP 105/69, O2 sat at 92% on 2L NC EKG: Sinus tachycardia, incomplete right bundle branch block, T wave inversions in lead III, V1-V3, flattened T wave in V4, rate of 107 bpm, QTc 396 ms Labs: Hemoglobin 10.9, MCV 100.6, platelet 146, chloride 108, BUN 29, creatinine 0.37, AST 54, ALT 253, total protein 5.1, albumin 2.8 Coagulation panel: APTT 30.5, D-dimer 2.35, Urinalysis: Cloudy, 1+ protein, moderate blood, positive nitrite, small leukocyte esterase, 43 RBC, 20 WBC, few bacteria, many mucus, rare calcium oxalate crystals. Chest x-ray: Scattered lung nodules enlarging left upper lung masslike consolidation now measuring 7.6X 6.1 cm, previously up to 4.3 cm Chest CTA: Filling defects are seen within multiple bilateral second and third order pulmonary arterial tributaries compatible with pulmonary embolism. There is no evidence for large central embolus with saddle component. Innumerable pulmonary nodules and masses which have increased in size and overall number since prior study compatible with metastatic disease. Multiple hepatic masses compatible with metastatic disease. Progress note 04/22/2024 patient seen and examined at bedside. Patient states she has no current chest pain or shortness of breath. Patient is increasingly lethargic. She described increasing constipation and bloating. Review of systems: Pertinent positives and negatives as discussed in HPI, a complete review of systems was performed and all other systems are negative. Physical examination: Vital signs reviewed General: Lethargic, non toxic, no distress, appears at stated age, overweight Derm: Bruises on all 4 extremities, bandaged wound on the chest, unstageable ulcer on coccyx Head: atraumatic, normocephalic, symmetric Eyes: EOMI, anicteric sclera ENT: Nose and ears atraumatic Mouth: no lip lesion, mucus membranes moist Cardiovascular: S1S2 reg, no murmur, no edema Lungs: CTA bilateral, no rhonchi, no rales, no accessory muscle use Abdominal: soft, nontender to palpation, no guarding Ext: no gross muscle atrophy, no contractures Neuro: CN II-XI grossly intact, no gross focal neuro deficits Psych: Alert, oriented, appropriate affect Labs reviewed todayWBC 6.0, hemoglobin 10.2, platelets 121, sodium 137, potassium 4.1, bicarb 31, anion gap 0, creatinine 0.25 Imaging reviewed todaynone Assessment/Plan: Patient is a 48-year-old female with breast cancer presented to the ED for shor tness of breath and she has been admitted for pulmonary embolism as seen on chest CTA. #. Pulmonary embolism, non-massive, failure of DOAC therapy (Eliquis) Elevated APTT 30.5, D-dimer 2.35, - WNL troponin< 0.012, pro BNP 90, blood pressure 105/69 -Discontinue high intensity heparin drip Continue Lovenox 80 mg subcu every 12 hours, pradaxa on discharge per hematology recs - Vascular surgery consulted, recommends to follow-up with heme-onc -Case discussed with pulmonology, they agree with lovenox for AC Hematology/oncology consulted, recommends Pradaxa (discussed today) #. Asymptomatic Bacteriuria Cloudy appearance, positive nitrite, small leukocyte esterase, few bacteria, moderate blood Patient is asymptomatic S/p 2 g cefepime in the ED - Blood culture and urine culture ordered in the ED - Hold off on further Abxs as likely colonization #Sacral pressure ulcer Unstageable ulcer on coccyx Consult wound care #. Bicytopenia - Normocytic anemia, at baseline and Thrombocytopenia - Low hemoglobin 10.9, normal MCV 100.6 - Low platelet 146 Monitor CBC #. Elevated transaminase levels AST 54, ALT 253 Monitor BMP #. Hypoproteinemia Total protein 5.1, albumin 2.8 Monitor BMP #. Metastatic breast cancer Patient mentions she is on radiation therapy Receiving [place] 53 25 every 6 hours Given Senokot and Dulcolax, and MiraLAX for opioid-induced constipation - Oncology consulted #. History of anxiety/depression C/W alprazolam 1 mg p.o. twice daily and sertraline 50 mg p.o. daily - Resumed alprazolam 1.5mg HS today per home med #. History of GERD C/W continue Protonix 40 mg p.o. daily #. Nausea and vomiting C/W ondansetron 8 mg p.o. every 8 hours #. History of seizures C/W levetiracetam 30 mg p.o. every 12 hours F: 0.9 normal saline 20 mL/h E: Replete as required N: Heart healthy diet A: DVT prophylaxis: enoxaparin The patient is admitted with an anticipated more than 2 midnight stay for evaluation of shortness of breath CODE STATUS: Full code Discussed with: Patient Anticipated discharge place: Home I saw and evaluated the patient during the sainz and critical portions of this encounter, and discussed the case in detail with the resident author of this note, I agree with the Assessment and Plan, and my changes, if any, are highlighted in blue. Objective - Vital Signs Vital signs: Vital Signs Temp 98.6 F 04/22/24 17:00 Pulse 116 H 04/22/24 17:00 Resp 18 04/22/24 17:00 BP 103/76 04/22/24 17:00 Pulse Ox 95 04/22/24 17:00 FiO2 Intake & Output 04/21/24 04/22/24 04/22/24 18:59 06:59 18:59 Intake Total 1238 20 246 Output Total 750 225 Balance 1238 -730 21 Weight 81.5 kg 81.5 kg Intake: IV 20 10 Invasive Line 2 10 Invasive Line 3 10 10 Intake, IV Titration 100 Amount Cefepime 2 gm In Sodium 100 Chloride 0.9% 100 ml @ 200 mls/hr IVPB ONCE STA Rx#:[id number] Oral 1138 236 Output: Urine 750 225 Other: Voiding Method Indwelling Catheter Indwelling Catheter Indwelling Catheter # Bowel Movements 1 - Labs CBC & Chem 7: 04/22/24 04:27 04/22/24 04:27 Labs: Abnormal Lab Results - Last 24 Hours (Table) 04/22/24 04/22/24 Range/Units 04:27 04:27 RBC 3.14 L (3.80-5.40) m/uL Hgb 10.2 L (11.4-16.0) gm/dL Hct 31.6 L (34.0-46.0) % MCV 100.7 H (80.0-100.0) fL RDW 15.6 H (11.5-15.5) % Plt Count 121 L (150-450) k/uL Carbon Dioxide 31 H (22-30) mmol/L BUN 26 H (7-17) mg/dL Creatinine 0.25 L (0.52-1.04) mg/dL Microbiology - Last 24 Hours (Table) 04/20/24 13:34 Urine Culture - Final Urine,Voided 04/20/24 14:55 Blood Culture - Preliminary Blood
[2024-04-22] MEDS: KETOROLAC 15 MG/ML 1 ML VIAL IM STA (21:38)
[2024-04-23 07:06] LABS: INR 0.9 (<1.2); Partial Thromboplastin Time 22.6 sec (22.0-30.0); Prothrombin Time 10.5 sec (10.0-12.5)
[2024-04-23 07:20] LABS: African American GFR (CKD) >90 (>60 ml/min/1.73 sqM); Anion Gap 5 mmol/L; Blood Urea Nitrogen 29 mg/dL (7-17); Calcium 8.5 mg/dL (8.4-10.2); Carbon Dioxide 29 mmol/L (22-30); Chloride 103 mmol/L (98-107); Glucose 93 mg/dL (74-99); HCT 33.8 % (34.0-46.0); HGB 10.9 gm/dL (11.4-16.0); MCH 32.3 pg (25.0-35.0); MCHC 32.3 g/dL (31.0-37.0); MCV 99.9 fL (80.0-100.0); Macrocytosis Slight; Mean Platelet Volume 9.3; Non-African American GFR(CKD) >90 (>60 ml/min/1.73 sqM); Platelet Count 107 k/uL (150-450); Potassium 3.7 mmol/L (3.5-5.1); RBC 3.38 m/uL (3.80-5.40); RDW 15.5 % (11.5-15.5); Sodium 137 mmol/L (137-145); WBC 5.8 k/uL (3.8-10.6)
--- NOTE | 2024-04-23 10:24 | P.PN ---
Subjective Progress Note Date: 04/23/24 Patient is a 48-year-old female with PMH of DVT (on Eliquis), metastatic breast cancer presented to the ED for shortness of breath. The patient started getting short of breath this afternoon. She was not involved in any strenuous activity at the time. She also experienced some dry cough, chills and lightheadedness but denies falls. She also mentioned R sided strictly pleuritic chest discomfort which started at the same time as the dyspnea. Denies fever, abdominal pain, nausea, vomiting, dysuria fainting, joint pain, muscle aches. The patient has an extensive history of breast cancer with metastasis to the brain, liver, lung. The cancer was diagnosed in 2019 and is she is currently undergoing radiation therapy. She also has a history of new onset seizure in May 2023 and also had a cardiopulmonary arrest in September 2023. She also has a history of DVT. ED workup revealed chest CTA that showed filling defects within multiple bilateral second and third order pulmonary arterial tributaries compatible pulmonary embolism. She was treated with heparin drip, Solu-Medrol, cefepime, Benadryl, 0.9 normal saline in the ED. Vitals: T 98.2F, P 107bpm, RR 20, BP 105/69, O2 sat at 92% on 2L NC EKG: Sinus tachycardia, incomplete right bundle branch block, T wave inversions in lead III, V1-V3, flattened T wave in V4, rate of 107 bpm, QTc 396 ms Labs: Hemoglobin 10.9, MCV 100.6, platelet 146, chloride 108, BUN 29, creatinine 0.37, AST 54, ALT 253, total protein 5.1, albumin 2.8 Coagulation panel: APTT 30.5, D-dimer 2.35, Urinalysis: Cloudy, 1+ protein, moderate blood, positive nitrite, small leukocyte esterase, 43 RBC, 20 WBC, few bacteria, many mucus, rare calcium oxalate crystals. Chest x-ray: Scattered lung nodules enlarging left upper lung masslike consolidation now measuring 7.6X 6.1 cm, previously up to 4.3 cm Chest CTA: Filling defects are seen within multiple bilateral second and third order pulmonary arterial tributaries compatible with pulmonary embolism. There is no evidence for large central embolus with saddle component. Innumerable pulmonary nodules and masses which have increased in size and overall number since prior study compatible with metastatic disease. Multiple hepatic masses compatible with metastatic disease. Progress note 04/23/2024 patient seen and examined at bedside. Patient has increasing constipation and bloating. Only minimal stools with increased bowel regimen yesterday. Review of systems: Pertinent positives and negatives as discussed in HPI, a complete review of systems was performed and all other systems are negative. Physical examination: Vital signs reviewed General: Lethargic, non toxic, no distress, appears at stated age, overweight Derm: Bruises on all 4 extremities, bandaged wound on the chest, unstageable ulcer on coccyx Head: atraumatic, normocephalic, symmetric Eyes: EOMI, anicteric sclera ENT: Nose and ears atraumatic Mouth: no lip lesion, mucus membranes moist Cardiovascular: S1S2 reg, no murmur, no edema Lungs: CTA bilateral, no rhonchi, no rales, no accessory muscle use Abdominal: soft, nontender to palpation, no guarding Ext: no gross muscle atrophy, no contractures Neuro: CN II-XI grossly intact, no gross focal neuro deficits Psych: Alert, oriented, appropriate affect Labs reviewed todayWBC 6.0, hemoglobin 10.2, platelets 121, sodium 137, potassium 4.1, bicarb 31, anion gap 0, creatinine 0.25 Imaging reviewed todaynone Assessment/Plan: Patient is a 48-year-old female with breast cancer presented to the ED for shortness of breath and she has been admitted for pulmonary embolism as seen on chest CTA. #. Pulmonary embolism, non-massive, failure of DOAC therapy (Eliquis) Elevated APTT 30.5, D-dimer 2.35, - WNL troponin< 0.012, pro BNP 90, blood pressure 105/69 -Discontinue high intensity heparin drip Continue Lovenox 80 mg subcu every 12 hours, pradaxa on discharge per hematology recs - Vascular surgery consulted, recommends to follow-up with heme-onc -Case discussed with pulmonology, they agree with lovenox for AC Hematology/oncology consulted, recommends Pradaxa #Abdominal Distention - Acute Abd Series - continue bowel regimen, will consider methylnatrexone tomorrow if no improvement #. Asymptomatic Bacteriuria Cloudy appearance, positive nitrite, small leukocyte esterase, few bacteria, moderate blood Patient is asymptomatic S/p 2 g cefepime in the ED - Blood culture and urine culture ordered in the ED - Hold off on further Abxs as likely colonization #Sacral pressure ulcer Unstageable ulcer on coccyx Consult wound care #. Bicytopenia - Normocytic anemia, at baseline and Thrombocytopenia - Low hemoglobin 10.9, normal MCV 100.6 - Low platelet 146 Monitor CBC #. Elevated transaminase levels AST 54, ALT 253 Monitor BMP #. Hypoproteinemia Total protein 5.1, albumin 2.8 Monitor BMP #. Metastatic breast cancer Patient mentions she is on radiation therapy Receiving [employer] 25 every 6 hours Given Senokot and Dulcolax, and MiraLAX for opioid-induced constipation - Oncology consulted #. History of anxiety/depression C/W alprazolam 1 mg p.o. twice daily and sertraline 50 mg p.o. daily - Resumed alprazolam 1.5mg HS today per home med #. History of GERD C/W continue Protonix 40 mg p.o. daily #. Nausea and vomiting C/W ondansetron 8 mg p.o. every 8 hours #. History of seizures C/W levetiracetam 30 mg p.o. every 12 hours F: 0.9 normal saline 20 mL/h E: Replete as required N: Heart healthy diet A: DVT prophylaxis: enoxaparin The patient is admitted with an anticipated more than 2 midnight stay for evaluation of shortness of breath CODE STATUS: Full code Discussed with: Patient Anticipated discharge place: Home I saw and evaluated the patient during the sainz and critical portions of this encounter, and discussed the case in detail with the resident author of this not e, I agree with the Assessment and Plan, and my changes, if any, are highlighted in blue. Objective - Vital Signs Vital signs: Vital Signs Temp 98.6 F 04/23/24 08:38 Pulse 111 H 04/23/24 08:38 Resp 16 04/23/24 08:38 BP 107/73 04/23/24 08:38 Pulse Ox 93 L 04/23/24 08:38 FiO2 Intake & Output 04/22/24 04/23/24 04/23/24 18:59 06:59 18:59 Intake Total 256 20 30 Output Total 625 350 150 Balance -369 -330 -120 Weight 81.5 kg 80.3 kg Intake: IV 20 20 30 Invasive Line 1 10 10 Invasive Line 2 10 10 Invasive Line 3 10 10 10 Oral 236 Output: Urine 625 350 150 Other: Voiding Method Indwelling Catheter Indwelling Catheter Indwelling Catheter # Bowel Movements 1 0 - Labs CBC & Chem 7: 04/23/24 05:59 04/23/24 05:59 Labs: Abnormal Lab Results - Last 24 Hours (Table) 04/23/24 04/23/24 Range/Units 05:59 05:59 RBC 3.38 L (3.80-5.40) m/uL Hgb 10.9 L (11.4-16.0) gm/dL Hct 33.8 L (34.0-46.0) % Plt Count 107 L (150-450) k/uL BUN 29 H (7-17) mg/dL Creatinine 0.26 L (0.52-1.04) mg/dL Microbiology - Last 24 Hours (Table) 04/20/24 14:55 Blood Culture - Preliminary Blood
--- NOTE | 2024-04-23 13:26 | XR ---
EXAMINATION TYPE: XR abdomen acute w cxr DATE OF EXAM: 04/23/2024 COMPARISON: Chest x-ray 04/20/2024 HISTORY: Abdominal pain TECHNIQUE: Chest exam of the frontal projection. Abdomen is examined in supine and upright views. FINDINGS: Heart size is upper limits of normal. Port is present on the left the tip in the superior v hafsa cava region. Patchy infiltrate or densities in the left upper lung field. Milder infiltrate is pr esent bilaterally. Nonspecific bowel gas is within the colon. Fecal retention within the colon. No mass effect is eviden t. No suspicious air-fluid levels or. No free air is evident. Some fecal boluses of the rectum. Psoas margins are normal IMPRESSION: 1. Mass versus infiltrate left upper lung field. 2. Patchy mild infiltrates present bilaterally. Consider pneumonia and atypical pneumonia. 3. Moderate fecal retention. [facility], Workstation: [facility], 04/23/2024 1:23 PM
--- NOTE | 2024-04-23 14:15 | P.PN ---
Subjective Progress Note Date: 04/23/24 This is a 48-year-old female patient with a known history of metastatic breast cancer to the brain, liver and lung initially diagnosed back in 2019. She has gone through multiple rounds of chemotherapy and radiation therapy without much success. She had most recently been referred to Dr. Sachi Pollock at [facility] and the patient was to start on eribulin but due to multiple admissions for other complications this medication has not been started yet. 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 No records from that admission are available. She re- presented here to the emergency room yesterday with a rather sudden onset of shortness of breath. X-ray revealed airspace opacities bilaterally. There is scattered lung masses or nodules with enlarging left upper lung masslike consolidation measuring 7.6 x 6.1 cm. Previous records from February 2024 show it at 4.[address] angiogram revealed filling defects seen within multiple bilateral second and third pulmonary arterial tributaries compatible with pulmonary embolism. Innumerable pulmonary nodules and masses which have increased in size and number compared to previous. Multiple hepatic masses compatible with metastatic disease. Of note the patient had had a previous DVT of the lower extremity and is maintained on Eliquis. She and her boyfriend who is present states that she does not miss any doses. She is seen today in consultation on the regular medical floor. She is currently resting in bed. Awake and alert in no acute distress. She is maintaining saturations in the 90s on 2 L/min per nasal cannula. She is afebrile. Hemodynamically stable. Doppler of the lower extremities today reveal no evidence of DVT bilaterally. D-dimer 2.35. White count 7.9. Hemoglobin 10.9. Platelets 146. Sodium 138. Potassium 3.7. Bicarb 29. BUN 29. Creatinine 0.37. proBNP 90. Troponin negative x 1. Urinalysis with positive nitrites. She has been initiated on a heparin drip. Pain. Normal saline at KVO. The patient is seen today April 22, 2024 in follow-up on the selective care unit. She is currently sitting up in bed having breakfast. Awake and alert in no acute distress. Denies any worsening shortness of breath, cough or congestion. She is maintaining good O2 saturation in the upper 90s on 3 L/min per nasal cannula. She has been afebrile. Hemodynamically stable. White count 6.0. Hemoglobin 10.2. Platelets 121. Sodium 137. Potassium 4.1. Bicarb 31. BUN 26. Creatinine 0.25. She remains on therapeutic Lovenox 80 mg subcu every 12 hours. The patient is seen today April 23, 2024 in follow-up on the selective care unit. She is awake and alert in no acute distress. Maintaining O2 saturation in the 90s on 3 L/min per nasal cannula. No worsening shortness of breath cough or congestion. No hemoptysis. She is currently on Lovenox 80 mg subcutaneous every 12 hours. He is having some complaints of abdominal pain. Abdominal x-ray did reveal moderate fecal retention. White count 5.8. Hemoglobin 10.9. INR 0.9. Sodium 139. Potassium 3.7. Bicarb 29. BUN 29. Creatinine 0.26. Glucose 93. Objective - Vital Signs Vital signs: Vital Signs Temp 98.5 F 04/23/24 12:00 Pulse 118 H 04/23/24 12:00 Resp 16 04/23/24 12:00 BP 120/81 04/23/24 12:00 Pulse Ox 92 L 04/23/24 12:00 FiO2 Intake & Output 04/22/24 04/23/24 04/23/24 18:59 06:59 18:59 Intake Total 256 20 30 Output Total 625 350 150 Balance -369 -330 -120 Weight 81.5 kg 80.3 kg Intake: IV 20 20 30 Invasive Line 1 10 10 Invasive Line 2 10 10 Invasive Line 3 10 10 10 Oral 236 Output: Urine 625 350 150 Other: Voiding Method Indwelling Catheter Indwelling Catheter Indwelling Catheter # Bowel Movements 1 0 - Exam GENERAL EXAM: Alert, awake frail 48-year-old female, on 3 L nasal cannula, in no apparent distress. HEAD: Normocephalic. EYES: Normal reaction of pupils, equal size. NOSE: Clear with pink turbinates. THROAT: No erythema or exudates. NECK: No masses, no JVD. CHEST: Dressing over the right breast clean and dry. LUNGS: Equal air entry with no crackles, wheeze, rhonchi or dullness. CVS: S1 and S2 normal with no audible murmur, regular rhythm. ABDOMEN: Abdominal tenderness. No hepatosplenomegaly, normal bowel sounds, no guarding or rigidity. SPINE: Unstageable pressure ulcer on coccyx SKIN: Ecchymosis noted on the extremities. CENTRAL NERVOUS SYSTEM: No focal deficits, tone is normal in all 4 extremities. EXTREMITIES: There is no peripheral edema. No clubbing, no cyanosis. Peripheral pulses are intact. - Labs CBC & Chem 7: 04/23/24 05:59 04/23/24 05:59 Labs: Abnormal Lab Results - Last 24 Hours (Table) 04/23/24 04/23/24 Range/Units 05:59 05:59 RBC 3.38 L (3.80-5.40) m/uL Hgb 10.9 L (11.4-16.0) gm/dL Hct 33.8 L (34.0-46.0) % Plt Count 107 L (150-450) k/uL BUN 29 H (7-17) mg/dL Creatinine 0.26 L (0.52-1.04) mg/dL Microbiology - Last 24 Hours (Table) 04/20/24 14:55 Blood Culture - Preliminary Blood Assessment and Plan Assessment: Acute hypoxemic respiratory failure secondary to acute bilateral pulmonary emboli, failed Eliquis, initiated on Lovenox Previous history of DVT, anticoagulated with Eliquis, compliant according to patient and significant other History of metastatic breast cancer in 2019 with involvement to the brain, liver, lung and bone. Multiple rounds of treatment without success. Most recently following at [facility] and was to be initiated on eribulin History of seizures History of anxiety/depression Abdominal discomfort, x-ray reveals moderate fecal retention Plan: The patient was seen and evaluated Labs and medications reviewed Continue Lovenox 80 mg twice daily Continue stool softeners, laxatives Overall prognosis remains quite guarded I have personally seen and examined the patient, performed the documentation and the assessment and plan as written. Number of minutes spent on the visit: 10.
[2024-04-24 08:08] LABS: Partial Thromboplastin Time 30.1 sec (22.0-30.0); Prothrombin Time 11.2 sec (10.0-12.5)
[2024-04-24 08:10] LABS: African American GFR (CKD) >90 (>60 ml/min/1.73 sqM); Anion Gap -2 mmol/L; Blood Urea Nitrogen 22 mg/dL (7-17); Calcium 8.3 mg/dL (8.4-10.2); Carbon Dioxide 37 mmol/L (22-30); Chloride 102 mmol/L (98-107); Glucose 95 mg/dL (74-99); Non-African American GFR(CKD) >90 (>60 ml/min/1.73 sqM); Potassium 2.9 mmol/L (3.5-5.1); Sodium 137 mmol/L (137-145)
[2024-04-24 08:17] LABS: HCT 29.2 % (34.0-46.0); Hypochromasia Slight; MCH 31.2 pg (25.0-35.0); MCHC 31.1 g/dL (31.0-37.0); MCV 100.2 fL (80.0-100.0); Macrocytosis Slight; Mean Platelet Volume 9.2; RBC 2.91 m/uL (3.80-5.40); RDW 15.2 % (11.5-15.5); WBC 5.3 k/uL (3.8-10.6)
[2024-04-24 08:57] LABS: HGB 9.1 gm/dL (11.4-16.0); Platelet Count 99 k/uL (150-450)
[2024-04-24] MEDS: METHYLNALTREXONE BROMIDE 12 MG/0.6 ML VIAL SQ ONE (11:36)
[2024-04-24 12:20] LABS: VBG PH 7.44 (7.31-7.41)
--- NOTE | 2024-04-24 14:12 | P.PN ---
Subjective Progress Note Date: 04/24/24 This is a 48-year-old female patient with a known history of metastatic breast cancer to the brain, liver and lung initially diagnosed back in 2019. She has gone through multiple rounds of chemotherapy and radiation therapy without much success. She had most recently been referred to Dr. Sachi Pollock at [facility] and the patient was to start on eribulin but due to multiple admissions for other complications this medication has not been started yet. 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 No records from that admission are available. She re- presented here to the emergency room yesterday with a rather sudden onset of shortness of breath. X-ray revealed airspace opacities bilaterally. There is scattered lung masses or nodules with enlarging left upper lung masslike consolidation measuring 7.6 x 6.1 cm. Previous records from February 2024 show it at 4.[address] angiogram revealed filling defects seen within multiple bilateral second and third pulmonary arterial tributaries compatible with pulmonary embolism. Innumerable pulmonary nodules and masses which have increased in size and number compared to previous. Multiple hepatic masses compatible with metastatic disease. Of note the patient had had a previous DVT of the lower extremity and is maintained on Eliquis. She and her boyfriend who is present states that she does not miss any doses. She is seen today in consultation on the regular medical floor. She is currently resting in bed. Awake and alert in no acute distress. She is maintaining saturations in the 90s on 2 L/min per nasal cannula. She is afebrile. Hemodynamically stable. Doppler of the lower extremities today reveal no evidence of DVT bilaterally. D-dimer 2.35. White count 7.9. Hemoglobin 10.9. Platelets 146. Sodium 138. Potassium 3.7. Bicarb 29. BUN 29. Creatinine 0.37. proBNP 90. Troponin negative x 1. Urinalysis with positive nitrites. She has been initiated on a heparin drip. Pain. Normal saline at KVO. The patient is seen today April 22, 2024 in follow-up on the selective care unit. She is currently sitting up in bed having breakfast. Awake and alert in no acute distress. Denies any worsening shortness of breath, cough or congestion. She is maintaining good O2 saturation in the upper 90s on 3 L/min per nasal cannula. She has been afebrile. Hemodynamically stable. White count 6.0. Hemoglobin 10.2. Platelets 121. Sodium 137. Potassium 4.1. Bicarb 31. BUN 26. Creatinine 0.25. She remains on therapeutic Lovenox 80 mg subcu every 12 hours. The patient is seen today April 23, 2024 in follow-up on the selective care unit. She is awake and alert in no acute distress. Maintaining O2 saturation in the 90s on 3 L/min per nasal cannula. No worsening shortness of breath cough or congestion. No hemoptysis. She is currently on Lovenox 80 mg subcutaneous every 12 hours. He is having some complaints of abdominal pain. Abdominal x-ray did reveal moderate fecal retention. White count 5.8. Hemoglobin 10.9. INR 0.9. Sodium 139. Potassium 3.7. Bicarb 29. BUN 29. Creatinine 0.26. Glucose 93. The patient is seen today April 24, 2024 in follow-up on the selective care unit. She is currently sitting up in bed. Awake and alert in no acute distress. She is maintaining O2 saturations in the 90s on 5 L/min per nasal cannula. She is currently afebrile. Hemodynamically stable. Urine culture revealed no growth. Blood culture pending. White count 5.3. Hemoglobin 9.1. Platelets 99,000. Sodium 137. Potassium 2.9. Bicarb 37. BUN 22. Creatinine 0.28. She remains on therapeutic Lovenox. Potassium being replaced. Objective - Vital Signs Vital signs: Vital Signs Temp 98.1 F 04/24/24 08:19 Pulse 109 H 04/24/24 12:26 Resp 16 04/24/24 12:26 BP 99/52 04/24/24 12:26 Pulse Ox 93 L 04/24/24 12:26 FiO2 Intake & Output 04/23/24 04/24/24 04/24/24 18:59 06:59 18:59 Intake Total 30 30 270 Output Total 375 650 Balance -146 -631 270 Weight 83.8 kg Intake: IV 30 30 30 Invasive Line 1 10 10 Invasive Line 2 10 10 20 Invasive Line 3 10 10 10 Oral 240 Output: Urine 375 650 Other: Voiding Method Indwelling Catheter Indwelling Catheter Indwelling Catheter # Bowel Movements 1 - Exam GENERAL EXAM: Alert, frail 48-year-old female, sitting up in bed, on 5 L nasal cannula, in no apparent distress. HEAD: Normocephalic. EYES: Normal reaction of pupils, equal size. NOSE: Clear with pink turbinates. THROAT: No erythema or exudates. NECK: No masses, no JVD. CHEST: Dressing over the right breast clean and dry. LUNGS: Equal air entry with bilateral scattered rhonchi. CVS: S1 and S2 normal with no audible murmur, regular rhythm. ABDOMEN: Abdominal tenderness. No hepatosplenomegaly, normal bowel sounds, no guarding or rigidity. SPINE: Unstageable pressure ulcer on coccyx SKIN: Ecchymosis noted on the extremities. CENTRAL NERVOUS SYSTEM: No focal deficits, tone is normal in all 4 extremities. EXTREMITIES: There is no peripheral edema. No clubbing, no cyanosis. Peripheral pulses are intact. - Labs CBC & Chem 7: 04/24/24 07:32 04/24/24 07:32 Labs: Abnormal Lab Results - Last 24 Hours (Table) 04/24/24 04/24/24 04/24/24 Range/Units 07:32 07:32 07:32 RBC 2.91 L (3.80-5.40) m/uL Hgb 9.1 L D (11.4-16.0) gm/dL Hct 29.2 L (34.0-46.0) % MCV 100.2 H (80.0-100.0) fL Plt Count 99 L (150-450) k/uL APTT 30.1 H (22.0-30.0) sec VBG pH (7.31-7.41) VBG HCO3 (24-28) mmol/L Potassium 2.9 L (3.5-5.1) mmol/L Carbon Dioxide 37 H (22-30) mmol/L BUN 22 H (7-17) mg/dL Creatinine 0.28 L (0.52-1.04) mg/dL Calcium 8.3 L (8.4-10.2) mg/dL 04/24/24 Range/Units 11:38 RBC (3.80-5.40) m/uL Hgb (11.4-16.0) gm/dL Hct (34.0-46.0) % MCV (80.0-100.0) fL Plt Count (150-450) k/uL APTT (22.0-30.0) sec VBG pH 7.44 H (7.31-7.41) VBG HCO3 32 H (24-28) mmol/L Potassium (3.5-5.1) mmol/L Carbon Dioxide (22-30) mmol/L BUN (7-17) mg/dL Creatinine (0.52-1.04) mg/dL Calcium (8.4-10.2) mg/dL Microbiology - Last 24 Hours (Table) 04/20/24 14:55 Blood Culture - Preliminary Blood Assessment and Plan Assessment: Acute hypoxemic respiratory failure secondary to acute bilateral pulmonary emboli, failed Eliquis, initiated on Lovenox Previous history of DVT, anticoagulated with Eliquis, compliant according to patient and significant other History of metastatic breast cancer in 2019 with involvement to the brain, liver, lung and bone. Multiple rounds of treatment without success. Most recently following at [facility] and was to be initiated on eribulin History of seizures History of anxiety/depression Abdominal discomfort, x-ray reveals moderate fecal retention Plan: The patient was seen and evaluated Labs and medications reviewed Titrate the FiO2 as tolerated Continue Lovenox 80 mg twice daily Overall prognosis remains quite guarded I have personally seen and examined the patient, performed the documentation and the assessment and plan as written. Number of minutes spent on the visit: 10.
--- NOTE | 2024-04-24 15:52 | P.PN ---
Subjective Progress Note Date: 04/24/24 Patient is a 48-year-old female with PMH of DVT (on Eliquis), metastatic breast cancer presented to the ED for shortness of breath. The patient started getting short of breath this afternoon. She was not involved in any strenuous activity at the time. She also experienced some dry cough, chills and lightheadedness but denies falls. She also mentioned R sided strictly pleuritic chest discomfort which started at the same time as the dyspnea. Denies fever, abdominal pain, nausea, vomiting, dysuria fainting, joint pain, muscle aches. The patient has an extensive history of breast cancer with metastasis to the brain, liver, lung. The cancer was diagnosed in 2019 and is she is currently undergoing radiation therapy. She also has a history of new onset seizure in May 2023 and also had a cardiopulmonary arrest in September 2023. She also has a history of DVT. ED workup revealed chest CTA that showed filling defects within multiple bilateral second and third order pulmonary arterial tributaries compatible pulmonary embolism. She was treated with heparin drip, Solu-Medrol, cefepime, Benadryl, 0.9 normal saline in the ED. Vitals: T 98.2F, P 107bpm, RR 20, BP 105/69, O2 sat at 92% on 2L NC EKG: Sinus tachycardia, incomplete right bundle branch block, T wave inversions in lead III, V1-V3, flattened T wave in V4, rate of 107 bpm, QTc 396 ms Labs: Hemoglobin 10.9, MCV 100.6, platelet 146, chloride 108, BUN 29, creatinine 0.37, AST 54, ALT 253, total protein 5.1, albumin 2.8 Coagulation panel: APTT 30.5, D-dimer 2.35, Urinalysis: Cloudy, 1+ protein, moderate blood, positive nitrite, small leukocyte esterase, 43 RBC, 20 WBC, few bacteria, many mucus, rare calcium oxalate crystals. Chest x-ray: Scattered lung nodules enlarging left upper lung masslike consolidation now measuring 7.6X 6.1 cm, previously up to 4.3 cm Chest CTA: Filling defects are seen within multiple bilateral second and third order pulmonary arterial tributaries compatible with pulmonary embolism. There is no evidence for large central embolus with saddle component. Innumerable pulmonary nodules and masses which have increased in size and overall number since prior study compatible with metastatic disease. Multiple hepatic masses compatible with metastatic disease. Progress note 04/24/2024 patient seen and examined at bedside. She is also began feeling short of breath and needed an increase in her oxygen to 5 L overnight. Patient continues having constipation and bloating, with 2 small bowel movements yesterday. Review of systems: Pertinent positives and negatives as discussed in HPI, a complete review of systems was performed and all other systems are negative. Physical examination: Vital signs reviewed General: Lethargic, non toxic, no distress, appears at stated age, overweight Derm: Bruises on all 4 extremities, bandaged wound on the chest, unstageable ulc er on coccyx Head: atraumatic, normocephalic, symmetric Eyes: EOMI, anicteric sclera ENT: Nose and ears atraumatic Mouth: no lip lesion, mucus membranes moist Cardiovascular: S1S2 reg, no murmur, no edema Lungs: CTA bilateral, no rhonchi, no rales, no accessory muscle use Abdominal: soft, nontender to palpation, no guarding Ext: no gross muscle atrophy, no contractures Neuro: CN II-XI grossly intact, no gross focal neuro deficits Psych: Alert, oriented, appropriate affect Labs reviewed todayWBC 5.3, hemoglobin 9.1, MCV 100.2, platelet 99, APTT 30.1, venous blood gases pH 7.44, pCO2 47, bicarb 32, sodium 137, potassium 2.9, bicarb 37, BUN 22, creatinine 0.28 Imaging reviewed today Abdominal x-ray with chest x-ray, moderate fecal retention Assessment/Plan: Patient is a 48-year-old female with breast cancer presented to the ED for shortness of breath and she has been admitted for pulmonary embolism as seen on chest CTA. #. Pulmonary embolism, non-massive, failure of DOAC therapy (Eliquis) Elevated APTT 30.5, D-dimer 2.35, - WNL troponin< 0.012, pro BNP 90, blood pressure 105/69 -Discontinue high intensity heparin drip Continue Lovenox 80 mg subcu every 12 hours, pradaxa on discharge per hematology recs - Vascular surgery consulted, recommends to follow-up with heme-onc -Case discussed with pulmonology, they agree with lovenox for AC Hematology/oncology consulted, recommends Pradaxa #Abdominal Distention -Abdominal x-ray with chest x-ray, moderate fecal retention - Begin methylnatrexone Consult PT #. Asymptomatic Bacteriuria Cloudy appearance, positive nitrite, small leukocyte esterase, few bacteria, moderate blood Patient is asymptomatic S/p 2 g cefepime in the ED - Blood culture and urine culture ordered in the ED - Hold off on further Abxs as likely colonization #Sacral pressure ulcer Unstageable ulcer on coccyx Consult wound care #. Bicytopenia - Normocytic anemia, at baseline and Thrombocytopenia - Low hemoglobin 10.9, normal MCV 100.6 - Low platelet 146 Monitor CBC #. Elevated transaminase levels AST 54, ALT 253 Monitor BMP #. Hypoproteinemia Total protein 5.1, albumin 2.8 Monitor BMP #. Metastatic breast cancer Patient mentions she is on radiation therapy Receiving [place] 53 25 every 6 hours Given Senokot and Dulcolax, and MiraLAX for opioid-induced constipation - Oncology consulted #. History of anxiety/depression C/W alprazolam 1 mg p.o. twice daily and sertraline 50 mg p.o. daily - Resumed alprazolam 1.5mg HS today per home med #. History of GERD C/W continue Protonix 40 mg p.o. daily #. Nausea and vomiting C/W ondansetron 8 mg p.o. every 8 hours #. History of seizures C/W levetiracetam 30 mg p.o. every 12 hours F: 0.9 normal saline 20 mL/h E: Replete as required N: Heart healthy diet A: DVT prophylaxis: enoxaparin The patient is admitted with an anticipated more than 2 midnight stay for evaluation of shortness of breath CODE STATUS: Full code Discussed with: Patient Anticipated discharge place: Home I saw and evaluated the patient during the sainz and critical portions of this encounter, and discussed the case in detail with the resident author of this note, I agree with the Assessment and Plan, and my changes, if any, are highlighted in blue. Objective - Vital Signs Vital signs: Vital Signs Temp 98.1 F 04/24/24 08:19 Pulse 109 H 04/24/24 12:26 Resp 16 04/24/24 12:26 BP 99/52 04/24/24 12:26 Pulse Ox 93 L 04/24/24 12:26 FiO2 Intake & Output 10/01/0904/24/24 04/24/24 18:59 06:59 18:59 Intake Total 30 30 390 Output Total 375 650 Balance -345 -620 390 Weight 83.8 kg Intake: IV 30 30 30 Invasive Line 1 10 10 Invasive Line 2 10 10 20 Invasive Line 3 10 10 10 Oral 360 Output: Urine 375 650 Other: Voiding Method Indwelling Catheter Indwelling Catheter Indwelling Catheter # Bowel Movements 1 - Labs CBC & Chem 7: 04/24/24 07:32 04/24/24 07:32 Labs: Abnormal Lab Results - Last 24 Hours (Table) 04/24/24 04/24/24 04/24/24 Range/Units 07:32 07:32 07:32 RBC 2.91 L (3.80-5.40) m/uL Hgb 9.1 L D (11.4-16.0) gm/dL Hct 29.2 L (34.0-46.0) % MCV 100.2 H (80.0-100.0) fL Plt Count 99 L (150-450) k/uL APTT 30.1 H (22.0-30.0) sec VBG pH (7.31-7.41) VBG HCO3 (24-28) mmol/L Potassium 2.9 L (3.5-5.1) mmol/L Carbon Dioxide 37 H (22-30) mmol/L BUN 22 H (7-17) mg/dL Creatinine 0.28 L (0.52-1.04) mg/dL Calcium 8.3 L (8.4-10.2) mg/dL 04/24/24 Range/Units 11:38 RBC (3.80-5.40) m/uL Hgb (11.4-16.0) gm/dL Hct (34.0-46.0) % MCV (80.0-100.0) fL Plt Count (150-450) k/uL APTT (22.0-30.0) sec VBG pH 7.44 H (7.31-7.41) VBG HCO3 32 H (24-28) mmol/L Potassium (3.5-5.1) mmol/L Carbon Dioxide (22-30) mmol/L BUN (7-17) mg/dL Creatinine (0.52-1.04) mg/dL Calcium (8.4-10.2) mg/dL Microbiology - Last 24 Hours (Table) 04/20/24 14:55 Blood Culture - Preliminary Blood
[2024-04-24] MEDS: POTASSIUM CHLORIDE ER 20 MEQ TAB.ER PO STA (16:52)
[2024-04-24] MEDS: POTASSIUM CHLORIDE 10 MEQ in WATER FOR INJECTION 1 100ML.BAG IVPB STA (16:55)
[2024-04-25 07:23] LABS: HCT 30.1 % (34.0-46.0); HGB 9.2 gm/dL (11.4-16.0); Hypochromasia Moderate; MCH 30.9 pg (25.0-35.0); MCHC 30.6 g/dL (31.0-37.0); MCV 100.9 fL (80.0-100.0); Macrocytosis Slight; Mean Platelet Volume 8.9; Platelet Count 112 k/uL (150-450); RBC 2.98 m/uL (3.80-5.40); RDW 15.3 % (11.5-15.5)
[2024-04-25 07:32] LABS: Partial Thromboplastin Time 27.6 sec (22.0-30.0); Prothrombin Time 11.1 sec (10.0-12.5)
[2024-04-25 07:45] LABS: African American GFR (CKD) >90 (>60 ml/min/1.73 sqM); Anion Gap 2 mmol/L; Blood Urea Nitrogen 21 mg/dL (7-17); Calcium 8.3 mg/dL (8.4-10.2); Carbon Dioxide 33 mmol/L (22-30); Chloride 102 mmol/L (98-107); Glucose 127 mg/dL (74-99); Non-African American GFR(CKD) >90 (>60 ml/min/1.73 sqM); Potassium 3.7 mmol/L (3.5-5.1); Sodium 137 mmol/L (137-145)
[2024-04-25 09:04] LABS: Glucose,Whole Blood 160 mg/dL (70-110)
[2024-04-25 09:09] LABS: ABG Base Excess 5.4 mmol/L; ABG HCO3 30 mmol/L (21-25); ABG Oxygen Saturation 90.6 % (94-97); ABG PCO2 41 mmHg (35-45); ABG PH 7.47 (7.35-7.45); ABG TCO2 31 mmol/L (19-24); Allen Test Performed? Yes
[2024-04-25 09:13] LABS: ABG PO2 58 mmHg (83-108)
[2024-04-25 09:29] LABS: Glucose,Whole Blood 121 mg/dL (70-110)
--- NOTE | 2024-04-25 09:38 | P.CONS ---
History of Present Illness - Reason for Consult Consult date: 04/25/24 wound care - History of Present Illness This is a 48-year-old patient with history of breast cancer with mets to the brain and lungs. Patient has a open ulceration to the right breast that is cancerous. She has been followed in the wound care center. Discussed with patient's that we are unable to heal the ulceration due to the active cancer at the site. Patient has been utilizing absorptive silver and carbon to manage the odor. Patient has developed a unstageable pressure ulcer to the sacrum. The ulceration has significant eschar and no granulation noted. Ulceration measures approximately 5 x 4 x 0.1 cm Review Of Systems: Constitutional: No fever, no chills, no night sweats. No weight change. No weakness, fatigue or lethargy. No daytime sleepiness. Integumentary:reports wounds, no lesions. No rash or pruritus. No unusual bruising. No change in hair or nails. Physical exam: General Appearance: Alert, cooperative, no distress, appears stated age. Skin: See HPI all other Skin color, texture, tugor normal, no rashes or lesions. Neurologic: Alert oriented x3 Assessment: 1. Nonhealing ulceration with muscle involvement with Necrosis to other site 2. Unstageable Pressure ulcer coccyx 3. Breast CA with mets Plan: 1.Prognosis: Poor. Discussed with patient in great length while she was in the wound care center that we will be unable to heal any ulcerations due to active cancer at the site. Patient verbalized understanding. Discussed with patient consideration of hospice which she declined at that time.Right breast ulceration: Apply absorptive silver dry ABD and secure with tape as needed change outer dressing daily absorptive silver Wednesday. Sacral ulceration: Apply honey gel and bordered foam. Change Wednesday. Thank you for the consultation any questions please contact the wound care center DNP note has been reviewed and discussed with Dr. García and the impression and plan of care has been directed as dictated. Past Medical History Past Medical History: Cancer Additional Past Medical History / Comment(s): Hx. spinal meningitis twice 1999 and 2002, Breast Cancer 2019, one seizure age 6, "nodule on rt lung", V Fib Arrest. History of Any Multi-Drug Resistant Organisms: None Reported Past Surgical History: Appendectomy, Section Additional Past Surgical History / Comment(s): right shoulder cyst removal, breast biopsy Past Anesthesia/Blood Transfusion Reactions: No Reported Reaction Past Psychological History: Anxiety, Depression Past Alcohol Use History: None Reported Past Drug Use History: None Reported - Past Family History Mother Family Medical History: Cancer, Deep Vein Thrombosis (DVT) Additional Family Medical History / Comment(s): BREAST CANCER WITH METS TO LUNG. Medications and Allergies Home Medications Medication Instructions Recorded Confirmed Type Pantoprazole [Protonix] 40 mg PO DAILY #30 tab 05/29/23 04/20/24 Rx levETIRAcetam [Keppra] 750 mg PO Q12HR #60 tab 05/29/23 04/20/24 Rx Apixaban [Eliquis] 5 mg PO BID 10/15/23 04/20/24 History ALPRAZolam [Xanax] 1 mg PO BID@0900,1200 03/27/24 04/20/24 History ALPRAZolam [Xanax] 1.5 mg PO HS 03/27/24 04/20/24 History Gabapentin 300 mg PO BID 03/27/24 04/20/24 History HYDROcodone/APAP 5-325MG [[place] 1 tab PO Q6HR 03/27/24 04/20/24 History 5-325] Metoprolol Succinate (ER) [Toprol 12.5 mg PO DAILY 03/27/24 04/20/24 History Xl] Midazolam [Nayzilam] 5 mg NASAL DIRECTED PRN 03/27/24 04/20/24 History Potassium Chloride [Klor-Con 10 ER] 10 meq PO DAILY 03/27/24 04/20/24 History ondansetron HCL [Zofran] 8 mg PO Q8H PRN 03/27/24 04/20/24 History Sennosides [Senokot] 8.6 mg PO BID 04/20/24 04/20/24 History Sertraline HCl [Zoloft] 50 mg PO DAILY 04/20/24 04/20/24 History dexAMETHasone [Decadron] See Taper PO DIRECTED 04/20/24 04/20/24 History polyethylene glycoL 3350 [Miralax] 17 gm PO DAILY 04/20/24 04/20/24 History Dabigatran [Pradaxa] 150 mg PO BID #60 capsule 04/21/24 Rx Allergies Allergy/AdvReac Type Severity Reaction Status Date / Time Iodine and Iodide Containing Allergy Rash/Hives Verified 04/20/24 13:13 Produc Physical Exam Vitals: Vital Signs Temp Pulse Resp BP Pulse Ox FiO2 04/25/24 09:31 90 L 04/25/24 09:30 100 04/25/24 08:00 99.4 F 120 H 18 107/68 87 L 04/25/24 06:32 99.1 F 129 H 22 90 L 04/25/24 04:00 98.9 F 120 H 22 108/68 91 L 04/25/24 02:39 99.1 F 127 H 22 107/73 88 L 04/24/24 23:56 99.0 F 117 H 20 111/75 92 L 04/24/24 20:00 98.5 F 108 H 20 102/68 95 04/24/24 16:00 98.4 F 101 H 18 114/55 94 L 04/24/24 12:26 109 H 16 99/52 93 L Intake and Output 04/24/24 04/25/24 04/25/24 22:59 06:59 14:59 Intake Total 550 10 237 Output Total 250 200 300 Balance 300 -190 -63 Intake: IV 10 10 Invasive Line 2 10 10 Oral 540 237 Output: Urine 250 200 300 Other: Voiding Method Indwelling Catheter Indwelling Catheter # Bowel Movements 1 Weight 85.5 kg Results CBC & Chem 7: 04/25/24 07:10 04/25/24 07:10 Labs: Abnormal Lab Results - Last 24 Hours (Table) 04/24/24 04/25/24 04/25/24 Range/Units 11:38 07:10 07:10 RBC 2.98 L (3.80-5.40) m/uL Hgb 9.2 L (11.4-16.0) gm/dL Hct 30.1 L (34.0-46.0) % MCV 100.9 H (80.0-100.0) fL MCHC 30.6 L (31.0-37.0) g/dL Plt Count 112 L (150-450) k/uL ABG pH (7.35-7.45) ABG pO2 (83-108) mmHg ABG HCO3 (21-25) mmol/L ABG Total CO2 (19-24) mmol/L ABG O2 Saturation (94-97) % VBG pH 7.44 H (7.31-7.41) VBG HCO3 32 H (24-28) mmol/L Hemoglobin (11.4-16.0) gm/dL Carbon Dioxide 33 H (22-30) mmol/L BUN 21 H (7-17) mg/dL Creatinine 0.27 L (0.52-1.04) mg/dL Glucose 127 H (74-99) mg/dL POC Glucose (mg/dL) (70-110) mg/dL Calcium 8.3 L (8.4-10.2) mg/dL 04/25/24 04/25/24 04/25/24 Range/Units 09:02 09:03 09:27 RBC (3.80-5.40) m/uL Hgb (11.4-16.0) gm/dL Hct (34.0-46.0) % MCV (80.0-100.0) fL MCHC (31.0-37.0) g/dL Plt Count (150-450) k/uL ABG pH 7.47 H (7.35-7.45) ABG pO2 58 L* (83-108) mmHg ABG HCO3 30 H (21-25) mmol/L ABG Total CO2 31 H (19-24) mmol/L ABG O2 Saturation 90.6 L (94-97) % VBG pH (7.31-7.41) VBG HCO3 (24-28) mmol/L Hemoglobin 9.2 L (11.4-16.0) gm/dL Carbon Dioxide (22-30) mmol/L BUN (7-17) mg/dL Creatinine (0.52-1.04) mg/dL Glucose (74-99) mg/dL POC Glucose (mg/dL) 160 H 121 H (70-110) mg/dL Calcium (8.4-10.2) mg/dL Assessment and Plan (1) 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
--- NOTE | 2024-04-25 10:52 | XR ---
EXAMINATION TYPE: XR abdomen acute w cxr DATE OF EXAM: 04/25/2024 COMPARISON: 04/23/2024 HISTORY: 48-year-old female shortness of breath, abdominal pain, assess for perforation FINDINGS: There is worsening opacification throughout the bilateral lungs. Low lung volumes with either mild ca rdiomegaly accentuated heart size. Left anterior chest wall injection port with catheter tip at the m id to lower SVC. Upright exam shows no evidence for free intraperitoneal air. There is large stool burden and gassy bowel throughout overall nonobstructive gas pattern. There is large regarding particularly at the rectum which is distended up to 10.6 cm wide with stool. IMPRESSION: 1. Worsening diffuse bilateral airspace disease. Low lung volumes. 2. Upright views show no convincing findings of free intraperitoneal air. 3. There is gassy bowel throughout but overall nonobstructive pattern. 4. Note large stool burden. In addition, there is fecal impaction with solid stool distending the rec tera up to 10.6 cm wide. Disimpaction may be needed. With this degree of distention, the rectal wall i s at risk for venous ischemia. [facility], , 04/25/2024 10:50 AM
[2024-04-25] MEDS: levETIRAcetam IV 500 MG/5 ML VIAL IVP SCH (12:09)
[2024-04-25] MEDS: ACETAMINOPHEN IV (For NPO) 1,000 MG in EMPTY BAG 1 BAG IVPB ONE (13:21)
--- NOTE | 2024-04-25 14:28 | P.PN ---
Subjective Progress Note Date: 04/25/24 Principal diagnosis: Respiratory distress. This is a 48-year-old female patient with a known history of metastatic breast cancer to the brain, liver and lung initially diagnosed back in 2019. She has gone through multiple rounds of chemotherapy and radiation therapy without much success. She had most recently been referred to Dr. Sachi Pollock at [facility] and the patient was to start on eribulin but due to multiple admissions for other complications this medication has not been started yet. 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 No records from that admission are available. She re- presented here to the emergency room yesterday with a rather sudden onset of shortness of breath. X-ray revealed airspace opacities bilaterally. There is scattered lung masses or nodules with enlarging left upper lung masslike consolidation measuring 7.6 x 6.1 cm. Previous records from February 2024 show it at 4.[address] angiogram revealed filling defects seen within multiple bilateral second and third pulmonary arterial tributaries compatible with pulmonary embolism. Innumerable pulmonary nodules and masses which have increased in size and number compared to previous. Multiple hepatic masses compatible with metastatic disease. Of note the patient had had a previous DVT of the lower extremity and is maintained on Eliquis. She and her boyfriend who is present states that she does not miss any doses. She is seen today in consultation on the regular medical floor. She is currently resting in bed. Awake and alert in no acute distress. She is maintaining saturations in the 90s on 2 L/min per nasal cannula. She is afebrile. Hemodynamically stable. Doppler of the lower extremities today reveal no evidence of DVT bilaterally. D-dimer 2.35. White count 7.9. Hemoglobin 10.9. Platelets 146. Sodium 138. Potassium 3.7. Bicarb 29. BUN 29. Creatinine 0.37. proBNP 90. Troponin negative x 1. Urinalysis with positive nitrites. She has been initiated on a heparin drip. Pain. Normal saline at KVO. The patient is seen today April 22, 2024 in follow-up on the selective care unit. She is currently sitting up in bed having breakfast. Awake and alert in no acute distress. Denies any worsening shortness of breath, cough or congestion. She is maintaining good O2 saturation in the upper 90s on 3 L/min per nasal cannula. She has been afebrile. Hemodynamically stable. White count 6.0. Hemoglobin 10.2. Platelets 121. Sodium 137. Potassium 4.1. Bicarb 31. BUN 26. Creatinine 0.25. She remains on therapeutic Lovenox 80 mg subcu every 12 hours. The patient is seen today April 23, 2024 in follow-up on the selective care unit. She is awake and alert in no acute distress. Maintaining O2 saturation in the 90s on 3 L/min per nasal cannula. No worsening shortness of breath cough or congestion. No hemoptysis. She is currently on Lovenox 80 mg subcutaneous every 12 hours. He is having some complaints of abdominal pain. Abdominal x- ray did reveal moderate fecal retention. White count 5.8. Hemoglobin 10.9. INR 0.9. Sodium 139. Potassium 3.7. Bicarb 29. BUN 29. Creatinine 0.26. Glucose 93. The patient is seen today April 24, 2024 in follow-up on the selective care unit. She is currently sitting up in bed. Awake and alert in no acute distress. She is maintaining O2 saturations in the 90s on 5 L/min per nasal cannula. She is currently afebrile. Hemodynamically stable. Urine culture revealed no growth. Blood culture pending. White count 5.3. Hemoglobin 9.1. Platelets 99,000. Sodium 137. Potassium 2.9. Bicarb 37. BUN 22. Creatinine 0.28. She remains on therapeutic Lovenox. Potassium being replaced. Progress note dated April 25, 2024. 48-year-old female with a history of metastatic breast cancer. The patient apparently was having some respiratory distress on the floor, and was transferred to the intensive care unit. The patient was placed on BiPAP. Blood gases on this patient showed a pO2 of 58, pCO2 of 41, pH of 7.47. Her initial BiPAP settings were 12/5 and 100%. I asked respiratory to drop the FiO2 down to 70%. The patient remains a full code. She was also admitted with a diagnosis of pulmonary embolism. For that she was on Lovenox, subcu, twice a day. She is seen in the intensive care unit, after having been moved. White count is 5, hemoglobin 9.2, hematocrit 30.1, and platelet count 112,000. Patient's sodium was 137, potassium 3.7, chlorides 102, CO2 33, BUN 21, and creatinine 0.27. Glucose is 121. Calcium 8.3. X-ray of the abdomen revealed worsening diffuse bilateral airspace disease, with low lung volumes, no convincing evidence of free intraperitoneal air, large stool burden, among other findings. Objective - Vital Signs Vital signs: Vital Signs Temp 99.4 F 04/25/24 08:45 Pulse 124 H 04/25/24 14:00 Resp 28 H 04/25/24 14:00 BP 116/71 04/25/24 14:00 Pulse Ox 91 L 04/25/24 14:00 FiO2 60 04/25/24 11:10 Intake & Output 04/24/24 04/25/24 04/25/24 18:59 06:59 18:59 Intake Total 930 20 387 Output Total 450 505 Balance 930 -430 -118 Weight 85.5 kg Intake: IV 30 20 10 Invasive Line 2 20 20 10 Invasive Line 3 10 Intake, IV Titration 140 Amount ACETAMINOPHEN IV (For NPO 100 ) 1,000 mg In Empty Bag 1 bag @ 400 mls/hr IVPB ONCE ONE Rx#:[id number] Sodium Chloride 0.9% 1, 40 000 ml @ 20 mls/hr IV . Q24H [facility] Rx#:[id number] Oral 900 237 Output: Urine 450 505 Other: Voiding Method Indwelling Catheter Indwelling Catheter Indwelling Catheter # Bowel Movements 1 - Exam No acute distress, allergic/somnolent, with BiPAP mask in place. HEENT examination is grossly unremarkable. Neck supple. Full range of motion. No adenopathy thyromegaly or neck vein distention. Cardiovascular examination reveals regular rhythm rate. S1-S2 normal. No S3 or S4. No discernible murmur noted. Heart rate 124 bpm. Lungs reveal scattered rhonchi. No wheezes or crackles. Breath sounds equal. Saturations are 91% on BiPAP. Abdomen soft, with bowel sounds. No masses. Extremities are intact. No cyanosis clubbing or edema. Skin is without rash or lesion. Neurologic examination is brief but nonfocal. - Labs CBC & Chem 7: 04/25/24 07:10 04/25/24 07:10 Labs: Abnormal Lab Results - Last 24 Hours (Table) 04/25/24 04/25/24 04/25/24 Range/Units 07:10 07:10 09:02 RBC 2.98 L (3.80-5.40) m/uL Hgb 9.2 L (11.4-16.0) gm/dL Hct 30.1 L (34.0-46.0) % MCV 100.9 H (80.0-100.0) fL MCHC 30.6 L (31.0-37.0) g/dL Plt Count 112 L (150-450) k/uL ABG pH (7.35-7.45) ABG pO2 (83-108) mmHg ABG HCO3 (21-25) mmol/L ABG Total CO2 (19-24) mmol/L ABG O2 Saturation (94-97) % Hemoglobin (11.4-16.0) gm/dL Carbon Dioxide 33 H (22-30) mmol/L BUN 21 H (7-17) mg/dL Creatinine 0.27 L (0.52-1.04) mg/dL Glucose 127 H (74-99) mg/dL POC Glucose (mg/dL) 160 H (70-110) mg/dL Calcium 8.3 L (8.4-10.2) mg/dL 04/25/24 04/25/24 Range/Units 09:03 09:27 RBC (3.80-5.40) m/uL Hgb (11.4-16.0) gm/dL Hct (34.0-46.0) % MCV (80.0-100.0) fL MCHC (31.0-37.0) g/dL Plt Count (150-450) k/uL ABG pH 7.47 H (7.35-7.45) ABG pO2 58 L* (83-108) mmHg ABG HCO3 30 H (21-25) mmol/L ABG Total CO2 31 H (19-24) mmol/L ABG O2 Saturation 90.6 L (94-97) % Hemoglobin 9.2 L (11.4-16.0) gm/dL Carbon Dioxide (22-30) mmol/L BUN (7-17) mg/dL Creatinine (0.52-1.04) mg/dL Glucose (74-99) mg/dL POC Glucose (mg/dL) 121 H (70-110) mg/dL Calcium (8.4-10.2) mg/dL Assessment and Plan Assessment: Acute hypoxemic respiratory failure secondary to acute bilateral pulmonary emboli. Previous history of DVT, anticoagulated with Eliquis, compliant. History of metastatic breast cancer in 2019 with involvement to the brain, liver, lung and bone. Multiple rounds of treatment without success. Most recently following at [facility] and was to be initiated on eribulin. History of seizures. History of anxiety/depression. Abdominal discomfort, secondary to fecal retention. Plan: Plan dated April 25, 2024. The patient was transferred to the intensive care unit, for further monitoring and management. The patient was placed on BiPAP. I have asked the respiratory therapist to titrate down the FiO2. Not sure that the patient actually needed to be transferred to the intensive care unit. He did allow me a chance to talk to the patient, and the patient's significant other. The patient has terminal disease, and is failed multiple different treatments, with multiple and many diffuse metastasis. The patient was to be evaluated at [facility], but, may not be able to go there at this time. I talked to the patient and the patient's significant other about intubation and mechanical ventilation. I explained to him that this would not serve any purpose other than to prolong the moment of her . They seem to understand. She remains a full code. The patient will not be intubated. Additional recommendations and suggestions are forthcoming. Time with Patient: Greater than 30
--- NOTE | 2024-04-25 16:34 | P.PN ---
Subjective Progress Note Date: 04/25/24 Patient is a 48-year-old female with PMH of DVT (on Eliquis), metastatic breast cancer presented to the ED for shortness of breath. The patient started getting short of breath this afternoon. She was not involved in any strenuous activity at the time. She also experienced some dry cough, chills and lightheadedness but denies falls. She also mentioned R sided strictly pleuritic chest discomfort which started at the same time as the dyspnea. Denies fever, abdominal pain, nausea, vomiting, dysuria fainting, joint pain, muscle aches. The patient has an extensive history of breast cancer with metastasis to the brain, liver, lung. The cancer was diagnosed in 2019 and is she is currently undergoing radiation therapy. She also has a history of new onset seizure in May 2023 and also had a cardiopulmonary arrest in September 2023. She also has a history of DVT. ED workup revealed chest CTA that showed filling defects within multiple bilateral second and third order pulmonary arterial tributaries compatible pulmonary embolism. She was treated with heparin drip, Solu-Medrol, cefepime, Benadryl, 0.9 normal saline in the ED. Vitals: T 98.2F, P 107bpm, RR 20, BP 105/69, O2 sat at 92% on 2L NC EKG: Sinus tachycardia, incomplete right bundle branch block, T wave inversions in lead III, V1-V3, flattened T wave in V4, rate of 107 bpm, QTc 396 ms Labs: Hemoglobin 10.9, MCV 100.6, platelet 146, chloride 108, BUN 29, creatinine 0.37, AST 54, ALT 253, total protein 5.1, albumin 2.8 Coagulation panel: APTT 30.5, D-dimer 2.35, Urinalysis: Cloudy, 1+ protein, moderate blood, positive nitrite, small leukocyte esterase, 43 RBC, 20 WBC, few bacteria, many mucus, rare calcium oxalate crystals. Chest x-ray: Scattered lung nodules enlarging left upper lung masslike consolidation now measuring 7.6X 6.1 cm, previously up to 4.3 cm Chest CTA: Filling defects are seen within multiple bilateral second and third order pulmonary arterial tributaries compatible with pulmonary embolism. There is no evidence for large central embolus with saddle component. Innumerable pulmonary nodules and masses which have increased in size and overall number since prior study compatible with metastatic disease. Multiple hepatic masses compatible with metastatic disease. Progress note 04/25/2024 overnight patient continued to require increased oxygen going from 5 L to 6 L. Upon examining the patient this morning she continued to desaturate and a team was called. The decision was made to begin the patient on BiPAP at 100% O2, and the patient was transferred to the ICU. While at bedside, goals of care was discussed. Family wished to continue full CODE STATUS, and attempt transfer to [facility] where she had seen heme- onc previously for continued treatment. In discussion with [facility] ICU team, it was determined that [facility] could not offer additional care that she was not already receiving here. Pulmonology also spoke to significant other about intubation and mechanical ventilation and its effect on prognosis, which he seemed to understand. Prognosis remains guarded. Review of systems: Pertinent positives and negatives as discussed in HPI, a complete review of systems was performed and all other systems are negative. Physical examination: Vital signs reviewed General: Lethargic, toxic, severely distressed, appears at stated age, overw [age] Derm: Bruises on all 4 extremities, bandaged wound on the chest, unstageable ulcer on coccyx Head: atraumatic, normocephalic, symmetric Eyes: EOMI, anicteric sclera ENT: Nose and ears atraumatic Mouth: no lip lesion, mucus membranes moist Cardiovascular: S1S2 reg, no murmur, no edema Lungs: CTA bilateral, no rhonchi, no rales, no accessory muscle use Abdominal: soft, nontender to palpation, no guarding Ext: no gross muscle atrophy, no contractures Neuro: CN II-XI grossly intact, no gross focal neuro deficits Psych: Alert, oriented, appropriate affect Labs reviewed todayWBC 5.0, hemoglobin 9.2, platelets 112, bicarb 33, BUN 21, creatinine 0.27, ABG pH 7.47, pCO2 41, pO2 58 Imaging reviewed todayabdominal x-ray with chest x-ray findings of worsening diffuse bilateral airspace disease low lung volumes. Assessment/Plan: Patient is a 48-year-old female with breast cancer presented to the ED for shortness of breath and she has been admitted for pulmonary embolism as seen on chest CTA. #Acute hypoxic respiratory failure Worsening O2 saturation on nasal cannula 6 L -ABG pH 7.47, pCO2 41, pO2 58 Saturation O2 87% on 8 L Begin on BiPAP initially at 100% O2 Attempt to wean oxygen requirement #. Metastatic breast cancer Patient mentions she is on radiation therapy Receiving [place] 53 25 every 6 hours Given Senokot and Dulcolax, and MiraLAX for opioid-induced constipation - Oncology consulted Guarded prognosis #. Pulmonary embolism, non-massive, failure of DOAC therapy (Eliquis) Elevated APTT 30.5, D-dimer 2.35, - WNL troponin< 0.012, pro BNP 90, blood pressure 105/69 -Discontinue high intensity heparin drip Continue Lovenox 80 mg subcu every 12 hours, pradaxa on discharge per hematology recs - Vascular surgery consulted, recommends to follow-up with heme-onc -Case discussed with pulmonology, they agree with lovenox for AC Hematology/oncology consulted, recommends Pradaxa #Abdominal Distention -Abdominal x-ray with chest x-ray, moderate fecal retention -Continue methylnatrexone Consult PT #. Asymptomatic Bacteriuria Cloudy appearance, positive nitrite, small leukocyte esterase, few bacteria, moderate blood Patient is asymptomatic S/p 2 g cefepime in the ED - Blood culture and urine culture ordered in the ED - Hold off on further Abxs as likely colonization #Sacral pressure ulcer Unstageable ulcer on coccyx wound care following #. Bicytopenia - Normocytic anemia, at baseline and Thrombocytopenia - Low hemoglobin 10.9, normal MCV 100.6 - Low platelet 146 Monitor CBC #. Elevated transaminase levels AST 54, ALT 253 Monitor BMP #. Hypoproteinemia Total protein 5.1, albumin 2.8 Monitor BMP #. History of anxiety/depression C/W alprazolam 1 mg p.o. twice daily and sertraline 50 mg p.o. daily - Resumed alprazolam 1.5mg HS today per home med #. History of GERD C/W continue Protonix 40 mg p.o. daily #. Nausea and vomiting C/W ondansetron 8 mg p.o. every 8 hours #. History of seizures C/W levetiracetam 30 mg p.o. every 12 hours F: 0.9 normal saline 20 mL/h E: Replete as required N: As tolerated A: DVT prophylaxis: enoxaparin The patient is admitted with an anticipated more than 2 midnight stay for evaluation of shortness of breath CODE STATUS: Full code Discussed with: Patient Anticipated discharge place: Pending further evaluation I saw and evaluated the patient during the sainz and critical portions of this encounter, and discussed the case in detail with the resident author of this note, I agree with the Assessment and Plan, and my changes, if any, are highlighted in blue. Additional addendum: Goals of care was discussed extensively with patient and significant other at bedside. Is not clear that this is her decision-maker because the patient requested both her father and her significant other to be in tandem and decision making. According to her significant other, there is no consideration of hospice despite patient's end-of-life condition given her metastatic breast cancer, hypoxemic respiratory failure requiring BiPAP dependence and borderline intubation, vasogenic edema with brain mets. I was at bedside with the child care nurse today discussing life support with the patient who seemed to understand that it would not be prudent to offer her any life support (intubation) at this time. However, patient remains full code. Objective - Vital Signs Vital signs: Vital Signs Temp 99.4 F 04/25/24 08:45 Pulse 117 H 04/25/24 15:00 Resp 26 H 04/25/24 15:00 BP 104/65 04/25/24 15:00 Pulse Ox 90 L 04/25/24 15:00 FiO2 60 04/25/24 15:00 Intake & Output 04/24/24 04/25/24 04/25/24 18:59 06:59 18:59 Intake Total 930 20 407 Output Total 450 525 Balance 930 -430 -118 Weight 85.5 kg Intake: IV 30 20 10 Invasive Line 2 20 20 10 Invasive Line 3 10 Intake, IV Titration 160 Amount ACETAMINOPHEN IV (For NPO 100 ) 1,000 mg In Empty Bag 1 bag @ 400 mls/hr IVPB ONCE ONE Rx#:[id number] Sodium Chloride 0.9% 1, 60 000 ml @ 20 mls/hr IV . Q24H [facility] Rx#:[id number] Oral 900 237 Output: Urine 450 525 Other: Voiding Method Indwelling Catheter Indwelling Catheter Indwelling Catheter # Bowel Movements 1 - Labs CBC & Chem 7: 04/25/24 07:10 04/25/24 07:10 Labs: Abnormal Lab Results - Last 24 Hours (Table) 04/25/24 04/25/2424 Range/Units 07:10 07:10 09:02 RBC 2.98 L (3.80-5.40) m/uL Hgb 9.2 L (11.4-16.0) gm/dL Hct 30.1 L (34.0-46.0) % MCV 100.9 H (80.0-100.0) fL MCHC 30.6 L (31.0-37.0) g/dL Plt Count 112 L (150-450) k/uL ABG pH (7.35-7.45) ABG pO2 (83-108) mmHg ABG HCO3 (21-25) mmol/L ABG Total CO2 (19-24) mmol/L ABG O2 Saturation (94-97) % Hemoglobin (11.4-16.0) gm/dL Carbon Dioxide 33 H (22-30) mmol/L BUN 21 H (7-17) mg/dL Creatinine 0.27 L (0.52-1.04) mg/dL Glucose 127 H (74-99) mg/dL POC Glucose (mg/dL) 160 H (70-110) mg/dL Calcium 8.3 L (8.4-10.2) mg/dL 04/25/24 04/25/24 Range/Units 09:03 09:27 RBC (3.80-5.40) m/uL Hgb (11.4-16.0) gm/dL Hct (34.0-46.0) % MCV (80.0-100.0) fL MCHC (31.0-37.0) g/dL Plt Count (150-450) k/uL ABG pH 7.47 H (7.35-7.45) ABG pO2 58 L* (83-108) mmHg ABG HCO3 30 H (21-25) mmol/L ABG Total CO2 31 H (19-24) mmol/L ABG O2 Saturation 90.6 L (94-97) % Hemoglobin 9.2 L (11.4-16.0) gm/dL Carbon Dioxide (22-30) mmol/L BUN (7-17) mg/dL Creatinine (0.52-1.04) mg/dL Glucose (74-99) mg/dL POC Glucose (mg/dL) 121 H (70-110) mg/dL Calcium (8.4-10.2) mg/dL
[2024-04-25 22:02] LABS: African American GFR (CKD) >90 (>60 ml/min/1.73 sqM); Anion Gap 3 mmol/L; Blood Urea Nitrogen 21 mg/dL (7-17); Carbon Dioxide 33 mmol/L (22-30); Chloride 101 mmol/L (98-107); Glucose 78 mg/dL (74-99); Non-African American GFR(CKD) >90 (>60 ml/min/1.73 sqM); Potassium 3.3 mmol/L (3.5-5.1); Sodium 137 mmol/L (137-145)
[2024-04-25 22:03] LABS: Calcium 8.3 mg/dL (8.4-10.2)
[2024-04-25] MEDS: POTASSIUM CHLORIDE 10 MEQ in WATER FOR INJECTION 1 100ML.BAG IVPB SCH (22:32)
[2024-04-25 23:14] LABS: Glucose,Whole Blood 167 mg/dL (70-110)
[2024-04-26] MEDS: LORazepam 2 MG/ML INJ IV PRN (09:22)
[2024-04-26] MEDS: LACTATED RINGERS 1,000 ML BAG IV STA (09:22)
--- NOTE | 2024-04-26 10:16 | XR ---
EXAMINATION TYPE: XR chest 1V portable DATE OF EXAM: 04/26/2024 Comparison: 04/20/2024 Clinical History: 48-year-old female acute hypoxic respiratory failure Findings: Left anterior chest wall injection port with catheter tip at the mid SVC level. Heart appears mildly enlarged. Diffuse patchy and confluent bilateral airspace opacities have worsened in the interval. Di fficult identify any discrete nodules or masses given the extensive bilateral opacification. Impression: Worsening patchy and confluent diffuse bilateral airspace disease. Underlying nodule/masses difficult to delineate now. [facility], , 04/26/2024 10:14 AM
[2024-04-26] MEDS: ACETAMINOPHEN IV (For NPO) 1,000 MG in EMPTY BAG 1 BAG IVPB SCH ×2 (10:26→23:19)
--- NOTE | 2024-04-26 10:59 | P.PN ---
Subjective Progress Note Date: 04/26/24 Principal diagnosis: Respiratory distress. This is a 48-year-old female patient with a known history of metastatic breast cancer to the brain, liver and lung initially diagnosed back in 2018. She has gone through multiple rounds of chemotherapy and radiation therapy without much success. She had most recently been referred to Dr. Sachi Pollock at [facility] and the patient was to start on eribulin but due to multiple admissions for other complications this medication has not been started yet. 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 No records from that admission are available. She re- presented here to the emergency room yesterday with a rather sudden onset of shortness of breath. X-ray revealed airspace opacities bilaterally. There is scattered lung masses or nodules with enlarging left upper lung masslike consolidation measuring 7.6 x 6.1 cm. Previous records from February 2024 show it at 4.[address] angiogram revealed filling defects seen within multiple bilateral second and third pulmonary arterial tributaries compatible with pulmonary embolism. Innumerable pulmonary nodules and masses which have increased in size and number compared to previous. Multiple hepatic masses compatible with metastatic disease. Of note the patient had had a previous DVT of the lower extremity and is maintained on Eliquis. She and her boyfriend who is present states that she does not miss any doses. She is seen today in consultation on the regular medical floor. She is currently resting in bed. Awake and alert in no acute distress. She is maintaining saturations in the 90s on 2 L/min per nasal cannula. She is afebrile. Hemodynamically stable. Doppler of the lower extremities today reveal no evidence of DVT bilaterally. D-dimer 2.35. White count 7.9. Hemoglobin 10.9. Platelets 146. Sodium 138. Potassium 3.7. Bicarb 29. BUN 29. Creatinine 0.37. proBNP 90. Troponin negative x 1. Urinalysis with positive nitrites. She has been initiated on a heparin drip. Pain. Normal saline at KVO. The patient is seen today April 22, 2024 in follow-up on the selective care unit. She is currently sitting up in bed having breakfast. Awake and alert in no acute distress. Denies any worsening shortness of breath, cough or congestion. She is maintaining good O2 saturation in the upper 90s on 3 L/min per nasal cannula. She has been afebrile. Hemodynamically stable. White count 6.0. Hemoglobin 10.2. Platelets 121. Sodium 137. Potassium 4.1. Bicarb 31. BUN 26. Creatinine 0.25. She remains on therapeutic Lovenox 80 mg subcu every 12 hours. The patient is seen today April 23, 2024 in follow-up on the selective care unit. She is awake and alert in no acute distress. Maintaining O2 saturation in the 90s on 3 L/min per nasal cannula. No worsening shortness of breath cough or congestion. No hemoptysis. She is currently on Lovenox 80 mg subcutaneous every 12 hours. He is having some complaints of abdominal pain. Abdominal x- ray did reveal moderate fecal retention. White count 5.8. Hemoglobin 10.9. INR 0.9. Sodium 139. Potassium 3.7. Bicarb 29. BUN 29. Creatinine 0.26. Glucose 93. The patient is seen today April 24, 2024 in follow-up on the selective care unit. She is currently sitting up in bed. Awake and alert in no acute distress. She is maintaining O2 saturations in the 90s on 5 L/min per nasal cannula. She is currently afebrile. Hemodynamically stable. Urine culture revealed no growth. Blood culture pending. White count 5.3. Hemoglobin 9.1. Platelets 99,000. Sodium 137. Potassium 2.9. Bicarb 37. BUN 22. Creatinine 0.28. She remains on therapeutic Lovenox. Potassium being replaced. Progress note dated April 25, 2024. 48-year-old female with a history of metastatic breast cancer. The patient apparently was having some respiratory distress on the floor, and was transferred to the intensive care unit. The patient was placed on BiPAP. Blood gases on this patient showed a pO2 of 58, pCO2 of 41, pH of 7.47. Her initial BiPAP settings were 12/5 and 100%. I asked respiratory to drop the FiO2 down to 70%. The patient remains a full code. She was also admitted with a diagnosis of pulmonary embolism. For that she was on Lovenox, subcu, twice a day. She is seen in the intensive care unit, after having been moved. White count is 5, hemoglobin 9.2, hematocrit 30.1, and platelet count 112,000. Patient's sodium was 137, potassium 3.7, chlorides 102, CO2 33, BUN 21, and creatinine 0.27. Glucose is 121. Calcium 8.3. X-ray of the abdomen revealed worsening diffuse bilateral airspace disease, with low lung volumes, no convincing evidence of free intraperitoneal air, large stool burden, among other findings. Progress note dated April 26, 2024. 48-year-old female with history of metastatic breast cancer. The patient was transferred to the intensive care unit yesterday, for further monitoring and management. She remains on BiPAP with settings of 14/8 and 70%. CV saline at 20 cc an hour. He is getting lactated Ringer's at 500 cc, is a fluid bolus, for low urine output. We will discontinue the Xanax, and instead give her IV Ativan for anxiety, and IV Dilaudid for pain. No new labs today as yet. Chest x-ray shows worsening patchy and confluent bilateral airspace disease. Objective - Vital Signs Vital signs: Vital Signs Temp 99.9 F H 04/26/24 08:00 Pulse 121 H 04/26/24 10:00 Resp 30 H 04/26/24 10:00 BP 101/80 04/26/24 10:00 Pulse Ox 94 L 04/26/24 08:00 FiO2 70 04/26/24 08:00 Intake & Output 04/25/24 04/26/24 04/26/24 18:59 06:59 18:59 Intake Total 477 540 60 Output Total 615 390 75 Balance -138 150 -15 Weight 87.3 kg Intake: IV 20 Invasive Line 2 20 Intake, IV Titration 220 540 60 Amount ACETAMINOPHEN IV (For NPO 100 ) 1,000 mg In Empty Bag 1 bag @ 400 mls/hr IVPB ONCE ONE Rx#:[id number] Potassium Chloride 10 meq 300 In Water For Injection 1 100ml.bag @ 100 mls/hr IVPB Q1HR [facility] Rx#: [id number] Sodium Chloride 0.9% 1, 120 240 60 000 ml @ 20 mls/hr IV . Q24H [facility] Rx#:[id number] Oral 237 Output: Urine 615 390 75 Other: Voiding Method Indwelling Catheter Indwelling Catheter Indwelling Catheter - Exam Remains on BiPAP, a bit more tachypneic. Poorly responsive.. HEENT examination is grossly unremarkable. Neck supple. Full range of motion. No adenopathy thyromegaly or neck vein distention. Cardiovascular examination reveals regular rhythm rate. S1-S2 normal. No S3 or S4. No discernible murmur noted. Heart rate 120 bpm. Lungs reveal scattered rhonchi. No wheezes or crackles. Breath sounds equal. Saturations are 94 % on BiPAP. Abdomen soft, with bowel sounds. No masses. Extremities are intact. No cyanosis clubbing or edema. Skin is without rash or lesion. Neurologic examination is brief but nonfocal. - Labs CBC & Chem 7: 04/25/24 07:10 04/25/24 21:34 Labs: Abnormal Lab Results - Last 24 Hours (Table) 04/25/24 04/25/24 Range/Units 21:34 23:12 Potassium 3.3 L (3.5-5.1) mmol/L Carbon Dioxide 33 H (22-30) mmol/L BUN 21 H (7-17) mg/dL Creatinine 0.24 L (0.52-1.04) mg/dL POC Glucose (mg/dL) 167 H (70-110) mg/dL Calcium 8.3 L (8.4-10.2) mg/dL Microbiology - Last 24 Hours (Table) 04/20/24 14:55 Blood Culture - Final Blood Assessment and Plan Assessment: Acute hypoxemic respiratory failure secondary to acute bilateral pulmonary emboli, metastatic breast cancer, and possible pneumonia. Previous history of DVT, anticoagulated with Eliquis, compliant. History of metastatic breast cancer in 2019 with involvement to the brain, liver, lung and bone. Multiple rounds of treatment without success. Most recently following at [facility] and was to be initiated on eribulin. History of seizures. History of anxiety/depression. Abdominal discomfort, secondary to fecal retention. Plan: Plan dated April 25, 2024. The patient was transferred to the intensive care unit, for further monitoring and management. The patient was placed on BiPAP. I have asked the respiratory therapist to titrate down the FiO2. Not sure that the patient actually needed to be transferred to the intensive care unit. He did allow me a chance to talk to the patient, and the patient's significant other. The patient has terminal disease, and is failed multiple different treatments, with multiple and many di ffuse metastasis. The patient was to be evaluated at [facility], but, may not be able to go there at this time. I talked to the patient and the patient's significant other about intubation and mechanical ventilation. I explained to him that this would not serve any purpose other than to prolong the moment of her . They seem to understand. She remains a full code. The patient will not be intubated. Additional recommendations and suggestions are forthcoming. Plan dated April 26, 2024. Despite many conversations with the patient's significant other, the patient remains a full code. The patient will do very poorly if intubated. I had initially suggested to him that we should not intubate her, and he seemed to agree, but apparently after that conversation, he continues to have her be a full code. The patient's respiratory status is worsening. Chest x-ray is getting worse. She continues on BiPAP. She was not excepted at [facility]. Labs, x-rays, and medications are reviewed. Prognosis is extremely poor. Time with Patient: Greater than 30
[2024-04-26 12:19] LABS: HCT 27.5 % (34.0-46.0); HGB 8.6 gm/dL (11.4-16.0); Hypochromasia Moderate; MCH 31.4 pg (25.0-35.0); MCHC 31.2 g/dL (31.0-37.0); MCV 100.8 fL (80.0-100.0); Macrocytosis Slight; Mean Platelet Volume 8.7; Platelet Count 122 k/uL (150-450); RBC 2.73 m/uL (3.80-5.40); RDW 15.4 % (11.5-15.5); WBC 5.6 k/uL (3.8-10.6)
[2024-04-26 12:38] LABS: African American GFR (CKD) >90 (>60 ml/min/1.73 sqM); Anion Gap 4 mmol/L; Blood Urea Nitrogen 19 mg/dL (7-17); Calcium 8.1 mg/dL (8.4-10.2); Carbon Dioxide 28 mmol/L (22-30); Chloride 106 mmol/L (98-107); Glucose 75 mg/dL (74-99); Non-African American GFR(CKD) >90 (>60 ml/min/1.73 sqM); Potassium 3.3 mmol/L (3.5-5.1); Sodium 138 mmol/L (137-145)
[2024-04-26] MEDS ORDERED: Potassium Replacement Protocol 1 EACH MISC MISCELLANE PRN (12:45)
[2024-04-26] MEDS: POTASSIUM CHLORIDE 10 MEQ in WATER FOR INJECTION 1 100ML.BAG IVPB SCH (13:11)
[2024-04-26 14:21] VITALS: BMI 30.1
[2024-04-26] MEDS: NA PHOS,M-B/NA PHOS,DI-BA 133 ML ENEMA RECTAL ONE (15:29)
--- NOTE | 2024-04-26 16:14 | P.PN ---
Subjective Progress Note Date: 04/26/24 Patient is a 48-year-old female with PMH of DVT (on Eliquis), metastatic breast cancer presented to the ED for shortness of breath. The patient started getting short of breath this afternoon. She was not involved in any strenuous activity at the time. She also experienced some dry cough, chills and lightheadedness but denies falls. She also mentioned R sided strictly pleuritic chest discomfort which started at the same time as the dyspnea. Denies fever, abdominal pain, nausea, vomiting, dysuria fainting, joint pain, muscle aches. The patient has an extensive history of breast cancer with metastasis to the brain, liver, lung. The cancer was diagnosed in 2019 and is she is currently undergoing radiation therapy. She also has a history of new onset seizure in May 2023 and also had a cardiopulmonary arrest in September 2023. She also has a history of DVT. ED workup revealed chest CTA that showed filling defects within multiple bilateral second and third order pulmonary arterial tributaries compatible pulmonary embolism. She was treated with heparin drip, Solu-Medrol, cefepime, Benadryl, 0.9 normal saline in the ED. Vitals: T 98.2F, P 107bpm, RR 20, BP 105/69, O2 sat at 92% on 2L NC EKG: Sinus tachycardia, incomplete right bundle branch block, T wave inversions in lead III, V1-V3, flattened T wave in V4, rate of 107 bpm, QTc 396 ms Labs: Hemoglobin 10.9, MCV 100.6, platelet 146, chloride 108, BUN 29, creatinine 0.37, AST 54, ALT 253, total protein 5.1, albumin 2.8 Coagulation panel: APTT 30.5, D-dimer 2.35, Urinalysis: Cloudy, 1+ protein, moderate blood, positive nitrite, small leukocyte esterase, 43 RBC, 20 WBC, few bacteria, many mucus, rare calcium oxalate crystals. Chest x-ray: Scattered lung nodules enlarging left upper lung masslike consolidation now measuring 7.6X 6.1 cm, previously up to 4.3 cm Chest CTA: Filling defects are seen within multiple bilateral second and third order pulmonary arterial tributaries compatible with pulmonary embolism. There is no evidence for large central embolus with saddle component. Innumerable pulmonary nodules and masses which have increased in size and overall number since prior study compatible with metastatic disease. Multiple hepatic masses compatible with metastatic disease. Progress note 04/25/2024 no acute events overnight. Patient seen and examined at bedside and she remained lethargic, unable to speak clearly with BiPAP. Patient remains full code. Prognosis remains guarded. Review of systems: Pertinent positives and negatives as discussed in HPI, a complete review of systems was performed and all other systems are negative. Physical examination: Vital signs reviewed General: Lethargic, toxic, moderately distressed, appears at stated age, overweight Derm: Bruises on all 4 extremities, bandaged wound on the chest, unstageable ulcer on coccyx Head: atraumatic, normocephalic, symmetric Eyes: EOMI, anicteric sclera ENT: Nose and ears atraumatic Mouth: no lip lesion, mucus membranes moist Cardiovascular: S1S2 reg, no murmur, no edema Lungs: CTA bilateral, no rhonchi, no rales, no accessory muscle use Abdominal: soft, nontender to palpation, no guarding Ext: no gross muscle atrophy, no contractures Neuro: CN II-XI grossly intact, no gross focal neuro deficits Psych: Alert, oriented, appropriate affect Labs reviewed todayWBC 5.6, hemoglobin 8.6, platelets 122, sodium 138, potassium 3.3, bicarb 28, BUN 19, creatinine 0.25, calcium 8.1 Imaging reviewed today chest x-ray worsening patchy and confluent diffuse bilateral airspace disease, underlying nodule masses. Assessment/Plan: Patient is a 48-year-old female with breast cancer presented to the ED for sh ortness of breath and she has been admitted for pulmonary embolism as seen on chest CTA. #Acute hypoxic respiratory failure, multifactorial Worsening O2 saturation on nasal cannula -Initial ABG pH 7.47, pCO2 41, pO2 58 on BiPAP initially at 100% O2, now 80% Attempt to wean oxygen requirement #. Metastatic breast cancer Patient mentions she is on radiation therapy Receiving [place] 53 25 every 6 hours Given Senokot and Dulcolax, and MiraLAX for opioid-induced constipation - Oncology following Guarded prognosis #. Pulmonary embolism, non-massive, failure of DOAC therapy (Eliquis) Elevated APTT 30.5, D-dimer 2.35, - WNL troponin< 0.012, pro BNP 90, blood pressure 105/69 -Discontinue high intensity heparin drip Continue Lovenox 80 mg subcu every 12 hours, pradaxa on discharge per hematology recs - Vascular surgery consulted, recommends to follow-up with heme-onc -pulmonology following, they agree with lovenox for AC Hematology/oncology consulted, recommends Pradaxa #Severe Constipation -Abdominal x-ray with chest x-ray, moderate fecal retention -on miralax and senna - ordered enema, patient refusing - may need manual disimpaction #. Asymptomatic Bacteriuria Cloudy appearance, positive nitrite, small leukocyte esterase, few bacteria, moderate blood Patient is asymptomatic S/p 2 g cefepime in the ED - Blood culture and urine culture ordered in the ED - Hold off on further Abxs as likely colonization #Sacral pressure ulcer, present on admission Unstageable ulcer on coccyx wound care following #. Bicytopenia - Normocytic anemia, at baseline and Thrombocytopenia - Low hemoglobin 10.9, normal MCV 100.6 - Low platelet 146 Monitor CBC #. Elevated transaminase levels AST 54, ALT 253 Monitor CMP #. Hypoproteinemia Total protein 5.1, albumin 2.8 Monitor BMP #. History of anxiety/depression C/W alprazolam 1 mg p.o. twice daily and sertraline 50 mg p.o. daily - Resumed alprazolam 1.5mg HS today per home med #. History of GERD C/W continue Protonix 40 mg p.o. daily #. Nausea and vomiting C/W ondansetron 8 mg p.o. every 8 hours #. History of seizures C/W levetiracetam 30 mg p.o. every 12 hours F: 0.9 normal saline 20 mL/h E: Replete as required N: As tolerated A: as tolerated DVT prophylaxis: enoxaparin CODE STATUS: Full code Discussed with: Patient I saw and evaluated the patient during the sainz and critical portions of this encounter, and discussed the case in detail with the resident author of this note, I agree with the Assessment and Plan, and my changes, if any, are highlighted in blue. Objective - Vital Signs Vital signs: Vital Signs Temp 98.9 F 04/26/24 12:00 Pulse 118 H 04/26/24 15:00 Resp 33 H 04/26/24 15:00 BP 102/68 04/26/24 15:00 Pulse Ox 90 L 04/26/24 15:00 FiO2 80 04/26/24 15:12 Intake & Output 04/25/24 04/26/24 04/26/24 18:59 06:59 18:59 Intake Total 477 540 280 Output Total 615 390 240 Balance -138 150 40 Weight 87.3 kg 87.3 kg Intake: IV 20 Invasive Line 2 20 Intake, IV Titration 220 540 280 Amount ACETAMINOPHEN IV (For NPO 100 ) 1,000 mg In Empty Bag 1 bag @ 400 mls/hr IVPB ONCE ONE Rx#:[id number] Potassium Chloride 10 meq 300 100 In Water For Injection 1 100ml.bag @ 100 mls/hr IVPB Q1HR [facility] Rx#: [id number] Sodium Chloride 0.9% 1, 120 240 180 000 ml @ 20 mls/hr IV . Q24H [facility] Rx#:[id number] Oral 237 Output: Urine 615 390 240 Other: Voiding Method Indwelling Catheter Indwelling Catheter Indwelling Catheter - Labs CBC & Chem 7: 04/26/24 12:08 04/26/24 12:08 Labs: Abnormal Lab Results - Last 24 Hours (Table) 04/25/24 04/25/24 04/26/24 Range/Units 21:34 23:12 12:08 RBC 2.73 L (3.80-5.40) m/uL Hgb 8.6 L (11.4-16.0) gm/dL Hct 27.5 L (34.0-46.0) % MCV 100.8 H (80.0-100.0) fL Plt Count 122 L (150-450) k/uL Potassium 3.3 L (3.5-5.1) mmol/L Carbon Dioxide 33 H (22-30) mmol/L BUN 21 H (7-17) mg/dL Creatinine 0.24 L (0.52-1.04) mg/dL POC Glucose (mg/dL) 167 H (70-110) mg/dL Calcium 8.3 L (8.4-10.2) mg/dL 04/26/24 Range/Units 12:08 RBC (3.80-5.40) m/uL Hgb (11.4-16.0) gm/dL Hct (34.0-46.0) % MCV (80.0-100.0) fL Plt Count (150-450) k/uL Potassium 3.3 L (3.5-5.1) mmol/L Carbon Dioxide (22-30) mmol/L BUN 19 H (7-17) mg/dL Creatinine 0.25 L (0.52-1.04) mg/dL POC Glucose (mg/dL) (70-110) mg/dL Calcium 8.1 L (8.4-10.2) mg/dL Microbiology - Last 24 Hours (Table) 04/20/24 14:55 Blood Culture - Final Blood
[2024-04-26] MEDS: HYDROmorphone 0.5 MG/0.5 ML SYRINGE IVP PRN (20:44)
[2024-04-26 22:27] LABS: HCT 32.3 % (34.0-46.0); HGB 10.2 gm/dL (11.4-16.0); Hypochromasia Slight; MCH 31.6 pg (25.0-35.0); MCHC 31.6 g/dL (31.0-37.0); MCV 99.8 fL (80.0-100.0); Macrocytosis Slight; Mean Platelet Volume 10.2; RBC 3.24 m/uL (3.80-5.40); RDW 15.5 % (11.5-15.5); WBC 6.8 k/uL (3.8-10.6)
[2024-04-26 22:50] LABS: Band Neutrophils % 36 %; Lymphocytes # (M) 0.68 k/uL (1.0-4.8); Monocytes # (M) 0.07 k/uL (0-1.0); Neutrophils % (M) 53 %; Nucleated Red Blood Cells 0 /100 WBC (0-0); Total Cells Counted 200
[2024-04-26 22:52] LABS: Platelet Count 97 k/uL (150-450)
[2024-04-26] MEDS ORDERED: VANCOMYCIN IV PER PHARMACY 1 EACH MISC MISCELLANE PRN (23:13)
[2024-04-27] MEDS: VANCOMYCIN 1,500 MG in SODIUM CHLORIDE 0.9% 500 ML 500 ML IVPB ONE
[2024-04-27] MEDS: CEFEPIME 2 GM in SODIUM CHLORIDE 0.9% 100 ML IVPB SCH (00:09)
[2024-04-27] MEDS: KETOROLAC 15 MG/ML 1 ML VIAL IVP STA (00:54)
[2024-04-27] MEDS: SODIUM CHLORIDE 0.9% 1,000 ML IV ONE ×2 (03:20→05:27)
--- NOTE | 2024-04-27 03:54 | P.PN ---
Progress Note - Text Progress Note Date: 04/27/2404/26 at 8:54 PM, RN reported patient was febrile at 101.4 Fahrenheit. Patient assessed and vitals reviewed. Patient had IV on right hand, left IJ, and Varma catheter, all of which did not show any erythema or warmth at site of skin contact. Concern for possible soft tissue infection and Hospital-Acquired Pneumonia. Ordered CBC, blood cultures, Tylenol 1 g IV, Vanco IV dosed per pharmacy and cefepime IVPB every 8 hours. Physical examination: General: no distress, on BiPAP, appears at stated age, obese Derm: no unusual rashes/lesions, warm, sacral ulcer clean with dressing, right breast had packed wound that was clean and dry, and surrounding skin was not erythematous Head: atraumatic, normocephalic, symmetric Eyes: EOMI, no lid lag, anicteric sclera, pupils equal round reactive to light ENT: Nose and ears atraumatic Neck: No cervical lymphadenopathy, trachea midline, supple Mouth: no lip lesion, mucus membranes moist Cardiovascular: S1S2 reg, no murmur Lungs: CTA bilateral, no rhonchi, no rales, no accessory muscle use Abdominal: soft, nontender to palpation, no guarding Neuro: CN II-XI grossly intact, follows commands Psych: Alert, oriented, appropriate affect and mood CBC showed WBC of 6.8. Blood cultures drawn and pending results 04/27 at 3 AM, RN reported patient urine output decreased to 15 to 20 mL and noted to have hypotension at 86/54 and was tachycardic at the 120s bpm. Concerning for on-going sepsis with development of shock. Ordered 1 L bolus 0.9% NS and maintenance rate at 130 cc/h. Consult infectious disease.
[2024-04-27] MEDS: SODIUM CHLORIDE 0.9% 1,000 ML IV SCH (04:09)
[2024-04-27 06:13] LABS: HCT 27.4 % (34.0-46.0); Hypochromasia Moderate; MCH 31.6 pg (25.0-35.0); MCHC 31.2 g/dL (31.0-37.0); MCV 101.4 fL (80.0-100.0); Macrocytosis Slight; Mean Platelet Volume 9.8; Platelet Count 112 k/uL (150-450); RDW 15.6 % (11.5-15.5); WBC 5.2 k/uL (3.8-10.6)
[2024-04-27 06:22] LABS: African American GFR (CKD) >90 (>60 ml/min/1.73 sqM); Anion Gap 5 mmol/L; Blood Urea Nitrogen 20 mg/dL (7-17); Calcium 7.9 mg/dL (8.4-10.2); Carbon Dioxide 24 mmol/L (22-30); Chloride 110 mmol/L (98-107); Glucose 77 mg/dL (74-99); Non-African American GFR(CKD) >90 (>60 ml/min/1.73 sqM); Potassium 3.3 mmol/L (3.5-5.1); Sodium 139 mmol/L (137-145)
[2024-04-27 06:23] LABS: HGB 8.5 gm/dL (11.4-16.0)
[2024-04-27] MEDS: POTASSIUM CHLORIDE 10 MEQ in WATER FOR INJECTION 1 100ML.BAG IVPB SCH (06:32)
[2024-04-27] MEDS: VANCOMYCIN 1,500 MG in SODIUM CHLORIDE 0.9% 500 ML 500 ML IVPB SCH (08:21)
[2024-04-27] MEDS: PANTOPRAZOLE 40 MG/10 ML VIAL IVP SCH (08:24)
--- NOTE | 2024-04-27 09:01 | XR ---
EXAMINATION TYPE: XR chest 1V portable DATE OF EXAM: 04/27/2024 Comparison: 04/26/2024 Clinical History: 48-year-old female acute hypoxic respiratory failure Findings: Left anterior chest wall injection port with catheter tip in the mid SVC level. Heart mildly enlarged . Diffuse patchy and confluent bilateral airspace opacities persist but may show slight improvement i n the interval. Suggestion of underlying nodule/masses not well delineated. Impression: Ongoing diffuse patchy and confluent bilateral airspace disease with slight interval improvement. Mul tiple underlying nodules/masses vaguely appreciated. [facility], , 04/27/2024 8:58 AM
[2024-04-27 09:56] LABS: ABG Base Excess -1.9 mmol/L; ABG HCO3 22 mmol/L (21-25); ABG Oxygen Saturation 85.8 % (94-97); ABG PCO2 35 mmHg (35-45); ABG PH 7.42 (7.35-7.45); ABG TCO2 23 mmol/L (19-24); Allen Test Performed? Yes
[2024-04-27 11:18] LABS: ABG Base Excess -2.7 mmol/L; ABG HCO3 21 mmol/L (21-25); ABG Oxygen Saturation 91.6 % (94-97); ABG PCO2 33 mmHg (35-45); ABG PH 7.42 (7.35-7.45); ABG PO2 60 mmHg (83-108); ABG TCO2 22 mmol/L (19-24); Allen Test Performed? Yes
[2024-04-27 11:23] LABS: ABG PO2 52 mmHg (83-108)
[2024-04-27] MEDS: LORazepam 2 MG/ML INJ IV PRN (11:54)
--- NOTE | 2024-04-27 12:00 | P.PN ---
Subjective Progress Note Date: 04/27/24 Principal diagnosis: Respiratory distress. This is a 48-year-old female patient with a known history of metastatic breast cancer to the brain, liver and lung initially diagnosed back in 2019. She has gone through multiple rounds of chemotherapy and radiation therapy without much success. She had most recently been referred to Dr. Sachi Pollock at [facility] and the patient was to start on eribulin but due to multiple admissions for other complications this medication has not been started yet. 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 No records from that admission are available. She re- presented here to the emergency room yesterday with a rather sudden onset of shortness of breath. X-ray revealed airspace opacities bilaterally. There is scattered lung masses or nodules with enlarging left upper lung masslike consolidation measuring 7.6 x 6.1 cm. Previous records from February 2024 show it at 4.[address] angiogram revealed filling defects seen within multiple bilateral second and third pulmonary arterial tributaries compatible with pulmonary embolism. Innumerable pulmonary nodules and masses which have increased in size and number compared to previous. Multiple hepatic masses compatible with metastatic disease. Of note the patient had had a previous DVT of the lower extremity and is maintained on Eliquis. She and her boyfriend who is present states that she does not miss any doses. She is seen today in consultation on the regular medical floor. She is currently resting in bed. Awake and alert in no acute distress. She is maintaining saturations in the 90s on 2 L/min per nasal cannula. She is afebrile. Hemodynamically stable. Doppler of the lower extremities today reveal no evidence of DVT bilaterally. D-dimer 2.35. White count 7.9. Hemoglobin 10.9. Platelets 146. Sodium 138. Potassium 3.7. Bicarb 29. BUN 29. Creatinine 0.37. proBNP 90. Troponin negative x 1. Urinalysis with positive nitrites. She has been initiated on a heparin drip. Pain. Normal saline at KVO. The patient is seen today April 22, 2024 in follow-up on the selective care unit. She is currently sitting up in bed having breakfast. Awake and alert in no acute distress. Denies any worsening shortness of breath, cough or congestion. She is maintaining good O2 saturation in the upper 90s on 3 L/min per nasal cannula. She has been afebrile. Hemodynamically stable. White count 6.0. Hemoglobin 10.2. Platelets 121. Sodium 137. Potassium 4.1. Bicarb 31. BUN 26. Creatinine 0.25. She remains on therapeutic Lovenox 80 mg subcu every 12 hours. The patient is seen today April 23, 2024 in follow-up on the selective care unit. She is awake and alert in no acute distress. Maintaining O2 saturation in the 90s on 3 L/min per nasal cannula. No worsening shortness of breath cough or congestion. No hemoptysis. She is currently on Lovenox 80 mg subcutaneous every 12 hours. He is having some complaints of abdominal pain. Abdominal x- ray did reveal moderate fecal retention. White count 5.8. Hemoglobin 10.9. INR 0.9. Sodium 139. Potassium 3.7. Bicarb 29. BUN 29. Creatinine 0.26. Glucose 93. The patient is seen today April 24, 2024 in follow-up on the selective care unit. She is currently sitting up in bed. Awake and alert in no acute distress. She is maintaining O2 saturations in the 90s on 5 L/min per nasal cannula. She is currently afebrile. Hemodynamically stable. Urine culture revealed no growth. Blood culture pending. White count 5.3. Hemoglobin 9.1. Platelets 99,000. Sodium 137. Potassium 2.9. Bicarb 37. BUN 22. Creatinine 0.28. She remains on therapeutic Lovenox. Potassium being replaced. Progress note dated April 25, 2024. 48-year-old female with a history of metastatic breast cancer. The patient apparently was having some respiratory distress on the floor, and was transferred to the intensive care unit. The patient was placed on BiPAP. Blood gases on this patient showed a pO2 of 58, pCO2 of 41, pH of 7.47. Her initial BiPAP settings were 12/5 and 100%. I asked respiratory to drop the FiO2 down to 70%. The patient remains a full code. She was also admitted with a diagnosis of pulmonary embolism. For that she was on Lovenox, subcu, twice a day. She is seen in the intensive care unit, after having been moved. White count is 5, hemoglobin 9.2, hematocrit 30.1, and platelet count 112,000. Patient's sodium was 137, potassium 3.7, chlorides 102, CO2 33, BUN 21, and creatinine 0.27. Glucose is 121. Calcium 8.3. X-ray of the abdomen revealed worsening diffuse bilateral airspace disease, with low lung volumes, no convincing evidence of free intraperitoneal air, large stool burden, among other findings. Progress note dated April 26, 2024. 48-year-old female with history of metastatic breast cancer. The patient was transferred to the intensive care unit yesterday, for further monitoring and management. She remains on BiPAP with settings of 14/8 and 70%. CV saline at 20 cc an hour. He is getting lactated Ringer's at 500 cc, is a fluid bolus, for low urine output. We will discontinue the Xanax, and instead give her IV Ativan for anxiety, and IV Dilaudid for pain. No new labs today as yet. Chest x-ray shows worsening patchy and confluent bilateral airspace disease. Progress note dated April 27, 2024. 48-year-old female with history of metastatic breast cancer. The patient is in the intensive care unit, room 251. Throughout the night, her respiratory status, became more tenuous. The patient apparently developed with a fever, had some changes made to her BiPAP device, had blood cultures done. In addition, the patient received 2 L of fluid, i.e. his normal saline, for hypotension, and was started on cefepime, and vancomycin. Currently she is on BiPAP, with settings of 16/10 and 100%. She is getting saline at 130 cc an hour. I had another long talk with the significant other. He was unaware that if the patient ended up on life support, that he would not be able to talk to her. I explained all of this again. White count is 5.2, hemoglobin 8.5, hematocrit 27.4, platelet count 112,000. Blood gases show a pO2 of 52, pCO2 of 35, and a pH of 7.42. Before the change, and after the change, pO2 was 60, pCO2 of 33, pH of 7.42. Sodium 139, potassium 3.3, chlorides 110, CO2 24, BUN 20, creatinine 0.27. Calcium is 7.9. Chest x-ray shows ongoing diffuse patchy and confluent bilateral airspace disease, which in my opinion is a bit worse. Objective - Vital Signs Vital signs: Vital Signs Temp 96.5 F L 04/27/24 08:00 Pulse 112 H 04/27/24 11:00 Resp 22 04/27/24 11:00 BP 91/57 04/27/24 11:00 Pulse Ox 90 L 04/27/24 10:00 FiO2 100 04/27/24 11:10 Intake & Output 04/26/24 04/27/24 04/27/24 18:59 06:59 18:59 Intake Total 740 3360 1320 Output Total 320 355 130 Balance 420 3005 1190 Weight 87.3 kg 88.6 kg Intake: IV 3240 720 ACETAMINOPHEN IV (For NPO 100 ) 1,000 mg In Empty Bag 1 bag @ 400 mls/hr IVPB Q6HR [facility] Rx#:[id number] Cefepime 2 gm In Sodium 100 Chloride 0.9% 100 ml @ 25 mls/hr IVPB Q8HR [facility] Rx# :[id number] Potassium Chloride 10 meq 100 200 In Water For Injection 1 100ml.bag @ 100 mls/hr IVPB Q1HR [facility] Rx#: [id number] Sodium Chloride 0.9% 1, 260 520 000 ml @ 130 mls/hr IV . Q7H42M [facility] Rx#:[id number] Sodium Chloride 0.9% 1, 180 000 ml @ 20 mls/hr IV . Q24H [facility] Rx#:[id number] Sodium Chloride 0.9% 1, 1000 000 ml @ 999 mls/hr IV . Q1H1M [facility] Rx#:[id number] Sodium Chloride 0.9% 1, 1000 000 ml @ 999 mls/hr IV . Q1H1M [facility] Rx#:[id number] Vancomycin 1,500 mg In 500 Sodium Chloride 0.9% 500 ml 500 ml @ 167 mls/hr IVPB ONCE [facility] Rx#: [id number] Intake, IV Titration 740 120 600 Amount Cefepime 2 gm In Sodium 100 Chloride 0.9% 100 ml @ 25 mls/hr IVPB Q8HR [facility] Rx# :[id number] Potassium Chloride 10 meq 100 In Water For Injection 1 100ml.bag @ 100 mls/hr IVPB Q1HR [facility] Rx#: [id number] Potassium Chloride 10 meq 400 100 In Water For Injection 1 100ml.bag @ 100 mls/hr IVPB Q1HR [facility] Rx#: [id number] Sodium Chloride 0.9% 1, 240 20 000 ml @ 20 mls/hr IV . Q24H [facility] Rx#:[id number] Vancomycin 1,500 mg In 500 Sodium Chloride 0.9% 500 ml 500 ml @ 167 mls/hr IVPB Q8H [facility] Rx#: [id number] Output: Urine 320 355 130 Other: Voiding Method Indwelling Catheter Indwelling Catheter # Bowel Movements 1 - Exam Remains on BiPAP, a bit more tachypneic. Poorly responsive.. HEENT examination is grossly unremarkable. Neck supple. Full range of motion. No adenopathy thyromegaly or neck vein distention. Cardiovascular examination reveals regular rhythm rate. S1-S2 normal. No S3 or S4. No discernible murmur noted. Heart rate 112 bpm. Lungs reveal scattered rhonchi. No wheezes or crackles. Breath sounds equal. Saturations are 90 % on BiPAP. Abdomen soft, with bowel sounds. No masses. Extremities are intact. No cyanosis clubbing or edema. Skin is without rash or lesion. Neurologic examination is brief but nonfocal. - Labs CBC & Chem 7: 04/27/24 05:17 04/27/24 05:17 Labs: Abnormal Lab Results - Last 24 Hours (Table) 04/26/24 04/26/24 04/26/24 Range/Units 12:08 12:08 22:11 RBC 2.73 L 3.24 L (3.80-5.40) m/uL Hgb 8.6 L 10.2 L (11.4-16.0) gm/dL Hct 27.5 L 32.3 L (34.0-46.0) % MCV 100.8 H (80.0-100.0) fL RDW (11.5-15.5) % Plt Count 122 L 97 L (150-450) k/uL Lymphocytes # (Manual) 0.68 L (1.0-4.8) k/uL ABG pCO2 (35-45) mmHg ABG pO2 (83-108) mmHg ABG O2 Saturation (94-97) % Hemoglobin (11.4-16.0) gm/dL Potassium 3.3 L (3.5-5.1) mmol/L Chloride (98-107) mmol/L BUN 19 H (7-17) mg/dL Creatinine 0.25 L (0.52-1.04) mg/dL Calcium 8.1 L (8.4-10.2) mg/dL 04/27/24 04/27/24 04/27/24 Range/Units 05:17 05:17 09:51 RBC 2.70 L (3.80-5.40) m/uL Hgb 8.5 L D (11.4-16.0) gm/dL Hct 27.4 L (34.0-46.0) % MCV 101.4 H (80.0-100.0) fL RDW 15.6 H (11.5-15.5) % Plt Count 112 L (150-450) k/uL Lymphocytes # (Manual) (1.0-4.8) k/uL ABG pCO2 (35-45) mmHg ABG pO2 52 L* (83-108) mmHg ABG O2 Saturation 85.8 L (94-97) % Hemoglobin 9.2 L (11.4-16.0) gm/dL Potassium 3.3 L (3.5-5.1) mmol/L Chloride 110 H (98-107) mmol/L BUN 20 H (7-17) mg/dL Creatinine 0.27 L (0.52-1.04) mg/dL Calcium 7.9 L (8.4-10.2) mg/dL 04/27/24 Range/Units 11:16 RBC (3.80-5.40) m/uL Hgb (11.4-16.0) gm/dL Hct (34.0-46.0) % MCV (80.0-100.0) fL RDW (11.5-15.5) % Plt Count (150-450) k/uL Lymphocytes # (Manual) (1.0-4.8) k/uL ABG pCO2 33 L (35-45) mmHg ABG pO2 60 L (83-108) mmHg ABG O2 Saturation 91.6 L (94-97) % Hemoglobin 9.2 L (11.4-16.0) gm/dL Potassium (3.5-5.1) mmol/L Chloride (98-107) mmol/L BUN (7-17) mg/dL Creatinine (0.52-1.04) mg/dL Calcium (8.4-10.2) mg/dL Assessment and Plan Assessment: Acute hypoxemic respiratory failure secondary to acute bilateral pulmonary emboli, metastatic breast cancer, and possible pneumonia. Previous history of DVT, anticoagulated with Eliquis, compliant. History of metastatic breast cancer in 2019 with involvement to the brain, liver, lung and bone. Multiple rounds of treatment without success. Most recently following at [facility] and was to be initiated on eribulin. History of seizures. History of anxiety/depression. Abdominal discomfort, secondary to fecal retention. Plan: Plan dated April 25, 2024. The patient was transferred to the intensive care unit, for further monitoring and management. The patient was placed on BiPAP. I have asked the respiratory therapist to titrate down the FiO2. Not sure that the patient actually needed to be transferred to the intensive care unit. He did allow me a chance to talk to the patient, and the patient's significant other. The patient has terminal disease, and is failed multiple different treatments, with multiple and many diffuse metastasis. The patient was to be evaluated at [facility], but, may not be able to go there at this time. I talked to the patient and the patient's significant other about intubation and mechanical ventilation. I explained to him that this would not serve any purpose other than to prolong the moment of her . They seem to understand. She remains a full code. The patient will not be intubated. Additional recommendations and suggestions are forthcoming. Plan dated April 26, 2024. Despite many conversations with the patient's significant other, the patient remains a full code. The patient will do very poorly if intubated. I had initially suggested to him that we should not intubate her, and he seemed to agree, but apparently after that conversation, he continues to have her be a full code. The patient's respiratory status is worsening. Chest x-ray is getting worse. She continues on BiPAP. She was not excepted at [facility]. Labs, x-rays, and medications are reviewed. Prognosis is extremely poor. Plan dated April 27, 2024. The patient's overall condition continues to deteriorate. The patient continues on BiPAP, with settings of 16/10, and 100%. Cefepime and vancomycin was added by the hospitalist service last night. Will check a procalcitonin level. Labs, x-rays, and all medications are reviewed. I had another talk with the significant other, about intubation and mechanical ventilation. He thought that after intubation, he did be able to speak to her. Clinically, she continues to do poorly. She became hypotensive last night. She spiked a fever. Cultures were done. Antibiotics were started. We will continue to follow make recommendations. Prognosis is very poor. Time with Patient: Greater than 30
[2024-04-27 12:36] VITALS: TEMP 98.2
[2024-04-27] MEDS: HYDROmorphone 1 MG/ML 1 ML SYRINGE IVP PRN (13:00)
[2024-04-27 15:08] VITALS: BP 107/75; PULSE 135; RESP 21
--- NOTE | 2024-04-27 15:53 | P.PN ---
Subjective Progress Note Date: 04/27/24 Patient is a 48-year-old female with PMH of DVT (on Eliquis), metastatic breast cancer presented to the ED for shortness of breath. The patient started getting short of breath this afternoon. She was not involved in any strenuous activity at the time. She also experienced some dry cough, chills and lightheadedness but denies falls. She also mentioned R sided strictly pleuritic chest discomfort which started at the same time as the dyspnea. Denies fever, abdominal pain, nausea, vomiting, dysuria fainting, joint pain, muscle aches. The patient has an extensive history of breast cancer with metastasis to the brain, liver, lung. The cancer was diagnosed in 2019 and is she is currently undergoing radiation therapy. She also has a history of new onset seizure in May 2023 and also had a cardiopulmonary arrest in September 2023. She also has a history of DVT. ED workup revealed chest CTA that showed filling defects within multiple bilateral second and third order pulmonary arterial tributaries compatible pulmonary embolism. She was treated with heparin drip, Solu-Medrol, cefepime, Benadryl, 0.9 normal saline in the ED. Vitals: T 98.2F, P 107bpm, RR 20, BP 105/69, O2 sat at 92% on 2L NC EKG: Sinus tachycardia, incomplete right bundle branch block, T wave inversions in lead III, V1-V3, flattened T wave in V4, rate of 107 bpm, QTc 396 ms Labs: Hemoglobin 10.9, MCV 100.6, platelet 146, chloride 108, BUN 29, creatinine 0.37, AST 54, ALT 253, total protein 5.1, albumin 2.8 Coagulation panel: APTT 30.5, D-dimer 2.35, Urinalysis: Cloudy, 1+ protein, moderate blood, positive nitrite, small leukocyte esterase, 43 RBC, 20 WBC, few bacteria, many mucus, rare calcium oxalate crystals. Chest x-ray: Scattered lung nodules enlarging left upper lung masslike consolidation now measuring 7.6X 6.1 cm, previously up to 4.3 cm Chest CTA: Filling defects are seen within multiple bilateral second and third order pulmonary arterial tributaries compatible with pulmonary embolism. There is no evidence for large central embolus with saddle component. Innumerable pulmonary nodules and masses which have increased in size and overall number since prior study compatible with metastatic disease. Multiple hepatic masses compatible with metastatic disease. Progress note 04/27/2024 overnight patient was found to be febrile with a fever at 101.4 and was assessed for possible sources of infection. She was started on Tylenol 1 g IV and vancomycin and cefepime. Patient seen and examined at bedside and she remained restless, unable to speak clearly with BiPAP. Patient remains full code. Prognosis remains guarded. Review of systems: Pertinent positives and negatives as discussed in HPI, a complete review of systems was performed and all other systems are negative. Physical examination: Vital signs reviewed General: toxic, moderately distressed, appears at stated age, overweight Derm: Bruises on all 4 extremities, bandaged wound on the chest, unstageable ulcer on coccyx Head: atraumatic, normocephalic, symmetric Eyes: EOMI, anicteric sclera ENT: Nose and ears atraumatic Mouth: no lip lesion, mucus membranes moist Cardiovascular: S1S2 reg, no murmur, no edema Lungs: CTA bilateral, rhonchi, no rales, increased accessory muscle use Abdominal: soft, nontender to palpation, no guarding Ext: no gross muscle atrophy, no contractures Neuro: CN II-XI grossly intact, no gross focal neuro deficits Psych: Alert and seems to be oriented, difficult to assess Labs reviewed today White count is 5.2, hemoglobin 8.5, hematocrit 27.4, platelet count 112,000. Sodium 139, potassium 3.3, chlorides 110, CO2 24, BUN 20, creatinine 0.27. Calcium is 7.9 Imaging reviewed today Chest x-ray shows ongoing diffuse patchy and confluent bilateral airspace disease Assessment/Plan: Patient is a 48-year-old female with breast cancer presented to the ED for shortness of breath and she has been admitted for pulmonary embolism as seen on chest CTA. #Acute hypoxic respiratory failure, multifactorial Worsening O2 saturation on nasal cannula -Today's ABG pH 7.42, pCO2 33, pO2 60 on BiPAP initially at 100% O2, now 90% Attempt to wean oxygen requirement #Sepsis with development of shock -Temperature 101.4, blood pressure 86/54, pulse 120s Responded to 2 L bolus normal saline Continue maintenance fluid IV NS 130 cc/h Pending blood cultures Consult ID #. Metastatic breast cancer Patient mentions she is on radiation therapy Receiving [place] 53 25 every 6 hours Given Senokot and Dulcolax, and MiraLAX for opioid-induced constipation - Oncology following Guarded prognosis #. Pulmonary embolism, non-massive, failure of DOAC therapy (Eliquis) Elevated APTT 30.5, D-dimer 2.35, - WNL troponin< 0.012, pro BNP 90, blood pressure 105/69 -Discontinue high intensity heparin drip Continue Lovenox 80 mg subcu every 12 hours, pradaxa on discharge per hematology recs - Vascular surgery consulted, recommends to follow-up with heme-onc -pulmonology following, they agree with lovenox for AC Hematology/oncology consulted, recommends Pradaxa #Severe Constipation -Abdominal x-ray with chest x-ray, moderate fecal retention -on miralax and senna - ordered enema, patient refusing - may need manual disimpaction #. Asymptomatic Bacteriuria Cloudy appearance, positive nitrite, small leukocyte esterase, few bacteria, moderate blood Patient is asymptomatic S/p 2 g cefepime in the ED - Blood culture and urine culture ordered in the ED - Hold off on further Abxs as likely colonization #Sacral pressure ulcer, present on admission Unstageable ulcer on coccyx wound care following #. Bicytopenia - Normocytic anemia, at baseline and Thrombocytopenia - Low hemoglobin 10.9, normal MCV 100.6 - Low platelet 146 => 112 Monitor CBC #. Elevated transaminase levels AST 54, ALT 253 Monitor CMP #. Hypoproteinemia Total protein 5.1, albumin 2.8 Monitor BMP #. History of anxiety/depression C/W alprazolam 1 mg p.o. twice daily and sertraline 50 mg p.o. daily - Resumed alprazolam 1.5mg HS today per home med #. History of GERD C/W continue Protonix 40 mg p.o. daily #. Nausea and vomiting C/W ondansetron 8 mg p.o. every 8 hours #. History of seizures C/W levetiracetam 30 mg p.o. every 12 hours F: 0.9 normal saline 130 mL/h E: Replete as required N: As tolerated A: as tolerated DVT prophylaxis: enoxaparin CODE STATUS: Full code Discussed with: Patient I saw and evaluated the patient during the sainz and critical portions of this encounter, and discussed the case in detail with the resident author of this note. The assessment and plan was discussed as below. Discussed extensively with significant other. Prognosis is extremely poor. Likely wont be able to come off the ventilator if intubate. He will discuss with the patient regarding comfort measures versus FULL CODE. Acute hypoxic respiratory failure, multifactorial due to PE and worsening metastatic lung disease SIRS versus Sepsis: Tmax 101.4F 04/26, HR > 90, RR > 20. Status post 2 L NS bolus overnight. Started on Vancomycin dosed per pharmacy and Cefepime 2g IV TID. NS at 130 cc/hr. Maintain MAP > 65. Follow BC[facility]. ID consulted. Pulmonary embolus: Lovenox 80 mg SQ BID. Pradaxa on discharge. Metastatic breast CA: Oncology on board. Hypokalemia: K 3.3. 40 meq KCl IV x 1. Constipation: Miralax 17g PO QD. Bicytopenia: Hg 8.5. Plt 112. Likely related to underlying malignancy with bone marrow involvement. Transfuse if Hg < 7 or Plt < 10. Sacral pressure ulcer present on admission: Wound care on board. Transaminitis likely secondary to metastatic liver disease Anxiety and Depression: Ativan 0.5 mg IV Q6H PRN anxiety. Zoloft 50 mg PO QD. GERD: Protonix 40 mg IV QD. History of seizures: Keppra 750 mg IV BID. Objective - Vital Signs Vital signs: Vital Signs Temp 98.2 F 04/27/24 12:00 Pulse 135 H 04/27/24 15:00 Resp 21 04/27/24 15:00 BP 107/75 04/27/24 15:00 Pulse Ox 89 L 04/27/24 15:00 FiO2 100 04/27/24 15:12 Intake & Output 04/26/24 04/27/24 04/27/24 18:59 06:59 18:59 Intake Total 740 3360 1940 Output Total 320 355 265 Balance 420 3005 1675 Weight 87.3 kg 88.6 kg Intake: IV 3240 1340 ACETAMINOPHEN IV (For NPO 100 ) 1,000 mg In Empty Bag 1 bag @ 400 mls/hr IVPB Q6HR [facility] Rx#:[id number] Cefepime 2 gm In Sodium 100 Chloride 0.9% 100 ml @ 25 mls/hr IVPB Q8HR [facility] Rx# :[id number] Potassium Chloride 10 meq 100 300 In Water For Injection 1 100ml.bag @ 100 mls/hr IVPB Q1HR [facility] Rx#: [id number] Sodium Chloride 0.9% 1, 260 1040 000 ml @ 130 mls/hr IV . Q7H42M [facility] Rx#:[id number] Sodium Chloride 0.9% 1, 180 000 ml @ 20 mls/hr IV . Q24H [facility] Rx#:[id number] Sodium Chloride 0.9% 1, 1000 000 ml @ 999 mls/hr IV . Q1H1M [facility] Rx#:[id number] Sodium Chloride 0.9% 1, 1000 000 ml @ 999 mls/hr IV . Q1H1M [facility] Rx#:[id number] Vancomycin 1,500 mg In 500 Sodium Chloride 0.9% 500 ml 500 ml @ 167 mls/hr IVPB ONCE [facility] Rx#: [id number] Intake, IV Titration 740 120 600 Amount Cefepime 2 gm In Sodium 100 Chloride 0.9% 100 ml @ 25 mls/hr IVPB Q8HR [facility] Rx# :[id number] Potassium Chloride 10 meq 100 In Water For Injection 1 100ml.bag @ 100 mls/hr IVPB Q1HR [facility] Rx#: [id number] Potassium Chloride 10 meq 400 100 In Water For Injection 1 100ml.bag @ 100 mls/hr IVPB Q1HR [facility] Rx#: [id number] Sodium Chloride 0.9% 1, 240 20 000 ml @ 20 mls/hr IV . Q24H [facility] Rx#:[id number] Vancomycin 1,500 mg In 500 Sodium Chloride 0.9% 500 ml 500 ml @ 167 mls/hr IVPB Q8H [facility] Rx#: [id number] Output: Urine 320 355 265 Other: Voiding Method Indwelling Catheter Indwelling Catheter Indwelling Catheter # Bowel Movements 1 - Labs CBC & Chem 7: 04/27/24 05:17 04/27/24 05:17 Labs: Abnormal Lab Results - Last 24 Hours (Table) 04/26/24 04/27/24 04/27/24 Range/Units 22:11 05:17 05:17 RBC 3.24 L 2.70 L (3.80-5.40) m/uL Hgb 10.2 L 8.5 L D (11.4-16.0) gm/dL Hct 32.3 L 27.4 L (34.0-46.0) % MCV 101.4 H (80.0-100.0) fL RDW 15.6 H (11.5-15.5) % Plt Count 97 L 112 L (150-450) k/uL Lymphocytes # (Manual) 0.68 L (1.0-4.8) k/uL ABG pCO2 (35-45) mmHg ABG pO2 (83-108) mmHg ABG O2 Saturation (94-97) % Hemoglobin (11.4-16.0) gm/dL Potassium 3.3 L (3.5-5.1) mmol/L Chloride 110 H (98-107) mmol/L BUN 20 H (7-17) mg/dL Creatinine 0.27 L (0.52-1.04) mg/dL Calcium 7.9 L (8.4-10.2) mg/dL Procalcitonin (0.02-0.50) ng/mL 04/27/24 04/27/24 04/27/24 Range/Units 05:17 09:51 11:16 RBC (3.80-5.40) m/uL Hgb (11.4-16.0) gm/dL Hct (34.0-46.0) % MCV (80.0-100.0) fL RDW (11.5-15.5) % Plt Count (150-450) k/uL Lymphocytes # (Manual) (1.0-4.8) k/uL ABG pCO2 33 L (35-45) mmHg ABG pO2 52 L* 60 L (83-108) mmHg ABG O2 Saturation 85.8 L 91.6 L (94-97) % Hemoglobin 9.2 L 9.2 L (11.4-16.0) gm/dL Potassium (3.5-5.1) mmol/L Chloride (98-107) mmol/L BUN (7-17) mg/dL Creatinine (0.52-1.04) mg/dL Calcium (8.4-10.2) mg/dL Procalcitonin 1.05 H (0.02-0.50) ng/mL
[2024-04-27] MEDS: MORPHINE SULFATE 4 MG/ML SYRINGE IV PRN (16:36)
[2024-04-27] MEDS: MORPHINE SULFATE (100 MG/2 ML) 100 MG in SODIUM CHLORIDE 0.9% 100 ML IV SCH (16:46)
--- NOTE | 2024-04-28 08:00 | P.DS ---
Providers Date of admission: 04/20/24 18:11 Expected date of discharge: 04/28/24 Attending physician: Bobo Gong Consults: 04/20/24 18:10 Consult Physician Routine Consulting Provider: Maynor Wilks Consult Reason/Comments: PE Do you want consulting provider notified?: Yes 04/20/24 18:12 Consult Physician Routine Consulting Provider: Freedom Murillo Consult Reason/Comments: ca Do you want consulting provider notified?: Yes 04/27/24 03:23 Consult Physician Routine Consulting Provider: Cindy Amanda Consult Reason/Comments: Sepsis Do you want consulting provider notified?: Yes Primary care physician: Physician Nonstaff Hospital Course: Discharge Diagnosis: #Acute hypoxic respiratory failure, multifactorial #Septic shock # Metastatic breast cancer # Pulmonary embolism, non-massive, failure of DOAC therapy (Eliquis) #Severe Constipation #Asymptomatic Bacteriuria #Sacral pressure ulcer, present on admission #Bicytopenia #.Elevated transaminase levels # Hypoproteinemia #History of anxiety/depression #History of GERD #Nausea and vomiting #History of seizures Hospital Course: Patient is a 48-year-old female with PMH of DVT (on Eliquis), metastatic breast cancer presented to the ED for shortness of breath. The patient has an extensive history of breast cancer with metastasis to the brain, liver, lung. The cancer was diagnosed in 2019 and is she is currently undergoing radiation therapy. She also has a history of new onset seizure in May 2023 and also had a cardiopulmonary arrest in September 2023. She also has a history of DVT. ED workup revealed chest CTA that showed filling defects within multiple bilateral second and third order pulmonary arterial tributaries compatible pulmonary embolism. She was treated with heparin drip, Solu-Medrol, cefepime, Benadryl, 0.9 normal saline in the ED. Vitals: T 98.2F, P 107bpm, RR 20, BP 105/69, O2 sat at 92% on 2L NC EKG: Sinus tachycardia, incomplete right bundle branch block, T wave inversions in lead III, V1-V3, flattened T wave in V4, rate of 107 bpm, QTc 396 ms Labs: Hemoglobin 10.9, MCV 100.6, platelet 146, chloride 108, BUN 29, creatinine 0.37, AST 54, ALT 253, total protein 5.1, albumin 2.8 Coagulation panel: APTT 30.5, D-dimer 2.35, Urinalysis: Cloudy, 1+ protein, moderate blood, positive nitrite, small leukocyte esterase, 43 RBC, 20 WBC, few bacteria, many mucus, rare calcium oxalate crystals. Chest x-ray: Scattered lung nodules enlarging left upper lung masslike consolidation now measuring 7.6X 6.1 cm, previously up to 4.3 cm Chest CTA: Filling defects are seen within multiple bilateral second and third order pulmonary arterial tributaries compatible with pulmonary embolism. There is no evidence for large central embolus with saddle component. Innumerable pulmonary nodules and masses which have increased in size and overall number since prior study compatible with metastatic disease. Multiple hepatic masses compatible with metastatic disease. Patient admitted for acute hypoxic respiratory failure, likely multifactorial in the setting of metastatic breast cancer, pulmonary embolism and possible sepsis with shock. Patient was initially on BiPAP. Multiple different specialties involved including ICU and oncology. Due to poor prognosis, extensive discussions were held with family with regards to goals of care. Patient was eventually made DNR/DNI and then eventually comfort care. Patient at 1749 on 04/28/24. Plan - Discharge Summary Discharge Rx Participant: Yes New Discharge Prescriptions: New Dabigatran [Pradaxa] 150 mg PO BID #60 capsule No Action levETIRAcetam [Keppra] 750 mg PO Q12HR #60 tab Pantoprazole [Protonix] 40 mg PO DAILY #30 tab ondansetron HCL [Zofran] 8 mg PO Q8H PRN PRN Reason: Nausea Midazolam [Nayzilam] 5 mg NASAL DIRECTED PRN PRN Reason: Seizures Potassium Chloride [Klor-Con 10 ER] 10 meq PO DAILY Gabapentin 300 mg PO BID Metoprolol Succinate (ER) [Toprol Xl] 12.5 mg PO DAILY ALPRAZolam [Xanax] 1 mg PO BID@0900,1200 Apixaban [Eliquis] 5 mg PO BID HYDROcodone/APAP 5-325MG [[place] 5-325] 1 tab PO Q6HR ALPRAZolam [Xanax] 1.5 mg PO HS dexAMETHasone [Decadron] See Taper PO DIRECTED polyethylene glycoL 3350 [Miralax] 17 gm PO DAILY Sennosides [Senokot] 8.6 mg PO BID Sertraline HCl [Zoloft] 50 mg PO DAILY Discharge Medication List Pantoprazole [Protonix] 40 mg PO DAILY #30 tab 05/29/23 [Rx] levETIRAcetam [Keppra] 750 mg PO Q12HR #60 tab 05/29/23 [Rx] Apixaban [Eliquis] 5 mg PO BID 10/15/23 [History] ALPRAZolam [Xanax] 1 mg PO BID@0900,1200 03/27/24 [History] ALPRAZolam [Xanax] 1.5 mg PO HS 03/27/24 [History] Gabapentin 300 mg PO BID 03/27/24 [History] HYDROcodone/APAP 5-325MG [[place] 5-325] 1 tab PO Q6HR 03/27/24 [History] Metoprolol Succinate (ER) [Toprol Xl] 12.5 mg PO DAILY 03/27/24 [History] Midazolam [Nayzilam] 5 mg NASAL DIRECTED PRN 03/27/24 [History] Potassium Chloride [Klor-Con 10 ER] 10 meq PO DAILY 03/27/24 [History] ondansetron HCL [Zofran] 8 mg PO Q8H PRN 03/27/24 [History] Sennosides [Senokot] 8.6 mg PO BID 04/20/24 [History] Sertraline HCl [Zoloft] 50 mg PO DAILY 04/20/24 [History] dexAMETHasone [Decadron] See Taper PO DIRECTED 04/20/24 [History] polyethylene glycoL 3350 [Miralax] 17 gm PO DAILY 04/20/24 [History] Dabigatran [Pradaxa] 150 mg PO BID #60 capsule 04/21/24 [Rx] Follow up Appointment(s)/Referral(s): Nonstaff,Physician [Primary Care Provider] - 1-2 days Activity/Diet/Wound Care/Special Instructions: Home care cannot come out until you are established with a PCP. Discharge/Stand Alone Forms: Who Do I Call?, [employer], Area PCPs Discharge Disposition: - Preliminary Cause of Preliminary Cause of : breast cancer
--- NOTE | 2024-05-04 22:31 | P.CONS ---
History of Present Illness - Reason for Consult Consult date: 04/27/24 Sepsis Requesting physician: Sydni Callahan - Chief Complaint Fever and hypotension x 1 day - History of Present Illness Patient is a 48-year-old female with a past medical history significant for metastatic breast cancer, V-fib cardiac arrest presenting to the hospital about a week ago on 04/20/2024 for evaluation of increasing shortness of breath that apparently has been going on for about an hour or so before presentation to the hospital patient has been evaluated and treated by multiple consultants including pulmonary oncology and vascular surgery as the patient did have a CT angiogram which did shows evidence of pulmonary emboli without evidence for right heart strain patient was on the medical floor patient did spike a fever of 101.4 F this morning and the patient was slightly tachycardic and hypotensive for the patient to be transferred back to ICU patient has been started on vancomycin and cefepime infectious disease was consulted for further management of antibiotic therapy patient at time my evaluation this morning is afebrile patient is tachycardic and is currently on a BiPAP lethargic and cannot provide any history no clear history of any nausea vomiting or diarrhea has been reported by the nursing staff patient did have a white count of 5.2 hemoglobin is 8.5 creatinine 0.27 procalcitonin is 1.05 urine has been positive on admission and has not been repeated with initial blood and urine culture have been negative and the patient did have a chest x-ray this morning diffuse patchy and confluent bilateral airspace disease with slight interval improvement multiple underlying nodular masses appreciated most information has been obt ained from review the chart talking nursing staff that the patient cannot provide any history Review of Systems Positive points has been mentioned in HPI complete review could not be obtained because of his underlying mental status Past Medical History Past Medical History: Cancer Additional Past Medical History / Comment(s): Hx. spinal meningitis twice 1999 and 2002, Breast Cancer 2019, one seizure age 6, "nodule on rt lung", V Fib Arrest. History of Any Multi-Drug Resistant Organisms: None Reported Past Surgical History: Appendectomy, Section Additional Past Surgical History / Comment(s): right shoulder cyst removal, breast biopsy Past Anesthesia/Blood Transfusion Reactions: No Reported Reaction Past Psychological History: Anxiety, Depression Past Alcohol Use History: None Reported Past Drug Use History: None Reported - Past Family History Mother Family Medical History: Cancer, Deep Vein Thrombosis (DVT) Additional Family Medical History / Comment(s): BREAST CANCER WITH METS TO LUNG. Medications and Allergies Home Medications Medication Instructions Recorded Confirmed Type Pantoprazole [Protonix] 40 mg PO DAILY #30 tab 05/29/23 04/20/24 Rx levETIRAcetam [Keppra] 750 mg PO Q12HR #60 tab 05/29/23 04/20/24 Rx Apixaban [Eliquis] 5 mg PO BID 10/15/23 04/20/24 History ALPRAZolam [Xanax] 1 mg PO BID@0900,1200 03/27/24 04/20/24 History ALPRAZolam [Xanax] 1.5 mg PO HS 03/27/24 04/20/24 History Gabapentin 300 mg PO BID 03/27/24 04/20/24 History HYDROcodone/APAP 5-325MG [Bittinger 1 tab PO Q6HR 03/27/24 04/20/24 History 5-325] Metoprolol Succinate (ER) [Toprol 12.5 mg PO DAILY 03/27/24 04/20/24 History Xl] Midazolam [Nayzilam] 5 mg NASAL DIRECTED PRN 03/27/24 04/20/24 History Potassium Chloride [Klor-Con 10 ER] 10 meq PO DAILY 03/27/24 04/20/24 History ondansetron HCL [Zofran] 8 mg PO Q8H PRN 03/27/24 04/20/24 History Sennosides [Senokot] 8.6 mg PO BID 04/20/24 04/20/24 History Sertraline HCl [Zoloft] 50 mg PO DAILY 04/20/24 04/20/24 History dexAMETHasone [Decadron] See Taper PO DIRECTED 04/20/24 04/20/24 History polyethylene glycoL 3350 [Miralax] 17 gm PO DAILY 04/20/24 04/20/24 History Dabigatran [Pradaxa] 150 mg PO BID #60 capsule 04/21/24 Rx Allergies Allergy/AdvReac Type Severity Reaction Status Date / Time Iodine and Iodide Containing Allergy Rash/Hives Verified 04/20/24 13:13 Produc Physical Exam Vitals: Vital Signs Temp Pulse Resp BP Pulse Ox FiO2 04/27/24 08:20 90 04/27/24 08:00 96.5 F L 109 H 19 100/64 92 L 90 04/27/24 07:00 100 16 97/61 94 L 04/27/24 06:00 99 26 H 93/58 93 L 04/27/24 05:00 102 H 23 91/59 93 L 04/27/24 04:06 80 04/27/24 04:00 97.4 F L 102 H 21 91/58 94 L 90 04/27/24 03:00 106 H 18 90/57 95 04/27/24 02:00 113 H 21 95/61 95 04/27/24 01:00 128 H 28 H 95/63 94 L 04/27/24 00:00 100.8 F H 131 H 25 H 100/60 94 L 90 04/26/24 23:00 125 H 25 H 108/68 95 04/26/24 22:00 126 H 36 H 108/70 97 04/26/24 21:00 117 H 26 H 108/78 98 04/26/24 20:00 101.4 F H 116 H 34 H 111/71 91 L 90 04/26/24 19:22 80 04/26/24 19:00 115 H 35 H 108/72 94 L 04/26/24 18:00 113 H 30 H 108/72 95 04/26/24 17:00 118 H 31 H 102/73 93 L 04/26/24 16:00 112 H 28 H 97/68 97 90 04/26/24 15:12 80 04/26/24 15:00 118 H 33 H 102/68 90 L 04/26/24 14:00 115 H 29 H 100/64 91 L 04/26/24 13:00 120 H 32 H 90/63 89 L 04/26/24 12:00 98.9 F 121 H 27 H 92/61 91 L 04/26/24 11:07 70 04/26/24 11:00 126 H 34 H 04/26/24 10:00 121 H 30 H 101/80 Intake and Output 04/26/24 04/27/24 04/27/24 22:59 06:59 14:59 Intake Total 760 3180 130 Output Total 240 230 30 Balance 520 2950 100 Intake: IV 60 3180 130 ACETAMINOPHEN IV (For NPO 100 ) 1,000 mg In Empty Bag 1 bag @ 400 mls/hr IVPB Q6HR [facility] Rx#:[id number] Cefepime 2 gm In Sodium 100 Chloride 0.9% 100 ml @ 25 mls/hr IVPB Q8HR [facility] Rx# :[id number] Potassium Chloride 10 meq 100 In Water For Injection 1 100ml.bag @ 100 mls/hr IVPB Q1HR [facility] Rx#: [id number] Sodium Chloride 0.9% 1, 260 130 000 ml @ 130 mls/hr IV . Q7H42M [facility] Rx#:[id number] Sodium Chloride 0.9% 1, 60 120 000 ml @ 20 mls/hr IV . Q24H [facility] Rx#:[id number] Sodium Chloride 0.9% 1, 1000 000 ml @ 999 mls/hr IV . Q1H1M [facility] Rx#:[id number] Sodium Chloride 0.9% 1, 1000 000 ml @ 999 mls/hr IV . Q1H1M [facility] Rx#:[id number] Vancomycin 1,500 mg In 500 Sodium Chloride 0.9% 500 ml 500 ml @ 167 mls/hr IVPB ONCE [facility] Rx#: [id number] Intake, IV Titration 700 Amount Potassium Chloride 10 meq 100 In Water For Injection 1 100ml.bag @ 100 mls/hr IVPB Q1HR [facility] Rx#: [id number] Potassium Chloride 10 meq 500 In Water For Injection 1 100ml.bag @ 100 mls/hr IVPB Q1HR [facility] Rx#: [id number] Sodium Chloride 0.9% 1, 100 000 ml @ 20 mls/hr IV . Q24H [facility] Rx#:[id number] Output: Urine 240 230 30 Other: Voiding Method Indwelling Catheter Indwelling Catheter # Bowel Movements 1 1 Weight 88.6 kg GENERAL DESCRIPTION: Middle-aged female lying in bed, mild distress. tachypnea but no accessory muscle of respiration use. HEENT: Shows Pallor , no scleral icterus. Oral mucous membrane is dry. No pharyngeal erythema or thrush NECK: Trachea central, no thyromegaly. LUNGS: Unlabored breathing. Decreased breath sound at bases HEART: S1, S2, regular rate and rhythm. No loud murmur ABDOMEN: Soft, no tenderness , guarding or rigidity, no organomegaly EXTREMITIES: No edema of feet. SKIN: Patient did have unstageable sacral pressure ulcer with foul-smelling drainage NEUROLOGICAL: The patient is lethargic orientation could not be determined Results CBC & Chem 7: 04/27/24 05:17 04/27/24 05:17 Labs: Abnormal Lab Results - Last 24 Hours (Table) 04/26/24 04/26/24 04/26/24 Range/Units 12:08 12:08 22:11 RBC 2.73 L 3.24 L (3.80-5.40) m/uL Hgb 8.6 L 10.2 L (11.4-16.0) gm/dL Hct 27.5 L 32.3 L (34.0-46.0) % MCV 100.8 H (80.0-100.0) fL RDW (11.5-15.5) % Plt Count 122 L 97 L (150-450) k/uL Lymphocytes # (Manual) 0.68 L (1.0-4.8) k/uL Potassium 3.3 L (3.5-5.1) mmol/L Chloride (98-107) mmol/L BUN 19 H (7-17) mg/dL Creatinine 0.25 L (0.52-1.04) mg/dL Calcium 8.1 L (8.4-10.2) mg/dL 04/27/24 04/27/24 Range/Units 05:17 05:17 RBC 2.70 L (3.80-5.40) m/uL Hgb 8.5 L D (11.4-16.0) gm/dL Hct 27.4 L (34.0-46.0) % MCV 101.4 H (80.0-100.0) fL RDW 15.6 H (11.5-15.5) % Plt Count 112 L (150-450) k/uL Lymphocytes # (Manual) (1.0-4.8) k/uL Potassium 3.3 L (3.5-5.1) mmol/L Chloride 110 H (98-107) mmol/L BUN 20 H (7-17) mg/dL Creatinine 0.27 L (0.52-1.04) mg/dL Calcium 7.9 L (8.4-10.2) mg/dL Assessment and Plan (1) Sepsis Status: Acute Code(s): A41.9 - SEPSIS, UNSPECIFIED ORGANISM SNOMED Code(s): 73582299 (2) Pneumonia Status: Acute Code(s): J18.9 - PNEUMONIA, UNSPECIFIED ORGANISM SNOMED Code(s): 571512424 (3) Unstageable pressure ulcer of sacral region Status: Acute Code(s): L89.150 - PRESSURE ULCER OF SACRAL REGION, UNSTAGEABLE SNOMED Code(s): 64956673431953449 Plan: 1patient with sepsis in this patient who did have a fever tachycardia hypotension requiring pressor support meeting currently for SIRS source likely combination of possible pneumonia and possible infection of the unstageable sacral pressure ulcer with foul-smelling drainage and will need to cover for the resistant gram-positive as well as gram-negative pathogen 2-patient will need a surgical debridement of sacral wound discussed with nursing staff once the condition stabilizes and deep culture 3-patient is broadly covered with vancomycin and cefepime while waiting for the cultures to finalize and workup completed Prognosis guarded We will follow on clinical condition and cultures to further adjust medication if needed Thank you for this consultation we will follow the patient along with you Dictation was produced using [employer] dictation software. please excuse any grammatical, word or spelling errors. Time with Patient: Greater than 30
== END 2024-04-27 22:24 | disposition hospice, inpatient (51) | DRG 134 ==
LOC: EC 13:08 → 3SCARD 18:11 → 2SICU 04-25 09:55
PROVIDERS: ADMIT Student in an Organized Health Care Education/Training Program; ATTEND Student in an Organized Health Care Education/Training Program
PROC: 5A09457 Assistance with Respiratory Ventilation, 24-96 Consecutive Hours, Continuous Positive Airway Pressure (ICD-10-PCS; principal; 2024-04-25)
DX: I26.99 Other pulmonary embolism without acute cor pulmonale (principal); A41.9 Sepsis, unspecified organism; C50.919 Malignant neoplasm of unspecified site of unspecified female breast; C78.7 Secondary malignant neoplasm of liver and intrahepatic bile duct; C79.31 Secondary malignant neoplasm of brain; C79.51 Secondary malignant neoplasm of bone; G93.6 Cerebral edema; C78.1 Secondary malignant neoplasm of mediastinum; D64.9 Anemia, unspecified; L89.150 Pressure ulcer of sacral region, unstageable; D69.6 Thrombocytopenia, unspecified; E87.6 Hypokalemia; F32.A Depression, unspecified; F41.9 Anxiety disorder, unspecified; G82.20 Paraplegia, unspecified; F17.200 Nicotine dependence, unspecified, uncomplicated; R65.21 Severe sepsis with septic shock; I45.10 Unspecified right bundle-branch block; Z86.74 Personal history of sudden cardiac arrest; E77.8 Other disorders of glycoprotein metabolism; T40.2X5A Adverse effect of other opioids, initial encounter; J18.9 Pneumonia, unspecified organism; J96.01 Acute respiratory failure with hypoxia; K21.9 Gastro-esophageal reflux disease without esophagitis; Z17.22 Progesterone receptor negative status; K59.03 Drug induced constipation; L98.493 Non-pressure chronic ulcer of skin of other sites with necrosis of muscle; M47.816 Spondylosis without myelopathy or radiculopathy, lumbar region; N63.10 Unspecified lump in the right breast, unspecified quadrant; N39.0 Urinary tract infection, site not specified; Z17.1 Estrogen receptor negative status [ER-]; Z17.32 Human epidermal growth factor receptor 2 negative status; Z79.01 Long term (current) use of anticoagulants; Z79.02 Long term (current) use of antithrombotics/antiplatelets; Z79.899 Other long term (current) drug therapy; Z85.3 Personal history of malignant neoplasm of breast; Z86.718 Personal history of other venous thrombosis and embolism; Z71.3 Dietary counseling and surveillance
CPT/HCPCS: 36415; 36600; 71045; 71046; 71275; 74022; 80048; 80053; 81001; 82330; 82803; 82805; 83605; 83735; 83880; 84132; 84145; 84484; 85025; 85027; 85379; 85610; 85730; 87040; 87086; 93005; 93970; 94660; 94760; 96361; 96365; 96366; 96375; 99291